=== PATIENT | male | born 1970 | race African-American/Black ===

== ENCOUNTER 2018-01-06 19:52 | Inpatient (IN) | payer MEDICAID ==
[~2018-01-06] VITALS: Ht 182.9 cm; Wt 97.1 kg
[2018-01-06] MEDS ORDERED: IV NORMAL SALINE 1000ML BAG 1,000 ML IV SCH (20:26)
[2018-01-06 21:04] LABS: BASO # 0.1 x10^3/uL (0.0-0.2); BASO % 1 % (0-3); EOS # 0.2 x10^3/uL (0.0-0.7); EOS % 3 % (0-3); HEMATOCRIT 39.5 % (39.0-53.0); HEMOGLOBIN 13.7 g/dL (13.0-17.5); LYMPH # 1.8 x10^3/uL (1.0-4.8); LYMPH % 23 % (24-48); MEAN CORPUSCULAR HEMOGLOBIN 31 pg (25-35); MEAN CORPUSCULAR HGB CONC 35 g/dL (31-37); MEAN CORPUSCULAR VOLUME 90 fL (79-100); MONO # 0.5 x10^3/uL (0.0-1.1); MONO % 6 % (0-9); NEUT # 5.3 x10^3uL (1.8-7.7); NEUT % 68 % (31-73); PLATELET COUNT 214 x10^3/uL (140-400); RED BLOOD COUNT 4.38 x10^6/uL (4.30-5.70); RED CELL DISTRIBUTION WIDTH 13.7 % (11.5-14.5); WHITE BLOOD COUNT 7.8 x10^3/uL (4.0-11.0)
[2018-01-06 21:13] LABS: CALCIUM 9.2 mg/dL (8.5-10.1); CREATININE 1.2 mg/dL (0.7-1.3); GFR 64.9; POTASSIUM 4.3 mmol/L (3.5-5.1)
[2018-01-06 21:21] LABS: ALBUMIN 3.6 g/dL (3.4-5.0); ALBUMIN/GLOBULIN RATIO 0.8 (1.0-1.7); C-REACTIVE PROTEIN 4.8 mg/L (0-3.3); TOTAL BILIRUBIN 0.3 mg/dL (0.2-1.0); TOTAL PROTEIN 7.9 g/dL (6.4-8.2)
--- NOTE | 2018-01-06 21:27 | PHYS DOC ---
Past Medical History Past Medical History: Diabetes-Type II Past Surgical History: Other Additional Past Surgical Histo: RIGHT FOOT BIG TOE AMPUTATED Alcohol Use: None Drug Use: None Adult General Chief Complaint Chief Complaint: WOUND CHECK HPI HPI Patient is a 47-year-old male who presents with report of ulceration to his right foot that has been present for the last 2-3 months. Patient states that he has had type 2 diabetes for approximately 8-10 years and states that he had his great toe amputated not long after diagnosis of his diabetes. Patient states that his blood sugars have been difficult to control since onset of the foot ulcer. He indicates that he does not have a primary care doctor and has not been seen for his foot as yet. He is unsure whether or not he has been running a fever. He does admit to some intermittent nausea but currently denies any nausea or vomiting. He does report to some mild pain in the foot especially when the area of ulceration is palpated. He denies chest pain or shortness of breath. Review of Systems Review of Systems Constitutional: Denies fever or chills [] Respiratory: Denies cough or shortness of breath [] Cardiovascular: Denies chest pain[] GI: Denies abdominal pain, vomiting or diarrhea. Admits to intermittent nausea [ ] Musculoskeletal: Complains of right foot pain, ulceration and swelling with drainage from the wounds[] Integument: Reports ulceration and other wounds to right foot[] Neurologic: Denies headache, focal weakness or sensory changes [] All other systems were reviewed and found to be within normal limits, except as documented in this note. Current Medications Current Medications Current Medications Medications (Trade) Dose Ordered Sig/[facility] Start Time Stop Time Status Last Admin Dose Admin Insulin Human Regular (HumuLIN R VIAL) 8 unit 1X ONCE 01/06/18 23:15 01/06/18 23:16 DC Sodium Chloride 1,000 ml @ 1,000 mls/hr Q1H 01/06/18 20:26 01/06/18 21:25 DC 01/06/18 21:25 1,000 MLS/HR Vancomycin HCl 250 ml @ 250 mls/hr 1X ONCE 01/06/18 23:30 01/07/18 00:29 Allergies Allergies Allergies Coded Allergies Type Severity Reaction Last Updated Verified Penicillins Allergy Intermediate 01/06/18 Yes Physical Exam Physical Exam Constitutional: Well developed, well nourished, no acute distress, non-toxic appearance. [] HENT: Normocephalic, atraumatic, bilateral external ears normal, oropharynx moist, no oral exudates, nose normal. [] Eyes: PERRLA, EOMI, conjunctiva normal, no discharge. [] Neck: Normal range of motion, no tenderness, supple, no stridor. [] Cardiovascular:Heart rate regular rhythm [] Lungs & Thorax: Bilateral breath sounds clear to auscultation [] Abdomen: Bowel sounds normal, soft, no tenderness, no masses, no pulsatile masses. [] Skin: Warm, dry. [] Extremities: Right foot demonstrates ulceration to the lateral heel as well as what appears to be ulcerations to the plantar aspect around the ball of the foot with scant purulent drainage. [] Neurologic: Alert and oriented X 3, normal motor function. [] Current Patient Data Vital Signs Vital Signs Date Time Temp Pulse Resp B/P (MAP) Pulse Ox O2 Delivery O2 Flow Rate FiO2 01/06/18 20:10 98.9 87 18 137/81 (99) 98 Room Air 98.9 Lab Values Laboratory Tests Test 01/06/18 20:07 01/06/18 20:45 01/06/18 20:50 Glucose (Fingerstick) 390 mg/dL (70-99) H Urine Collection Type Unknown Urine Color Yellow Urine Clarity Clear Urine pH 6.0 Urine Specific [place] 1.025 Urine Protein Negative mg/dL (NEG-TRACE) Urine Glucose (UA) >=1000 mg/dL (NEG) Urine Ketones (Stick) Negative mg/dL (NEG) Urine Blood Negative (NEG) Urine Nitrite Negative (NEG) Urine Bilirubin Negative (NEG) Urine Urobilinogen Dipstick 0.2 mg/dL (0.2 mg/dL) Urine Leukocyte Esterase Negative (NEG) Urine RBC 0 /HPF (0-2) Urine WBC 0 /HPF (0-4) Urine Squamous Epithelial Cells Few /LPF Urine Bacteria 0 /HPF (0-FEW) White Blood Count 7.8 x10^3/uL (4.0-11.0) Red Blood Count 4.38 x10^6/uL (4.30-5.70) Hemoglobin 13.7 g/dL (13.0-17.5) Hematocrit 39.5 % (39.0-53.0) Mean Corpuscular Volume 90 fL (79-100) Mean Corpuscular Hemoglobin 31 pg (25-35) Mean Corpuscular Hemoglobin Concent 35 g/dL (31-37) Red Cell Distribution Width 13.7 % (11.5-14.5) Platelet Count 214 x10^3/uL (140-400) Neutrophils (%) (Auto) 68 % (31-73) Lymphocytes (%) (Auto) 23 % (24-48) L Monocytes (%) (Auto) 6 % (0-9) Eosinophils (%) (Auto) 3 % (0-3) Basophils (%) (Auto) 1 % (0-3) Neutrophils # (Auto) 5.3 x10^3uL (1.8-7.7) Lymphocytes # (Auto) 1.8 x10^3/uL (1.0-4.8) Monocytes # (Auto) 0.5 x10^3/uL (0.0-1.1) Eosinophils # (Auto) 0.2 x10^3/uL (0.0-0.7) Basophils # (Auto) 0.1 x10^3/uL (0.0-0.2) Sodium Level 133 mmol/L (136-145) L Potassium Level 4.3 mmol/L (3.5-5.1) Chloride Level 97 mmol/L (98-107) L Carbon Dioxide Level 26 mmol/L (21-32) Anion Gap 10 (6-14) Blood Urea Nitrogen 14 mg/dL (8-26) Creatinine 1.2 mg/dL (0.7-1.3) Estimated GFR (Cockcroft-Gault) 64.9 BUN/Creatinine Ratio 12 (6-20) Glucose Level 469 mg/dL (70-99) H Calcium Level 9.2 mg/dL (8.5-10.1) Total Bilirubin 0.3 mg/dL (0.2-1.0) Aspartate Amino Transferase (AST) 21 U/L (15-37) Alanine Aminotransferase (ALT) 28 U/L (16-63) Alkaline Phosphatase 97 U/L (46-116) C-Reactive Protein, Quantitative 4.8 mg/L (0-3.3) H Total Protein 7.9 g/dL (6.4-8.2) Albumin 3.6 g/dL (3.4-5.0) Albumin/Globulin Ratio 0.8 (1.0-1.7) L Laboratory Tests 01/06/18 20:50 Laboratory Tests 01/06/18 20:50 EKG EKG [] Radiology/Procedures Radiology/Procedures [] Impressions: IMPRESSION: Irregularity of the distal right first metatarsal is seen which could reflect osteomyelitis as outlined above. Course & Med Decision Making Course & Med Decision Making Pertinent Labs and Imaging studies reviewed. (See chart for details) [] Dragon Disclaimer Dragon Disclaimer This electronic medical record was generated, in whole or in part, using a voice recognition dictation system. Departure Departure Impression: Primary Impression: Osteomyelitis Additional Impressions: Diabetic foot ulcer Uncontrolled type 2 diabetes mellitus Disposition: ADMITTED INPATIENT Admitting Physician: Xie. Koch Condition: GOOD Referrals: NO PCP (PCP) Problem Qualifiers Primary Impression: Osteomyelitis Osteomyelitis type: unspecified type Osteomyelitis location: foot Laterality: right Qualified Codes: M86.9 - Osteomyelitis, unspecified Additional Impressions: Diabetic foot ulcer Diabetic foot ulcer location: heel Diabetes mellitus type: type 2 Laterality: right Non-pressure ulcer stage: unspecified non-pressure ulcer stage Qualified Codes: E11.621 - Type 2 diabetes mellitus with foot ulcer; L97.419 - Non-pressure chronic ulcer of right heel and midfoot with unspecified severity Uncontrolled type 2 diabetes mellitus Glycemic state: with hyperglycemia Qualified Codes: E11.65 - Type 2 diabetes mellitus with hyperglycemia MELISSA BEATTY Jr. DO Jan 06, 2018 21:27
[2018-01-06 21:36] LABS: BILIRUBIN,URINE NEGATIVE (NEG); CLARITY,URINE CLEAR; COLOR,URINE YELLOW; NITRITE,URINE NEGATIVE (NEG); PROTEIN,URINE NEGATIVE (NEG-TRACE); UROBILINOGEN,URINE 0.2 mg/dL (0.2 mg/dL)
[2018-01-06 21:44] LABS: BACTERIA,URINE 0 /HPF (0-FEW); RBC,URINE 0 /HPF (0-2); SQUAMOUS EPITHELIAL CELL,UR FEW /LPF; WBC,URINE 0 /HPF (0-4)
--- NOTE | 2018-01-06 22:44 | RAD ---
Three-view right foot radiographs 01/06/2018 CLINICAL HISTORY: Diabetic foot ulcer. AP, lateral and oblique digital radiographs of the right foot were obtained. No previous radiographs are available for comparison. The patient is post amputation of the right first toe at the level of the distal metaphysis of the right first metatarsal. Lucency is seen within the soft tissues adjacent to the amputation site. Soft tissue swelling is seen. Irregularity of the remaining distal right first metatarsal is seen. Osteomyelitis in this region is not excluded. Clinical correlation is recommended. No fracture or dislocation is seen. IMPRESSION: Irregularity of the distal right first metatarsal is seen which could reflect osteomyelitis as outlined above. Electronically signed by: Ervin Johnson MD (01/06/2018 10:41 PM) [facility]
[2018-01-06] MEDS ORDERED: INSULIN REGULAR 100 UNIT/ML 3ML VIAL. IV ONE (23:15)
[2018-01-06] MEDS ORDERED: VANCOMYCIN 1GM IVPB FOR OMNI 250 ML IV ONE (23:30)
[2018-01-06] MEDS ORDERED: ACETAMINOPHEN 325 MG TABLET. PO PRN (23:45)
[2018-01-07] MEDS ORDERED: INSU100C4 SQ (02:11)
[2018-01-07] MEDS ORDERED: INSU100I13 SQ (02:11)
[2018-01-07] MEDS ORDERED: DEXTROSE 50% 25 GM / 50ML DISP.SYRIN. IV PRN ×2 (02:15→11:15)
[2018-01-07 03:00] VITALS: BP 123/89
[2018-01-07 07:00] VITALS: BP 143/95
[2018-01-07] MEDS ORDERED: INSULIN GLARGINE 300 UNITS/3 ML INSULN.PEN. SQ ONE (09:30)
[2018-01-07 09:55] LABS: BASO % 1 % (0-3); EOS # 0.1 x10^3/uL (0.0-0.7); EOS % 2 % (0-3); HEMATOCRIT 39.7 % (39.0-53.0); HEMOGLOBIN 13.6 g/dL (13.0-17.5); LYMPH # 1.4 x10^3/uL (1.0-4.8); LYMPH % 24 % (24-48); MEAN CORPUSCULAR HEMOGLOBIN 31 pg (25-35); MEAN CORPUSCULAR HGB CONC 34 g/dL (31-37); MEAN CORPUSCULAR VOLUME 91 fL (79-100); MONO # 0.4 x10^3/uL (0.0-1.1); MONO % 7 % (0-9); NEUT # 3.7 x10^3uL (1.8-7.7); NEUT % 65 % (31-73); PLATELET COUNT 174 x10^3/uL (140-400); RED BLOOD COUNT 4.37 x10^6/uL (4.30-5.70); RED CELL DISTRIBUTION WIDTH 13.5 % (11.5-14.5); WHITE BLOOD COUNT 5.6 x10^3/uL (4.0-11.0)
[2018-01-07] MEDS ORDERED: INSULIN REGULAR 100 UNIT/ML 3ML VIAL. IV ONE (10:00)
[2018-01-07 10:09] LABS: CALCIUM 8.7 mg/dL (8.5-10.1); CREATININE 1.1 mg/dL (0.7-1.3); GFR 86.8; POTASSIUM 4.8 mmol/L (3.5-5.1)
[2018-01-07] MEDS ORDERED: DOCUSATE SODIUM 100 MG CAPSULE. PO PRN (11:15)
[2018-01-07] MEDS ORDERED: MORPHINE SULFATE 2 MG/ML VIAL. IV PRN (11:15)
[2018-01-07] MEDS ORDERED: ACETAMINOPHEN 325 MG TABLET. PO PRN (11:15)
[2018-01-07] MEDS ORDERED: hydrALAZINE 20 MG/ML VIAL. IVP PRN (11:15)
[2018-01-07] MEDS ORDERED: ONDANSETRON PF 4 MG/2 ML VIAL. IV PRN (11:15)
[2018-01-07] MEDS ORDERED: traMADol 50 MG TABLET PO PRN (11:15)
[2018-01-07] MEDS ORDERED: INSULIN LISPRO 300 UNITS/3 ML INSULN.PEN. SQ ONE (11:30)
[2018-01-07] MEDS: INSULIN LISPRO 300 UNITS/3 ML INSULN.PEN. SQ SCH ×4 (11:30→17:00)
[2018-01-07] MEDS: VANCOMYCIN PER PHARMACY MC PRN (11:43)
[2018-01-07] MEDS: VANCOMYCIN 1.5 GM in IV NORMAL SALINE 500ML BAG 500 ML IV SCH (11:51)
[2018-01-07 15:00] VITALS: BP 139/88
--- NOTE | 2018-01-07 15:07 | PDOC1 ---
History and Physical Date of Admission Date of Admission 01/07/18 Identification/Chief Complaint Chief Complaint rt foot ulcer Source Source: Chart review, Patient History of Present Illness History of Present Illness HPI Patient is a 47-year-old male who presents with report of ulceration to his right foot that has been present for the last 2-3 months. pt behaves inappropriatly to staff, not willing to tell me details, wants to go out for "fresh air" and was found smoking. He has no PCP, takes insulin for DM2. he has rt toe amputated, told me he wants to get his foot ulcer checked here, mild pain, fever at home before, but not telling me details. not seen any doc in the past 2months for the foot. no N/V, chest pain, so.b Past Medical History Endocrine: Diabetes Past Surgical History Past Surgical History rt toe amputation. Family History Family History: Hypertension Social History Smoke: 1 pack per day ALCOHOL: social Drugs: None Current Problem List Problem List Problems Medical Problems: (1) Diabetic foot ulcer Status: Acute (2) Osteomyelitis Status: Acute (3) Uncontrolled type 2 diabetes mellitus Status: Acute Current Medications Current Medications Current Medications Medications (Trade) Dose Ordered Sig/[facility] Start Time Stop Time Status Last Admin Dose Admin Acetaminophen (Tylenol) 650 mg PRN Q6HRS PRN 01/07/18 11:15 Dextrose (Dextrose 50%-Water Syringe) 12.5 gm PRN Q15MIN PRN 01/07/18 11:15 Docusate Sodium (Colace) 100 mg PRN DAILY PRN 01/07/18 11:15 Hydralazine HCl (Apresoline Inj) 10 mg PRN Q4HRS PRN 01/07/18 11:15 Insulin Glargine (Lantus) 40 units 1X ONCE 01/07/18 09:30 01/07/18 09:31 DC 01/07/18 09:28 40 UNITS Insulin Human Lispro (HumaLOG) 30 units 1X ONCE 01/07/18 11:30 01/07/18 11:31 DC 01/07/18 11:57 30 UNITS Insulin Human Regular (HumuLIN R VIAL) 10 unit 1X ONCE 01/07/18 10:00 01/07/18 10:01 DC 01/07/18 09:28 10 UNIT Lactobacillus Rhamnosus (Culturelle) 1 cap BID 01/07/18 21:00 Meropenem 1 gm/ Sodium Chloride 100 ml @ 200 mls/hr Q8HRS 01/07/18 14:00 Morphine Sulfate (Morphine Sulfate) 2 mg PRN Q2HR PRN 01/07/18 11:15 Ondansetron HCl (Zofran) 4 mg PRN Q6HRS PRN 01/07/18 11:15 Oxycodone/ Acetaminophen (Percocet 5/325) 1 tab PRN Q6HRS PRN 01/07/18 02:00 Sodium Chloride 1,000 ml @ 1,000 mls/hr Q1H 01/06/18 20:26 01/06/18 21:25 DC 01/06/18 21:25 1,000 MLS/HR Tramadol HCl (Ultram) 50 mg PRN Q6HRS PRN 01/07/18 11:15 Vancomycin HCl (Vanco Per Pharmacy) 1 each PRN DAILY PRN 01/07/18 11:15 01/07/18 11:43 1 EACH Vancomycin HCl (Vancomycin Trough Level) 1 each 1X ONCE 01/08/18 22:30 01/08/18 22:31 Vancomycin HCl 1.5 gm/Sodium Chloride 500 ml @ 250 mls/hr Q12H 01/07/18 12:00 01/07/18 11:51 250 MLS/HR Allergies Allergies Allergies Coded Allergies Type Severity Reaction Last Updated Verified lisinopril Allergy Severe ANGIOEDEMA 01/07/18 Yes Penicillins Allergy Intermediate 01/06/18 Yes ROS Review of System CONSTITUTIONAL: No fever or chills EYES: No recent changes SKIN: No rash or itching CARDIOVASCULAR: No chest pain, syncope, palpitations, or edema RESPIRATORY: No SOB or cough GASTROINTESTINAL: No nausea, vomiting or abdominal pain NEUROLOGICAL: No headaches or weakness ENDOCRINE: No cold or heat intolerance GENITOURINARY: No urgency or frequency of urination MUSCULOSKELETAL: No back pain or joint pain LYMPHATICS: No enlarged lymph nodes PSYCHIATRIC: No anxiety or depression Physical Exam Physical Exam GEN.: No apparent distress. Alert and oriented. HEENT: Head is normocephalic, atraumatic NECK: Supple. LUNGS: Clear to auscultation. HEART: RRR, S1, S2 present. Peripheral pulses intact ABDOMEN: Soft, nontender. Positive bowel sounds. EXTREMITIES: Without any cyanosis. rt foot multiple ulcer, non healing. rt big toe s/p amputation. NEUROLOGIC: Normal speech, normal tone PSYCHIATRIC: Normal affect, normal mood. SKIN: No ulcerations Vitals Vitals Vital Signs Date Time Temp Pulse Resp B/P (MAP) Pulse Ox O2 Delivery O2 Flow Rate FiO2 01/07/18 08:00 Room Air 01/07/18 07:00 98.0 80 18 143/95 (111) 99 98.0 Labs Labs Laboratory Tests Test 01/06/18 20:07 01/06/18 20:45 01/06/18 20:50 01/07/18 00:47 Glucose (Fingerstick) 390 mg/dL (70-99) 291 mg/dL (70-99) Urine Collection Type Unknown Urine Color Yellow Urine Clarity Clear Urine pH 6.0 Urine Specific [place] 1.025 Urine Protein Negative mg/dL (NEG-TRACE) Urine Glucose (UA) >=1000 mg/dL (NEG) Urine Ketones (Stick) Negative mg/dL (NEG) Urine Blood Negative (NEG) Urine Nitrite Negative (NEG) Urine Bilirubin Negative (NEG) Urine Urobilinogen Dipstick 0.2 mg/dL (0.2 mg/dL) Urine Leukocyte Esterase Negative (NEG) Urine RBC 0 /HPF (0-2) Urine WBC 0 /HPF (0-4) Urine Squamous Epithelial Cells Few /LPF Urine Bacteria 0 /HPF (0-FEW) White Blood Count 7.8 x10^3/uL (4.0-11.0) Red Blood Count 4.38 x10^6/uL (4.30-5.70) Hemoglobin 13.7 g/dL (13.0-17.5) Hematocrit 39.5 % (39.0-53.0) Mean Corpuscular Volume 90 fL (79-100) Mean Corpuscular Hemoglobin 31 pg (25-35) Mean Corpuscular Hemoglobin Concent 35 g/dL (31-37) Red Cell Distribution Width 13.7 % (11.5-14.5) Platelet Count 214 x10^3/uL (140-400) Neutrophils (%) (Auto) 68 % (31-73) Lymphocytes (%) (Auto) 23 % (24-48) Monocytes (%) (Auto) 6 % (0-9) Eosinophils (%) (Auto) 3 % (0-3) Basophils (%) (Auto) 1 % (0-3) Neutrophils # (Auto) 5.3 x10^3uL (1.8-7.7) Lymphocytes # (Auto) 1.8 x10^3/uL (1.0-4.8) Monocytes # (Auto) 0.5 x10^3/uL (0.0-1.1) Eosinophils # (Auto) 0.2 x10^3/uL (0.0-0.7) Basophils # (Auto) 0.1 x10^3/uL (0.0-0.2) Sodium Level 133 mmol/L (136-145) Potassium Level 4.3 mmol/L (3.5-5.1) Chloride Level 97 mmol/L (98-107) Carbon Dioxide Level 26 mmol/L (21-32) Anion Gap 10 (6-14) Blood Urea Nitrogen 14 mg/dL (8-26) Creatinine 1.2 mg/dL (0.7-1.3) Estimated GFR (Cockcroft-Gault) 64.9 BUN/Creatinine Ratio 12 (6-20) Glucose Level 469 mg/dL (70-99) Calcium Level 9.2 mg/dL (8.5-10.1) Total Bilirubin 0.3 mg/dL (0.2-1.0) Aspartate Amino Transf (AST/SGOT) 21 U/L (15-37) Alanine Aminotransferase (ALT/SGPT) 28 U/L (16-63) Alkaline Phosphatase 97 U/L (46-116) C-Reactive Protein, Quantitative 4.8 mg/L (0-3.3) Total Protein 7.9 g/dL (6.4-8.2) Albumin 3.6 g/dL (3.4-5.0) Albumin/Globulin Ratio 0.8 (1.0-1.7) Test 01/07/18 08:11 01/07/18 09:20 01/07/18 10:59 Glucose (Fingerstick) 558 mg/dL (70-99) 365 mg/dL (70-99) White Blood Count 5.6 x10^3/uL (4.0-11.0) Red Blood Count 4.37 x10^6/uL (4.30-5.70) Hemoglobin 13.6 g/dL (13.0-17.5) Hematocrit 39.7 % (39.0-53.0) Mean Corpuscular Volume 91 fL (79-100) Mean Corpuscular Hemoglobin 31 pg (25-35) Mean Corpuscular Hemoglobin Concent 34 g/dL (31-37) Red Cell Distribution Width 13.5 % (11.5-14.5) Platelet Count 174 x10^3/uL (140-400) Neutrophils (%) (Auto) 65 % (31-73) Lymphocytes (%) (Auto) 24 % (24-48) Monocytes (%) (Auto) 7 % (0-9) Eosinophils (%) (Auto) 2 % (0-3) Basophils (%) (Auto) 1 % (0-3) Neutrophils # (Auto) 3.7 x10^3uL (1.8-7.7) Lymphocytes # (Auto) 1.4 x10^3/uL (1.0-4.8) Monocytes # (Auto) 0.4 x10^3/uL (0.0-1.1) Eosinophils # (Auto) 0.1 x10^3/uL (0.0-0.7) Basophils # (Auto) 0.0 x10^3/uL (0.0-0.2) Sodium Level 130 mmol/L (136-145) Potassium Level 4.8 mmol/L (3.5-5.1) Chloride Level 96 mmol/L (98-107) Carbon Dioxide Level 27 mmol/L (21-32) Anion Gap 7 (6-14) Blood Urea Nitrogen 14 mg/dL (8-26) Creatinine 1.1 mg/dL (0.7-1.3) Estimated GFR (Cockcroft-Gault) 86.8 Glucose Level 636 mg/dL (70-99) Calcium Level 8.7 mg/dL (8.5-10.1) Laboratory Tests Test 01/06/18 20:07 01/06/18 20:45 01/06/18 20:50 01/07/18 00:47 Glucose (Fingerstick) 390 mg/dL (70-99) 291 mg/dL (70-99) Urine Collection Type Unknown Urine Color Yellow Urine Clarity Clear Urine pH 6.0 Urine Specific [place] 1.025 Urine Protein Negative mg/dL (NEG-TRACE) Urine Glucose (UA) >=1000 mg/dL (NEG) Urine Ketones (Stick) Negative mg/dL (NEG) Urine Blood Negative (NEG) Urine Nitrite Negative (NEG) Urine Bilirubin Negative (NEG) Urine Urobilinogen Dipstick 0.2 mg/dL (0.2 mg/dL) Urine Leukocyte Esterase Negative (NEG) Urine RBC 0 /HPF (0-2) Urine WBC 0 /HPF (0-4) Urine Squamous Epithelial Cells Few /LPF Urine Bacteria 0 /HPF (0-FEW) White Blood Count 7.8 x10^3/uL (4.0-11.0) Red Blood Count 4.38 x10^6/uL (4.30-5.70) Hemoglobin 13.7 g/dL (13.0-17.5) Hematocrit 39.5 % (39.0-53.0) Mean Corpuscular Volume 90 fL (79-100) Mean Corpuscular Hemoglobin 31 pg (25-35) Mean Corpuscular Hemoglobin Concent 35 g/dL (31-37) Red Cell Distribution Width 13.7 % (11.5-14.5) Platelet Count 214 x10^3/uL (140-400) Neutrophils (%) (Auto) 68 % (31-73) Lymphocytes (%) (Auto) 23 % (24-48) Monocytes (%) (Auto) 6 % (0-9) Eosinophils (%) (Auto) 3 % (0-3) Basophils (%) (Auto) 1 % (0-3) Neutrophils # (Auto) 5.3 x10^3uL (1.8-7.7) Lymphocytes # (Auto) 1.8 x10^3/uL (1.0-4.8) Monocytes # (Auto) 0.5 x10^3/uL (0.0-1.1) Eosinophils # (Auto) 0.2 x10^3/uL (0.0-0.7) Basophils # (Auto) 0.1 x10^3/uL (0.0-0.2) Sodium Level 133 mmol/L (136-145) Potassium Level 4.3 mmol/L (3.5-5.1) Chloride Level 97 mmol/L (98-107) Carbon Dioxide Level 26 mmol/L (21-32) Anion Gap 10 (6-14) Blood Urea Nitrogen 14 mg/dL (8-26) Creatinine 1.2 mg/dL (0.7-1.3) Estimated GFR (Cockcroft-Gault) 64.9 BUN/Creatinine Ratio 12 (6-20) Glucose Level 469 mg/dL (70-99) Calcium Level 9.2 mg/dL (8.5-10.1) Total Bilirubin 0.3 mg/dL (0.2-1.0) Aspartate Amino Transf (AST/SGOT) 21 U/L (15-37) Alanine Aminotransferase (ALT/SGPT) 28 U/L (16-63) Alkaline Phosphatase 97 U/L (46-116) C-Reactive Protein, Quantitative 4.8 mg/L (0-3.3) Total Protein 7.9 g/dL (6.4-8.2) Albumin 3.6 g/dL (3.4-5.0) Albumin/Globulin Ratio 0.8 (1.0-1.7) Test 01/07/18 08:11 01/07/18 09:20 01/07/18 10:59 Glucose (Fingerstick) 558 mg/dL (70-99) 365 mg/dL (70-99) White Blood Count 5.6 x10^3/uL (4.0-11.0) Red Blood Count 4.37 x10^6/uL (4.30-5.70) Hemoglobin 13.6 g/dL (13.0-17.5) Hematocrit 39.7 % (39.0-53.0) Mean Corpuscular Volume 91 fL (79-100) Mean Corpuscular Hemoglobin 31 pg (25-35) Mean Corpuscular Hemoglobin Concent 34 g/dL (31-37) Red Cell Distribution Width 13.5 % (11.5-14.5) Platelet Count 174 x10^3/uL (140-400) Neutrophils (%) (Auto) 65 % (31-73) Lymphocytes (%) (Auto) 24 % (24-48) Monocytes (%) (Auto) 7 % (0-9) Eosinophils (%) (Auto) 2 % (0-3) Basophils (%) (Auto) 1 % (0-3) Neutrophils # (Auto) 3.7 x10^3uL (1.8-7.7) Lymphocytes # (Auto) 1.4 x10^3/uL (1.0-4.8) Monocytes # (Auto) 0.4 x10^3/uL (0.0-1.1) Eosinophils # (Auto) 0.1 x10^3/uL (0.0-0.7) Basophils # (Auto) 0.0 x10^3/uL (0.0-0.2) Sodium Level 130 mmol/L (136-145) Potassium Level 4.8 mmol/L (3.5-5.1) Chloride Level 96 mmol/L (98-107) Carbon Dioxide Level 27 mmol/L (21-32) Anion Gap 7 (6-14) Blood Urea Nitrogen 14 mg/dL (8-26) Creatinine 1.1 mg/dL (0.7-1.3) Estimated GFR (Cockcroft-Gault) 86.8 Glucose Level 636 mg/dL (70-99) Calcium Level 8.7 mg/dL (8.5-10.1) VTE Prophylaxis Ordered VTE Prophylaxis Devices: Yes VTE Pharmacological Prophylaxi: Yes Assessment/Plan Assessment/Plan rt foot unhealing ulcer, likely osteomyolitis dm2 uncontrolled , on insulin non compliance,NO PCP tobaccoism plan: ortho, id consult MRI as per ortho add merropenum, vanco fu bcx cont isnulin ,slightly decreased, ssi pt wants to go outside for "fresh air" , given concern about pt's safety, we DONOT allow pts go outside pt upset, i told material crew supervisor to tell me that he has to sign AMA if do so, and i went to talk to him again with accompany of security. pt seems ok to stay now JOSÉ MANUEL VALDERRAMA MD Jan 07, 2018 15:07
[2018-01-07] MEDS: IV NORMAL SALINE 1000ML BAG 1,000 ML IV SCH (15:24)
[2018-01-07] MEDS: HEPARIN PF for SUB-Q USE 5,000 UNIT/0.5 ML VIAL. SQ SCH ×2 (15:28→21:38)
[2018-01-07] MEDS: MEROPENEM 1 GM in IV NORMAL SALINE 100ML 100 ML IV SCH ×2 (16:16→21:26)
[2018-01-07 19:00] VITALS: BP 146/102
[2018-01-07] MEDS: LACTOBACILLUS RHAMNOSUS GG 1 CAPSULE. PO SCH (20:12)
[2018-01-07] MEDS: ZOLPIDEM 5 MG TABLET. PO PRN (21:27)
[2018-01-07] MEDS: INSULIN GLARGINE 300 UNITS/3 ML INSULN.PEN. SQ SCH (21:38)
[2018-01-07 23:00] VITALS: BP 145/80
[2018-01-08] MEDS: IV NORMAL SALINE 1000ML BAG 1,000 ML IV SCH ×2 (04:20→17:40)
[2018-01-08] MEDS: HEPARIN PF for SUB-Q USE 5,000 UNIT/0.5 ML VIAL. SQ SCH ×3 (06:00→21:06)
[2018-01-08] MEDS: MEROPENEM 1 GM in IV NORMAL SALINE 100ML 100 ML IV SCH ×3 (07:09→21:08)
[2018-01-08 07:10] VITALS: BP 126/86
[2018-01-08] MEDS: INSULIN LISPRO 300 UNITS/3 ML INSULN.PEN. SQ SCH ×6 (07:30→16:53)
[2018-01-08] MEDS: LACTOBACILLUS RHAMNOSUS GG 1 CAPSULE. PO SCH ×3 (08:13→22:24)
--- NOTE | 2018-01-08 10:16 | PDOC ---
Infectious Disease Note Vital Sign Vital Signs Vital Signs Date Time Temp Pulse Resp B/P (MAP) Pulse Ox O2 Delivery O2 Flow Rate FiO2 01/08/18 07:10 Room Air 01/08/18 07:10 97.5 65 16 126/86 (99) 97 97.5 Labs Lab Laboratory Tests Test 01/07/18 10:59 01/07/18 16:50 01/07/18 20:59 01/08/18 07:32 Glucose (Fingerstick) 365 mg/dL (70-99) 189 mg/dL (70-99) 191 mg/dL (70-99) 136 mg/dL (70-99) Micro Microbiology 01/07/18 Blood Culture - Preliminary, Resulted NO GROWTH AFTER 1 DAY 01/07/18 Aerobic Culture, Resulted Pending 01/07/18 Aerobic Culture Result 1 (OLIVA), Resulted Pending 01/07/18 Gram Stain - Final, Resulted 01/07/18 Gram Stain Result 1 (OLIVA) - Final, Resulted 01/07/18 Gram Stain Result 2 (OLIVA) - Final, Resulted 01/07/18 Gram Stain Result 3 (OLIVA) - Final, Resulted Objective Assessment R foot wound - GNR s/p R 5th toe amp at [facility] PCN allergy as a child - uncertain if ever had Amox or keflex. Tolerating Meropenem Plan Plan of Care Cont abx F/u labs and cults F/u MRI Cont local wound care Thank you # [phone] NAFISA JURADO MD Jan 08, 2018 10:16
[2018-01-08] MEDS: oxyCODONE/APAP 5/325 1 TAB TABLET PO PRN ×2 (10:40→16:51)
[2018-01-08 10:46] VITALS: BP 148/80
--- NOTE | 2018-01-08 11:35 | PDOC ---
Provider Note Provider Note Went to see patient, but not in room. X-rays and MRI images and reports reviewed. Dr. Peck recommended wound care and antibiotics, per infectious disease. No surgical intervention necessary at this time. ROSE MARIE COLON Jan 08, 2018 11:35
[2018-01-08] MEDS: VANCOMYCIN 1.5 GM in IV NORMAL SALINE 500ML BAG 500 ML IV SCH ×3 (11:52)
[2018-01-08] MEDS: VANCOMYCIN PER PHARMACY MC PRN (11:58)
[2018-01-08 13:02] LABS: CALCIUM 8.8 mg/dL (8.5-10.1); CREATININE 0.9 mg/dL (0.7-1.3); GFR 109.4; POTASSIUM 3.9 mmol/L (3.5-5.1)
[2018-01-08 13:07] LABS: BASO % 1 % (0-3); EOS # 0.2 x10^3/uL (0.0-0.7); EOS % 3 % (0-3); HEMATOCRIT 38.3 % (39.0-53.0); HEMOGLOBIN 13.5 g/dL (13.0-17.5); LYMPH # 1.6 x10^3/uL (1.0-4.8); LYMPH % 24 % (24-48); MEAN CORPUSCULAR HEMOGLOBIN 32 pg (25-35); MEAN CORPUSCULAR HGB CONC 35 g/dL (31-37); MEAN CORPUSCULAR VOLUME 90 fL (79-100); MONO # 0.4 x10^3/uL (0.0-1.1); MONO % 7 % (0-9); NEUT # 4.2 x10^3uL (1.8-7.7); NEUT % 66 % (31-73); PLATELET COUNT 193 x10^3/uL (140-400); RED BLOOD COUNT 4.25 x10^6/uL (4.30-5.70); RED CELL DISTRIBUTION WIDTH 13.8 % (11.5-14.5); WHITE BLOOD COUNT 6.4 x10^3/uL (4.0-11.0)
--- NOTE | 2018-01-08 14:48 | PDOC ---
PROGRESS NOTES Chief Complaint Chief Complaint rt foot unhealing ulcer, likely osteomyolitis dm2 uncontrolled , on insulin non compliance,NO PCP tobaccoism plan: ortho, id consult MRI as per ortho, result pending. 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 History of Present Illness History of Present Illness feels ok hyperglycemia better Vitals Vitals Vital Signs Date Time Temp Pulse Resp B/P (MAP) Pulse Ox O2 Delivery O2 Flow Rate FiO2 01/08/18 11:53 Room Air 01/08/18 10:46 98.3 79 18 148/80 (102) 99 98.3 Physical Exam Physical Exam rt foot has 3 non healing ulcer big toe amputated General: Alert, Oriented X3, Cooperative Heart: Regular rate, Normal S1, Normal S2 Lungs: Clear Abdomen: Normal bowel sounds, Soft Extremities: No clubbing, No cyanosis Labs LABS Laboratory Tests Test 01/07/18 16:50 01/07/18 20:59 01/08/18 07:32 01/08/18 10:45 Glucose (Fingerstick) 189 mg/dL (70-99) 191 mg/dL (70-99) 136 mg/dL (70-99) 274 mg/dL (70-99) Test 01/08/18 12:45 White Blood Count 6.4 x10^3/uL (4.0-11.0) Red Blood Count 4.25 x10^6/uL (4.30-5.70) Hemoglobin 13.5 g/dL (13.0-17.5) Hematocrit 38.3 % (39.0-53.0) Mean Corpuscular Volume 90 fL (79-100) Mean Corpuscular Hemoglobin 32 pg (25-35) Mean Corpuscular Hemoglobin Concent 35 g/dL (31-37) Red Cell Distribution Width 13.8 % (11.5-14.5) Platelet Count 193 x10^3/uL (140-400) Neutrophils (%) (Auto) 66 % (31-73) Lymphocytes (%) (Auto) 24 % (24-48) Monocytes (%) (Auto) 7 % (0-9) Eosinophils (%) (Auto) 3 % (0-3) Basophils (%) (Auto) 1 % (0-3) Neutrophils # (Auto) 4.2 x10^3uL (1.8-7.7) Lymphocytes # (Auto) 1.6 x10^3/uL (1.0-4.8) Monocytes # (Auto) 0.4 x10^3/uL (0.0-1.1) Eosinophils # (Auto) 0.2 x10^3/uL (0.0-0.7) Basophils # (Auto) 0.0 x10^3/uL (0.0-0.2) Sodium Level 135 mmol/L (136-145) Potassium Level 3.9 mmol/L (3.5-5.1) Chloride Level 103 mmol/L (98-107) Carbon Dioxide Level 26 mmol/L (21-32) Anion Gap 6 (6-14) Blood Urea Nitrogen 10 mg/dL (8-26) Creatinine 0.9 mg/dL (0.7-1.3) Estimated GFR (Cockcroft-Gault) 109.4 Glucose Level 313 mg/dL (70-99) Calcium Level 8.8 mg/dL (8.5-10.1) Assessment and Plan Assessmemt and Plan Problems Medical Problems: (1) Diabetic foot ulcer Status: Acute (2) Osteomyelitis Status: Acute (3) Uncontrolled type 2 diabetes mellitus Status: Acute Comment Review of Relevant I have reviewed the following items yuly (where applicable) has been applied. Labs Laboratory Tests Test 01/06/18 20:07 01/06/18 20:45 01/06/18 20:50 01/07/18 00:47 Glucose (Fingerstick) 390 mg/dL (70-99) 291 mg/dL (70-99) Urine Collection Type Unknown Urine Color Yellow Urine Clarity Clear Urine pH 6.0 Urine Specific [place] 1.025 Urine Protein Negative mg/dL (NEG-TRACE) Urine Glucose (UA) >=1000 mg/dL (NEG) Urine Ketones (Stick) Negative mg/dL (NEG) Urine Blood Negative (NEG) Urine Nitrite Negative (NEG) Urine Bilirubin Negative (NEG) Urine Urobilinogen Dipstick 0.2 mg/dL (0.2 mg/dL) Urine Leukocyte Esterase Negative (NEG) Urine RBC 0 /HPF (0-2) Urine WBC 0 /HPF (0-4) Urine Squamous Epithelial Cells Few /LPF Urine Bacteria 0 /HPF (0-FEW) White Blood Count 7.8 x10^3/uL (4.0-11.0) Red Blood Count 4.38 x10^6/uL (4.30-5.70) Hemoglobin 13.7 g/dL (13.0-17.5) Hematocrit 39.5 % (39.0-53.0) Mean Corpuscular Volume 90 fL (79-100) Mean Corpuscular Hemoglobin 31 pg (25-35) Mean Corpuscular Hemoglobin Concent 35 g/dL (31-37) Red Cell Distribution Width 13.7 % (11.5-14.5) Platelet Count 214 x10^3/uL (140-400) Neutrophils (%) (Auto) 68 % (31-73) Lymphocytes (%) (Auto) 23 % (24-48) Monocytes (%) (Auto) 6 % (0-9) Eosinophils (%) (Auto) 3 % (0-3) Basophils (%) (Auto) 1 % (0-3) Neutrophils # (Auto) 5.3 x10^3uL (1.8-7.7) Lymphocytes # (Auto) 1.8 x10^3/uL (1.0-4.8) Monocytes # (Auto) 0.5 x10^3/uL (0.0-1.1) Eosinophils # (Auto) 0.2 x10^3/uL (0.0-0.7) Basophils # (Auto) 0.1 x10^3/uL (0.0-0.2) Sodium Level 133 mmol/L (136-145) Potassium Level 4.3 mmol/L (3.5-5.1) Chloride Level 97 mmol/L (98-107) Carbon Dioxide Level 26 mmol/L (21-32) Anion Gap 10 (6-14) Blood Urea Nitrogen 14 mg/dL (8-26) Creatinine 1.2 mg/dL (0.7-1.3) Estimated GFR (Cockcroft-Gault) 64.9 BUN/Creatinine Ratio 12 (6-20) Glucose Level 469 mg/dL (70-99) Calcium Level 9.2 mg/dL (8.5-10.1) Total Bilirubin 0.3 mg/dL (0.2-1.0) Aspartate Amino Transf (AST/SGOT) 21 U/L (15-37) Alanine Aminotransferase (ALT/SGPT) 28 U/L (16-63) Alkaline Phosphatase 97 U/L (46-116) C-Reactive Protein, Quantitative 4.8 mg/L (0-3.3) Total Protein 7.9 g/dL (6.4-8.2) Albumin 3.6 g/dL (3.4-5.0) Albumin/Globulin Ratio 0.8 (1.0-1.7) Test 01/07/18 08:11 01/07/18 09:20 01/07/18 10:59 01/07/18 16:50 Glucose (Fingerstick) 558 mg/dL (70-99) 365 mg/dL (70-99) 189 mg/dL (70-99) White Blood Count 5.6 x10^3/uL (4.0-11.0) Red Blood Count 4.37 x10^6/uL (4.30-5.70) Hemoglobin 13.6 g/dL (13.0-17.5) Hematocrit 39.7 % (39.0-53.0) Mean Corpuscular Volume 91 fL (79-100) Mean Corpuscular Hemoglobin 31 pg (25-35) Mean Corpuscular Hemoglobin Concent 34 g/dL (31-37) Red Cell Distribution Width 13.5 % (11.5-14.5) Platelet Count 174 x10^3/uL (140-400) Neutrophils (%) (Auto) 65 % (31-73) Lymphocytes (%) (Auto) 24 % (24-48) Monocytes (%) (Auto) 7 % (0-9) Eosinophils (%) (Auto) 2 % (0-3) Basophils (%) (Auto) 1 % (0-3) Neutrophils # (Auto) 3.7 x10^3uL (1.8-7.7) Lymphocytes # (Auto) 1.4 x10^3/uL (1.0-4.8) Monocytes # (Auto) 0.4 x10^3/uL (0.0-1.1) Eosinophils # (Auto) 0.1 x10^3/uL (0.0-0.7) Basophils # (Auto) 0.0 x10^3/uL (0.0-0.2) Sodium Level 130 mmol/L (136-145) Potassium Level 4.8 mmol/L (3.5-5.1) Chloride Level 96 mmol/L (98-107) Carbon Dioxide Level 27 mmol/L (21-32) Anion Gap 7 (6-14) Blood Urea Nitrogen 14 mg/dL (8-26) Creatinine 1.1 mg/dL (0.7-1.3) Estimated GFR (Cockcroft-Gault) 86.8 Glucose Level 636 mg/dL (70-99) Calcium Level 8.7 mg/dL (8.5-10.1) Test 01/07/18 20:59 01/08/18 07:32 01/08/18 10:45 01/08/18 12:45 Glucose (Fingerstick) 191 mg/dL (70-99) 136 mg/dL (70-99) 274 mg/dL (70-99) White Blood Count 6.4 x10^3/uL (4.0-11.0) Red Blood Count 4.25 x10^6/uL (4.30-5.70) Hemoglobin 13.5 g/dL (13.0-17.5) Hematocrit 38.3 % (39.0-53.0) Mean Corpuscular Volume 90 fL (79-100) Mean Corpuscular Hemoglobin 32 pg (25-35) Mean Corpuscular Hemoglobin Concent 35 g/dL (31-37) Red Cell Distribution Width 13.8 % (11.5-14.5) Platelet Count 193 x10^3/uL (140-400) Neutrophils (%) (Auto) 66 % (31-73) Lymphocytes (%) (Auto) 24 % (24-48) Monocytes (%) (Auto) 7 % (0-9) Eosinophils (%) (Auto) 3 % (0-3) Basophils (%) (Auto) 1 % (0-3) Neutrophils # (Auto) 4.2 x10^3uL (1.8-7.7) Lymphocytes # (Auto) 1.6 x10^3/uL (1.0-4.8) Monocytes # (Auto) 0.4 x10^3/uL (0.0-1.1) Eosinophils # (Auto) 0.2 x10^3/uL (0.0-0.7) Basophils # (Auto) 0.0 x10^3/uL (0.0-0.2) Sodium Level 135 mmol/L (136-145) Potassium Level 3.9 mmol/L (3.5-5.1) Chloride Level 103 mmol/L (98-107) Carbon Dioxide Level 26 mmol/L (21-32) Anion Gap 6 (6-14) Blood Urea Nitrogen 10 mg/dL (8-26) Creatinine 0.9 mg/dL (0.7-1.3) Estimated GFR (Cockcroft-Gault) 109.4 Glucose Level 313 mg/dL (70-99) Calcium Level 8.8 mg/dL (8.5-10.1) Laboratory Tests Test 01/07/18 16:50 01/07/18 20:59 01/08/18 07:32 01/08/18 10:45 Glucose (Fingerstick) 189 mg/dL (70-99) 191 mg/dL (70-99) 136 mg/dL (70-99) 274 mg/dL (70-99) Test 01/08/18 12:45 White Blood Count 6.4 x10^3/uL (4.0-11.0) Red Blood Count 4.25 x10^6/uL (4.30-5.70) Hemoglobin 13.5 g/dL (13.0-17.5) Hematocrit 38.3 % (39.0-53.0) Mean Corpuscular Volume 90 fL (79-100) Mean Corpuscular Hemoglobin 32 pg (25-35) Mean Corpuscular Hemoglobin Concent 35 g/dL (31-37) Red Cell Distribution Width 13.8 % (11.5-14.5) Platelet Count 193 x10^3/uL (140-400) Neutrophils (%) (Auto) 66 % (31-73) Lymphocytes (%) (Auto) 24 % (24-48) Monocytes (%) (Auto) 7 % (0-9) Eosinophils (%) (Auto) 3 % (0-3) Basophils (%) (Auto) 1 % (0-3) Neutrophils # (Auto) 4.2 x10^3uL (1.8-7.7) Lymphocytes # (Auto) 1.6 x10^3/uL (1.0-4.8) Monocytes # (Auto) 0.4 x10^3/uL (0.0-1.1) Eosinophils # (Auto) 0.2 x10^3/uL (0.0-0.7) Basophils # (Auto) 0.0 x10^3/uL (0.0-0.2) Sodium Level 135 mmol/L (136-145) Potassium Level 3.9 mmol/L (3.5-5.1) Chloride Level 103 mmol/L (98-107) Carbon Dioxide Level 26 mmol/L (21-32) Anion Gap 6 (6-14) Blood Urea Nitrogen 10 mg/dL (8-26) Creatinine 0.9 mg/dL (0.7-1.3) Estimated GFR (Cockcroft-Gault) 109.4 Glucose Level 313 mg/dL (70-99) Calcium Level 8.8 mg/dL (8.5-10.1) Microbiology 01/07/18 Blood Culture - Preliminary, Resulted NO GROWTH AFTER 1 DAY 01/07/18 Aerobic Culture, Resulted Pending 01/07/18 Aerobic Culture Result 1 (OLIVA), Resulted Pending 01/07/18 Gram Stain - Final, Resulted 01/07/18 Gram Stain Result 1 (OLIVA) - Final, Resulted 01/07/18 Gram Stain Result 2 (OLIVA) - Final, Resulted 01/07/18 Gram Stain Result 3 (OLIVA) - Final, Resulted Medications Current Medications Sodium Chloride 1,000 ml @ 1,000 mls/hr Q1H IV Last administered on 01/06/18at 21:25; Start 01/06/18 at 20:26; Stop 01/06/18 at 21:25; Status DC Insulin Human Regular (HumuLIN R VIAL) 8 unit 1X ONCE IV Last administered on 01/07/18at 00:09; Start 01/06/18 at 23:15; Stop 01/06/18 at 23:16; Status DC Vancomycin HCl 250 ml @ 250 mls/hr 1X ONCE IV Last administered on 01/07/18at 01:16; Start 01/06/18 at 23:30; Stop 01/07/18 at 00:29; Status DC Acetaminophen (Tylenol) 650 mg PRN Q4HRS PRN PO FEVER; Start 01/06/18 at 23:45 ; Stop 01/07/18 at 11:19; Status DC Oxycodone/ Acetaminophen (Percocet 5/325) 1 tab PRN Q6HRS PRN PO PAIN Last administered on 01/08/18at 10:40; Start 01/07/18 at 02:00 Dextrose (Dextrose 50%-Water Syringe) 12.5 gm PRN Q15MIN PRN IV SEE COMMENTS; Start 01/07/18 at 02:15; Stop 01/07/18 at 11:20; Status DC Insulin Glargine (Lantus) 40 units 1X ONCE SQ Last administered on 01/07/18at 09:28; Start 01/07/18 at 09:30; Stop 01/07/18 at 09:31; Status DC Insulin Human Regular (HumuLIN R VIAL) 10 unit 1X ONCE IV Last administered on 01/07/18at 09:28; Start 01/07/18 at 10:00; Stop 01/07/18 at 10:01; Status DC Insulin Human Lispro (HumaLOG) 0-9 UNITS TIDWMEALS SQ Last administered on 01/08at 11:53; Start 01/07/18 at 12:00 Dextrose (Dextrose 50%-Water Syringe) 12.5 gm PRN Q15MIN PRN IV SEE COMMENTS; Start 01/07/18 at 11:15 Acetaminophen (Tylenol) 650 mg PRN Q6HRS PRN PO FEVER; Start 01/07/18 at 11:15 Ondansetron HCl (Zofran) 4 mg PRN Q6HRS PRN IV NAUSEA/VOMITING; Start 01/07/18 at 11:15 Morphine Sulfate (Morphine Sulfate) 2 mg PRN Q2HR PRN IV MODERATE TO SEVERE PAIN; Start 01/07/18 at 11:15 Tramadol HCl (Ultram) 50 mg PRN Q6HRS PRN PO MILD TO MODERATE PAIN; Start 01/07 at 11:15 Hydralazine HCl (Apresoline Inj) 10 mg PRN Q4HRS PRN IVP ELEVATED BP, SEE COMMENTS; Start 01/07/18 at 11:15 Docusate Sodium (Colace) 100 mg PRN DAILY PRN PO CONSTIPATION; Start 01/07/18 at 11:15 Vancomycin HCl (Vanco Per Pharmacy) 1 each PRN DAILY PRN MC SEE COMMENTS Last administered on 01/08/18 11:58; Start 01/07/18 at 11:15 Vancomycin HCl 1.5 gm/Sodium Chloride 500 ml @ 250 mls/hr Q12H IV Last administered on 01/08/18 11:52; Start 01/07/18 at 12:00 Meropenem 1 gm/ Sodium Chloride 100 ml @ 200 mls/hr Q8HRS IV Last administered on 01/08/18 14:13; Start 01/07/18 at 14:00 Insulin Human Lispro (HumaLOG) 20 units TIDAC SQ Last administered on 11:52; Start 01/07/18 at 11:30 Insulin Human Lispro (HumaLOG) 30 units 1X ONCE SQ Last administered on at 11:57; Start 01/07/18 at 11:30; Stop 01/07/18 at 11:31; Status DC Vancomycin HCl (Vancomycin Trough Level) 1 each 1X ONCE MC ; Start 01/08/18 at 23:30; Stop 01/08/18 at 23:31 Lactobacillus Rhamnosus (Culturelle) 1 cap BID PO Last administered on at 09:44; Start 01/07/18 at 21:00 Insulin Glargine (Lantus) 40 units QHS SQ Last administered on 01/07/18at 21:38 ; Start 01/07/18 at 21:00 Sodium Chloride 1,000 ml @ 75 mls/hr [id number] IV Last administered on 15:24; Start 01/07/18 at 15:00 Heparin Sodium (Porcine) (Heparin Sq) 5,000 unit Q8HRS SQ Last administered on 01/07/18 15:28; Start 01/07/18 at 15:30 Zolpidem Tartrate (Ambien) 5 mg PRN QHS PRN PO INSOMNIA Last administered on 21:27; Start 01/07/18 at 17:15 Active Scripts Active Reported Lantus Solostar (Insulin Glargine,Hum.rec.anlog) 100 Unit/1 Ml Insuln.pen 45 Unit SQ QHS Novolog (Insulin Aspart) 100 Unit/1 Ml Cartridge 34 Unit SQ TIDAC Vitals/I & O Vital Sign - Last 24 Hours 01/07/18 01/07/18 01/07/18 01/07/18 15:00 19:00 20:00 23:00 Temp 97.8 98.1 98.1 97.8 98.1 98.1 Pulse 77 74 79 Resp 17 18 18 B/P (MAP) 139/88 (105) 146/102 (117) 145/80 (101) Pulse Ox 99 99 97 O2 Delivery Room Air Room Air Room Air 01/08/18 01/08/18 01/08/18 01/08/18 07:10 07:10 10:40 10:46 Temp 97.5 98.3 97.5 98.3 Pulse 65 79 Resp 16 18 B/P (MAP) 126/86 (99) 148/80 (102) Pulse Ox 97 99 O2 Delivery Room Air Room Air Room Air Room Air 01/08/18 11:53 O2 Delivery Room Air Intake and Output 01/07/18 01/07/18 01/08/18 15:00 23:00 07:00 Intake Total 600 ml 200 ml Output Total 1 ml Balance 600 ml 199 ml JOSÉ MANUEL VALDERRAMA MD Jan 08, 2018 14:48
[2018-01-08 15:00] VITALS: BP 132/80
[2018-01-08] MEDS ORDERED: INSULIN LISPRO 300 UNITS/3 ML INSULN.PEN. SQ SCH (16:30)
[2018-01-08 19:00] VITALS: BP 175/99
[2018-01-08] MEDS: INSULIN GLARGINE 300 UNITS/3 ML INSULN.PEN. SQ SCH (21:05)
[2018-01-08] MEDS: ZOLPIDEM 5 MG TABLET. PO PRN (22:23)
[2018-01-08 23:00] VITALS: BP 141/93
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
[2018-01-09] MEDS: VANCOMYCIN 1.5 GM in IV NORMAL SALINE 500ML BAG 500 ML IV SCH ×2 (00:38→12:42)
[2018-01-09] MEDS: HEPARIN PF for SUB-Q USE 5,000 UNIT/0.5 ML VIAL. SQ SCH ×3 (06:00→22:06)
[2018-01-09] MEDS: IV NORMAL SALINE 1000ML BAG 1,000 ML IV SCH ×2 (06:13→20:20)
[2018-01-09] MEDS: MEROPENEM 1 GM in IV NORMAL SALINE 100ML 100 ML IV SCH ×3 (06:17→22:00)
[2018-01-09 06:22] VITALS: BP 169/106
[2018-01-09 07:00] VITALS: BP 165/97
[2018-01-09] MEDS: LACTOBACILLUS RHAMNOSUS GG 1 CAPSULE. PO SCH ×2 (08:14→21:29)
[2018-01-09] MEDS: oxyCODONE/APAP 5/325 1 TAB TABLET PO PRN ×2 (08:15→19:13)
[2018-01-09] MEDS: INSULIN LISPRO 300 UNITS/3 ML INSULN.PEN. SQ SCH ×5 (08:23→16:58)
[2018-01-09 08:41] LABS: BASO # 0.1 x10^3/uL (0.0-0.2); BASO % 1 % (0-3); EOS # 0.2 x10^3/uL (0.0-0.7); EOS % 4 % (0-3); HEMATOCRIT 39.1 % (39.0-53.0); HEMOGLOBIN 13.8 g/dL (13.0-17.5); LYMPH # 1.5 x10^3/uL (1.0-4.8); LYMPH % 25 % (24-48); MEAN CORPUSCULAR HEMOGLOBIN 31 pg (25-35); MEAN CORPUSCULAR HGB CONC 35 g/dL (31-37); MEAN CORPUSCULAR VOLUME 89 fL (79-100); MONO # 0.5 x10^3/uL (0.0-1.1); MONO % 8 % (0-9); NEUT # 3.8 x10^3uL (1.8-7.7); NEUT % 62 % (31-73); PLATELET COUNT 183 x10^3/uL (140-400); RED BLOOD COUNT 4.39 x10^6/uL (4.30-5.70); RED CELL DISTRIBUTION WIDTH 13.3 % (11.5-14.5); WHITE BLOOD COUNT 6.1 x10^3/uL (4.0-11.0)
[2018-01-09 09:24] LABS: CALCIUM 8.7 mg/dL (8.5-10.1); CREATININE 0.9 mg/dL (0.7-1.3); GFR 109.4
--- NOTE | 2018-01-09 09:31 | PDOC ---
Infectious Disease Note Subjective Subjective feeling ok ROS ROS no n/v/d/sob Vital Sign Vital Signs Vital Signs Date Time Temp Pulse Resp B/P (MAP) Pulse Ox O2 Delivery O2 Flow Rate FiO2 01/09/18 08:15 Room Air 01/09/18 07:00 97.7 70 18 165/97 (119) 97 97.7 Physical Exam PHYSICAL EXAM CONSTITUTIONAL: He is in no acute distress. He is cooperative. He is up and wandering in the halls. NECK: Supple. LUNGS: Clear to auscultation. HEART: S1, S2. ABDOMEN: Soft, nontender and nondistended. Positive bowel sounds. EXTREMITIES: No clubbing or cyanosis. There is a well-healed scar on the medial aspect of his right leg. Lateral aspect of his right fifth toe area has an area of healing granulation, looks well. No signs of any erythema. No warmth. No fluctuance. He does have callus in both the metatarsal heads of his foot in the middle of his plantar aspect as well, without evidence of any fluctuance, drainage, warmth or erythema. SKIN: Without signs of rash. NEUROLOGIC: He is nonfocal. Labs Lab Laboratory Tests Test 01/08/18 10:45 01/08/18 12:45 01/08/18 16:46 01/08/18 21:01 Glucose (Fingerstick) 274 mg/dL (70-99) 213 mg/dL (70-99) 229 mg/dL (70-99) White Blood Count 6.4 x10^3/uL (4.0-11.0) Red Blood Count 4.25 x10^6/uL (4.30-5.70) Hemoglobin 13.5 g/dL (13.0-17.5) Hematocrit 38.3 % (39.0-53.0) Mean Corpuscular Volume 90 fL (79-100) Mean Corpuscular Hemoglobin 32 pg (25-35) Mean Corpuscular Hemoglobin Concent 35 g/dL (31-37) Red Cell Distribution Width 13.8 % (11.5-14.5) Platelet Count 193 x10^3/uL (140-400) Neutrophils (%) (Auto) 66 % (31-73) Lymphocytes (%) (Auto) 24 % (24-48) Monocytes (%) (Auto) 7 % (0-9) Eosinophils (%) (Auto) 3 % (0-3) Basophils (%) (Auto) 1 % (0-3) Neutrophils # (Auto) 4.2 x10^3uL (1.8-7.7) Lymphocytes # (Auto) 1.6 x10^3/uL (1.0-4.8) Monocytes # (Auto) 0.4 x10^3/uL (0.0-1.1) Eosinophils # (Auto) 0.2 x10^3/uL (0.0-0.7) Basophils # (Auto) 0.0 x10^3/uL (0.0-0.2) Sodium Level 135 mmol/L (136-145) Potassium Level 3.9 mmol/L (3.5-5.1) Chloride Level 103 mmol/L (98-107) Carbon Dioxide Level 26 mmol/L (21-32) Anion Gap 6 (6-14) Blood Urea Nitrogen 10 mg/dL (8-26) Creatinine 0.9 mg/dL (0.7-1.3) Estimated GFR (Cockcroft-Gault) 109.4 Glucose Level 313 mg/dL (70-99) Calcium Level 8.8 mg/dL (8.5-10.1) Test 01/09/18 07:32 01/09/18 08:25 Glucose (Fingerstick) 275 mg/dL (70-99) White Blood Count 6.1 x10^3/uL (4.0-11.0) Red Blood Count 4.39 x10^6/uL (4.30-5.70) Hemoglobin 13.8 g/dL (13.0-17.5) Hematocrit 39.1 % (39.0-53.0) Mean Corpuscular Volume 89 fL (79-100) Mean Corpuscular Hemoglobin 31 pg (25-35) Mean Corpuscular Hemoglobin Concent 35 g/dL (31-37) Red Cell Distribution Width 13.3 % (11.5-14.5) Platelet Count 183 x10^3/uL (140-400) Neutrophils (%) (Auto) 62 % (31-73) Lymphocytes (%) (Auto) 25 % (24-48) Monocytes (%) (Auto) 8 % (0-9) Eosinophils (%) (Auto) 4 % (0-3) Basophils (%) (Auto) 1 % (0-3) Neutrophils # (Auto) 3.8 x10^3uL (1.8-7.7) Lymphocytes # (Auto) 1.5 x10^3/uL (1.0-4.8) Monocytes # (Auto) 0.5 x10^3/uL (0.0-1.1) Eosinophils # (Auto) 0.2 x10^3/uL (0.0-0.7) Basophils # (Auto) 0.1 x10^3/uL (0.0-0.2) Sodium Level 134 mmol/L (136-145) Potassium Level 4.0 mmol/L (3.5-5.1) Chloride Level 101 mmol/L (98-107) Carbon Dioxide Level 22 mmol/L (21-32) Anion Gap 11 (6-14) Blood Urea Nitrogen 9 mg/dL (8-26) Creatinine 0.9 mg/dL (0.7-1.3) Estimated GFR (Cockcroft-Gault) 109.4 Glucose Level 260 mg/dL (70-99) Calcium Level 8.7 mg/dL (8.5-10.1) Micro Microbiology 01/07/18 Blood Culture - Preliminary, Resulted NO GROWTH AFTER 1 DAY 01/07/18 Aerobic Culture, Resulted Pending 01/07/18 Aerobic Culture Result 1 (OLIVA), Resulted Pending 01/07/18 Gram Stain - Final, Resulted 01/07/18 Gram Stain Result 1 (OLIVA) - Final, Resulted 01/07/18 Gram Stain Result 2 (OLIVA) - Final, Resulted 01/07/18 Gram Stain Result 3 (OLIVA) - Final, Resulted Objective Assessment 1. Right foot wound with gram-negative rods in culture. 2. Right fifth toe amputation at [place]. 3. Diabetes. 4. PENICILLIN ALLERGY A CHILD. Plan Plan of Care Cont abx F/u labs and cults F/u MRI Cont local wound care vascular consult GEOFFREY WHITE MD Jan 09, 2018 09:31
--- NOTE | 2018-01-09 09:48 | PDOC ---
PROGRESS NOTES Chief Complaint Chief Complaint rt foot unhealing ulcer, likely osteomyelitis dm2 uncontrolled , on insulin non compliance,NO PCP tobaccoism Right big toe [id number] years ago History of Present Illness History of Present Illness Seemingly has poor insight in his overall health It appears to me that he did not follow-up 7-8 years ago when he was diagnosed with diabetes with a blood sugar of over 800s here Unknown hemoglobin A1c He tells me the [place] event was 7-8 years ago when they amputated his first big toe Blood sugars are running high, 300s MRI foot pending Denies fever, he can bear weight on that leg Plan: Await MRI of the foot ID on board Change to high-dose SSI Check hemoglobin A1c Add an ESR Resume home regimen, 34 units 3 times a day, increase Levemir from 40 to45 units daily at bedtime Vitals Vitals Vital Signs Date Time Temp Pulse Resp B/P (MAP) Pulse Ox O2 Delivery O2 Flow Rate FiO2 01/09/18 08:15 Room Air 01/09/18 07:00 97.7 70 18 165/97 (119) 97 97.7 Physical Exam Physical Exam CONSTITUTIONAL: He is in no acute distress. He is cooperative. He is up and wandering in the halls. NECK: Supple. LUNGS: Clear to auscultation. HEART: S1, S2. ABDOMEN: Soft, nontender and nondistended. Positive bowel sounds. EXTREMITIES: No clubbing or cyanosis. There is a well-healed scar on the medial aspect of his right leg. Lateral aspect of his right fifth toe area has an area of healing granulation, looks well. No signs of any erythema. No warmth. No fluctuance. He does have callus in both the metatarsal heads of his foot in the middle of his plantar aspect as well, without evidence of any fluctuance, drainage, warmth or erythema. SKIN: Without signs of rash. NEUROLOGIC: He is nonfocal. General: Alert, Oriented X3, Cooperative Heart: Regular rate, Normal S1, Normal S2 Lungs: Clear Abdomen: Normal bowel sounds, Soft Extremities: No clubbing, No cyanosis Labs LABS Laboratory Tests Test 01/08/18 10:45 01/08/18 12:45 01/08/18 16:46 01/08/18 21:01 Glucose (Fingerstick) 274 mg/dL (70-99) 213 mg/dL (70-99) 229 mg/dL (70-99) White Blood Count 6.4 x10^3/uL (4.0-11.0) Red Blood Count 4.25 x10^6/uL (4.30-5.70) Hemoglobin 13.5 g/dL (13.0-17.5) Hematocrit 38.3 % (39.0-53.0) Mean Corpuscular Volume 90 fL (79-100) Mean Corpuscular Hemoglobin 32 pg (25-35) Mean Corpuscular Hemoglobin Concent 35 g/dL (31-37) Red Cell Distribution Width 13.8 % (11.5-14.5) Platelet Count 193 x10^3/uL (140-400) Neutrophils (%) (Auto) 66 % (31-73) Lymphocytes (%) (Auto) 24 % (24-48) Monocytes (%) (Auto) 7 % (0-9) Eosinophils (%) (Auto) 3 % (0-3) Basophils (%) (Auto) 1 % (0-3) Neutrophils # (Auto) 4.2 x10^3uL (1.8-7.7) Lymphocytes # (Auto) 1.6 x10^3/uL (1.0-4.8) Monocytes # (Auto) 0.4 x10^3/uL (0.0-1.1) Eosinophils # (Auto) 0.2 x10^3/uL (0.0-0.7) Basophils # (Auto) 0.0 x10^3/uL (0.0-0.2) Sodium Level 135 mmol/L (136-145) Potassium Level 3.9 mmol/L (3.5-5.1) Chloride Level 103 mmol/L (98-107) Carbon Dioxide Level 26 mmol/L (21-32) Anion Gap 6 (6-14) Blood Urea Nitrogen 10 mg/dL (8-26) Creatinine 0.9 mg/dL (0.7-1.3) Estimated GFR (Cockcroft-Gault) 109.4 Glucose Level 313 mg/dL (70-99) Calcium Level 8.8 mg/dL (8.5-10.1) Test 01/09/18 07:32 01/09/18 08:25 Glucose (Fingerstick) 275 mg/dL (70-99) White Blood Count 6.1 x10^3/uL (4.0-11.0) Red Blood Count 4.39 x10^6/uL (4.30-5.70) Hemoglobin 13.8 g/dL (13.0-17.5) Hematocrit 39.1 % (39.0-53.0) Mean Corpuscular Volume 89 fL (79-100) Mean Corpuscular Hemoglobin 31 pg (25-35) Mean Corpuscular Hemoglobin Concent 35 g/dL (31-37) Red Cell Distribution Width 13.3 % (11.5-14.5) Platelet Count 183 x10^3/uL (140-400) Neutrophils (%) (Auto) 62 % (31-73) Lymphocytes (%) (Auto) 25 % (24-48) Monocytes (%) (Auto) 8 % (0-9) Eosinophils (%) (Auto) 4 % (0-3) Basophils (%) (Auto) 1 % (0-3) Neutrophils # (Auto) 3.8 x10^3uL (1.8-7.7) Lymphocytes # (Auto) 1.5 x10^3/uL (1.0-4.8) Monocytes # (Auto) 0.5 x10^3/uL (0.0-1.1) Eosinophils # (Auto) 0.2 x10^3/uL (0.0-0.7) Basophils # (Auto) 0.1 x10^3/uL (0.0-0.2) Sodium Level 134 mmol/L (136-145) Potassium Level 4.0 mmol/L (3.5-5.1) Chloride Level 101 mmol/L (98-107) Carbon Dioxide Level 22 mmol/L (21-32) Anion Gap 11 (6-14) Blood Urea Nitrogen 9 mg/dL (8-26) Creatinine 0.9 mg/dL (0.7-1.3) Estimated GFR (Cockcroft-Gault) 109.4 Glucose Level 260 mg/dL (70-99) Calcium Level 8.7 mg/dL (8.5-10.1) Review of Systems Review of Systems A 14 point ROS was completed with the following noted as positive: Other systems reviewed and negative. \CONSTITUTIONAL: No fever or chills EYES: No recent changes SKIN: No rash or itching CARDIOVASCULAR: No chest pain, syncope, palpitations, or edema RESPIRATORY: No SOB or cough GASTROINTESTINAL: No nausea, vomiting or abdominal pain NEUROLOGICAL: No headaches or weakness ENDOCRINE: No cold or heat intolerance GENITOURINARY: No urgency or frequency of urination MUSCULOSKELETAL: No back pain or joint pain LYMPHATICS: No enlarged lymph nodes PSYCHIATRIC: No anxiety or depression Assessment and Plan Assessmemt and Plan Problems Medical Problems: (1) Diabetic foot ulcer Status: Acute (2) Osteomyelitis Status: Acute (3) Uncontrolled type 2 diabetes mellitus Status: Acute Comment Review of Relevant I have reviewed the following items yuly (where applicable) has been applied. Labs Laboratory Tests Test 01/07/18 10:59 01/07/18 16:50 01/07/18 20:59 01/08/18 07:32 Glucose (Fingerstick) 365 mg/dL (70-99) 189 mg/dL (70-99) 191 mg/dL (70-99) 136 mg/dL (70-99) Test 01/08/18 10:45 01/08/18 12:45 01/08/18 16:46 01/08/18 21:01 Glucose (Fingerstick) 274 mg/dL (70-99) 213 mg/dL (70-99) 229 mg/dL (70-99) White Blood Count 6.4 x10^3/uL (4.0-11.0) Red Blood Count 4.25 x10^6/uL (4.30-5.70) Hemoglobin 13.5 g/dL (13.0-17.5) Hematocrit 38.3 % (39.0-53.0) Mean Corpuscular Volume 90 fL (79-100) Mean Corpuscular Hemoglobin 32 pg (25-35) Mean Corpuscular Hemoglobin Concent 35 g/dL (31-37) Red Cell Distribution Width 13.8 % (11.5-14.5) Platelet Count 193 x10^3/uL (140-400) Neutrophils (%) (Auto) 66 % (31-73) Lymphocytes (%) (Auto) 24 % (24-48) Monocytes (%) (Auto) 7 % (0-9) Eosinophils (%) (Auto) 3 % (0-3) Basophils (%) (Auto) 1 % (0-3) Neutrophils # (Auto) 4.2 x10^3uL (1.8-7.7) Lymphocytes # (Auto) 1.6 x10^3/uL (1.0-4.8) Monocytes # (Auto) 0.4 x10^3/uL (0.0-1.1) Eosinophils # (Auto) 0.2 x10^3/uL (0.0-0.7) Basophils # (Auto) 0.0 x10^3/uL (0.0-0.2) Sodium Level 135 mmol/L (136-145) Potassium Level 3.9 mmol/L (3.5-5.1) Chloride Level 103 mmol/L (98-107) Carbon Dioxide Level 26 mmol/L (21-32) Anion Gap 6 (6-14) Blood Urea Nitrogen 10 mg/dL (8-26) Creatinine 0.9 mg/dL (0.7-1.3) Estimated GFR (Cockcroft-Gault) 109.4 Glucose Level 313 mg/dL (70-99) Calcium Level 8.8 mg/dL (8.5-10.1) Test 01/09/18 07:32 01/09/18 08:25 Glucose (Fingerstick) 275 mg/dL (70-99) White Blood Count 6.1 x10^3/uL (4.0-11.0) Red Blood Count 4.39 x10^6/uL (4.30-5.70) Hemoglobin 13.8 g/dL (13.0-17.5) Hematocrit 39.1 % (39.0-53.0) Mean Corpuscular Volume 89 fL (79-100) Mean Corpuscular Hemoglobin 31 pg (25-35) Mean Corpuscular Hemoglobin Concent 35 g/dL (31-37) Red Cell Distribution Width 13.3 % (11.5-14.5) Platelet Count 183 x10^3/uL (140-400) Neutrophils (%) (Auto) 62 % (31-73) Lymphocytes (%) (Auto) 25 % (24-48) Monocytes (%) (Auto) 8 % (0-9) Eosinophils (%) (Auto) 4 % (0-3) Basophils (%) (Auto) 1 % (0-3) Neutrophils # (Auto) 3.8 x10^3uL (1.8-7.7) Lymphocytes # (Auto) 1.5 x10^3/uL (1.0-4.8) Monocytes # (Auto) 0.5 x10^3/uL (0.0-1.1) Eosinophils # (Auto) 0.2 x10^3/uL (0.0-0.7) Basophils # (Auto) 0.1 x10^3/uL (0.0-0.2) Sodium Level 134 mmol/L (136-145) Potassium Level 4.0 mmol/L (3.5-5.1) Chloride Level 101 mmol/L (98-107) Carbon Dioxide Level 22 mmol/L (21-32) Anion Gap 11 (6-14) Blood Urea Nitrogen 9 mg/dL (8-26) Creatinine 0.9 mg/dL (0.7-1.3) Estimated GFR (Cockcroft-Gault) 109.4 Glucose Level 260 mg/dL (70-99) Calcium Level 8.7 mg/dL (8.5-10.1) Laboratory Tests Test 01/08/18 10:45 01/08/18 12:45 01/08/18 16:46 01/08/18 21:01 Glucose (Fingerstick) 274 mg/dL (70-99) 213 mg/dL (70-99) 229 mg/dL (70-99) White Blood Count 6.4 x10^3/uL (4.0-11.0) Red Blood Count 4.25 x10^6/uL (4.30-5.70) Hemoglobin 13.5 g/dL (13.0-17.5) Hematocrit 38.3 % (39.0-53.0) Mean Corpuscular Volume 90 fL (79-100) Mean Corpuscular Hemoglobin 32 pg (25-35) Mean Corpuscular Hemoglobin Concent 35 g/dL (31-37) Red Cell Distribution Width 13.8 % (11.5-14.5) Platelet Count 193 x10^3/uL (140-400) Neutrophils (%) (Auto) 66 % (31-73) Lymphocytes (%) (Auto) 24 % (24-48) Monocytes (%) (Auto) 7 % (0-9) Eosinophils (%) (Auto) 3 % (0-3) Basophils (%) (Auto) 1 % (0-3) Neutrophils # (Auto) 4.2 x10^3uL (1.8-7.7) Lymphocytes # (Auto) 1.6 x10^3/uL (1.0-4.8) Monocytes # (Auto) 0.4 x10^3/uL (0.0-1.1) Eosinophils # (Auto) 0.2 x10^3/uL (0.0-0.7) Basophils # (Auto) 0.0 x10^3/uL (0.0-0.2) Sodium Level 135 mmol/L (136-145) Potassium Level 3.9 mmol/L (3.5-5.1) Chloride Level 103 mmol/L (98-107) Carbon Dioxide Level 26 mmol/L (21-32) Anion Gap 6 (6-14) Blood Urea Nitrogen 10 mg/dL (8-26) Creatinine 0.9 mg/dL (0.7-1.3) Estimated GFR (Cockcroft-Gault) 109.4 Glucose Level 313 mg/dL (70-99) Calcium Level 8.8 mg/dL (8.5-10.1) Test 01/09/18 07:32 01/09/18 08:25 Glucose (Fingerstick) 275 mg/dL (70-99) White Blood Count 6.1 x10^3/uL (4.0-11.0) Red Blood Count 4.39 x10^6/uL (4.30-5.70) Hemoglobin 13.8 g/dL (13.0-17.5) Hematocrit 39.1 % (39.0-53.0) Mean Corpuscular Volume 89 fL (79-100) Mean Corpuscular Hemoglobin 31 pg (25-35) Mean Corpuscular Hemoglobin Concent 35 g/dL (31-37) Red Cell Distribution Width 13.3 % (11.5-14.5) Platelet Count 183 x10^3/uL (140-400) Neutrophils (%) (Auto) 62 % (31-73) Lymphocytes (%) (Auto) 25 % (24-48) Monocytes (%) (Auto) 8 % (0-9) Eosinophils (%) (Auto) 4 % (0-3) Basophils (%) (Auto) 1 % (0-3) Neutrophils # (Auto) 3.8 x10^3uL (1.8-7.7) Lymphocytes # (Auto) 1.5 x10^3/uL (1.0-4.8) Monocytes # (Auto) 0.5 x10^3/uL (0.0-1.1) Eosinophils # (Auto) 0.2 x10^3/uL (0.0-0.7) Basophils # (Auto) 0.1 x10^3/uL (0.0-0.2) Sodium Level 134 mmol/L (136-145) Potassium Level 4.0 mmol/L (3.5-5.1) Chloride Level 101 mmol/L (98-107) Carbon Dioxide Level 22 mmol/L (21-32) Anion Gap 11 (6-14) Blood Urea Nitrogen 9 mg/dL (8-26) Creatinine 0.9 mg/dL (0.7-1.3) Estimated GFR (Cockcroft-Gault) 109.4 Glucose Level 260 mg/dL (70-99) Calcium Level 8.7 mg/dL (8.5-10.1) Microbiology 01/07/18 Blood Culture - Preliminary, Resulted NO GROWTH AFTER 1 DAY 01/07/18 Aerobic Culture, Resulted Pending 01/07/18 Aerobic Culture Result 1 (OLIVA), Resulted Pending 01/07/18 Gram Stain - Final, Resulted 01/07/18 Gram Stain Result 1 (OLIVA) - Final, Resulted 01/07/18 Gram Stain Result 2 (OLIVA) - Final, Resulted 01/07/18 Gram Stain Result 3 (OLIVA) - Final, Resulted Medications Current Medications Sodium Chloride 1,000 ml @ 1,000 mls/hr Q1H IV Last administered on 01/06/18at 21:25; Start 01/06/18 at 20:26; Stop 01/06/18 at 21:25; Status DC Insulin Human Regular (HumuLIN R VIAL) 8 unit 1X ONCE IV Last administered on 01/07/18at 00:09; Start 01/06/18 at 23:15; Stop 01/06/18 at 23:16; Status DC Vancomycin HCl 250 ml @ 250 mls/hr 1X ONCE IV Last administered on 01/07/18at 01:16; Start 01/06/18 at 23:30; Stop 01/07/18 at 00:29; Status DC Acetaminophen (Tylenol) 650 mg PRN Q4HRS PRN PO FEVER; Start 01/06/18 at 23:45 ; Stop 01/07/18 at 11:19; Status DC Oxycodone/ Acetaminophen (Percocet 5/325) 1 tab PRN Q6HRS PRN PO SEVERE PAIN Last administered on 01/09/18at 08:15; Start 01/07/18 at 02:00 Dextrose (Dextrose 50%-Water Syringe) 12.5 gm PRN Q15MIN PRN IV SEE COMMENTS; Start 01/07/18 at 02:15; Stop 01/07/18 at 11:20; Status DC Insulin Glargine (Lantus) 40 units 1X ONCE SQ Last administered on 01/07/18at 09:28; Start 01/07/18 at 09:30; Stop 01/07/18 at 09:31; Status DC Insulin Human Regular (HumuLIN R VIAL) 10 unit 1X ONCE IV Last administered on 01/07/18at 09:28; Start 01/07/18 at 10:00; Stop 01/07/18 at 10:01; Status DC Insulin Human Lispro (HumaLOG) 0-9 UNITS TIDWMEALS SQ Last administered on 01/09at 08:23; Start 01/07/18 at 12:00 Dextrose (Dextrose 50%-Water Syringe) 12.5 gm PRN Q15MIN PRN IV SEE COMMENTS; Start 01/07/18 at 11:15 Acetaminophen (Tylenol) 650 mg PRN Q6HRS PRN PO FEVER; Start 01/07/18 at 11:15 Ondansetron HCl (Zofran) 4 mg PRN Q6HRS PRN IV NAUSEA/VOMITING; Start 01/07/18 at 11:15 Morphine Sulfate (Morphine Sulfate) 2 mg PRN Q2HR PRN IV MODERATE TO SEVERE PAIN; Start 01/07/18 at 11:15 Tramadol HCl (Ultram) 50 mg PRN Q6HRS PRN PO MILD TO MODERATE PAIN; Start 01/07 at 11:15 Hydralazine HCl (Apresoline Inj) 10 mg PRN Q4HRS PRN IVP ELEVATED BP, SEE COMMENTS; Start 01/07/18 at 11:15 Docusate Sodium (Colace) 100 mg PRN DAILY PRN PO CONSTIPATION; Start 01/07/18 at 11:15 Vancomycin HCl (Vanco Per Pharmacy) 1 each PRN DAILY PRN MC SEE COMMENTS Last administered on 01/08/18at 11:58; Start 01/07/18 at 11:15 Vancomycin HCl 1.5 gm/Sodium Chloride 500 ml @ 250 mls/hr Q12H IV Last administered on 01/09/18at 00:38; Start 01/07/18 at 12:00 Meropenem 1 gm/ Sodium Chloride 100 ml @ 200 mls/hr Q8HRS IV Last administered on 01/09/18 06:17; Start 01/07/18 at 14:00 Insulin Human Lispro (HumaLOG) 20 units TIDAC SQ Last administered on at 11:52; Start 01/07/18 at 11:30; Stop 01/08/18 at 14:47; Status DC Insulin Human Lispro (HumaLOG) 30 units 1X ONCE SQ Last administered on at 11:57; Start 01/07/18 at 11:30; Stop 01/07/18 at 11:31; Status DC Vancomycin HCl (Vancomycin Trough Level) 1 each 1X ONCE MC ; Start 01/08/18 at 23:30; Stop 01/08/18 at 23:31; Status DC Lactobacillus Rhamnosus (Culturelle) 1 cap BID PO Last administered on at 08:14; Start 01/07/18 at 21:00 Insulin Glargine (Lantus) 40 units QHS SQ Last administered on 01/08/18at 21:05 ; Start 01/07/18 at 21:00; Stop 01/09/18 at 08:07; Status DC Sodium Chloride 1,000 ml @ 75 mls/hr [id number] IV Last administered on at 15:24; Start 01/07/18 at 15:00 Heparin Sodium (Porcine) (Heparin Sq) 5,000 unit Q8HRS SQ Last administered on 01/08/18at 21:06; Start 01/07/18 at 15:30 Zolpidem Tartrate (Ambien) 5 mg PRN QHS PRN PO INSOMNIA Last administered on 05/16at 22:23; Start 01/07/18 at 17:15 Insulin Human Lispro (HumaLOG) 25 units TIDAC SQ Last administered on at 16:54; Start 01/08/18 at 16:30; Stop 01/09/18 at 08:07; Status DC Vancomycin HCl (Vancomycin Trough Level) 1 each 1X ONCE MC ; Start 01/09/18 at 23:30; Stop 01/09/18 at 23:31 Insulin Glargine (Lantus) 45 units QHS SQ ; Start 01/09/18 at 21:00 Insulin Human Lispro (HumaLOG) 34 units TIDAC SQ Last administered on at 08:23; Start 01/09/18 at 11:30 Active Scripts Active Reported Lantus Solostar (Insulin Glargine,Hum.rec.anlog) 100 Unit/1 Ml Insuln.pen 45 Unit SQ QHS Novolog (Insulin Aspart) 100 Unit/1 Ml Cartridge 34 Unit SQ TIDAC Vitals/I & O Vital Sign - Last 24 Hours 01/08/18 01/08/18 01/08/18 01/08/18 10:40 10:46 11:53 15:00 Temp 98.3 98.1 98.3 98.1 Pulse 79 82 Resp 18 18 B/P (MAP) 148/80 (102) 132/80 (97) Pulse Ox 99 99 O2 Delivery Room Air Room Air Room Air 01/08/18 01/08/18 01/08/18 01/08/18 16:51 19:00 20:00 23:00 Temp 97.7 98.1 97.7 98.1 Pulse 84 74 Resp 18 18 B/P (MAP) 175/99 (124) 141/93 (109) Pulse Ox 98 94 O2 Delivery Room Air Room Air Room Air Room Air 01/09/18 01/09/18 01/09/18 01/09/18 06:22 07:00 07:25 08:15 Temp 97.7 97.7 Pulse 76 70 Resp 18 B/P (MAP) 169/106 (127) 165/97 (119) Pulse Ox 97 O2 Delivery Room Air Room Air Room Air Room Air Intake and Output 01/08/18 01/08/18 01/09/18 15:00 23:00 07:00 Intake Total 0 ml Balance 0 ml JAJA PORTER MD Jan 09, 2018 09:48
--- NOTE | 2018-01-09 10:19 | RAD ---
MR of the right foot HISTORY: Right foot pain. Ulcer. Possible osteomyelitis. TECHNIQUE: Routine multiplanar sequences are obtained. FINDINGS: Moderate motion degradation. There has been amputation of the first toe at the distal first metatarsal. Abnormal marrow signal within the distal shaft remnant of the first metatarsal with loss of fatty marrow, and T2 edema, suspicious for osteomyelitis. Abnormal marrow signal at the distal second and third metatarsals and proximal second and third phalanges, compatible with osteomyelitis. There is destruction of the second and third MTP joints. There is dorsal dislocation of the third proximal phalanx relative to the third metatarsal. Marrow edema and loss of fatty marrow signal within the fifth metatarsal head and distal shaft and proximal fifth phalanx, greatest at the base, compatible with osteomyelitis. Small fifth MTP joint effusion. Diffuse subcutaneous edema/cellulitis. Intramuscular edema/myositis. Small area of focal swelling plantar to the third MTP joint, at the skin surface. Measures about 2 cm x 2 cm x 0.5 cm, suspicious for a blister or superficial abscess. No other larger abscess or deep abscess is identified. Thickening and increased signal within the first, second and third flexor tendons compatible with tendinosis. Impression: 1. Findings compatible with osteomyelitis at the distal first metatarsal shaft remnant. 2. Findings compatible with osteomyelitis at the second and third distal metatarsals and proximal phalanges, centered at the MTP joints, probably due to septic joint. Note there is no significant joint fluid at this time. 3. Findings compatible with osteomyelitis at the fifth metatarsal and fifth proximal phalanx. Small fifth MTP joint effusion, uncertain sterility, could be septic joint. 4. Focal area of superficial cutaneous swelling plantar to the third MTP joint, compatible with a superficial blister or small superficial abscess. No deep drainable abscess identified. Electronically signed by: Ayan Ross MD (01/09/2018 10:15 AM) [id number]
--- NOTE | 2018-01-09 10:34 | PDOC ---
Provider Note Provider Note Vascular Patient seen and examined with Dr. Parker. 47 year old male presents with first toe ulcer, s/p first toe amputation. MRI suggests osteomyelitis. Patient has weakly palpable distal pulse by physical exam. In addition MRI suggests osteomyelitis in his 2,3,5th phalangeal/ metatarsal bones. Recommend Arterial US right leg, patient will likely need incision and debridement of his first toe amputation site with removal of infected bone. Continue local wound care. Will make additional recommendations pending arterial studies. YARITZA QUAN READING INTERVENTIONIST Jan 09, 2018 10:34
[2018-01-09 11:00] VITALS: BP 141/92
[2018-01-09] MEDS: VANCOMYCIN PER PHARMACY MC PRN (12:01)
[2018-01-09 13:19] LABS: HEMOGLOBIN A1C 11.4 % (4.8-5.6)
[2018-01-09 15:00] VITALS: BP 146/94
--- NOTE | 2018-01-09 16:21 | RAD ---
Right lower extremity arterial duplex ultrasound 01/09/2018 INDICATION: Right leg pain COMPARISON STUDY: None Discussion: Sonographic evaluation major arteries of the right lower extremity was performed. This includes color Doppler imaging and spectral analysis. Right common femoral artery is patent with triphasic normal-appearing waveforms. Mild diffuse atherosclerosis disease is noted throughout the remainder of the right lower extremity. No high-grade visual stenosis is seen on color Doppler imaging. There are mildly elevated velocities in the proximal elevated velocities are seen in the right SFA including the mid and distal artery with velocities measuring 189 cm/s 193 cm percent respectively. There is a drop to 75 cm/s the popliteal artery with mild blunting of the more distal waveforms. The posterior tibial, peroneal, and dorsalis pedis artery heart grossly patent. IMPRESSION: Mild diffuse atrophy described vascular disease. Stenosis in the mid and distal SFA may be present given the somewhat elevated velocities and blunted waveforms distal to this level. The degree of stenosis difficult to assess. Consider CT angiography for further evaluation. Electronically signed by: Rob Morgan MD (01/09/2018 4:17 PM) [id number]
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
[2018-01-09 19:00] VITALS: BP 150/110
[2018-01-09] MEDS: INSULIN GLARGINE 300 UNITS/3 ML INSULN.PEN. SQ SCH (21:34)
[2018-01-09 23:00] VITALS: BP 160/93
[2018-01-10] MEDS: VANCOMYCIN 1.5 GM in IV NORMAL SALINE 500ML BAG 500 ML IV SCH ×2
[2018-01-10 03:00] VITALS: BP 156/86
[2018-01-10] MEDS: HEPARIN PF for SUB-Q USE 5,000 UNIT/0.5 ML VIAL. SQ SCH ×3 (06:00→22:00)
[2018-01-10] MEDS: MEROPENEM 1 GM in IV NORMAL SALINE 100ML 100 ML IV SCH ×3 (06:00→22:00)
[2018-01-10 07:15] VITALS: BP 154/101
[2018-01-10] MEDS: INSULIN LISPRO 300 UNITS/3 ML INSULN.PEN. SQ SCH ×6 (07:53→17:09)
[2018-01-10] MEDS: LACTOBACILLUS RHAMNOSUS GG 1 CAPSULE. PO SCH ×2 (07:57→21:00)
--- NOTE | 2018-01-10 08:44 | PDOC ---
Infectious Disease Note Subjective Subjective feeling ok ROS ROS no n/v/d/sob Vital Sign Vital Signs Vital Signs Date Time Temp Pulse Resp B/P (MAP) Pulse Ox O2 Delivery O2 Flow Rate FiO2 01/10/18 07:15 98.3 78 20 154/101 (118) 98 Room Air 98.3 Physical Exam PHYSICAL EXAM CONSTITUTIONAL: He is in no acute distress. He is cooperative. He is up and wandering in the halls. NECK: Supple. LUNGS: Clear to auscultation. HEART: S1, S2. ABDOMEN: Soft, nontender and nondistended. Positive bowel sounds. EXTREMITIES: No clubbing or cyanosis. There is a well-healed scar on the medial aspect of his right leg. Lateral aspect of his right fifth toe area has an area of healing granulation, looks well. No signs of any erythema. No warmth. No fluctuance. He does have callus in both the metatarsal heads of his foot in the middle of his plantar aspect as well, without evidence of any fluctuance, drainage, warmth or erythema. SKIN: Without signs of rash. NEUROLOGIC: He is nonfocal. Labs Lab Laboratory Tests Test 01/09/18 11:10 01/09/18 16:04 01/09/18 21:11 01/10/18 07:29 Glucose (Fingerstick) 145 mg/dL (70-99) 328 mg/dL (70-99) 249 mg/dL (70-99) 208 mg/dL (70-99) 1. Findings compatible with osteomyelitis at the distal first metatarsal shaft remnant. 2. Findings compatible with osteomyelitis at the second and third distal metatarsals and proximal phalanges, centered at the MTP joints, probably due to septic joint. Note there is no significant joint fluid at this time. 3. Findings compatible with osteomyelitis at the fifth metatarsal and fifth proximal phalanx. Small fifth MTP joint effusion, uncertain sterility, could be septic joint. 4. Focal area of superficial cutaneous swelling plantar to the third MTP joint, compatible with a superficial blister or small superficial abscess. No deep drainable abscess identified. Micro AEROBIC CULTURE Preliminary Preliminary report AEROBIC RES 1 Preliminary Gram negative rods 4+ AEROBIC RES 2 Preliminary Streptococcus species 4+ Performed at: [facility] [address], [place], [place] [id number] Transport Tank Technician: JENNIFER Ladd MD, Phone: [phone] GRAM STAIN Final Final report GRAM STAIN RESULT 1 Final Comment No white blood cells seen. GRAM STAIN RESULT 2 Final Comment Moderate gram negative rods. GRAM STAIN RESULT 3 Final Comment Moderate amount of gram positive cocci in chains Performed at: - [facility] [address], [place], [place] [id number] Transport Tank Technician: JENNIFER Ladd MD, Phone: [phone] Objective Assessment 1. Right foot wound with osteomyelitis, multiple bones 2. Right fifth toe amputation at [place]. 3. Diabetes. 4. PENICILLIN ALLERGY A CHILD. 5 PAD Plan Plan of Care Cont abx F/u labs and cults Cont local wound care vascular consult , d/w GEOFFREY Pitt MD Jan 10, 2018 08:44
[2018-01-10] MEDS: IV NORMAL SALINE 1000ML BAG 1,000 ML IV SCH (09:40)
[2018-01-10] MEDS ORDERED: ATOR40TA59 PO (10:42)
[2018-01-10] MEDS ORDERED: AMLO10TA2 PO (10:42)
[2018-01-10 11:01] VITALS: BP 148/94
[2018-01-10] MEDS: LINEZOLID 600 MG TABLET PO SCH ×2 (11:45→21:05)
[2018-01-10] MEDS: oxyCODONE/APAP 5/325 1 TAB TABLET PO PRN (11:45)
[2018-01-10] MEDS: INSULIN GLARGINE 300 UNITS/3 ML INSULN.PEN. SQ SCH ×2 (11:46→21:11)
--- NOTE | 2018-01-10 11:53 | PDOC ---
Provider Note Provider Note AF VSS awake and alert right foot with open wound at 1st toe amputation site, thickened skin and ulceration on the planter mid forefoot and open wound on lateral foot duplex scan shows PVD of the right leg with likely SFA disease MRI shows osteomyelitis of the right 1, 2, 3 and 5th toes A/P 47 year old male with right foot osteomyelitis of the 1,2,3,5th toes with wounds as described above. He had an MRI showing similar findings at [facility] 1 month ago with ortho recommending transmetatarsal amputation. I agree he needs a TMA however the patient is refusing this amputation. He wants to try antibiotics. He also has significant right leg PVD by duplex scan and I recommend further evaluation with an angiogram and possible right leg intervention. NATALIA MCNAMARA MD Jan 10, 2018 11:53
--- NOTE | 2018-01-10 12:16 | PDOC ---
PROGRESS NOTES Chief Complaint Chief Complaint Osteomyelitis right foot-second episode HX of amputation, RT big toe for OM 7-8 yrs ago dm2 uncontrolled , on insulin non compliance,NO PCP tobaccoism History of Present Illness History of Present Illness MRI I have reviewed, findings consistent with remnants of osteomyelitis of the distal first metatarsal, and now second and third metatarsals are also involved Based on his demeanor, I think he has definitely some denial in play Blood sugars are still on the high side, I can improve, Hemoglobin A1c still pending ESR elevated 30 Plan: Vasc surgery on board, as per note recommends amputation or prolonged antibiotics-patient has not decided or at least he told me they have not talked to him about it yet Start Lantus 20 daily amongst his mealtime regimen and daily at bedtime regimen Follow-up hemoglobin A1c IV antibiotics per ID Discussed with ID and RN and patient. ff up arterial sono - mild flow but no signif stenosis on my read MRI: 1. Findings compatible with osteomyelitis at the distal first metatarsal shaft remnant. 2. Findings compatible with osteomyelitis at the second and third distal metatarsals and proximal phalanges, centered at the MTP joints, probably due to septic joint. Note there is no significant joint fluid at this time. 3. Findings compatible with osteomyelitis at the fifth metatarsal and fifth proximal phalanx. Small fifth MTP joint effusion, uncertain sterility, could be septic joint. 4. Focal area of superficial cutaneous swelling plantar to the third MTP joint, compatible with a superficial blister or small superficial abscess. No deep drainable abscess identified. Vitals Vitals Vital Signs Date Time Temp Pulse Resp B/P (MAP) Pulse Ox O2 Delivery O2 Flow Rate FiO2 01/10/18 11:45 Room Air 01/10/18 11:01 97.9 81 20 148/94 (112) 97 97.9 Physical Exam Physical Exam CONSTITUTIONAL: He is in no acute distress. He is cooperative. He is up and wandering in the halls. NECK: Supple. LUNGS: Clear to auscultation. HEART: S1, S2. ABDOMEN: Soft, nontender and nondistended. Positive bowel sounds. EXTREMITIES: No clubbing or cyanosis. There is a well-healed scar on the medial aspect of his right leg. Lateral aspect of his right fifth toe area has an area of healing granulation, looks well. No signs of any erythema. No warmth. No fluctuance. He does have callus in both the metatarsal heads of his foot in the middle of his plantar aspect as well, without evidence of any fluctuance, drainage, warmth or erythema. SKIN: Without signs of rash. NEUROLOGIC: He is nonfocal. General: Alert, Oriented X3, Cooperative Heart: Regular rate, Normal S1, Normal S2 Lungs: Clear Abdomen: Normal bowel sounds, Soft Extremities: No clubbing, No cyanosis Labs LABS Laboratory Tests Test 01/09/18 16:04 01/09/18 21:11 01/10/18 07:29 01/10/18 11:23 Glucose (Fingerstick) 328 mg/dL (70-99) 249 mg/dL (70-99) 208 mg/dL (70-99) 173 mg/dL (70-99) Review of Systems Review of Systems A 14 point ROS was completed with the following noted as positive: Other systems reviewed and negative. \CONSTITUTIONAL: No fever or chills EYES: No recent changes SKIN: No rash or itching CARDIOVASCULAR: No chest pain, syncope, palpitations, or edema RESPIRATORY: No SOB or cough GASTROINTESTINAL: No nausea, vomiting or abdominal pain NEUROLOGICAL: No headaches or weakness ENDOCRINE: No cold or heat intolerance GENITOURINARY: No urgency or frequency of urination MUSCULOSKELETAL: No back pain or joint pain LYMPHATICS: No enlarged lymph nodes PSYCHIATRIC: No anxiety or depression Assessment and Plan Assessmemt and Plan Problems Medical Problems: (1) Diabetic foot ulcer Status: Acute (2) Osteomyelitis Status: Acute (3) Uncontrolled type 2 diabetes mellitus Status: Acute Comment Review of Relevant I have reviewed the following items yuly (where applicable) has been applied. Labs Laboratory Tests Test 01/08/18 12:45 01/08/18 16:46 01/08/18 21:01 01/09/18 07:32 White Blood Count 6.4 x10^3/uL (4.0-11.0) Red Blood Count 4.25 x10^6/uL (4.30-5.70) Hemoglobin 13.5 g/dL (13.0-17.5) Hematocrit 38.3 % (39.0-53.0) Mean Corpuscular Volume 90 fL (79-100) Mean Corpuscular Hemoglobin 32 pg (25-35) Mean Corpuscular Hemoglobin Concent 35 g/dL (31-37) Red Cell Distribution Width 13.8 % (11.5-14.5) Platelet Count 193 x10^3/uL (140-400) Neutrophils (%) (Auto) 66 % (31-73) Lymphocytes (%) (Auto) 24 % (24-48) Monocytes (%) (Auto) 7 % (0-9) Eosinophils (%) (Auto) 3 % (0-3) Basophils (%) (Auto) 1 % (0-3) Neutrophils # (Auto) 4.2 x10^3uL (1.8-7.7) Lymphocytes # (Auto) 1.6 x10^3/uL (1.0-4.8) Monocytes # (Auto) 0.4 x10^3/uL (0.0-1.1) Eosinophils # (Auto) 0.2 x10^3/uL (0.0-0.7) Basophils # (Auto) 0.0 x10^3/uL (0.0-0.2) Sodium Level 135 mmol/L (136-145) Potassium Level 3.9 mmol/L (3.5-5.1) Chloride Level 103 mmol/L (98-107) Carbon Dioxide Level 26 mmol/L (21-32) Anion Gap 6 (6-14) Blood Urea Nitrogen 10 mg/dL (8-26) Creatinine 0.9 mg/dL (0.7-1.3) Estimated GFR (Cockcroft-Gault) 109.4 Glucose Level 313 mg/dL (70-99) Calcium Level 8.8 mg/dL (8.5-10.1) Glucose (Fingerstick) 213 mg/dL (70-99) 229 mg/dL (70-99) 275 mg/dL (70-99) Test 01/09/18 08:25 01/09/18 11:10 01/09/18 16:04 01/09/18 21:11 White Blood Count 6.1 x10^3/uL (4.0-11.0) Red Blood Count 4.39 x10^6/uL (4.30-5.70) Hemoglobin 13.8 g/dL (13.0-17.5) Hematocrit 39.1 % (39.0-53.0) Mean Corpuscular Volume 89 fL (79-100) Mean Corpuscular Hemoglobin 31 pg (25-35) Mean Corpuscular Hemoglobin Concent 35 g/dL (31-37) Red Cell Distribution Width 13.3 % (11.5-14.5) Platelet Count 183 x10^3/uL (140-400) Neutrophils (%) (Auto) 62 % (31-73) Lymphocytes (%) (Auto) 25 % (24-48) Monocytes (%) (Auto) 8 % (0-9) Eosinophils (%) (Auto) 4 % (0-3) Basophils (%) (Auto) 1 % (0-3) Neutrophils # (Auto) 3.8 x10^3uL (1.8-7.7) Lymphocytes # (Auto) 1.5 x10^3/uL (1.0-4.8) Monocytes # (Auto) 0.5 x10^3/uL (0.0-1.1) Eosinophils # (Auto) 0.2 x10^3/uL (0.0-0.7) Basophils # (Auto) 0.1 x10^3/uL (0.0-0.2) Erythrocyte Sedimentation Rate 30 (0-15) Sodium Level 134 mmol/L (136-145) Potassium Level 4.0 mmol/L (3.5-5.1) Chloride Level 101 mmol/L (98-107) Carbon Dioxide Level 22 mmol/L (21-32) Anion Gap 11 (6-14) Blood Urea Nitrogen 9 mg/dL (8-26) Creatinine 0.9 mg/dL (0.7-1.3) Estimated GFR (Cockcroft-Gault) 109.4 Glucose Level 260 mg/dL (70-99) Hemoglobin A1c 11.4 % (4.8-5.6) Calcium Level 8.7 mg/dL (8.5-10.1) Glucose (Fingerstick) 145 mg/dL (70-99) 328 mg/dL (70-99) 249 mg/dL (70-99) Test 01/10/18 07:29 01/10/18 11:23 Glucose (Fingerstick) 208 mg/dL (70-99) 173 mg/dL (70-99) Laboratory Tests Test 01/09/18 16:04 01/09/18 21:11 01/10/18 07:29 01/10/18 11:23 Glucose (Fingerstick) 328 mg/dL (70-99) 249 mg/dL (70-99) 208 mg/dL (70-99) 173 mg/dL (70-99) Microbiology 01/07/18 Blood Culture - Preliminary, Resulted NO GROWTH AFTER 3 DAYS 01/07/18 Aerobic Culture - Preliminary, Resulted 01/07/18 Aerobic Culture Result 1 (OLIVA) - Preliminary, Resulted 01/07/18 Aerobic Culture Result 2 (OLIVA) - Preliminary, Resulted 01/07/18 Gram Stain - Final, Resulted 01/07/18 Gram Stain Result 1 (OLIVA) - Final, Resulted 01/07/18 Gram Stain Result 2 (OLIVA) - Final, Resulted 01/07/18 Gram Stain Result 3 (OLIVA) - Final, Resulted Medications Current Medications Sodium Chloride 1,000 ml @ 1,000 mls/hr Q1H IV Last administered on 01/06/18at 21:25; Start 01/06/18 at 20:26; Stop 01/06/18 at 21:25; Status DC Insulin Human Regular (HumuLIN R VIAL) 8 unit 1X ONCE IV Last administered on 01/07/18at 00:09; Start 01/06/18 at 23:15; Stop 01/06/18 at 23:16; Status DC Vancomycin HCl 250 ml @ 250 mls/hr 1X ONCE IV Last administered on 01/07/18at 01:16; Start 01/06/18 at 23:30; Stop 01/07/18 at 00:29; Status DC Acetaminophen (Tylenol) 650 mg PRN Q4HRS PRN PO FEVER; Start 01/06/18 at 23:45 ; Stop 01/07/18 at 11:19; Status DC Oxycodone/ Acetaminophen (Percocet 5/325) 1 tab PRN Q6HRS PRN PO SEVERE PAIN Last administered on 01/10/18at 11:45; Start 01/07/18 at 02:00 Dextrose (Dextrose 50%-Water Syringe) 12.5 gm PRN Q15MIN PRN IV SEE COMMENTS; Start 01/07/18 at 02:15; Stop 01/07/18 at 11:20; Status DC Insulin Glargine (Lantus) 40 units 1X ONCE SQ Last administered on 01/07/18at 09:28; Start 01/07/18 at 09:30; Stop 01/07/18 at 09:31; Status DC Insulin Human Regular (HumuLIN R VIAL) 10 unit 1X ONCE IV Last administered on 01/07/18at 09:28; Start 01/07/18 at 10:00; Stop 01/07/18 at 10:01; Status DC Insulin Human Lispro (HumaLOG) 0-9 UNITS TIDWMEALS SQ Last administered on 01/10at 12:03; Start 01/07/18 at 12:00 Dextrose (Dextrose 50%-Water Syringe) 12.5 gm PRN Q15MIN PRN IV SEE COMMENTS; Start 01/07/18 at 11:15 Acetaminophen (Tylenol) 650 mg PRN Q6HRS PRN PO FEVER; Start 01/07/18 at 11:15 Ondansetron HCl (Zofran) 4 mg PRN Q6HRS PRN IV NAUSEA/VOMITING; Start 01/07/18 at 11:15 Morphine Sulfate (Morphine Sulfate) 2 mg PRN Q2HR PRN IV MODERATE TO SEVERE PAIN; Start 01/07/18 at 11:15 Tramadol HCl (Ultram) 50 mg PRN Q6HRS PRN PO MILD TO MODERATE PAIN; Start 01/07 at 11:15 Hydralazine HCl (Apresoline Inj) 10 mg PRN Q4HRS PRN IVP ELEVATED BP, SEE COMMENTS; Start 01/07/18 at 11:15 Docusate Sodium (Colace) 100 mg PRN DAILY PRN PO CONSTIPATION; Start 01/07/18 at 11:15 Vancomycin HCl (Vanco Per Pharmacy) 1 each PRN DAILY PRN MC SEE COMMENTS Last administered on 01/09/18at 12:01; Start 01/07/18 at 11:15; Stop 01/10/18 at 10:45 ; Status DC Vancomycin HCl 1.5 gm/Sodium Chloride 500 ml @ 250 mls/hr Q12H IV Last administered on 01/09/18at 12:42; Start 01/07/18 at 12:00; Stop 01/10/18 at 10:45 ; Status DC Meropenem 1 gm/ Sodium Chloride 100 ml @ 200 mls/hr Q8HRS IV Last administered on 01/09/18at 06:17; Start 01/07/18 at 14:00 Insulin Human Lispro (HumaLOG) 20 units TIDAC SQ Last administered on at 11:52; Start 01/07/18 at 11:30; Stop 01/08/18 at 14:47; Status DC Insulin Human Lispro (HumaLOG) 30 units 1X ONCE SQ Last administered on at 11:57; Start 01/07/18 at 11:30; Stop 01/07/18 at 11:31; Status DC Vancomycin HCl (Vancomycin Trough Level) 1 each 1X ONCE MC ; Start 01/08/18 at 23:30; Stop 01/08/18 at 23:31; Status DC Lactobacillus Rhamnosus (Culturelle) 1 cap BID PO Last administered on at 07:57; Start 01/07/18 at 21:00 Insulin Glargine (Lantus) 40 units QHS SQ Last administered on 01/08/18at 21:05 ; Start 01/07/18 at 21:00; Stop 01/09/18 at 08:07; Status DC Sodium Chloride 1,000 ml @ 75 mls/hr [id number] IV Last administered on at 15:24; Start 01/07/18 at 15:00; Stop 01/10/18 at 11:05; Status DC Heparin Sodium (Porcine) (Heparin Sq) 5,000 unit Q8HRS SQ Last administered on 01/09/18at 22:06; Start 01/07/18 at 15:30 Zolpidem Tartrate (Ambien) 5 mg PRN QHS PRN PO INSOMNIA Last administered on 05/16at 22:23; Start 01/07/18 at 17:15 Insulin Human Lispro (HumaLOG) 25 units TIDAC SQ Last administered on at 16:54; Start 01/08/18 at 16:30; Stop 01/09/18 at 08:07; Status DC Vancomycin HCl (Vancomycin Trough Level) 1 each 1X ONCE MC ; Start 01/11/18 at 11:30; Stop 01/11/18 at 11:30; Status DC Insulin Glargine (Lantus) 45 units QHS SQ Last administered on 01/09/18at 21:34 ; Start 01/09/18 at 21:00 Insulin Human Lispro (HumaLOG) 34 units TIDAC SQ Last administered on at 12:03; Start 01/09/18 at 11:30 Linezolid (Zyvox) 600 mg BID PO Last administered on 01/10/18at 11:45; Start at 11:00 Insulin Glargine (Lantus) 20 units DAILY SQ Last administered on 01/10/18at 11: 46; Start 01/10/18 at 11:30 Active Scripts Active Reported Atorvastatin Calcium 40 Mg Tablet 1 Tab PO QHS Amlodipine Besylate 10 Mg Tablet 10 Mg PO DAILY Lantus Solostar (Insulin Glargine,Hum.rec.anlog) 100 Unit/1 Ml Insuln.pen 45 Unit SQ QHS Novolog (Insulin Aspart) 100 Unit/1 Ml Cartridge 34 Unit SQ TIDAC Vitals/I & O Vital Sign - Last 24 Hours 01/09/18 01/09/18 01/09/18 01/09/18 15:00 19:00 19:13 19:35 Temp 98.2 97.9 98.2 97.9 Pulse 74 84 Resp 18 18 18 B/P (MAP) 146/94 (111) 150/110 (123) Pulse Ox 98 98 O2 Delivery Room Air Room Air Room Air Room Air 01/09/18 01/09/18 01/10/18 01/10/18 20:13 23:00 03:00 07:15 Temp 98.1 98.6 98.3 98.1 98.6 98.3 Pulse 83 88 78 Resp 20 18 16 20 B/P (MAP) 160/93 (115) 156/86 (109) 154/101 (118) Pulse Ox 99 98 98 O2 Delivery Room Air Room Air Room Air Room Air 01/10/18 01/10/18 01/10/18 08:00 11:01 11:45 Temp 97.9 97.9 Pulse 81 Resp 20 B/P (MAP) 148/94 (112) Pulse Ox 97 O2 Delivery Room Air Room Air Room Air JAJA PORTER MD Jan 10, 2018 12:16
--- NOTE | 2018-01-10 13:04 | PDOC ---
Provider Note Provider Note IR NOTE Met with patient to discuss RLE angiogram and possible intervention. I reviewed his ultrasound findings with him and discussed the fact that there is concern for narrowing in the arteries of the right leg, which can exacerbate the infection in his foot, or make wound healing more difficult, should he ultimately consent to amputation. I recommended he proceed with the procedure. He would like time to consider his options. We will re-visit the idea with him in the AM. SAM BRODY MD Jan 10, 2018 13:04
[2018-01-10 15:02] VITALS: BP 158/101
[2018-01-10] MEDS: amLODIPine BESYLATE 10 MG TABLET PO SCH (16:54)
[2018-01-10 19:00] VITALS: BP 158/94
[2018-01-10] MEDS: ATORVASTATIN CALCIUM 40 MG TABLET. PO SCH (21:07)
[2018-01-10 23:00] VITALS: BP 163/107
[2018-01-11] MEDS: ZOLPIDEM 5 MG TABLET. PO PRN ×2 (02:23→22:27)
[2018-01-11 02:51] VITALS: BP 176/11
[2018-01-11 04:10] LABS: BASO % 1 % (0-3); EOS # 0.2 x10^3/uL (0.0-0.7); EOS % 3 % (0-3); HEMATOCRIT 41.3 % (39.0-53.0); HEMOGLOBIN 14.6 g/dL (13.0-17.5); LYMPH % 28 % (24-48); MEAN CORPUSCULAR HEMOGLOBIN 32 pg (25-35); MEAN CORPUSCULAR HGB CONC 35 g/dL (31-37); MEAN CORPUSCULAR VOLUME 90 fL (79-100); MONO # 0.5 x10^3/uL (0.0-1.1); MONO % 7 % (0-9); NEUT # 4.5 x10^3uL (1.8-7.7); NEUT % 62 % (31-73); PLATELET COUNT 188 x10^3/uL (140-400); RED BLOOD COUNT 4.58 x10^6/uL (4.30-5.70); RED CELL DISTRIBUTION WIDTH 13.7 % (11.5-14.5); WHITE BLOOD COUNT 7.2 x10^3/uL (4.0-11.0)
[2018-01-11 04:19] LABS: CALCIUM 9.8 mg/dL (8.5-10.1); GFR 96.9
[2018-01-11] MEDS: HEPARIN PF for SUB-Q USE 5,000 UNIT/0.5 ML VIAL. SQ SCH ×3 (06:00→22:00)
[2018-01-11] MEDS: MEROPENEM 1 GM in IV NORMAL SALINE 100ML 100 ML IV SCH ×3 (06:00→22:00)
[2018-01-11 07:15] VITALS: BP 165/106
[2018-01-11] MEDS: LACTOBACILLUS RHAMNOSUS GG 1 CAPSULE. PO SCH ×2 (08:29→21:07)
[2018-01-11] MEDS: LINEZOLID 600 MG TABLET PO SCH ×2 (08:29→21:07)
[2018-01-11] MEDS: amLODIPine BESYLATE 10 MG TABLET PO SCH (08:30)
[2018-01-11] MEDS: oxyCODONE/APAP 5/325 1 TAB TABLET PO PRN ×2 (08:33→19:47)
[2018-01-11] MEDS: INSULIN GLARGINE 300 UNITS/3 ML INSULN.PEN. SQ SCH ×2 (08:54→21:11)
[2018-01-11] MEDS: INSULIN LISPRO 300 UNITS/3 ML INSULN.PEN. SQ SCH ×6 (08:55→16:59)
--- NOTE | 2018-01-11 09:09 | PDOC ---
Infectious Disease Note Subjective Subjective feeling ok ROS ROS no n/v/d/sob Vital Sign Vital Signs Vital Signs Date Time Temp Pulse Resp B/P (MAP) Pulse Ox O2 Delivery O2 Flow Rate FiO2 01/11/18 08:33 Room Air 01/11/18 08:30 78 165/106 01/11/18 07:15 98.3 20 98 98.3 Physical Exam PHYSICAL EXAM CONSTITUTIONAL: He is in no acute distress. He is cooperative. He is up and wandering in the halls. NECK: Supple. LUNGS: Clear to auscultation. HEART: S1, S2. ABDOMEN: Soft, nontender and nondistended. Positive bowel sounds. EXTREMITIES: No clubbing or cyanosis. There is a well-healed scar on the medial aspect of his right leg. Lateral aspect of his right fifth toe area has an area of healing granulation, looks well. No signs of any erythema. No warmth. No fluctuance. He does have callus in both the metatarsal heads of his foot in the middle of his plantar aspect as well, without evidence of any fluctuance, drainage, warmth or erythema. SKIN: Without signs of rash. NEUROLOGIC: He is nonfocal. Labs Lab Laboratory Tests Test 01/10/18 11:23 01/10/18 11:38 01/10/18 16:53 01/10/18 21:03 Glucose (Fingerstick) 173 mg/dL (70-99) 206 mg/dL (70-99) 213 mg/dL (70-99) Prothrombin Time 13.0 SEC (11.7-14.0) Prothromb Time International Ratio 1.0 (0.8-1.1) Test 01/11/18 03:30 01/11/18 07:59 White Blood Count 7.2 x10^3/uL (4.0-11.0) Red Blood Count 4.58 x10^6/uL (4.30-5.70) Hemoglobin 14.6 g/dL (13.0-17.5) Hematocrit 41.3 % (39.0-53.0) Mean Corpuscular Volume 90 fL (79-100) Mean Corpuscular Hemoglobin 32 pg (25-35) Mean Corpuscular Hemoglobin Concent 35 g/dL (31-37) Red Cell Distribution Width 13.7 % (11.5-14.5) Platelet Count 188 x10^3/uL (140-400) Neutrophils (%) (Auto) 62 % (31-73) Lymphocytes (%) (Auto) 28 % (24-48) Monocytes (%) (Auto) 7 % (0-9) Eosinophils (%) (Auto) 3 % (0-3) Basophils (%) (Auto) 1 % (0-3) Neutrophils # (Auto) 4.5 x10^3uL (1.8-7.7) Lymphocytes # (Auto) 2.0 x10^3/uL (1.0-4.8) Monocytes # (Auto) 0.5 x10^3/uL (0.0-1.1) Eosinophils # (Auto) 0.2 x10^3/uL (0.0-0.7) Basophils # (Auto) 0.0 x10^3/uL (0.0-0.2) Sodium Level 133 mmol/L (136-145) Potassium Level 4.0 mmol/L (3.5-5.1) Chloride Level 99 mmol/L (98-107) Carbon Dioxide Level 29 mmol/L (21-32) Anion Gap 5 (6-14) Blood Urea Nitrogen 13 mg/dL (8-26) Creatinine 1.0 mg/dL (0.7-1.3) Estimated GFR (Cockcroft-Gault) 96.9 Glucose Level 270 mg/dL (70-99) Calcium Level 9.8 mg/dL (8.5-10.1) Glucose (Fingerstick) 302 mg/dL (70-99) Micro AEROBIC CULTURE Final Final report AEROBIC RES 1 Final Escherichia coli 4+ AEROBIC RES 2 Final Enterococcus faecalis 4+ AEROBIC RES 3 Final Yeast isolated. 2+ Request for further identification must be made within 1 week. AEROBIC RES 4 Final Mixed skin shayna 3+ ANTIMICROBIAL SUSCEPTIBILITY Final Comment S = Susceptible; I = Intermediate; R = Resistant P = Positive; N = Negative MICS are expressed in micrograms per mL Antibiotic RSLT#1 RSLT#2 RSLT#3 RSLT#4 Amoxicillin/Clavulanic Acid S =8 Ampicillin R>=32 Cefazolin R>=64 Cefepime I =8 Ceftriaxone R>=64 Cefuroxime R>=64 CONTINUED ON NEXT PAGE RUN DATE: 01/10/18 PAGE 2 RUN TIME: [address] [facility] [address] [facility] [place] [address] Bernabe Cao M.D., Parts Processor SPEC: [id number] PATIENT: KUSH WILKS [id number] ( Continued) Procedure Result ANTIMICROBIAL SUSCEPTIBILITY Final (continued) Ciprofloxacin R>=4 Ertapenem S<=0.12 Gentamicin S<=1 Imipenem S<=0.25 Levofloxacin R>=8 Meropenem S<=0.25 Penicillin R =16 Piperacillin/Tazobactam S<=4 Tetracycline S =4 Tobramycin S<=1 Trimethoprim/Sulfa R>=320 Vancomycin S =1 Performed at: [address], [place] [id number] Tacking Machine Operator: JENNIFER Ladd MD, Phone: [phone] GRAM STAIN Final Final report GRAM STAIN RESULT 1 Final Comment No white blood cells seen. GRAM STAIN RESULT 2 Final Comment Moderate gram negative rods. GRAM STAIN RESULT 3 Final Comment Moderate amount of gram positive cocci in chains Performed at: [address], [place], [place] [id number] Tacking Machine Operator: JENNIFER Ladd MD, Phone: [phone] END OF REPORT Objective Assessment 1. Right foot wound with osteomyelitis, multiple bones 2. Right fifth toe amputation at [place]. 3. Diabetes. 4. PENICILLIN ALLERGY A CHILD. 5 PAD Plan Plan of Care Cont abx,,, zyvox and meropenem F/u labs and cults Cont local wound care vascular consult , d/w Dr Parker angio today GEOFFREY WHITE MD Jan 11, 2018 09:09
--- NOTE | 2018-01-11 10:25 | PDOC ---
PROGRESS NOTES Chief Complaint Chief Complaint Osteomyelitis right foot-second episode HX of amputation, RT big toe for OM 7-8 yrs ago dm2 uncontrolled , on insulin non compliance,NO PCP tobaccoism History of Present Illness History of Present Illness MRI I have reviewed, findings consistent with remnants of osteomyelitis of the distal first metatarsal, and now second and third metatarsals are also involved Based on his demeanor, I think he has definitely some denial in play BS better after further insulin adjustments yesterday Hemoglobin A1c still pending ESR elevated 30 PLanned for angiogram legs tmr- he finally agreed to it Plan: NPO by mouth post midnight for angiogram/aortogram tomorrow Current insulin regimen regimen Local wound care IV abx per ID ff up Hemoglobin A1c Vitals Vitals Vital Signs Date Time Temp Pulse Resp B/P (MAP) Pulse Ox O2 Delivery O2 Flow Rate FiO2 01/11/18 10:01 Room Air 01/11/18 08:30 78 165/106 01/11/18 07:15 98.3 20 98 98.3 Physical Exam Physical Exam CONSTITUTIONAL: He is in no acute distress. He is cooperative. He is up and wandering in the halls. NECK: Supple. LUNGS: Clear to auscultation. HEART: S1, S2. ABDOMEN: Soft, nontender and nondistended. Positive bowel sounds. EXTREMITIES: No clubbing or cyanosis. There is a well-healed scar on the medial aspect of his right leg. Lateral aspect of his right fifth toe area has an area of healing granulation, looks well. No signs of any erythema. No warmth. No fluctuance. He does have callus in both the metatarsal heads of his foot in the middle of his plantar aspect as well, without evidence of any fluctuance, drainage, warmth or erythema. SKIN: Without signs of rash. NEUROLOGIC: He is nonfocal. General: Alert, Oriented X3, Cooperative Heart: Regular rate, Normal S1, Normal S2 Lungs: Clear Abdomen: Normal bowel sounds, Soft Extremities: No clubbing, No cyanosis Labs LABS Laboratory Tests Test 01/10/18 11:23 01/10/18 11:38 01/10/18 16:53 01/10/18 21:03 Glucose (Fingerstick) 173 mg/dL (70-99) 206 mg/dL (70-99) 213 mg/dL (70-99) Prothrombin Time 13.0 SEC (11.7-14.0) Prothromb Time International Ratio 1.0 (0.8-1.1) Test 01/11/18 03:30 01/11/18 07:59 White Blood Count 7.2 x10^3/uL (4.0-11.0) Red Blood Count 4.58 x10^6/uL (4.30-5.70) Hemoglobin 14.6 g/dL (13.0-17.5) Hematocrit 41.3 % (39.0-53.0) Mean Corpuscular Volume 90 fL (79-100) Mean Corpuscular Hemoglobin 32 pg (25-35) Mean Corpuscular Hemoglobin Concent 35 g/dL (31-37) Red Cell Distribution Width 13.7 % (11.5-14.5) Platelet Count 188 x10^3/uL (140-400) Neutrophils (%) (Auto) 62 % (31-73) Lymphocytes (%) (Auto) 28 % (24-48) Monocytes (%) (Auto) 7 % (0-9) Eosinophils (%) (Auto) 3 % (0-3) Basophils (%) (Auto) 1 % (0-3) Neutrophils # (Auto) 4.5 x10^3uL (1.8-7.7) Lymphocytes # (Auto) 2.0 x10^3/uL (1.0-4.8) Monocytes # (Auto) 0.5 x10^3/uL (0.0-1.1) Eosinophils # (Auto) 0.2 x10^3/uL (0.0-0.7) Basophils # (Auto) 0.0 x10^3/uL (0.0-0.2) Sodium Level 133 mmol/L (136-145) Potassium Level 4.0 mmol/L (3.5-5.1) Chloride Level 99 mmol/L (98-107) Carbon Dioxide Level 29 mmol/L (21-32) Anion Gap 5 (6-14) Blood Urea Nitrogen 13 mg/dL (8-26) Creatinine 1.0 mg/dL (0.7-1.3) Estimated GFR (Cockcroft-Gault) 96.9 Glucose Level 270 mg/dL (70-99) Calcium Level 9.8 mg/dL (8.5-10.1) Glucose (Fingerstick) 302 mg/dL (70-99) Review of Systems Review of Systems A 14 point ROS was completed with the following noted as positive: Other systems reviewed and negative. \CONSTITUTIONAL: No fever or chills EYES: No recent changes SKIN: No rash or itching CARDIOVASCULAR: No chest pain, syncope, palpitations, or edema RESPIRATORY: No SOB or cough GASTROINTESTINAL: No nausea, vomiting or abdominal pain NEUROLOGICAL: No headaches or weakness ENDOCRINE: No cold or heat intolerance GENITOURINARY: No urgency or frequency of urination MUSCULOSKELETAL: No back pain or joint pain LYMPHATICS: No enlarged lymph nodes PSYCHIATRIC: No anxiety or depression Assessment and Plan Assessmemt and Plan Problems Medical Problems: (1) Diabetic foot ulcer Status: Acute (2) Osteomyelitis Status: Acute (3) Uncontrolled type 2 diabetes mellitus Status: Acute Comment Review of Relevant I have reviewed the following items yuly (where applicable) has been applied. Labs Laboratory Tests Test 01/09/18 11:10 01/09/18 16:04 01/09/18 21:11 01/10/18 07:29 Glucose (Fingerstick) 145 mg/dL (70-99) 328 mg/dL (70-99) 249 mg/dL (70-99) 208 mg/dL (70-99) Test 01/10/18 11:23 01/10/18 11:38 01/10/18 16:53 01/10/18 21:03 Glucose (Fingerstick) 173 mg/dL (70-99) 206 mg/dL (70-99) 213 mg/dL (70-99) Prothrombin Time 13.0 SEC (11.7-14.0) Prothromb Time International Ratio 1.0 (0.8-1.1) Test 01/11/18 03:30 01/11/18 07:59 White Blood Count 7.2 x10^3/uL (4.0-11.0) Red Blood Count 4.58 x10^6/uL (4.30-5.70) Hemoglobin 14.6 g/dL (13.0-17.5) Hematocrit 41.3 % (39.0-53.0) Mean Corpuscular Volume 90 fL (79-100) Mean Corpuscular Hemoglobin 32 pg (25-35) Mean Corpuscular Hemoglobin Concent 35 g/dL (31-37) Red Cell Distribution Width 13.7 % (11.5-14.5) Platelet Count 188 x10^3/uL (140-400) Neutrophils (%) (Auto) 62 % (31-73) Lymphocytes (%) (Auto) 28 % (24-48) Monocytes (%) (Auto) 7 % (0-9) Eosinophils (%) (Auto) 3 % (0-3) Basophils (%) (Auto) 1 % (0-3) Neutrophils # (Auto) 4.5 x10^3uL (1.8-7.7) Lymphocytes # (Auto) 2.0 x10^3/uL (1.0-4.8) Monocytes # (Auto) 0.5 x10^3/uL (0.0-1.1) Eosinophils # (Auto) 0.2 x10^3/uL (0.0-0.7) Basophils # (Auto) 0.0 x10^3/uL (0.0-0.2) Sodium Level 133 mmol/L (136-145) Potassium Level 4.0 mmol/L (3.5-5.1) Chloride Level 99 mmol/L (98-107) Carbon Dioxide Level 29 mmol/L (21-32) Anion Gap 5 (6-14) Blood Urea Nitrogen 13 mg/dL (8-26) Creatinine 1.0 mg/dL (0.7-1.3) Estimated GFR (Cockcroft-Gault) 96.9 Glucose Level 270 mg/dL (70-99) Calcium Level 9.8 mg/dL (8.5-10.1) Glucose (Fingerstick) 302 mg/dL (70-99) Laboratory Tests Test 01/10/18 11:23 01/10/18 11:38 01/10/18 16:53 01/10/18 21:03 Glucose (Fingerstick) 173 mg/dL (70-99) 206 mg/dL (70-99) 213 mg/dL (70-99) Prothrombin Time 13.0 SEC (11.7-14.0) Prothromb Time International Ratio 1.0 (0.8-1.1) Test 01/11/18 03:30 01/11/18 07:59 White Blood Count 7.2 x10^3/uL (4.0-11.0) Red Blood Count 4.58 x10^6/uL (4.30-5.70) Hemoglobin 14.6 g/dL (13.0-17.5) Hematocrit 41.3 % (39.0-53.0) Mean Corpuscular Volume 90 fL (79-100) Mean Corpuscular Hemoglobin 32 pg (25-35) Mean Corpuscular Hemoglobin Concent 35 g/dL (31-37) Red Cell Distribution Width 13.7 % (11.5-14.5) Platelet Count 188 x10^3/uL (140-400) Neutrophils (%) (Auto) 62 % (31-73) Lymphocytes (%) (Auto) 28 % (24-48) Monocytes (%) (Auto) 7 % (0-9) Eosinophils (%) (Auto) 3 % (0-3) Basophils (%) (Auto) 1 % (0-3) Neutrophils # (Auto) 4.5 x10^3uL (1.8-7.7) Lymphocytes # (Auto) 2.0 x10^3/uL (1.0-4.8) Monocytes # (Auto) 0.5 x10^3/uL (0.0-1.1) Eosinophils # (Auto) 0.2 x10^3/uL (0.0-0.7) Basophils # (Auto) 0.0 x10^3/uL (0.0-0.2) Sodium Level 133 mmol/L (136-145) Potassium Level 4.0 mmol/L (3.5-5.1) Chloride Level 99 mmol/L (98-107) Carbon Dioxide Level 29 mmol/L (21-32) Anion Gap 5 (6-14) Blood Urea Nitrogen 13 mg/dL (8-26) Creatinine 1.0 mg/dL (0.7-1.3) Estimated GFR (Cockcroft-Gault) 96.9 Glucose Level 270 mg/dL (70-99) Calcium Level 9.8 mg/dL (8.5-10.1) Glucose (Fingerstick) 302 mg/dL (70-99) Microbiology 01/07/18 Blood Culture - Preliminary, Resulted NO GROWTH AFTER 4 DAYS 01/07/18 Aerobic Culture - Final, Complete 01/07/18 Aerobic Culture Result 1 (OLIVA) - Final, Complete 01/07/18 Aerobic Culture Result 2 (OLIVA) - Final, Complete 01/07/18 Aerobic Culture Result 3 (OLIVA) - Final, Complete 01/07/18 Aerobic Culture Result 4 (OLIVA) - Final, Complete 01/07/18 Antimicrobic Susceptibility - Final, Complete 01/07/18 Gram Stain - Final, Complete 01/07/18 Gram Stain Result 1 (OLIVA) - Final, Complete 01/07/18 Gram Stain Result 2 (OLIVA) - Final, Complete 01/07/18 Gram Stain Result 3 (OLIVA) - Final, Complete Medications Current Medications Sodium Chloride 1,000 ml @ 1,000 mls/hr Q1H IV Last administered on 01/06/18at 21:25; Start 01/06/18 at 20:26; Stop 01/06/18 at 21:25; Status DC Insulin Human Regular (HumuLIN R VIAL) 8 unit 1X ONCE IV Last administered on 01/07/18at 00:09; Start 01/06/18 at 23:15; Stop 01/06/18 at 23:16; Status DC Vancomycin HCl 250 ml @ 250 mls/hr 1X ONCE IV Last administered on 01/07/18at 01:16; Start 01/06/18 at 23:30; Stop 01/07/18 at 00:29; Status DC Acetaminophen (Tylenol) 650 mg PRN Q4HRS PRN PO FEVER; Start 01/06/18 at 23:45 ; Stop 01/07/18 at 11:19; Status DC Oxycodone/ Acetaminophen (Percocet 5/325) 1 tab PRN Q6HRS PRN PO SEVERE PAIN Last administered on 01/11/18at 08:33; Start 01/07/18 at 02:00 Dextrose (Dextrose 50%-Water Syringe) 12.5 gm PRN Q15MIN PRN IV SEE COMMENTS; Start 01/07/18 at 02:15; Stop 01/07/18 at 11:20; Status DC Insulin Glargine (Lantus) 40 units 1X ONCE SQ Last administered on 01/07/18at 09:28; Start 01/07/18 at 09:30; Stop 01/07/18 at 09:31; Status DC Insulin Human Regular (HumuLIN R VIAL) 10 unit 1X ONCE IV Last administered on 01/07/18at 09:28; Start 01/07/18 at 10:00; Stop 01/07/18 at 10:01; Status DC Insulin Human Lispro (HumaLOG) 0-9 UNITS TIDWMEALS SQ Last administered on 01/11at 08:56; Start 01/07/18 at 12:00 Dextrose (Dextrose 50%-Water Syringe) 12.5 gm PRN Q15MIN PRN IV SEE COMMENTS; Start 01/07/18 at 11:15 Acetaminophen (Tylenol) 650 mg PRN Q6HRS PRN PO FEVER; Start 01/07/18 at 11:15 Ondansetron HCl (Zofran) 4 mg PRN Q6HRS PRN IV NAUSEA/VOMITING; Start 01/07/18 at 11:15 Morphine Sulfate (Morphine Sulfate) 2 mg PRN Q2HR PRN IV MODERATE TO SEVERE PAIN; Start 01/07/18 at 11:15 Tramadol HCl (Ultram) 50 mg PRN Q6HRS PRN PO MILD TO MODERATE PAIN; Start 01/07 at 11:15 Hydralazine HCl (Apresoline Inj) 10 mg PRN Q4HRS PRN IVP ELEVATED BP, SEE COMMENTS; Start 01/07/18 at 11:15 Docusate Sodium (Colace) 100 mg PRN DAILY PRN PO CONSTIPATION; Start 01/07/18 at 11:15 Vancomycin HCl (Vanco Per Pharmacy) 1 each PRN DAILY PRN MC SEE COMMENTS Last administered on 01/09/18at 12:01; Start 01/07/18 at 11:15; Stop 01/10/18 at 10:45 ; Status DC Vancomycin HCl 1.5 gm/Sodium Chloride 500 ml @ 250 mls/hr Q12H IV Last administered on 01/09/18at 12:42; Start 01/07/18 at 12:00; Stop 01/10/18 at 10:45 ; Status DC Meropenem 1 gm/ Sodium Chloride 100 ml @ 200 mls/hr Q8HRS IV Last administered on 01/09/18at 06:17; Start 01/07/18 at 14:00 Insulin Human Lispro (HumaLOG) 20 units TIDAC SQ Last administered on at 11:52; Start 01/07/18 at 11:30; Stop 01/08/18 at 14:47; Status DC Insulin Human Lispro (HumaLOG) 30 units 1X ONCE SQ Last administered on at 11:57; Start 01/07/18 at 11:30; Stop 01/07/18 at 11:31; Status DC Vancomycin HCl (Vancomycin Trough Level) 1 each 1X ONCE MC ; Start 01/08/18 at 23:30; Stop 01/08/18 at 23:31; Status DC Lactobacillus Rhamnosus (Culturelle) 1 cap BID PO Last administered on at 08:29; Start 01/07/18 at 21:00 Insulin Glargine (Lantus) 40 units QHS SQ Last administered on 01/08/18at 21:05 ; Start 01/07/18 at 21:00; Stop 01/09/18 at 08:07; Status DC Sodium Chloride 1,000 ml @ 75 mls/hr [id number] IV Last administered on at 15:24; Start 01/07/18 at 15:00; Stop 01/10/18 at 11:05; Status DC Heparin Sodium (Porcine) (Heparin Sq) 5,000 unit Q8HRS SQ Last administered on 01/09/18at 22:06; Start 01/07/18 at 15:30 Zolpidem Tartrate (Ambien) 5 mg PRN QHS PRN PO INSOMNIA Last administered on at 02:23; Start 01/07/18 at 17:15 Insulin Human Lispro (HumaLOG) 25 units TIDAC SQ Last administered on at 16:54; Start 01/08/18 at 16:30; Stop 01/09/18 at 08:07; Status DC Vancomycin HCl (Vancomycin Trough Level) 1 each 1X ONCE MC ; Start 01/11/18 at 11:30; Stop 01/11/18 at 11:30; Status DC Insulin Glargine (Lantus) 45 units QHS SQ Last administered on 01/10/18at 21:11 ; Start 01/09/18 at 21:00 Insulin Human Lispro (HumaLOG) 34 units TIDAC SQ Last administered on at 08:55; Start 01/09/18 at 11:30 Linezolid (Zyvox) 600 mg BID PO Last administered on 01/11/18at 08:29; Start at 11:00 Insulin Glargine (Lantus) 20 units DAILY SQ Last administered on 01/11/18at 08: 54; Start 01/10/18 at 11:30 Amlodipine Besylate (Norvasc) 10 mg DAILY PO Last administered on 01/11/18at 08: 30; Start 01/10/18 at 16:30 Atorvastatin Calcium (Lipitor) 40 mg QHS PO Last administered on 01/10/18at 21: 07; Start 01/10/18 at 21:00 Active Scripts Active Reported Atorvastatin Calcium 40 Mg Tablet 1 Tab PO QHS Amlodipine Besylate 10 Mg Tablet 10 Mg PO DAILY Lantus Solostar (Insulin Glargine,Hum.rec.anlog) 100 Unit/1 Ml Insuln.pen 45 Unit SQ QHS Novolog (Insulin Aspart) 100 Unit/1 Ml Cartridge 34 Unit SQ TIDAC Vitals/I & O Vital Sign - Last 24 Hours 01/10/18 01/10/18 01/10/18 01/10/18 11:01 11:45 15:02 16:54 Temp 97.9 97.7 97.9 97.7 Pulse 81 79 79 Resp 20 18 B/P (MAP) 148/94 (112) 158/101 (120) 158/101 Pulse Ox 97 97 O2 Delivery Room Air Room Air Room Air 01/10/18 01/10/18 01/10/18 01/10/18 19:00 19:40 21:14 23:00 Temp 97.9 98.1 97.9 98.1 Pulse 75 74 Resp 18 18 B/P (MAP) 158/94 (115) 163/107 (125) Pulse Ox 98 97 O2 Delivery Room Air Room Air Room Air Room Air 01/11/18 01/11/18 01/11/18 01/11/18 02:51 07:15 08:00 08:30 Temp 97.9 98.3 97.9 98.3 Pulse 73 78 78 Resp 19 20 B/P (MAP) 176/11 (65) 165/106 (125) 165/106 Pulse Ox 99 98 O2 Delivery Room Air Room Air Room Air 01/11/18 01/11/18 08:33 10:01 O2 Delivery Room Air Room Air Intake and Output 01/10/18 01/10/18 01/11/18 15:00 23:00 07:00 Output Total 0 ml Balance 0 ml JAJA PORTER MD Jan 11, 2018 10:25
[2018-01-11 11:02] VITALS: BP 152/98
[2018-01-11 15:11] VITALS: BP 143/91
--- NOTE | 2018-01-11 15:23 | PDOC ---
Provider Note Provider Note Vascular Patient out of room unable to locate patient. Discussed plan of care with nurse. A/P: Right foot with open wounds Arterial duplex scan shows PVD of the right leg with likely SFA disease MRI shows osteomyelitis of the right 1, 2, 3 and 5th toes Recommend TMA however the patient is refusing this amputation. He wants to try antibiotics. He also has significant right leg PVD by duplex scan and recommend further evaluation with an angiogram and possible right leg intervention, patient did finally agree this morning to arteriogram. NPO after MN with WIL tomorrow. YARITZA QUAN APRN Jan 11, 2018 15:23
[2018-01-11 19:00] VITALS: BP 140/83
[2018-01-11] MEDS ORDERED: INSULIN LISPRO 300 UNITS/3 ML INSULN.PEN. SQ ONE (21:00)
[2018-01-11] MEDS: ATORVASTATIN CALCIUM 40 MG TABLET. PO SCH (21:07)
[2018-01-11 23:00] VITALS: BP 161/105
[2018-01-12] VITALS (14 sets, daily range): BP systolic 120–164; BP diastolic 73–104
[2018-01-12] MEDS: MEROPENEM 1 GM in IV NORMAL SALINE 100ML 100 ML IV SCH ×3 (05:48→21:53)
[2018-01-12] MEDS: HEPARIN PF for SUB-Q USE 5,000 UNIT/0.5 ML VIAL. SQ SCH ×3 (05:49→21:53)
[2018-01-12] MEDS: INSULIN LISPRO 300 UNITS/3 ML INSULN.PEN. SQ SCH ×6 (07:30→17:25)
[2018-01-12] MEDS: INSULIN GLARGINE 300 UNITS/3 ML INSULN.PEN. SQ SCH ×2 (09:00→22:00)
--- NOTE | 2018-01-12 09:13 | PDOC ---
Infectious Disease Note Subjective Subjective feeling ok ROS ROS no n/v/d/fever Vital Sign Vital Signs Vital Signs Date Time Temp Pulse Resp B/P (MAP) Pulse Ox O2 Delivery O2 Flow Rate FiO2 01/12/18 07:00 97.7 71 18 132/88 (103) 99 Room Air 97.7 Physical Exam PHYSICAL EXAM CONSTITUTIONAL: He is in no acute distress. He is cooperative. He is up and wandering in the halls. NECK: Supple. LUNGS: Clear to auscultation. HEART: S1, S2. ABDOMEN: Soft, nontender and nondistended. Positive bowel sounds. EXTREMITIES: No clubbing or cyanosis. There is a well-healed scar on the medial aspect of his right leg. Lateral aspect of his right fifth toe area has an area of healing granulation, looks well. No signs of any erythema. No warmth. No fluctuance. He does have callus in both the metatarsal heads of his foot in the middle of his plantar aspect as well, without evidence of any fluctuance, drainage, warmth or erythema. SKIN: Without signs of rash. NEUROLOGIC: He is nonfocal. Labs Lab Laboratory Tests Test 01/11/18 11:19 01/11/18 16:50 01/11/18 20:38 01/12/18 07:45 Glucose (Fingerstick) 233 mg/dL (70-99) 269 mg/dL (70-99) 258 mg/dL (70-99) 243 mg/dL (70-99) Micro AEROBIC CULTURE Final Final report AEROBIC RES 1 Final Escherichia coli 4+ AEROBIC RES 2 Final Enterococcus faecalis 4+ AEROBIC RES 3 Final Yeast isolated. 2+ Request for further identification must be made within 1 week. AEROBIC RES 4 Final Mixed skin shayna 3+ ANTIMICROBIAL SUSCEPTIBILITY Final Comment S = Susceptible; I = Intermediate; R = Resistant P = Positive; N = Negative MICS are expressed in micrograms per mL Antibiotic RSLT#1 RSLT#2 RSLT#3 RSLT#4 Amoxicillin/Clavulanic Acid S =8 Ampicillin R>=32 Cefazolin R>=64 Cefepime I =8 Ceftriaxone R>=64 Cefuroxime R>=64 CONTINUED ON NEXT PAGE RUN DATE: 01/10/18 PAGE 2 RUN TIME: 1620 [facility] [address] [place] [address] Bernabe Cao M.D., Mineralogy Teacher SPEC: [id number] PATIENT: THAISDwightCARLOS ClementCURRIE [id number] ( Continued) Procedure Result ANTIMICROBIAL SUSCEPTIBILITY Final (continued) Ciprofloxacin R>=4 Ertapenem S<=0.12 Gentamicin S<=1 Imipenem S<=0.25 Levofloxacin R>=8 Meropenem S<=0.25 Penicillin R =16 Piperacillin/Tazobactam S<=4 Tetracycline S =4 Tobramycin S<=1 Trimethoprim/Sulfa R>=320 Vancomycin S =1 Performed at: DA - [facility] [address], [place], [place] [id number] [employer] Processor: JENNIFER Ladd MD, Phone: [phone] GRAM STAIN Final Final report GRAM STAIN RESULT 1 Final Comment No white blood cells seen. GRAM STAIN RESULT 2 Final Comment Moderate gram negative rods. GRAM STAIN RESULT 3 Final Comment Moderate amount of gram positive cocci in chains Performed at: - [facility], [place], [place] [id number] [employer] Processor: JENNIFER Ladd MD, Phone: [phone] END OF REPORT Objective Assessment 1. Right foot wound with osteomyelitis, multiple bones 2. Right fifth toe amputation at [place]. 3. Diabetes. 4. PENICILLIN ALLERGY A CHILD. 5 PAD Plan Plan of Care Cont abx,,, zyvox and meropenem F/u labs and cults Cont local wound care vascular consult , d/w Dr Parker angio today GEOFFREY WHITE MD Jan 12, 2018 09:13
--- NOTE | 2018-01-12 11:47 | PDOC ---
PROGRESS NOTES Chief Complaint Chief Complaint Osteomyelitis right foot-second episode HX of amputation, RT big toe for OM 7-8 yrs ago dm2 uncontrolled , on insulin non compliance,NO PCP tobaccoism History of Present Illness History of Present Illness Some nursing staff issues, patient is quite difficult to deal we've in terms of personality He refused. But now finally agreed to PICC line to be done downstairs once he gets the aortogram Blood sugars are still high, i can do better Plan: Continue lantus 45 units daily at bedtime increase lantus from 20 units to 35 units daily Keep 35 units mealtime NovoLog Angio today PICC line today Vitals Vitals Vital Signs Date Time Temp Pulse Resp B/P (MAP) Pulse Ox O2 Delivery O2 Flow Rate FiO2 01/12/18 07:00 97.7 71 18 132/88 (103) 99 Room Air 97.7 Physical Exam Physical Exam CONSTITUTIONAL: He is in no acute distress. He is cooperative. He is up and wandering in the halls. NECK: Supple. LUNGS: Clear to auscultation. HEART: S1, S2. ABDOMEN: Soft, nontender and nondistended. Positive bowel sounds. EXTREMITIES: No clubbing or cyanosis. There is a well-healed scar on the medial aspect of his right leg. Lateral aspect of his right fifth toe area has an area of healing granulation, looks well. No signs of any erythema. No warmth. No fluctuance. He does have callus in both the metatarsal heads of his foot in the middle of his plantar aspect as well, without evidence of any fluctuance, drainage, warmth or erythema. SKIN: Without signs of rash. NEUROLOGIC: He is nonfocal. General: Alert, Oriented X3, Cooperative Heart: Regular rate, Normal S1, Normal S2 Lungs: Clear Abdomen: Normal bowel sounds, Soft Extremities: No clubbing, No cyanosis Labs LABS Laboratory Tests Test 01/11/18 16:50 01/11/18 20:38 01/12/18 07:45 01/12/18 11:36 Glucose (Fingerstick) 269 mg/dL (70-99) 258 mg/dL (70-99) 243 mg/dL (70-99) 220 mg/dL (70-99) Review of Systems Review of Systems A 14 point ROS was completed with the following noted as positive: Other systems reviewed and negative. \CONSTITUTIONAL: No fever or chills EYES: No recent changes SKIN: No rash or itching CARDIOVASCULAR: No chest pain, syncope, palpitations, or edema RESPIRATORY: No SOB or cough GASTROINTESTINAL: No nausea, vomiting or abdominal pain NEUROLOGICAL: No headaches or weakness ENDOCRINE: No cold or heat intolerance GENITOURINARY: No urgency or frequency of urination MUSCULOSKELETAL: No back pain or joint pain LYMPHATICS: No enlarged lymph nodes PSYCHIATRIC: No anxiety or depression Assessment and Plan Assessmemt and Plan Problems Medical Problems: (1) Diabetic foot ulcer Status: Acute (2) Osteomyelitis Status: Acute (3) Uncontrolled type 2 diabetes mellitus Status: Acute Comment Review of Relevant I have reviewed the following items yuly (where applicable) has been applied. Labs Laboratory Tests Test 01/10/18 16:53 01/10/18 21:03 01/11/18 03:30 01/11/18 07:59 Glucose (Fingerstick) 206 mg/dL (70-99) 213 mg/dL (70-99) 302 mg/dL (70-99) White Blood Count 7.2 x10^3/uL (4.0-11.0) Red Blood Count 4.58 x10^6/uL (4.30-5.70) Hemoglobin 14.6 g/dL (13.0-17.5) Hematocrit 41.3 % (39.0-53.0) Mean Corpuscular Volume 90 fL (79-100) Mean Corpuscular Hemoglobin 32 pg (25-35) Mean Corpuscular Hemoglobin Concent 35 g/dL (31-37) Red Cell Distribution Width 13.7 % (11.5-14.5) Platelet Count 188 x10^3/uL (140-400) Neutrophils (%) (Auto) 62 % (31-73) Lymphocytes (%) (Auto) 28 % (24-48) Monocytes (%) (Auto) 7 % (0-9) Eosinophils (%) (Auto) 3 % (0-3) Basophils (%) (Auto) 1 % (0-3) Neutrophils # (Auto) 4.5 x10^3uL (1.8-7.7) Lymphocytes # (Auto) 2.0 x10^3/uL (1.0-4.8) Monocytes # (Auto) 0.5 x10^3/uL (0.0-1.1) Eosinophils # (Auto) 0.2 x10^3/uL (0.0-0.7) Basophils # (Auto) 0.0 x10^3/uL (0.0-0.2) Sodium Level 133 mmol/L (136-145) Potassium Level 4.0 mmol/L (3.5-5.1) Chloride Level 99 mmol/L (98-107) Carbon Dioxide Level 29 mmol/L (21-32) Anion Gap 5 (6-14) Blood Urea Nitrogen 13 mg/dL (8-26) Creatinine 1.0 mg/dL (0.7-1.3) Estimated GFR (Cockcroft-Gault) 96.9 Glucose Level 270 mg/dL (70-99) Calcium Level 9.8 mg/dL (8.5-10.1) Test 01/11/18 11:19 01/11/18 16:50 01/11/18 20:38 01/12/18 07:45 Glucose (Fingerstick) 233 mg/dL (70-99) 269 mg/dL (70-99) 258 mg/dL (70-99) 243 mg/dL (70-99) Test 01/12/18 11:36 Glucose (Fingerstick) 220 mg/dL (70-99) Laboratory Tests Test 01/11/18 16:50 01/11/18 20:38 01/12/18 07:45 01/12/18 11:36 Glucose (Fingerstick) 269 mg/dL (70-99) 258 mg/dL (70-99) 243 mg/dL (70-99) 220 mg/dL (70-99) Microbiology 01/07/18 Blood Culture - Final, Complete NO GROWTH AFTER 5 DAYS 01/07/18 Aerobic Culture - Final, Complete 01/07/18 Aerobic Culture Result 1 (OLIVA) - Final, Complete 01/07/18 Aerobic Culture Result 2 (OLIVA) - Final, Complete 01/07/18 Aerobic Culture Result 3 (OLIVA) - Final, Complete 01/07/18 Aerobic Culture Result 4 (OLIVA) - Final, Complete 01/07/18 Antimicrobic Susceptibility - Final, Complete 01/07/18 Gram Stain - Final, Complete 01/07/18 Gram Stain Result 1 (OLIVA) - Final, Complete 01/07/18 Gram Stain Result 2 (OLIVA) - Final, Complete 01/07/18 Gram Stain Result 3 (OLIVA) - Final, Complete Medications Current Medications Sodium Chloride 1,000 ml @ 1,000 mls/hr Q1H IV Last administered on 01/06/18at 21:25; Start 01/06/18 at 20:26; Stop 01/06/18 at 21:25; Status DC Insulin Human Regular (HumuLIN R VIAL) 8 unit 1X ONCE IV Last administered on 01/07/18at 00:09; Start 01/06/18 at 23:15; Stop 01/06/18 at 23:16; Status DC Vancomycin HCl 250 ml @ 250 mls/hr 1X ONCE IV Last administered on 01/07/18at 01:16; Start 01/06/18 at 23:30; Stop 01/07/18 at 00:29; Status DC Acetaminophen (Tylenol) 650 mg PRN Q4HRS PRN PO FEVER; Start 01/06/18 at 23:45 ; Stop 01/07/18 at 11:19; Status DC Oxycodone/ Acetaminophen (Percocet 5/325) 1 tab PRN Q6HRS PRN PO SEVERE PAIN Last administered on 01/11/18at 19:47; Start 01/07/18 at 02:00 Dextrose (Dextrose 50%-Water Syringe) 12.5 gm PRN Q15MIN PRN IV SEE COMMENTS; Start 01/07/18 at 02:15; Stop 01/07/18 at 11:20; Status DC Insulin Glargine (Lantus) 40 units 1X ONCE SQ Last administered on 01/07/18at 09:28; Start 01/07/18 at 09:30; Stop 01/07/18 at 09:31; Status DC Insulin Human Regular (HumuLIN R VIAL) 10 unit 1X ONCE IV Last administered on 01/07/18at 09:28; Start 01/07/18 at 10:00; Stop 01/07/18 at 10:01; Status DC Insulin Human Lispro (HumaLOG) 0-9 UNITS TIDWMEALS SQ Last administered on 01/11at 16:59; Start 01/07/18 at 12:00 Dextrose (Dextrose 50%-Water Syringe) 12.5 gm PRN Q15MIN PRN IV SEE COMMENTS; Start 01/07/18 at 11:15 Acetaminophen (Tylenol) 650 mg PRN Q6HRS PRN PO FEVER; Start 01/07/18 at 11:15 Ondansetron HCl (Zofran) 4 mg PRN Q6HRS PRN IV NAUSEA/VOMITING; Start 01/07/18 at 11:15 Morphine Sulfate (Morphine Sulfate) 2 mg PRN Q2HR PRN IV MODERATE TO SEVERE PAIN; Start 01/07/18 at 11:15 Tramadol HCl (Ultram) 50 mg PRN Q6HRS PRN PO MILD TO MODERATE PAIN; Start 01/07 at 11:15 Hydralazine HCl (Apresoline Inj) 10 mg PRN Q4HRS PRN IVP ELEVATED BP, SEE COMMENTS; Start 01/07/18 at 11:15 Docusate Sodium (Colace) 100 mg PRN DAILY PRN PO CONSTIPATION; Start 01/07/18 at 11:15 Vancomycin HCl (Vanco Per Pharmacy) 1 each PRN DAILY PRN MC SEE COMMENTS Last administered on 01/09/18at 12:01; Start 01/07/18 at 11:15; Stop 01/10/18 at 10:45 ; Status DC Vancomycin HCl 1.5 gm/Sodium Chloride 500 ml @ 250 mls/hr Q12H IV Last administered on 01/09/18at 12:42; Start 01/07/18 at 12:00; Stop 01/10/18 at 10:45 ; Status DC Meropenem 1 gm/ Sodium Chloride 100 ml @ 200 mls/hr Q8HRS IV Last administered on 01/09/18at 06:17; Start 01/07/18 at 14:00 Insulin Human Lispro (HumaLOG) 20 units TIDAC SQ Last administered on at 11:52; Start 01/07/18 at 11:30; Stop 01/08/18 at 14:47; Status DC Insulin Human Lispro (HumaLOG) 30 units 1X ONCE SQ Last administered on at 11:57; Start 01/07/18 at 11:30; Stop 01/07/18 at 11:31; Status DC Vancomycin HCl (Vancomycin Trough Level) 1 each 1X ONCE MC ; Start 01/08/18 at 23:30; Stop 01/08/18 at 23:31; Status DC Lactobacillus Rhamnosus (Culturelle) 1 cap BID PO Last administered on 21:07; Start 01/07/18 at 21:00 Insulin Glargine (Lantus) 40 units QHS SQ Last administered on 01/08/18at 21:05 ; Start 01/07/18 at 21:00; Stop 01/09/18 at 08:07; Status DC Sodium Chloride 1,000 ml @ 75 mls/hr [id number] IV Last administered on at 15:24; Start 01/07/18 at 15:00; Stop 01/10/18 at 11:05; Status DC Heparin Sodium (Porcine) (Heparin Sq) 5,000 unit Q8HRS SQ Last administered on 01/09/18 22:06; Start 01/07/18 at 15:30 Zolpidem Tartrate (Ambien) 5 mg PRN QHS PRN PO INSOMNIA Last administered on 22:27; Start 01/07/18 at 17:15 Insulin Human Lispro (HumaLOG) 25 units TIDAC SQ Last administered on at 16:54; Start 01/08/18 at 16:30; Stop 01/09/18 at 08:07; Status DC Vancomycin HCl (Vancomycin Trough Level) 1 each 1X ONCE MC ; Start 01/11/18 at 11:30; Stop 01/11/18 at 11:30; Status DC Insulin Glargine (Lantus) 45 units QHS SQ Last administered on 01/11/18at 21:11 ; Start 01/09/18 at 21:00 Insulin Human Lispro (HumaLOG) 34 units TIDAC SQ Last administered on at 16:58; Start 01/09/18 at 11:30 Linezolid (Zyvox) 600 mg BID PO Last administered on 01/11/18 21:07; Start at 11:00 Insulin Glargine (Lantus) 20 units DAILY SQ Last administered on 01/11/18 08: 54; Start 01/10/18 at 11:30; Stop 01/12/18 at 08:44; Status DC Amlodipine Besylate (Norvasc) 10 mg DAILY PO Last administered on 01/11/18 08: 30; Start 01/10/18 at 16:30 Atorvastatin Calcium (Lipitor) 40 mg QHS PO Last administered on 01/11/18at 21: 07; Start 01/10/18 at 21:00 Insulin Human Lispro (HumaLOG) 4 units 1X ONCE SQ Last administered on at 21:09; Start 01/11/18 at 21:00; Stop 01/11/18 at 21:04; Status DC Insulin Glargine (Lantus) 35 units DAILY SQ ; Start 01/12/18 at 09:00 Active Scripts Active Reported Atorvastatin Calcium 40 Mg Tablet 1 Tab PO QHS Amlodipine Besylate 10 Mg Tablet 10 Mg PO DAILY Lantus Solostar (Insulin Glargine,Hum.rec.anlog) 100 Unit/1 Ml Insuln.pen 45 Unit SQ QHS Novolog (Insulin Aspart) 100 Unit/1 Ml Cartridge 34 Unit SQ TIDAC Vitals/I & O Vital Sign - Last 24 Hours 01/11/18 01/11/18 01/11/18 01/11/18 15:11 19:00 19:40 19:47 Temp 97.9 98.1 97.9 98.1 Pulse 76 77 Resp 20 18 B/P (MAP) 143/91 (108) 140/83 (102) Pulse Ox 97 96 O2 Delivery Room Air Room Air Room Air Room Air 01/11/18 01/11/18 01/12/18 01/12/18 21:05 23:00 03:00 07:00 Temp 96.8 97.7 97.7 96.8 97.7 97.7 Pulse 79 78 71 Resp 16 18 18 18 B/P (MAP) 161/105 (123) 151/102 (118) 132/88 (103) Pulse Ox 97 95 99 O2 Delivery Room Air Room Air Room Air Room Air Intake and Output 01/11/18 01/11/18 01/12/18 15:00 23:00 07:00 Intake Total 480 ml 550 ml 550 ml Balance 480 ml 550 ml 550 ml JAJA PORTER MD Jan 12, 2018 11:47
[2018-01-12] MEDS ORDERED: IODIXANOL 320MG/ML 50ML VIAL. ONE (12:21)
[2018-01-12] MEDS ORDERED: HEPARIN for ARTERIAL LINE 1,500 ML ONE (12:21)
[2018-01-12] MEDS ORDERED: IODIXANOL 320 MG/ML 100 ML VIAL. ONE (12:21)
[2018-01-12] MEDS ORDERED: LIDOCAINE WITH 8.4% SOD BICARB 3 ML DISP.SYRIN. ONE (12:21)
[2018-01-12] MEDS ORDERED: MIDAZOLAM HCL/PF 2 MG/2 ML VIAL. ONE (12:33)
[2018-01-12] MEDS ORDERED: fentaNYL PF VIAL 100 MCG/2 ML VIAL ONE (12:33)
[2018-01-12] MEDS: IODIXANOL 320 MG/ML 100 ML VIAL. IART ONE ×2 (13:45→14:00)
[2018-01-12] MEDS ORDERED: fentaNYL PF VIAL 100 MCG/2 ML VIAL IV ONE (13:45)
[2018-01-12] MEDS ORDERED: MIDAZOLAM HCL/PF 2 MG/2 ML VIAL. IV ONE (13:45)
[2018-01-12] MEDS ORDERED: LIDOCAINE WITH 8.4% SOD BICARB 3 ML DISP.SYRIN. IJ ONE (13:45)
[2018-01-12] MEDS ORDERED: CONTRAST GIVEN. MC PRN (14:00)
--- NOTE | 2018-01-12 14:30 | PDOC ---
MODERATE SEDATION ASSESSMENT RISKS/ALTERNATIVES Risks/Alternatives Risks and alternatives of this type of sedation and procedure discussed with: RISK/ALTERNATIVES: Patient H & P ON CHART H & P H & P on chart and reviewed for co-morbid conditions and appropriate labs. H&P ON CHART: Yes STATUS PREG STATUS ASSESSED: Yes MEDS/ALLERGIES REVIEWED Meds/Allergies Reviewed Medications and Allergies including time and route of recently administered narcotics and sedatives. MEDS/ALLERGIES REVIEWED: Yes ASA RATING ASA RATING: III AIRWAY ASSESSMENT Airway Assessment Airway patency, oral function limitations, presence of caps, crowns, dentures, partials, and ability to extend neck assessed. AIRWAY ASSESSMENT: Yes MALLAMPATI SCORE MALLAMPATI SCORE: II PRE-SEDATION ASSESSMENT PRE-SEDATION ASSESSMENT: Yes SAM BRODY MD Jan 12, 2018 14:30
[2018-01-12] MEDS: LACTOBACILLUS RHAMNOSUS GG 1 CAPSULE. PO SCH ×2 (15:29→21:02)
[2018-01-12] MEDS: LINEZOLID 600 MG TABLET PO SCH ×2 (15:30→21:01)
[2018-01-12] MEDS: amLODIPine BESYLATE 10 MG TABLET PO SCH (15:30)
[2018-01-12] MEDS: oxyCODONE/APAP 5/325 1 TAB TABLET PO PRN ×2 (17:23→23:24)
[2018-01-12] MEDS: ATORVASTATIN CALCIUM 40 MG TABLET. PO SCH (21:01)
[2018-01-12] MEDS: ZOLPIDEM 5 MG TABLET. PO PRN (21:02)
[2018-01-12] MEDS ORDERED: INSULIN LISPRO 300 UNITS/3 ML INSULN.PEN. SQ ONE (22:00)
[2018-01-13 03:00] VITALS: BP 144/77
[2018-01-13] MEDS: HEPARIN PF for SUB-Q USE 5,000 UNIT/0.5 ML VIAL. SQ SCH ×2 (06:00→14:00)
[2018-01-13] MEDS: oxyCODONE/APAP 5/325 1 TAB TABLET PO PRN (06:15)
[2018-01-13] MEDS: MEROPENEM 1 GM in IV NORMAL SALINE 100ML 100 ML IV SCH (06:15)
[2018-01-13 07:00] VITALS: BP 131/72
[2018-01-13] MEDS ORDERED: INSULIN LISPRO 300 UNITS/3 ML INSULN.PEN. SQ ONE (07:45)
[2018-01-13] MEDS: INSULIN LISPRO 300 UNITS/3 ML INSULN.PEN. SQ SCH ×6 (08:00→16:39)
[2018-01-13] MEDS: LACTOBACILLUS RHAMNOSUS GG 1 CAPSULE. PO SCH (08:10)
[2018-01-13] MEDS: amLODIPine BESYLATE 10 MG TABLET PO SCH (08:10)
[2018-01-13] MEDS: LINEZOLID 600 MG TABLET PO SCH (08:10)
[2018-01-13] MEDS: INSULIN GLARGINE 300 UNITS/3 ML INSULN.PEN. SQ SCH (08:15)
--- NOTE | 2018-01-13 08:34 | PDOC ---
Infectious Disease Note Subjective Subjective feeling good, ready to get out of here says RONNA FRIEND no n/v/d/sob Vital Sign Vital Signs Vital Signs Date Time Temp Pulse Resp B/P (MAP) Pulse Ox O2 Delivery O2 Flow Rate FiO2 01/13/18 08:10 74 131/72 01/13/18 07:29 Room Air 01/13/18 06:15 18 01/13/18 03:00 98.9 97 98.9 01/12/18 13:59 2.0 Physical Exam PHYSICAL EXAM CONSTITUTIONAL: He is in no acute distress. He is cooperative. He is up and wandering in the halls. NECK: Supple. LUNGS: Clear to auscultation. HEART: S1, S2. ABDOMEN: Soft, nontender and nondistended. Positive bowel sounds. EXTREMITIES: No clubbing or cyanosis. There is a well-healed scar on the medial aspect of his right leg. Lateral aspect of his right fifth toe area has an area of healing granulation, looks well. No signs of any erythema. No warmth. No fluctuance. He does have callus in both the metatarsal heads of his foot in the middle of his plantar aspect as well, without evidence of any fluctuance, drainage, warmth or erythema. SKIN: Without signs of rash. NEUROLOGIC: He is nonfocal. Labs Lab Laboratory Tests Test 01/12/18 11:36 01/12/18 15:08 01/12/18 16:54 01/12/18 21:00 Glucose (Fingerstick) 220 mg/dL (70-99) 145 mg/dL (70-99) 219 mg/dL (70-99) 359 mg/dL (70-99) Micro AEROBIC CULTURE Final Final report AEROBIC RES 1 Final Escherichia coli 4+ AEROBIC RES 2 Final Enterococcus faecalis 4+ AEROBIC RES 3 Final Yeast isolated. 2+ Request for further identification must be made within 1 week. AEROBIC RES 4 Final Mixed skin shayna 3+ ANTIMICROBIAL SUSCEPTIBILITY Final Comment S = Susceptible; I = Intermediate; R = Resistant P = Positive; N = Negative MICS are expressed in micrograms per mL Antibiotic RSLT#1 RSLT#2 RSLT#3 RSLT#4 Amoxicillin/Clavulanic Acid S =8 Ampicillin R>=32 Cefazolin R>=64 Cefepime I =8 Ceftriaxone R>=64 Cefuroxime R>=64 CONTINUED ON NEXT PAGE RUN DATE: 01/10/18 PAGE 2 RUN TIME: 16[address] [facility] [address] [place] [address] Bernabe Cao M.D., Floor Coverer SPEC: [id number] PATIENT: LASHAUNCURRIE [id number] ( Continued) Procedure Result ANTIMICROBIAL SUSCEPTIBILITY Final (continued) Ciprofloxacin R>=4 Ertapenem S<=0.12 Gentamicin S<=1 Imipenem S<=0.25 Levofloxacin R>=8 Meropenem S<=0.25 Penicillin R =16 Piperacillin/Tazobactam S<=4 Tetracycline S =4 Tobramycin S<=1 Trimethoprim/Sulfa R>=320 Vancomycin S =1 Performed at: [address], [place] [id number] Elevated Motorman: JENNIFER Ladd MD, Phone: [phone] GRAM STAIN Final Final report GRAM STAIN RESULT 1 Final Comment No white blood cells seen. GRAM STAIN RESULT 2 Final Comment Moderate gram negative rods. GRAM STAIN RESULT 3 Final Comment Moderate amount of gram positive cocci in chains Performed at: [address], [place], [place] [id number] Elevated Motorman: JENNIFER Ladd MD, Phone: [phone] END OF REPORT Objective Assessment 1. Right foot wound with osteomyelitis, multiple bones 2. Right fifth toe amputation at [place]. 3. Diabetes. 4. PENICILLIN ALLERGY A CHILD. 5 PAD Plan Plan of Care Cont abx,,, zyvox and meropenem ,, change to iv invanz and po zyvox and po diflucan in detail discussion done with pt, he continues to walk all day here , and need to off load as much as possible, also he has been recommended TMA , he refuses, he wants to save it and says he believes in God and the foot will heal says. did have angioplasty and will be on iv antibiotics for osteomyelitis ( pt had same osteomyelitis finding at 1 mth ago and was recommended TMA there also, hence this is chronic osteo, unlikely to heal , that was clearly discussed with pt but he still wants to try ) F/u labs and cults Cont local wound care need wkly cbc, bun/cr, sed rate fax to [phone] f/u with us in 2 wks GEOFFREY WHITE MD Jan 13, 2018 08:34
[2018-01-13] MEDS ORDERED: ERTAPENEM 0.5 GM in IV NORMAL SALINE 50ML 50 ML IV ONE (09:00)
[2018-01-13] MEDS ORDERED: FLUCONAZOLE 100 MG TABLET. PO SCH (09:00)
[2018-01-13 11:00] VITALS: BP 135/87
--- NOTE | 2018-01-13 12:18 | PDOC ---
PROGRESS NOTES Chief Complaint Chief Complaint Osteomyelitis right foot-second episode HX of amputation, RT big toe for OM 7-8 yrs ago dm2 uncontrolled , on insulin non compliance,NO PCP tobaccoism History of Present Illness History of Present Illness pt seen and examined pt states he is feeling well Angio and PICC placement yesterday VSS Vitals Vitals Vital Signs Date Time Temp Pulse Resp B/P (MAP) Pulse Ox O2 Delivery O2 Flow Rate FiO2 01/13/18 11:00 97.6 80 18 135/87 (103) 98 Room Air 97.6 01/12/18 13:59 2.0 Physical Exam General: Alert, Oriented X3, Cooperative Heart: Regular rate, Normal S1, Normal S2 Lungs: Clear Abdomen: Normal bowel sounds, Soft Extremities: No clubbing, No cyanosis Skin: No rashes, No breakdown Labs LABS Laboratory Tests Test 01/12/18 15:08 01/12/18 16:54 01/12/18 21:00 01/13/18 07:23 Glucose (Fingerstick) 145 mg/dL (70-99) 219 mg/dL (70-99) 359 mg/dL (70-99) 455 mg/dL (70-99) Test 01/13/18 11:03 Glucose (Fingerstick) 315 mg/dL (70-99) Review of Systems Review of Systems no co pain no co nausea no co STOUT Assessment and Plan Assessmemt and Plan Assessment: Osteomyelitis right foot-second episode HX of amputation, RT big toe for OM 7-8 yrs ago dm2 uncontrolled , on insulin non compliance,NO PCP tobaccoism Plan: home meds glycemic control prescription for Accu check and strips given Probable DC home on IV Abx Comment Review of Relevant I have reviewed the following items yuly (where applicable) has been applied. Labs Laboratory Tests Test 01/11/18 16:50 01/11/18 20:38 01/12/18 07:45 01/12/18 11:36 Glucose (Fingerstick) 269 mg/dL (70-99) 258 mg/dL (70-99) 243 mg/dL (70-99) 220 mg/dL (70-99) Test 01/12/18 15:08 01/12/18 16:54 01/12/18 21:00 01/13/18 07:23 Glucose (Fingerstick) 145 mg/dL (70-99) 219 mg/dL (70-99) 359 mg/dL (70-99) 455 mg/dL (70-99) Test 01/13/18 11:03 Glucose (Fingerstick) 315 mg/dL (70-99) Laboratory Tests Test 01/12/18 15:08 01/12/18 16:54 01/12/18 21:00 01/13/18 07:23 Glucose (Fingerstick) 145 mg/dL (70-99) 219 mg/dL (70-99) 359 mg/dL (70-99) 455 mg/dL (70-99) Test 01/13/18 11:03 Glucose (Fingerstick) 315 mg/dL (70-99) Microbiology 01/07/18 Blood Culture - Final, Complete NO GROWTH AFTER 5 DAYS 01/07/18 Aerobic Culture - Final, Complete 01/07/18 Aerobic Culture Result 1 (OLIVA) - Final, Complete 01/07/18 Aerobic Culture Result 2 (OLIVA) - Final, Complete 01/07/18 Aerobic Culture Result 3 (OLIVA) - Final, Complete 01/07/18 Aerobic Culture Result 4 (OLIVA) - Final, Complete 01/07/18 Antimicrobic Susceptibility - Final, Complete 01/07/18 Gram Stain - Final, Complete 01/07/18 Gram Stain Result 1 (OLIVA) - Final, Complete 01/07/18 Gram Stain Result 2 (OLIVA) - Final, Complete 01/07/18 Gram Stain Result 3 (OLIVA) - Final, Complete Medications Current Medications Sodium Chloride 1,000 ml @ 1,000 mls/hr Q1H IV Last administered on 01/06/18at 21:25; Start 01/06/18 at 20:26; Stop 01/06/18 at 21:25; Status DC Insulin Human Regular (HumuLIN R VIAL) 8 unit 1X ONCE IV Last administered on 01/07/18at 00:09; Start 01/06/18 at 23:15; Stop 01/06/18 at 23:16; Status DC Vancomycin HCl 250 ml @ 250 mls/hr 1X ONCE IV Last administered on 01/07/18at 01:16; Start 01/06/18 at 23:30; Stop 01/07/18 at 00:29; Status DC Acetaminophen (Tylenol) 650 mg PRN Q4HRS PRN PO FEVER; Start 01/06/18 at 23:45 ; Stop 01/07/18 at 11:19; Status DC Oxycodone/ Acetaminophen (Percocet 5/325) 1 tab PRN Q6HRS PRN PO SEVERE PAIN Last administered on 01/13/18at 06:15; Start 01/07/18 at 02:00 Dextrose (Dextrose 50%-Water Syringe) 12.5 gm PRN Q15MIN PRN IV SEE COMMENTS; Start 01/07/18 at 02:15; Stop 01/07/18 at 11:20; Status DC Insulin Glargine (Lantus) 40 units 1X ONCE SQ Last administered on 01/07/18at 09:28; Start 01/07/18 at 09:30; Stop 01/07/18 at 09:31; Status DC Insulin Human Regular (HumuLIN R VIAL) 10 unit 1X ONCE IV Last administered on 01/07/18at 09:28; Start 01/07/18 at 10:00; Stop 01/07/18 at 10:01; Status DC Insulin Human Lispro (HumaLOG) 0-9 UNITS TIDWMEALS SQ Last administered on 01/12at 17:25; Start 01/07/18 at 12:00 Dextrose (Dextrose 50%-Water Syringe) 12.5 gm PRN Q15MIN PRN IV SEE COMMENTS; Start 01/07/18 at 11:15 Acetaminophen (Tylenol) 650 mg PRN Q6HRS PRN PO FEVER; Start 01/07/18 at 11:15 Ondansetron HCl (Zofran) 4 mg PRN Q6HRS PRN IV NAUSEA/VOMITING; Start 01/07/18 at 11:15 Morphine Sulfate (Morphine Sulfate) 2 mg PRN Q2HR PRN IV MODERATE TO SEVERE PAIN; Start 01/07/18 at 11:15 Tramadol HCl (Ultram) 50 mg PRN Q6HRS PRN PO MILD TO MODERATE PAIN Last administered on 01/12/18at 21:02; Start 01/07/18 at 11:15 Hydralazine HCl (Apresoline Inj) 10 mg PRN Q4HRS PRN IVP ELEVATED BP, SEE COMMENTS; Start 01/07/18 at 11:15 Docusate Sodium (Colace) 100 mg PRN DAILY PRN PO CONSTIPATION; Start 01/07/18 at 11:15 Vancomycin HCl (Vanco Per Pharmacy) 1 each PRN DAILY PRN MC SEE COMMENTS Last administered on 01/09/18at 12:01; Start 01/07/18 at 11:15; Stop 01/10/18 at 10:45 ; Status DC Vancomycin HCl 1.5 gm/Sodium Chloride 500 ml @ 250 mls/hr Q12H IV Last administered on 01/09/18at 12:42; Start 01/07/18 at 12:00; Stop 01/10/18 at 10:45 ; Status DC Meropenem 1 gm/ Sodium Chloride 100 ml @ 200 mls/hr Q8HRS IV Last administered on 01/13/18at 06:15; Start 01/07/18 at 14:00; Stop 01/13/18 at 08:51 ; Status DC Insulin Human Lispro (HumaLOG) 20 units TIDAC SQ Last administered on at 11:52; Start 01/07/18 at 11:30; Stop 01/08/18 at 14:47; Status DC Insulin Human Lispro (HumaLOG) 30 units 1X ONCE SQ Last administered on at 11:57; Start 01/07/18 at 11:30; Stop 01/07/18 at 11:31; Status DC Vancomycin HCl (Vancomycin Trough Level) 1 each 1X ONCE MC ; Start 01/08/18 at 23:30; Stop 01/08/18 at 23:31; Status DC Lactobacillus Rhamnosus (Culturelle) 1 cap BID PO Last administered on at 08:10; Start 01/07/18 at 21:00 Insulin Glargine (Lantus) 40 units QHS SQ Last administered on 01/08/18at 21:05 ; Start 01/07/18 at 21:00; Stop 01/09/18 at 08:07; Status DC Sodium Chloride 1,000 ml @ 75 mls/hr [id number] IV Last administered on at 15:24; Start 01/07/18 at 15:00; Stop 01/10/18 at 11:05; Status DC Heparin Sodium (Porcine) (Heparin Sq) 5,000 unit Q8HRS SQ Last administered on 01/09/18at 22:06; Start 01/07/18 at 15:30 Zolpidem Tartrate (Ambien) 5 mg PRN QHS PRN PO INSOMNIA Last administered on at 21:02; Start 01/07/18 at 17:15 Insulin Human Lispro (HumaLOG) 25 units TIDAC SQ Last administered on at 16:54; Start 01/08/18 at 16:30; Stop 01/09/18 at 08:07; Status DC Vancomycin HCl (Vancomycin Trough Level) 1 each 1X ONCE MC ; Start 01/11/18 at 11:30; Stop 01/11/18 at 11:30; Status DC Insulin Glargine (Lantus) 45 units QHS SQ Last administered on 01/12/18at 22:00 ; Start 01/09/18 at 21:00 Insulin Human Lispro (HumaLOG) 34 units TIDAC SQ Last administered on at 08:26; Start 01/09/18 at 11:30 Linezolid (Zyvox) 600 mg BID PO Last administered on 01/13/18at 08:10; Start at 11:00 Insulin Glargine (Lantus) 20 units DAILY SQ Last administered on 01/11/18at 08: 54; Start 01/10/18 at 11:30; Stop 01/12/18 at 08:44; Status DC Amlodipine Besylate (Norvasc) 10 mg DAILY PO Last administered on 01/13/18at 08: 10; Start 01/10/18 at 16:30 Atorvastatin Calcium (Lipitor) 40 mg QHS PO Last administered on 01/12/18at 21: 01; Start 01/10/18 at 21:00 Insulin Human Lispro (HumaLOG) 4 units 1X ONCE SQ Last administered on at 21:09; Start 01/11/18 at 21:00; Stop 01/11/18 at 21:04; Status DC Insulin Glargine (Lantus) 35 units DAILY SQ Last administered on 01/13/18at 08: 15; Start 01/12/18 at 09:00 Iodixanol (Visipaque 320) 100 ml STK-MED ONCE .ROUTE ; Start 01/12/18 at 12:21; Stop 01/12/18 at 12:22; Status DC Lidocaine/Sodium Bicarbonate (Buffered Lidocaine 1%) 3 ml STK-MED ONCE .ROUTE ; Start 01/12/18 at 12:21; Stop 01/12/18 at 12:22; Status DC Iodixanol (Visipaque 320) 50 ml STK-MED ONCE .ROUTE ; Start 01/12/18 at 12:21; Stop 01/12/18 at 12:22; Status DC Heparin Sodium/ Sodium Chloride 1,500 ml @ As Directed STK-MED ONCE .ROUTE ; Start 01/12/18 at 12:21; Stop 01/12/18 at 12:22; Status DC Midazolam HCl (Versed) 2 mg STK-MED ONCE .ROUTE ; Start 01/12/18 at 12:33; Stop 01/12/18 at 12:34; Status DC Fentanyl Citrate (Fentanyl 2ml Vial) 100 mcg STK-MED ONCE .ROUTE ; Start at 12:33; Stop 01/12/18 at 12:35; Status DC Heparin Sodium/ Sodium Chloride (HEPARIN for ARTERIAL LINE FLUSH) 1,000 unit 1X ONCE IART Last administered on 01/12/18at 13:59; Start 01/12/18 at 13:45; Stop 01/12/18 at 13:46; Status DC Heparin Sodium/ Sodium Chloride (HEPARIN for ARTERIAL LINE FLUSH) 1,000 unit 1X ONCE IART Last administered on 01/12/18at 13:59; Start 01/12/18 at 13:45; Stop 01/12/18 at 13:46; Status DC Lidocaine/Sodium Bicarbonate (Buffered Lidocaine 1%) 5 ml 1X ONCE IJ Last administered on 01/12/18at 14:00; Start 01/12/18 at 13:45; Stop 01/12/18 at 13:46 ; Status DC Midazolam HCl (Versed) 2 mg 1X ONCE IV Last administered on 01/12/18at 13:58; Start 01/12/18 at 13:45; Stop 01/12/18 at 13:46; Status DC Fentanyl Citrate (Fentanyl 2ml Vial) 100 mcg 1X ONCE IV Last administered on at 13:59; Start 01/12/18 at 13:45; Stop 01/12/18 at 13:46; Status DC Iodixanol (Visipaque 320) 100 ml 1X ONCE IART Last administered on 01/12/18at 13:45; Start 01/12/18 at 13:45; Stop 01/12/18 at 13:46; Status DC Info (CONTRAST GIVEN -- Rx MONITORING) 1 each PRN DAILY PRN MC SEE COMMENTS; Start 01/12/18 at 14:00; Stop 01/14/18 at 13:59 Insulin Human Lispro (HumaLOG) 7 units 1X ONCE SQ Last administered on at 22:00; Start 01/12/18 at 22:00; Stop 01/12/18 at 22:01; Status DC Insulin Human Lispro (HumaLOG) 20 units 1X ONCE SQ Last administered on at 08:25; Start 01/13/18 at 07:45; Stop 01/13/18 at 07:46; Status DC Fluconazole (Diflucan) 200 mg DAILY PO Last administered on 01/13/18at 08:43; Start 01/13/18 at 09:00 Ertapenem 0.5 gm/ Sodium Chloride 50 ml @ 100 mls/hr 1X ONCE IV Last administered on 01/13/18at 10:08; Start 01/13/18 at 09:00; Stop 01/13/18 at 09:29 ; Status DC Active Scripts Active Reported Atorvastatin Calcium 40 Mg Tablet 1 Tab PO QHS Amlodipine Besylate 10 Mg Tablet 10 Mg PO DAILY Lantus Solostar (Insulin Glargine,Hum.rec.anlog) 100 Unit/1 Ml Insuln.pen 45 Unit SQ QHS Novolog (Insulin Aspart) 100 Unit/1 Ml Cartridge 34 Unit SQ TIDAC Vitals/I & O Vital Sign - Last 24 Hours 01/12/18 01/12/18 01/12/18 01/12/18 13:59 14:09 14:23 14:30 Pulse 65 67 Resp 16 16 B/P (MAP) 143/92 (109) Pulse Ox 100 98 O2 Delivery Room Air Room Air O2 Flow Rate 2.0 01/12/18 01/12/18 01/12/18 01/12/18 14:30 14:45 15:00 15:15 Pulse 68 64 64 61 B/P (MAP) 120/97 (105) 130/90 (103) 138/88 (105) 128/91 (103) Pulse Ox 98 99 96 98 01/12/18 01/12/18 01/12/18 01/12/18 15:30 15:30 16:00 17:00 Pulse 65 70 70 76 B/P (MAP) 151/96 147/100 (116) 121/73 (89) 147/88 (107) Pulse Ox 100 100 01/12/18 01/12/18 01/12/18 01/12/18 17:23 19:00 19:35 21:02 Temp 97.7 97.7 Pulse 84 Resp 18 16 B/P (MAP) 164/104 (124) Pulse Ox 97 O2 Delivery Room Air Room Air Room Air Room Air 01/12/18 01/12/18 01/12/18 01/13/18 22:08 23:00 23:24 00:25 Temp 97.5 97.5 Pulse 88 Resp 16 18 16 16 B/P (MAP) 159/98 (118) Pulse Ox 97 O2 Delivery Room Air Room Air Room Air 01/13/18 01/13/18 01/13/18 01/13/18 03:00 06:15 07:00 07:05 Temp 98.9 97.5 98.9 97.5 Pulse 89 74 Resp 18 18 16 B/P (MAP) 144/77 (99) 131/72 (91) Pulse Ox 97 98 O2 Delivery Room Air Room Air Room Air Room Air 01/13/18 01/13/18 01/13/18 07:29 08:10 11:00 Temp 97.6 97.6 Pulse 74 80 Resp 18 B/P (MAP) 131/72 135/87 (103) Pulse Ox 98 O2 Delivery Room Air Room Air Intake and Output 01/12/18 01/12/18 01/13/18 15:00 23:00 07:00 Intake Total 100 ml 1350 ml Balance 100 ml 1350 ml MARY LESLIE III DO Jan 13, 2018 12:18
--- NOTE | 2018-01-13 14:11 | PDOC ---
Provider Note Provider Note Vascular S: Patient resting in bed, no complaints O: Right foot ulcer fifth toe amputation site, with granulating tissue, first toe amputation site with callous ulcer. Left groin with dry dressing. A/P: Right foot with open wounds AARO performed yesterday, report pending, no intervention needed. MRI shows osteomyelitis of the right 1, 2, 3 and 5th toes Recommend TMA however the patient is refusing this amputation. Patient to discharge with IV and PO antibiotics. Recommend follow up ID and [facility]. Post op shoe ordered for patient, continue to recommend minimal activity with off-loading forefoot. YARITZA QUAN CAT SCANNER OPERATOR Jan 13, 2018 14:11
[2018-01-13 15:00] VITALS: BP 117/63
--- NOTE | 2018-01-13 16:33 | RAD ---
01/12/2018 1. Right upper extremity PICC line placement 2. Abdominal aortogram 3. Pelvic angiography 4. Bilateral lower extremity angiography Informed consent: The risks and benefits of the procedures were discussed the patient. Informed consent was obtained. The patient was brought to the interventional suite and placed in the supine position. Timeout procedure was performed. PICC line placement: The right upper extremity was prepped and draped using sterile barrier technique. All elements of maximal sterile barrier technique including the use of a cap, mask, sterile gown, sterile gloves, large sterile sheet, appropriate hand hygiene, and 2% chlorhexidine for cutaneous antisepsis (or acceptable alternative antiseptic per current guidelines) were followed for this procedure. Real-time ultrasound demonstrated a patent right basilic vein which was prepped and draped in usual sterile fashion. 1% lidocaine used for local anesthesia. Using real-time ultrasound guidance the access needle percutaneously punctured the selected right basilic vein. Reference ultrasound images were saved to the medical record. Guidewire was advanced through the needle to the cavoatrial junction, and a peel-away sheath placed. The catheter was cut to length and inserted through the peel-away sheath such that its tip is at the cavoatrial junction. The wire and sheath were removed, and the catheter secured in place, and a sterile dressing was applied. Catheter was found to flush and aspirate normally. No immediate complications are identified. Angiography: The left groin was prepped and draped using sterile barrier technique. All elements of maximal sterile barrier technique including the use of a cap, mask, sterile gown, sterile gloves, large sterile sheet, appropriate hand hygiene, and 2% chlorhexidine for cutaneous antisepsis (or acceptable alternative antiseptic per current guidelines) were followed for this procedure. 1% lidocaine was administered for local anesthesia to the left groin. Ultrasound fluoroscopic guidance was used. Ultrasound demonstrates a left common femoral artery is patent. Left common femoral artery was accessed under direct ultrasound guidance using micropuncture technique. Needle position was confirmed to be in the mid femoral head by fluoroscopy. 5 [place] vascular sheath was placed. An Omni flush catheter was advanced into the abdominal aorta. Abdominal aortogram was obtained demonstrating no aneurysm or dissection. Aortic branch vessels appear to be patent. Mild tortuosity of the distal abdominal aorta, iliac arteries is seen. Pelvic angiography was performed which demonstrates no flow-limiting stenosis. Aortic bifurcation was crossed. Angiography of the right lower extremity was performed. The right common femoral artery profunda artery are patent. Right superficial femoral artery and popliteal artery is patent. There is occlusion of the peroneal artery and posterior tibial artery in the proximal leg. Anterior tibial artery is patent to the distal third of the leg were appears to be occluded. Two large collaterals arise from the distal aspect of the artery however is also slightly fill the dorsalis pedis artery and the anastomotic branch feeding the posterior tibial artery. The lateral plantar artery appears to be patent. Significant distal microvascular disease is present. The catheter was removed. Left lower extremity angiography was performed through the pre-existing sheath. Left common femoral artery is patent. Left common femoral puncture site noted. Left profunda artery is patent. Left SFA and popliteal arteries are patent. On the left anterior tibial artery and posterior tibial arteries are occluded proximally. The peroneal artery is patent to above the ankle but does taper distally. Filling of the anastomotic branch ultimately reconstituting the posterior tibial artery distally is seen. 2 lateral plantar branches are present. The dorsalis pedis artery appears be occluded. Again significant microvascular disease seen in the left foot. Fluoroscopy time: 8.2 min Dose area product: 371 Gycm2 Impression: 1.No significant aortoiliac or femoropopliteal stenosis is identified. 2. Significant tibial vessel disease bilaterally. No in-line flow to the foot is seen with occlusion of the anterior tibial artery, peroneal artery, posterior tibial artery on the right, as described above in detail. The anterior tibial artery is the dominant artery on the right which supplies the foot via multiple collaterals. On the left there is occlusion of the anterior and posterior tibial arteries. The peroneal artery appears patent the ankle where via the anastomotic branch reconstitutes the posterior tibial artery.
--- NOTE | 2018-01-17 11:24 | DS ---
DATE OF DISCHARGE: 01/13/2018 ADMISSION DIAGNOSIS: Osteomyelitis. DISCHARGE DIAGNOSES: 1. Resolving osteomyelitis. 2. Status post right leg vascular study with angiography. CONSULTS: Infectious Disease in Interventional Radiology. HOSPITAL COURSE: The patient was 47-year-old male who presented with osteomyelitis of with a diabetic foot lesion. He was admitted. We gave him IV antibiotics and wound care. With the above consults were obtained, we did some vascular studies. Basically was discharged home on IV antibiotics. DISPOSITION: Home on IV antibiotics. ACTIVITY: As tolerated. DIET: Low sodium. MEDICATIONS: Please see the MRAD. TOTAL TIME ON DISCHARGE: Thirty-three minutes. MARY LESLIE DO DR: MEHRAN/belkis JOB#: [id number] / [id number]
== END 2018-01-13 17:40 | disposition home health service (06) | DRG 564 ==
LOC: ER 19:52 → 4 NORTH 23:35
PROVIDERS: ADMIT Internal Medicine; ATTEND Internal Medicine
PROC: 02HV33Z Insertion of Infusion Device into Superior Vena Cava, Percutaneous Approach (ICD-10-PCS; principal; 2018-01-12)
PROC: B548ZZA Ultrasonography of Superior Vena Cava, Guidance (ICD-10-PCS; 2018-01-12)
PROC: B41G1ZZ Fluoroscopy of Left Lower Extremity Arteries using Low Osmolar Contrast (ICD-10-PCS; 2018-01-12)
PROC: B4101ZZ Fluoroscopy of Abdominal Aorta using Low Osmolar Contrast (ICD-10-PCS; 2018-01-12)
PROC: B41F1ZZ Fluoroscopy of Right Lower Extremity Arteries using Low Osmolar Contrast (ICD-10-PCS; 2018-01-12)
DX: T87.43 Infection of amputation stump, right lower extremity (principal); E11.00 Type 2 diabetes mellitus with hyperosmolarity without nonketotic hyperglycemic-hyperosmolar coma (NKHHC); M86.9 Osteomyelitis, unspecified; E11.621 Type 2 diabetes mellitus with foot ulcer; E11.69 Type 2 diabetes mellitus with other specified complication; Z88.0 Allergy status to penicillin; Z82.49 Family history of ischemic heart disease and other diseases of the circulatory system; F17.210 Nicotine dependence, cigarettes, uncomplicated; L97.519 Non-pressure chronic ulcer of other part of right foot with unspecified severity; Z91.19 Patient's noncompliance with other medical treatment and regimen; Z79.4 Long term (current) use of insulin; Z89.421 Acquired absence of other right toe(s); Z89.411 Acquired absence of right great toe; E11.51 Type 2 diabetes mellitus with diabetic peripheral angiopathy without gangrene; E11.65 Type 2 diabetes mellitus with hyperglycemia
CPT/HCPCS: 36247; 36415; 36569; 73630; 73718; 75625; 75716; 76937; 77001; 80048; 80053; 81001; 82962; 83036; 85025; 85610; 85651; 86140; 87040; 87070; 87186; 93926; 96361; 96374; 99152; 99153; C1713; C1751; C1760; C1769; C1892; C1894; G0269; J1335; J1644; J1815; J2185; J2250; J3010; J3370; J7030; J7040; 99285-25

== ENCOUNTER 2018-02-27 18:36 | Inpatient (IN) | payer MEDICAID ==
[~2018-02-27] VITALS: Ht 185.4 cm; Wt 96.2 kg
[~2018-02-27 18:36] MED LIST: AMLO10TA6 PO; ATOR40TA59 PO; DOXY100T PO; ERTA1VIA IJ; Fluconazole PO; HYDR-2758 PO; INSU100C4 SQ; INSU100I13 SQ; LINE600T PO
[2018-02-27] MEDS ORDERED: IV NORMAL SALINE 1000ML BAG 1,000 ML IV ONE (22:00)
[2018-02-27] MEDS ORDERED: ONDANSETRON PF 4 MG/2 ML VIAL. IV ONE (22:00)
--- NOTE | 2018-02-27 22:15 | PHYS DOC ---
Past Medical History Past Medical History: Diabetes-Type II, High Cholesterol, Hypertension Past Surgical History: Other Additional Past Surgical Histo: RIGHT TOE AMPUTATION Alcohol Use: None Drug Use: None Adult General Chief Complaint Chief Complaint: FOOT INJURY PAIN HPI HPI Patient is a 47 year old male who presents with chronic osteomyelitis of the right foot. Patient has been treated for the diabetic ulcer since last month and this was to be getting IV antibiotics through his PICC line. Patient states he is currently homeless and has not gotten any IV antibiotic for the last week and 4 days. Patient states he is still taking his insulin and has been having low blood sugars. Patient also states he has not been eating because of lack of appetite. Review of Systems Review of Systems Constitutional: Denies fever or chills [] Eyes: Denies change in visual acuity, redness, or eye pain [] HENT: Denies nasal congestion or sore throat [] Respiratory: Denies cough or shortness of breath [] Cardiovascular: No additional information not addressed in HPI [] GI: Denies abdominal pain, nausea, vomiting, bloody stools or diarrhea [] : Denies dysuria or hematuria [] Musculoskeletal: Denies back pain or joint pain [] Integument: Denies rash or skin lesions. Stage II-III diabetic right foot ulcer [] Neurologic: Denies headache, focal weakness or sensory changes [] Endocrine: Denies polyuria or polydipsia [] All other systems were reviewed and found to be within normal limits, except as documented in this note. Current Medications Current Medications Current Medications Medications (Trade) Dose Ordered Sig/Dick Start Time Stop Time Status Last Admin Dose Admin Ondansetron HCl (Zofran) 4 mg 1X ONCE 02/27/18 22:00 02/27/18 22:01 DC 02/27/18 22:59 4 MG Sodium Chloride 1,000 ml @ 1,000 mls/hr 1X ONCE 02/27/18 22:00 02/27/18 22:59 DC Allergies Allergies Allergies Coded Allergies Type Severity Reaction Last Updated Verified lisinopril Allergy Severe ANGIOEDEMA 01/07/18 Yes Penicillins Allergy Intermediate 01/30/18 Yes Physical Exam Physical Exam Constitutional: Well developed, well nourished, no acute distress, non-toxic appearance. [] HENT: Normocephalic, atraumatic, bilateral external ears normal, oropharynx moist, no oral exudates, nose normal. [] Eyes: PERRLA, EOMI, conjunctiva normal, no discharge. [] Neck: Normal range of motion, no tenderness, supple, no stridor. [] Cardiovascular:Heart rate regular rhythm, no murmur [] Lungs & Thorax: Bilateral breath sounds clear to auscultation [] Abdomen: Bowel sounds normal, soft, no tenderness, no masses, no pulsatile masses. [] Skin: Stage II-III purulent/blood/ odorous draining right foot diabetic wound. Right arm Picc line. Warm, dry, no erythema, no rash. [] Back: No tenderness, no CVA tenderness. [] Extremities: No tenderness, no cyanosis, no clubbing, ROM intact, no edema. [] Neurologic: Alert and oriented X 3, normal motor function, normal sensory function, no focal deficits noted. [] Psychologic: Affect normal, judgement normal, mood normal. [] Current Patient Data Vital Signs Vital Signs Date Time Temp Pulse Resp B/P (MAP) Pulse Ox O2 Delivery O2 Flow Rate FiO2 02/27/18 21:45 97.7 89 18 165/92 (116) 99 Room Air 97.7 Lab Values Laboratory Tests Test 02/27/18 21:38 Glucose (Fingerstick) 64 mg/dL (70-99) L EKG EKG [] Radiology/Procedures Radiology/Procedures Xray right foot Impressions: No gas forming organisms seen and read by Dr Poe Course & Med Decision Making Course & Med Decision Making Patient is a 47 year old male who presents with chronic osteomyelitis of the right foot. Patient has been treated for the diabetic ulcer since last month and this was to be getting IV antibiotics through his PICC line. Patient states he is currently homeless and has not gotten any IV antibiotic for the last week and 4 days. Patient states he is still taking his insulin and has been having low blood sugars. Patient also states he has not been eating because of lack of appetite. Patient is alert and oriented. Patient states he has not been changing the dressing on his foot and when the dressing is pulled off there is purulent and odorous drainage and blood. Patient rates his pain a 10 out of 10. Patient's vital signs radiate heart rate, 118/73, 99% on room air. Skin is pink warm and dry. There is a weak pulse felt in the right foot. Patient states that his PICC line dressing has not been changed in the last 2 weeks. I did call pharmacy and they state that he was last is to be on meropenem IV 500 mg every 6 hours and doxycycline 100 mg twice a day. I have restarted his antibiotics the patient will be admitted to the hospital. Patient denies fever, nausea, vomiting. Patient states that he does have no appetite. Lungs are clear to auscultation area patient's blood glucose was 64 in the ED. We gave him a sandwich and some milk or juice. Patient states on not eating this I need a big coke and something sweet. I ordered some Zofran for the patient to help her nausea and patient is told that we do not have Coke and the best thing for him is to eat the sandwich and drink the juice or milk and we will reevaluate him. Patient is very short and makes several demands about changing the dressing on his foot, changing his PICC line, and what he eats or drinks. I did tell the patient that he would be admitted for IV antibiotics. I did start some IV fluids patient also. Patient states that he is allergic to penicillin and lisinopril. Diabetic ulcer on the right foot is approximately 1-2 inches in length in a circular, and approximately a stage 2-3. Patient ate and his blood sugar is now 148. I have spoken with Dr Chairez about the patient and he is agreeable to admission. There is no blood work back before the patient is taken up stairs for admission. Dragon Disclaimer Dragon Disclaimer This electronic medical record was generated, in whole or in part, using a voice recognition dictation system. Departure Departure Impression: Primary Impression: Diabetic foot ulcer Additional Impression: Chronic osteomyelitis Disposition: 09 ADMITTED INPATIENT Admitting Physician: Laly Chairez Condition: STABLE Referrals: NO PCP (PCP) Problem Qualifiers Primary Impression: Diabetic foot ulcer Diabetic foot ulcer location: midfoot Diabetes mellitus type: type 2 Laterality: right Non-pressure ulcer stage: with fat layer exposed Qualified Codes: E11.621 - Type 2 diabetes mellitus with foot ulcer; L97.412 - Non-pressure chronic ulcer of right heel and midfoot with fat layer exposed STEVE ALEXANDER APRN Feb 27, 2018 22:15
[2018-02-27] MEDS ORDERED: ACETAMINOPHEN 325 MG TABLET. PO PRN (22:30)
[2018-02-27] MEDS ORDERED: ONDANSETRON PF 4 MG/2 ML VIAL. IV PRN (22:30)
[2018-02-27] MEDS ORDERED: DOXYCYCLINE HYCLATE 100 MG TABLET PO ONE (22:30)
[2018-02-27] MEDS ORDERED: HYDROcodone/APAP 5/325MG 1 TAB TABLET PO ONE (22:30)
[2018-02-27] MEDS ORDERED: fentaNYL PF VIAL 100 MCG/2 ML VIAL IV PRN (22:30)
[2018-02-27 23:00] LABS: BASO # 0.1 x10^3/uL (0.0-0.2); BASO % 1 % (0-3); EOS # 0.2 x10^3/uL (0.0-0.7); EOS % 2 % (0-3); HEMATOCRIT 37.9 % (39.0-53.0); HEMOGLOBIN 13.6 g/dL (13.0-17.5); LYMPH # 2.5 x10^3/uL (1.0-4.8); LYMPH % 29 % (24-48); MEAN CORPUSCULAR HEMOGLOBIN 32 pg (25-35); MEAN CORPUSCULAR HGB CONC 36 g/dL (31-37); MEAN CORPUSCULAR VOLUME 89 fL (79-100); MONO # 0.7 x10^3/uL (0.0-1.1); MONO % 8 % (0-9); NEUT # 5.1 x10^3uL (1.8-7.7); NEUT % 60 % (31-73); PLATELET COUNT 181 x10^3/uL (140-400); RED BLOOD COUNT 4.23 x10^6/uL (4.30-5.70); RED CELL DISTRIBUTION WIDTH 13.6 % (11.5-14.5); WHITE BLOOD COUNT 8.5 x10^3/uL (4.0-11.0)
[2018-02-27] MEDS: MEROPENEM 500 MG in IV NORMAL SALINE 50ML 50 ML IV SCH (23:00)
[2018-02-27 23:09] LABS: CALCIUM 9.7 mg/dL (8.5-10.1); CREATININE 1.1 mg/dL (0.7-1.3); GFR 86.8; POTASSIUM 3.4 mmol/L (3.5-5.1)
[2018-02-27 23:15] LABS: ALBUMIN 3.6 g/dL (3.4-5.0); ALBUMIN/GLOBULIN RATIO 0.9 (1.0-1.7); TOTAL BILIRUBIN 0.2 mg/dL (0.2-1.0); TOTAL PROTEIN 7.8 g/dL (6.4-8.2)
[2018-02-27 23:24] LABS: AMPHETAMINE/METHAMPHETAMINE NEG (NEG); BARBITURATES NEG (NEG); BENZODIAZEPINES NEG (NEG); CANNABINOIDS POS (NEG); COCAINE NEG (NEG); METHADONE NEG (NEG); OPIATES NEG (NEG); PHENCYCLIDINE NEG (NEG)
[2018-02-28] VITALS (8 sets, daily range): BP systolic 142–175; BP diastolic 84–99
--- NOTE | 2018-02-28 00:15 | RAD ---
Three-view right foot radiographs 02/27/2018 CLINICAL HISTORY: Right foot wound. AP, lateral and oblique portable digital radiographs of the right foot were obtained. Comparison study is dated 01/26/2018. The patient is post a dictation the right first toe in the region of the distal metaphysis of the right first metatarsal. Subluxation of the second MTP joint is again noted. Degenerative changes are seen involving the second and third MTP joints, unchanged. Mild to moderate degenerative changes are seen involving the interphalangeal joints and fifth MTP joint. These are unchanged. Cortical irregularity of the distal diaphysis/metaphysis of the right first metatarsal is seen, unchanged. IMPRESSION: No acute osseous abnormality is seen. Electronically signed by: Ervin Johnson MD (02/28/2018 12:11 AM) [facility]
[2018-02-28] MEDS: MEROPENEM 500 MG in IV NORMAL SALINE 50ML 50 ML IV SCH ×4 (05:31→23:34)
[2018-02-28] MEDS: LACTOBACILLUS RHAMNOSUS GG 1 CAPSULE. PO SCH ×2 (08:55→21:05)
[2018-02-28] MEDS ORDERED: POTASSIUM CHLORIDE 20 MEQ TABLET.ER. PO ONE (09:15)
--- NOTE | 2018-02-28 09:52 | PDOC ---
ORTHO PROGRESS NOTES Vitals Vital Signs Date Time Temp Pulse Resp B/P (MAP) Pulse Ox O2 Delivery O2 Flow Rate FiO2 02/28/18 07:00 75 18 148/89 (108) 95 Room Air 02/28/18 03:05 97.5 97.5 Labs Laboratory Tests Test 02/27/18 21:38 02/27/18 22:37 02/27/18 22:48 02/27/18 23:02 Glucose (Fingerstick) 64 mg/dL (70-99) 148 mg/dL (70-99) White Blood Count 8.5 x10^3/uL (4.0-11.0) Red Blood Count 4.23 x10^6/uL (4.30-5.70) Hemoglobin 13.6 g/dL (13.0-17.5) Hematocrit 37.9 % (39.0-53.0) Mean Corpuscular Volume 89 fL (79-100) Mean Corpuscular Hemoglobin 32 pg (25-35) Mean Corpuscular Hemoglobin Concent 36 g/dL (31-37) Red Cell Distribution Width 13.6 % (11.5-14.5) Platelet Count 181 x10^3/uL (140-400) Neutrophils (%) (Auto) 60 % (31-73) Lymphocytes (%) (Auto) 29 % (24-48) Monocytes (%) (Auto) 8 % (0-9) Eosinophils (%) (Auto) 2 % (0-3) Basophils (%) (Auto) 1 % (0-3) Neutrophils # (Auto) 5.1 x10^3uL (1.8-7.7) Lymphocytes # (Auto) 2.5 x10^3/uL (1.0-4.8) Monocytes # (Auto) 0.7 x10^3/uL (0.0-1.1) Eosinophils # (Auto) 0.2 x10^3/uL (0.0-0.7) Basophils # (Auto) 0.1 x10^3/uL (0.0-0.2) Sodium Level 141 mmol/L (136-145) Potassium Level 3.4 mmol/L (3.5-5.1) Chloride Level 102 mmol/L (98-107) Carbon Dioxide Level 27 mmol/L (21-32) Anion Gap 12 (6-14) Blood Urea Nitrogen 13 mg/dL (8-26) Creatinine 1.1 mg/dL (0.7-1.3) Estimated GFR (Cockcroft-Gault) 86.8 BUN/Creatinine Ratio 12 (6-20) Glucose Level 149 mg/dL (70-99) Lactic Acid Level 1.4 mmol/L (0.4-2.0) Calcium Level 9.7 mg/dL (8.5-10.1) Total Bilirubin 0.2 mg/dL (0.2-1.0) Aspartate Amino Transf (AST/SGOT) 14 U/L (15-37) Alanine Aminotransferase (ALT/SGPT) 18 U/L (16-63) Alkaline Phosphatase 89 U/L (46-116) Total Protein 7.8 g/dL (6.4-8.2) Albumin 3.6 g/dL (3.4-5.0) Albumin/Globulin Ratio 0.9 (1.0-1.7) Urine Opiates Screen Neg (NEG) Urine Methadone Screen Neg (NEG) Urine Barbiturates Neg (NEG) Urine Phencyclidine Screen Neg (NEG) Urine Amphetamine/Methamphetamine Neg (NEG) Urine Benzodiazepines Screen Neg (NEG) Urine Cocaine Screen Neg (NEG) Urine Cannabinoids Screen Pos (NEG) Urine Ethyl Alcohol Neg (NEG) Test 02/28/18 07:37 Glucose (Fingerstick) 227 mg/dL (70-99) Laboratory Tests Test 02/27/18 21:38 02/27/18 22:37 02/27/18 22:48 02/27/18 23:02 Glucose (Fingerstick) 64 mg/dL (70-99) 148 mg/dL (70-99) White Blood Count 8.5 x10^3/uL (4.0-11.0) Red Blood Count 4.23 x10^6/uL (4.30-5.70) Hemoglobin 13.6 g/dL (13.0-17.5) Hematocrit 37.9 % (39.0-53.0) Mean Corpuscular Volume 89 fL (79-100) Mean Corpuscular Hemoglobin 32 pg (25-35) Mean Corpuscular Hemoglobin Concent 36 g/dL (31-37) Red Cell Distribution Width 13.6 % (11.5-14.5) Platelet Count 181 x10^3/uL (140-400) Neutrophils (%) (Auto) 60 % (31-73) Lymphocytes (%) (Auto) 29 % (24-48) Monocytes (%) (Auto) 8 % (0-9) Eosinophils (%) (Auto) 2 % (0-3) Basophils (%) (Auto) 1 % (0-3) Neutrophils # (Auto) 5.1 x10^3uL (1.8-7.7) Lymphocytes # (Auto) 2.5 x10^3/uL (1.0-4.8) Monocytes # (Auto) 0.7 x10^3/uL (0.0-1.1) Eosinophils # (Auto) 0.2 x10^3/uL (0.0-0.7) Basophils # (Auto) 0.1 x10^3/uL (0.0-0.2) Sodium Level 141 mmol/L (136-145) Potassium Level 3.4 mmol/L (3.5-5.1) Chloride Level 102 mmol/L (98-107) Carbon Dioxide Level 27 mmol/L (21-32) Anion Gap 12 (6-14) Blood Urea Nitrogen 13 mg/dL (8-26) Creatinine 1.1 mg/dL (0.7-1.3) Estimated GFR (Cockcroft-Gault) 86.8 BUN/Creatinine Ratio 12 (6-20) Glucose Level 149 mg/dL (70-99) Lactic Acid Level 1.4 mmol/L (0.4-2.0) Calcium Level 9.7 mg/dL (8.5-10.1) Total Bilirubin 0.2 mg/dL (0.2-1.0) Aspartate Amino Transf (AST/SGOT) 14 U/L (15-37) Alanine Aminotransferase (ALT/SGPT) 18 U/L (16-63) Alkaline Phosphatase 89 U/L (46-116) Total Protein 7.8 g/dL (6.4-8.2) Albumin 3.6 g/dL (3.4-5.0) Albumin/Globulin Ratio 0.9 (1.0-1.7) Urine Opiates Screen Neg (NEG) Urine Methadone Screen Neg (NEG) Urine Barbiturates Neg (NEG) Urine Phencyclidine Screen Neg (NEG) Urine Amphetamine/Methamphetamine Neg (NEG) Urine Benzodiazepines Screen Neg (NEG) Urine Cocaine Screen Neg (NEG) Urine Cannabinoids Screen Pos (NEG) Urine Ethyl Alcohol Neg (NEG) Test 02/28/18 07:37 Glucose (Fingerstick) 227 mg/dL (70-99) Assessment and Plan Patient was the floor when I stopped by this morning, will attempt to see him after my clinic. NEYMAR YANES II, MD Feb 28, 2018 09:52
--- NOTE | 2018-02-28 11:09 | PDOC ---
ORTHO PROGRESS NOTES Vitals Vital Signs Date Time Temp Pulse Resp B/P (MAP) Pulse Ox O2 Delivery O2 Flow Rate FiO2 02/28/18 07:00 75 18 148/89 (108) 95 Room Air 02/28/18 03:05 97.5 97.5 Labs Laboratory Tests Test 02/27/18 21:38 02/27/18 22:37 02/27/18 22:48 02/27/18 23:02 Glucose (Fingerstick) 64 mg/dL (70-99) 148 mg/dL (70-99) White Blood Count 8.5 x10^3/uL (4.0-11.0) Red Blood Count 4.23 x10^6/uL (4.30-5.70) Hemoglobin 13.6 g/dL (13.0-17.5) Hematocrit 37.9 % (39.0-53.0) Mean Corpuscular Volume 89 fL (79-100) Mean Corpuscular Hemoglobin 32 pg (25-35) Mean Corpuscular Hemoglobin Concent 36 g/dL (31-37) Red Cell Distribution Width 13.6 % (11.5-14.5) Platelet Count 181 x10^3/uL (140-400) Neutrophils (%) (Auto) 60 % (31-73) Lymphocytes (%) (Auto) 29 % (24-48) Monocytes (%) (Auto) 8 % (0-9) Eosinophils (%) (Auto) 2 % (0-3) Basophils (%) (Auto) 1 % (0-3) Neutrophils # (Auto) 5.1 x10^3uL (1.8-7.7) Lymphocytes # (Auto) 2.5 x10^3/uL (1.0-4.8) Monocytes # (Auto) 0.7 x10^3/uL (0.0-1.1) Eosinophils # (Auto) 0.2 x10^3/uL (0.0-0.7) Basophils # (Auto) 0.1 x10^3/uL (0.0-0.2) Sodium Level 141 mmol/L (136-145) Potassium Level 3.4 mmol/L (3.5-5.1) Chloride Level 102 mmol/L (98-107) Carbon Dioxide Level 27 mmol/L (21-32) Anion Gap 12 (6-14) Blood Urea Nitrogen 13 mg/dL (8-26) Creatinine 1.1 mg/dL (0.7-1.3) Estimated GFR (Cockcroft-Gault) 86.8 BUN/Creatinine Ratio 12 (6-20) Glucose Level 149 mg/dL (70-99) Lactic Acid Level 1.4 mmol/L (0.4-2.0) Calcium Level 9.7 mg/dL (8.5-10.1) Total Bilirubin 0.2 mg/dL (0.2-1.0) Aspartate Amino Transf (AST/SGOT) 14 U/L (15-37) Alanine Aminotransferase (ALT/SGPT) 18 U/L (16-63) Alkaline Phosphatase 89 U/L (46-116) Total Protein 7.8 g/dL (6.4-8.2) Albumin 3.6 g/dL (3.4-5.0) Albumin/Globulin Ratio 0.9 (1.0-1.7) Urine Opiates Screen Neg (NEG) Urine Methadone Screen Neg (NEG) Urine Barbiturates Neg (NEG) Urine Phencyclidine Screen Neg (NEG) Urine Amphetamine/Methamphetamine Neg (NEG) Urine Benzodiazepines Screen Neg (NEG) Urine Cocaine Screen Neg (NEG) Urine Cannabinoids Screen Pos (NEG) Urine Ethyl Alcohol Neg (NEG) Test 02/28/18 07:37 02/28/18 10:46 Glucose (Fingerstick) 227 mg/dL (70-99) 238 mg/dL (70-99) Laboratory Tests Test 02/27/18 21:38 02/27/18 22:37 02/27/18 22:48 02/27/18 23:02 Glucose (Fingerstick) 64 mg/dL (70-99) 148 mg/dL (70-99) White Blood Count 8.5 x10^3/uL (4.0-11.0) Red Blood Count 4.23 x10^6/uL (4.30-5.70) Hemoglobin 13.6 g/dL (13.0-17.5) Hematocrit 37.9 % (39.0-53.0) Mean Corpuscular Volume 89 fL (79-100) Mean Corpuscular Hemoglobin 32 pg (25-35) Mean Corpuscular Hemoglobin Concent 36 g/dL (31-37) Red Cell Distribution Width 13.6 % (11.5-14.5) Platelet Count 181 x10^3/uL (140-400) Neutrophils (%) (Auto) 60 % (31-73) Lymphocytes (%) (Auto) 29 % (24-48) Monocytes (%) (Auto) 8 % (0-9) Eosinophils (%) (Auto) 2 % (0-3) Basophils (%) (Auto) 1 % (0-3) Neutrophils # (Auto) 5.1 x10^3uL (1.8-7.7) Lymphocytes # (Auto) 2.5 x10^3/uL (1.0-4.8) Monocytes # (Auto) 0.7 x10^3/uL (0.0-1.1) Eosinophils # (Auto) 0.2 x10^3/uL (0.0-0.7) Basophils # (Auto) 0.1 x10^3/uL (0.0-0.2) Sodium Level 141 mmol/L (136-145) Potassium Level 3.4 mmol/L (3.5-5.1) Chloride Level 102 mmol/L (98-107) Carbon Dioxide Level 27 mmol/L (21-32) Anion Gap 12 (6-14) Blood Urea Nitrogen 13 mg/dL (8-26) Creatinine 1.1 mg/dL (0.7-1.3) Estimated GFR (Cockcroft-Gault) 86.8 BUN/Creatinine Ratio 12 (6-20) Glucose Level 149 mg/dL (70-99) Lactic Acid Level 1.4 mmol/L (0.4-2.0) Calcium Level 9.7 mg/dL (8.5-10.1) Total Bilirubin 0.2 mg/dL (0.2-1.0) Aspartate Amino Transf (AST/SGOT) 14 U/L (15-37) Alanine Aminotransferase (ALT/SGPT) 18 U/L (16-63) Alkaline Phosphatase 89 U/L (46-116) Total Protein 7.8 g/dL (6.4-8.2) Albumin 3.6 g/dL (3.4-5.0) Albumin/Globulin Ratio 0.9 (1.0-1.7) Urine Opiates Screen Neg (NEG) Urine Methadone Screen Neg (NEG) Urine Barbiturates Neg (NEG) Urine Phencyclidine Screen Neg (NEG) Urine Amphetamine/Methamphetamine Neg (NEG) Urine Benzodiazepines Screen Neg (NEG) Urine Cocaine Screen Neg (NEG) Urine Cannabinoids Screen Pos (NEG) Urine Ethyl Alcohol Neg (NEG) Test 02/28/18 07:37 02/28/18 10:46 Glucose (Fingerstick) 227 mg/dL (70-99) 238 mg/dL (70-99) Assessment and Plan attempted to see patient again, he had left the floor at this time as well NEYMAR YANES II, MD Feb 28, 2018 11:09
--- NOTE | 2018-02-28 12:01 | PDOC ---
Infectious Disease Note Subjective Subjective Known to our service for treatment of right foot osteo. Refer to previous consult and last progress not from 02/02. He has been re-admitted because apparently girlfriend not allowing him to stay with her any longer and he is now homeless. He missed several days of abx. He continues to walk on foot. Denies redness, drainage or swelling + smoking No F/C/S/N/V/D/SOA PMH, FH, SH, ALL and meds reviewed. ROS ROS per HPI otherwise neg Vital Sign Vital Signs Vital Signs Date Time Temp Pulse Resp B/P (MAP) Pulse Ox O2 Delivery O2 Flow Rate FiO2 02/28/18 07:00 75 18 148/89 (108) 95 Room Air 02/28/18 03:05 97.5 97.5 Physical Exam PHYSICAL EXAM GENERAL: Sitting on the side of the bed, alert, smiling VSS and afebrile HENT: Normal conjunctivae. Oral cavity pink and moist LILUNGS: Clear HEART: S1, S2 ABD: Obese, BS active, soft, NT EXT: No gross edema or cyanosis. 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 RUE-PICC (POA) w/o signs of complications Labs Lab Laboratory Tests Test 02/27/18 21:38 02/27/18 22:37 02/27/18 22:48 02/27/18 23:02 Glucose (Fingerstick) 64 mg/dL (70-99) 148 mg/dL (70-99) White Blood Count 8.5 x10^3/uL (4.0-11.0) Red Blood Count 4.23 x10^6/uL (4.30-5.70) Hemoglobin 13.6 g/dL (13.0-17.5) Hematocrit 37.9 % (39.0-53.0) Mean Corpuscular Volume 89 fL (79-100) Mean Corpuscular Hemoglobin 32 pg (25-35) Mean Corpuscular Hemoglobin Concent 36 g/dL (31-37) Red Cell Distribution Width 13.6 % (11.5-14.5) Platelet Count 181 x10^3/uL (140-400) Neutrophils (%) (Auto) 60 % (31-73) Lymphocytes (%) (Auto) 29 % (24-48) Monocytes (%) (Auto) 8 % (0-9) Eosinophils (%) (Auto) 2 % (0-3) Basophils (%) (Auto) 1 % (0-3) Neutrophils # (Auto) 5.1 x10^3uL (1.8-7.7) Lymphocytes # (Auto) 2.5 x10^3/uL (1.0-4.8) Monocytes # (Auto) 0.7 x10^3/uL (0.0-1.1) Eosinophils # (Auto) 0.2 x10^3/uL (0.0-0.7) Basophils # (Auto) 0.1 x10^3/uL (0.0-0.2) Sodium Level 141 mmol/L (136-145) Potassium Level 3.4 mmol/L (3.5-5.1) Chloride Level 102 mmol/L (98-107) Carbon Dioxide Level 27 mmol/L (21-32) Anion Gap 12 (6-14) Blood Urea Nitrogen 13 mg/dL (8-26) Creatinine 1.1 mg/dL (0.7-1.3) Estimated GFR (Cockcroft-Gault) 86.8 BUN/Creatinine Ratio 12 (6-20) Glucose Level 149 mg/dL (70-99) Lactic Acid Level 1.4 mmol/L (0.4-2.0) Calcium Level 9.7 mg/dL (8.5-10.1) Total Bilirubin 0.2 mg/dL (0.2-1.0) Aspartate Amino Transf (AST/SGOT) 14 U/L (15-37) Alanine Aminotransferase (ALT/SGPT) 18 U/L (16-63) Alkaline Phosphatase 89 U/L (46-116) Total Protein 7.8 g/dL (6.4-8.2) Albumin 3.6 g/dL (3.4-5.0) Albumin/Globulin Ratio 0.9 (1.0-1.7) Urine Opiates Screen Neg (NEG) Urine Methadone Screen Neg (NEG) Urine Barbiturates Neg (NEG) Urine Phencyclidine Screen Neg (NEG) Urine Amphetamine/Methamphetamine Neg (NEG) Urine Benzodiazepines Screen Neg (NEG) Urine Cocaine Screen Neg (NEG) Urine Cannabinoids Screen Pos (NEG) Urine Ethyl Alcohol Neg (NEG) Test 02/28/18 07:37 02/28/18 10:46 Glucose (Fingerstick) 227 mg/dL (70-99) 238 mg/dL (70-99) Objective Assessment Right foot wound with osteomyelitis. s/p I and D 01/31. h/o enterococcus-ampS and yeast. -Has had multiple recommendations for TMA and has refused. Right fifth toe amputation at [facility]. Diabetes. PENICILLIN ALLERGY A CHILD. PAD - h/o angioplasty Noncompliance - ambulating frequently and leaving floor HTN HLD Tobaccoism Plan Plan of Care Continue meropenem Resume fluconazole and doxy Cont local wound care Consult psychologist social for SNF and long-term IV abx Thank you Attending Co-Sign The patient was seen and interviewed as well as examined at the bedside. The chart was reviewed. The case was discussed. Agree with the plan of care. d/w ss to have arrangement at SNF pt has done intermitant antibiotics sec to home situation, and cont to walk on it. Re education done about off load, and iv , likely will end up with TMA that he wants to avoid. ANASTASIA GLEASON APRN Feb 28, 2018 12:01 GEOFFREY WHITE MD Feb 28, 2018 12:07
--- NOTE | 2018-02-28 12:11 | PDOC1 ---
History and Physical Date of Admission Date of Admission DATE: 02/28/18 TIME: 12:07 History of Present Illness History of Present Illness Mr. Zuñiga, is a 47 year old male who presents with right foot pain and swelling, He hsa prior admit for osteomyelitis of the right foot and had refused surg. he was very noncompliant last time, had gone outside against hospital policy mult times and almost had to be removed. He does not answer me when I ask what has happened with his meds and his follow up, only telling me "it is complicated" - other reports are of no abx for 10 days currently homeless Past Medical History Cardiovascular: Other CENTRAL NERVOUS SYSTEM: Periperal neuropathy Endocrine: Diabetes Past Surgical History Past Surgical History: Other Family History Family History: Hypertension Social History ALCOHOL: none Drugs: None Current Problem List Problem List Problems Medical Problems: (1) Chronic osteomyelitis Status: Acute (2) Diabetic foot ulcer Status: Acute Current Medications Current Medications Current Medications Ondansetron HCl (Zofran) 4 mg 1X ONCE IV Last administered on 02/27/18at 22:59 ; Start 02/27/18 at 22:00; Stop 02/27/18 at 22:01; Status DC Sodium Chloride 1,000 ml @ 1,000 mls/hr 1X ONCE IV Last administered on at 23:21; Start 02/27/18 at 22:00; Stop 02/27/18 at 22:59; Status DC Meropenem 500 mg/ Sodium Chloride 50 ml @ 100 mls/hr Q6HRS IV Last administered on 02/28/18at 11:59; Start 02/27/18 at 23:00 Doxycycline Hyclate (Vibra-Tab) 100 mg 1X ONCE PO Last administered on at 22:58; Start 02/27/18 at 22:30; Stop 02/27/18 at 22:31; Status DC Acetaminophen/ Hydrocodone Bitart (Lortab 5/325) 1 tab 1X ONCE PO Last administered on 02/27/18at 22:59; Start 02/27/18 at 22:30; Stop 02/27/18 at 22:31 ; Status DC Lactobacillus Rhamnosus (Culturelle) 1 cap BID PO Last administered on at 08:55; Start 02/28/18 at 09:00 Ondansetron HCl (Zofran) 4 mg PRN Q8HRS PRN IV NAUSEA/VOMITING 1ST CHOICE; Start 02/27/18 at 22:30; Stop 02/28/18 at 22:29 Fentanyl Citrate (Fentanyl 2ml Vial) 50 mcg PRN Q2HR PRN IV SEVERE PAIN Last administered on 02/28/18at 00:54; Start 02/27/18 at 22:30; Stop 02/28/18 at 22:29 Acetaminophen (Tylenol) 650 mg PRN Q4HRS PRN PO FEVER; Start 02/27/18 at 22:30 ; Stop 02/28/18 at 22:29 Influenza Virus Vaccine (Afluria Trivalent [id number] Syringe) 0.5 ml ONCE ONCE VAX IM ; Start 02/28/18 at 09:00; Stop 02/28/18 at 09:01; Status DC Potassium Chloride (Klor-Con) 40 meq 1X ONCE PO Last administered on at 11:58; Start 02/28/18 at 09:15; Stop 02/28/18 at 09:16; Status DC Doxycycline Hyclate (Vibra-Tab) 100 mg BID PO ; Start 02/28/18 at 21:00 Fluconazole (Diflucan) 200 mg DAILY PO ; Start 03/01/18 at 09:00 Active Scripts Active Doxycycline Hyclate 100 Mg Tablet 100 Mg PO BID Invanz (Ertapenem Sodium) 1 Gm Vial 1 Gm IJ DAILY Hydrocodone-Apap 5-325 (Hydrocodone Bit/Acetaminophen) 1 Each Tablet 1 Tab PO PRN Q4HRS PRN Reported Atorvastatin Calcium 40 Mg Tablet 1 Tab PO QHS Amlodipine Besylate 10 Mg Tablet 10 Mg PO DAILY Lantus Solostar (Insulin Glargine,Hum.rec.anlog) 100 Unit/1 Ml Insuln.pen 45 Unit SQ QHS Allergies Allergies: Coded Allergies: lisinopril (Verified Allergy, Severe, ANGIOEDEMA, 01/07/18) Penicillins (Verified Allergy, Intermediate, 01/30/18) TOLERATES MERREM Physical Exam General: Alert, Cooperative, mild distress HEENT: PERRLA, Mucous membr. moist/pink Lungs: Clear to auscultation Heart: no gallops Extremities: No clubbing, Normal pulses Skin: No rashes, Other (ertyhema and breakdown on plantar aspect) Neuro: Normal gait, Normal tone, Cranial nerves 3-12 NL Psych/Mental Status: Mood NL Vitals Vitals Vital Signs Date Time Temp Pulse Resp B/P (MAP) Pulse Ox O2 Delivery O2 Flow Rate FiO2 02/28/18 11:00 96.4 76 18 154/98 (116) 99 Room Air 96.4 Labs Labs Laboratory Tests Test 02/27/18 21:38 02/27/18 22:37 02/27/18 22:48 02/27/18 23:02 Glucose (Fingerstick) 64 mg/dL (70-99) 148 mg/dL (70-99) White Blood Count 8.5 x10^3/uL (4.0-11.0) Red Blood Count 4.23 x10^6/uL (4.30-5.70) Hemoglobin 13.6 g/dL (13.0-17.5) Hematocrit 37.9 % (39.0-53.0) Mean Corpuscular Volume 89 fL (79-100) Mean Corpuscular Hemoglobin 32 pg (25-35) Mean Corpuscular Hemoglobin Concent 36 g/dL (31-37) Red Cell Distribution Width 13.6 % (11.5-14.5) Platelet Count 181 x10^3/uL (140-400) Neutrophils (%) (Auto) 60 % (31-73) Lymphocytes (%) (Auto) 29 % (24-48) Monocytes (%) (Auto) 8 % (0-9) Eosinophils (%) (Auto) 2 % (0-3) Basophils (%) (Auto) 1 % (0-3) Neutrophils # (Auto) 5.1 x10^3uL (1.8-7.7) Lymphocytes # (Auto) 2.5 x10^3/uL (1.0-4.8) Monocytes # (Auto) 0.7 x10^3/uL (0.0-1.1) Eosinophils # (Auto) 0.2 x10^3/uL (0.0-0.7) Basophils # (Auto) 0.1 x10^3/uL (0.0-0.2) Sodium Level 141 mmol/L (136-145) Potassium Level 3.4 mmol/L (3.5-5.1) Chloride Level 102 mmol/L (98-107) Carbon Dioxide Level 27 mmol/L (21-32) Anion Gap 12 (6-14) Blood Urea Nitrogen 13 mg/dL (8-26) Creatinine 1.1 mg/dL (0.7-1.3) Estimated GFR (Cockcroft-Gault) 86.8 BUN/Creatinine Ratio 12 (6-20) Glucose Level 149 mg/dL (70-99) Lactic Acid Level 1.4 mmol/L (0.4-2.0) Calcium Level 9.7 mg/dL (8.5-10.1) Total Bilirubin 0.2 mg/dL (0.2-1.0) Aspartate Amino Transf (AST/SGOT) 14 U/L (15-37) Alanine Aminotransferase (ALT/SGPT) 18 U/L (16-63) Alkaline Phosphatase 89 U/L (46-116) Total Protein 7.8 g/dL (6.4-8.2) Albumin 3.6 g/dL (3.4-5.0) Albumin/Globulin Ratio 0.9 (1.0-1.7) Urine Opiates Screen Neg (NEG) Urine Methadone Screen Neg (NEG) Urine Barbiturates Neg (NEG) Urine Phencyclidine Screen Neg (NEG) Urine Amphetamine/Methamphetamine Neg (NEG) Urine Benzodiazepines Screen Neg (NEG) Urine Cocaine Screen Neg (NEG) Urine Cannabinoids Screen Pos (NEG) Urine Ethyl Alcohol Neg (NEG) Test 02/28/18 07:37 02/28/18 10:46 Glucose (Fingerstick) 227 mg/dL (70-99) 238 mg/dL (70-99) Laboratory Tests Test 02/27/18 21:38 02/27/18 22:37 02/27/18 22:48 02/27/18 23:02 Glucose (Fingerstick) 64 mg/dL (70-99) 148 mg/dL (70-99) White Blood Count 8.5 x10^3/uL (4.0-11.0) Red Blood Count 4.23 x10^6/uL (4.30-5.70) Hemoglobin 13.6 g/dL (13.0-17.5) Hematocrit 37.9 % (39.0-53.0) Mean Corpuscular Volume 89 fL (79-100) Mean Corpuscular Hemoglobin 32 pg (25-35) Mean Corpuscular Hemoglobin Concent 36 g/dL (31-37) Red Cell Distribution Width 13.6 % (11.5-14.5) Platelet Count 181 x10^3/uL (140-400) Neutrophils (%) (Auto) 60 % (31-73) Lymphocytes (%) (Auto) 29 % (24-48) Monocytes (%) (Auto) 8 % (0-9) Eosinophils (%) (Auto) 2 % (0-3) Basophils (%) (Auto) 1 % (0-3) Neutrophils # (Auto) 5.1 x10^3uL (1.8-7.7) Lymphocytes # (Auto) 2.5 x10^3/uL (1.0-4.8) Monocytes # (Auto) 0.7 x10^3/uL (0.0-1.1) Eosinophils # (Auto) 0.2 x10^3/uL (0.0-0.7) Basophils # (Auto) 0.1 x10^3/uL (0.0-0.2) Sodium Level 141 mmol/L (136-145) Potassium Level 3.4 mmol/L (3.5-5.1) Chloride Level 102 mmol/L (98-107) Carbon Dioxide Level 27 mmol/L (21-32) Anion Gap 12 (6-14) Blood Urea Nitrogen 13 mg/dL (8-26) Creatinine 1.1 mg/dL (0.7-1.3) Estimated GFR (Cockcroft-Gault) 86.8 BUN/Creatinine Ratio 12 (6-20) Glucose Level 149 mg/dL (70-99) Lactic Acid Level 1.4 mmol/L (0.4-2.0) Calcium Level 9.7 mg/dL (8.5-10.1) Total Bilirubin 0.2 mg/dL (0.2-1.0) Aspartate Amino Transf (AST/SGOT) 14 U/L (15-37) Alanine Aminotransferase (ALT/SGPT) 18 U/L (16-63) Alkaline Phosphatase 89 U/L (46-116) Total Protein 7.8 g/dL (6.4-8.2) Albumin 3.6 g/dL (3.4-5.0) Albumin/Globulin Ratio 0.9 (1.0-1.7) Urine Opiates Screen Neg (NEG) Urine Methadone Screen Neg (NEG) Urine Barbiturates Neg (NEG) Urine Phencyclidine Screen Neg (NEG) Urine Amphetamine/Methamphetamine Neg (NEG) Urine Benzodiazepines Screen Neg (NEG) Urine Cocaine Screen Neg (NEG) Urine Cannabinoids Screen Pos (NEG) Urine Ethyl Alcohol Neg (NEG) Test 02/28/18 07:37 02/28/18 10:46 Glucose (Fingerstick) 227 mg/dL (70-99) 238 mg/dL (70-99) VTE Prophylaxis Ordered VTE Prophylaxis Devices: Yes VTE Pharmacological Prophylaxi: Yes Assessment/Plan Assessment/Plan medical noncompliance Dm1 osteo foot with cellulitis, admit EUSEBIO ALBERT MD Feb 28, 2018 12:11
--- NOTE | 2018-02-28 12:15 | PDOC ---
ORTHO PROGRESS NOTES Vitals Vital Signs Date Time Temp Pulse Resp B/P (MAP) Pulse Ox O2 Delivery O2 Flow Rate FiO2 02/28/18 11:00 96.4 76 18 154/98 (116) 99 Room Air 96.4 Labs Laboratory Tests Test 02/27/18 21:38 02/27/18 22:37 02/27/18 22:48 02/27/18 23:02 Glucose (Fingerstick) 64 mg/dL (70-99) 148 mg/dL (70-99) White Blood Count 8.5 x10^3/uL (4.0-11.0) Red Blood Count 4.23 x10^6/uL (4.30-5.70) Hemoglobin 13.6 g/dL (13.0-17.5) Hematocrit 37.9 % (39.0-53.0) Mean Corpuscular Volume 89 fL (79-100) Mean Corpuscular Hemoglobin 32 pg (25-35) Mean Corpuscular Hemoglobin Concent 36 g/dL (31-37) Red Cell Distribution Width 13.6 % (11.5-14.5) Platelet Count 181 x10^3/uL (140-400) Neutrophils (%) (Auto) 60 % (31-73) Lymphocytes (%) (Auto) 29 % (24-48) Monocytes (%) (Auto) 8 % (0-9) Eosinophils (%) (Auto) 2 % (0-3) Basophils (%) (Auto) 1 % (0-3) Neutrophils # (Auto) 5.1 x10^3uL (1.8-7.7) Lymphocytes # (Auto) 2.5 x10^3/uL (1.0-4.8) Monocytes # (Auto) 0.7 x10^3/uL (0.0-1.1) Eosinophils # (Auto) 0.2 x10^3/uL (0.0-0.7) Basophils # (Auto) 0.1 x10^3/uL (0.0-0.2) Sodium Level 141 mmol/L (136-145) Potassium Level 3.4 mmol/L (3.5-5.1) Chloride Level 102 mmol/L (98-107) Carbon Dioxide Level 27 mmol/L (21-32) Anion Gap 12 (6-14) Blood Urea Nitrogen 13 mg/dL (8-26) Creatinine 1.1 mg/dL (0.7-1.3) Estimated GFR (Cockcroft-Gault) 86.8 BUN/Creatinine Ratio 12 (6-20) Glucose Level 149 mg/dL (70-99) Lactic Acid Level 1.4 mmol/L (0.4-2.0) Calcium Level 9.7 mg/dL (8.5-10.1) Total Bilirubin 0.2 mg/dL (0.2-1.0) Aspartate Amino Transf (AST/SGOT) 14 U/L (15-37) Alanine Aminotransferase (ALT/SGPT) 18 U/L (16-63) Alkaline Phosphatase 89 U/L (46-116) Total Protein 7.8 g/dL (6.4-8.2) Albumin 3.6 g/dL (3.4-5.0) Albumin/Globulin Ratio 0.9 (1.0-1.7) Urine Opiates Screen Neg (NEG) Urine Methadone Screen Neg (NEG) Urine Barbiturates Neg (NEG) Urine Phencyclidine Screen Neg (NEG) Urine Amphetamine/Methamphetamine Neg (NEG) Urine Benzodiazepines Screen Neg (NEG) Urine Cocaine Screen Neg (NEG) Urine Cannabinoids Screen Pos (NEG) Urine Ethyl Alcohol Neg (NEG) Test 02/28/18 07:37 02/28/18 10:46 Glucose (Fingerstick) 227 mg/dL (70-99) 238 mg/dL (70-99) Laboratory Tests Test 02/27/18 21:38 02/27/18 22:37 02/27/18 22:48 02/27/18 23:02 Glucose (Fingerstick) 64 mg/dL (70-99) 148 mg/dL (70-99) White Blood Count 8.5 x10^3/uL (4.0-11.0) Red Blood Count 4.23 x10^6/uL (4.30-5.70) Hemoglobin 13.6 g/dL (13.0-17.5) Hematocrit 37.9 % (39.0-53.0) Mean Corpuscular Volume 89 fL (79-100) Mean Corpuscular Hemoglobin 32 pg (25-35) Mean Corpuscular Hemoglobin Concent 36 g/dL (31-37) Red Cell Distribution Width 13.6 % (11.5-14.5) Platelet Count 181 x10^3/uL (140-400) Neutrophils (%) (Auto) 60 % (31-73) Lymphocytes (%) (Auto) 29 % (24-48) Monocytes (%) (Auto) 8 % (0-9) Eosinophils (%) (Auto) 2 % (0-3) Basophils (%) (Auto) 1 % (0-3) Neutrophils # (Auto) 5.1 x10^3uL (1.8-7.7) Lymphocytes # (Auto) 2.5 x10^3/uL (1.0-4.8) Monocytes # (Auto) 0.7 x10^3/uL (0.0-1.1) Eosinophils # (Auto) 0.2 x10^3/uL (0.0-0.7) Basophils # (Auto) 0.1 x10^3/uL (0.0-0.2) Sodium Level 141 mmol/L (136-145) Potassium Level 3.4 mmol/L (3.5-5.1) Chloride Level 102 mmol/L (98-107) Carbon Dioxide Level 27 mmol/L (21-32) Anion Gap 12 (6-14) Blood Urea Nitrogen 13 mg/dL (8-26) Creatinine 1.1 mg/dL (0.7-1.3) Estimated GFR (Cockcroft-Gault) 86.8 BUN/Creatinine Ratio 12 (6-20) Glucose Level 149 mg/dL (70-99) Lactic Acid Level 1.4 mmol/L (0.4-2.0) Calcium Level 9.7 mg/dL (8.5-10.1) Total Bilirubin 0.2 mg/dL (0.2-1.0) Aspartate Amino Transf (AST/SGOT) 14 U/L (15-37) Alanine Aminotransferase (ALT/SGPT) 18 U/L (16-63) Alkaline Phosphatase 89 U/L (46-116) Total Protein 7.8 g/dL (6.4-8.2) Albumin 3.6 g/dL (3.4-5.0) Albumin/Globulin Ratio 0.9 (1.0-1.7) Urine Opiates Screen Neg (NEG) Urine Methadone Screen Neg (NEG) Urine Barbiturates Neg (NEG) Urine Phencyclidine Screen Neg (NEG) Urine Amphetamine/Methamphetamine Neg (NEG) Urine Benzodiazepines Screen Neg (NEG) Urine Cocaine Screen Neg (NEG) Urine Cannabinoids Screen Pos (NEG) Urine Ethyl Alcohol Neg (NEG) Test 02/28/18 07:37 02/28/18 10:46 Glucose (Fingerstick) 227 mg/dL (70-99) 238 mg/dL (70-99) Assessment and Plan Patient off floor again. Will try to see patient later. NPO until seen by me in anticipation of a possible surgery NEYMAR YANES II, MD Feb 28, 2018 12:15
[2018-02-28] MEDS ORDERED: HYDROcodone/APAP 5/325MG 1 TAB TABLET PO PRN (12:45)
[2018-02-28] MEDS ORDERED: DEXTROSE 50% 25 GM / 50ML DISP.SYRIN. IV PRN (12:45)
--- NOTE | 2018-02-28 13:10 | PDOC2 ---
CONSULT Date of Consult Date of Consult DATE: 02/28/18 TIME: 13:08 Reason for Consult Reason for Consult: Chronic right foot wound Referring Physician Referring Physician: Contreras Identification/Chief Complaint Chief Complaint Right foot wound Source Source: Chart review, Patient History of Present Illness Reason for Visit: Patient is a 47-year-old gentleman who has undergone 2 prior I&D's for a foot wound that has been present for about 3-4 months. He has also been treated with IV antibiotics but has not been able to receive these treatments for several days secondary change in his social status, he was living with his girlfriend, he is now homeless. He has been to walk on his wound. He denies any change in size or drainage. Has not been any worsening redness or swelling around the area. Past Medical History Cardiovascular: Other CENTRAL NERVOUS SYSTEM: Periperal neuropathy Endocrine: Diabetes Past Surgical History Past Surgical History: Other Family History Family History: Hypertension Social History ALCOHOL: none Drugs: None Current Problem List Problem List Problems Medical Problems: (1) Chronic osteomyelitis Status: Acute (2) Diabetic foot ulcer Status: Acute Current Medications Current Medications Current Medications Ondansetron HCl (Zofran) 4 mg 1X ONCE IV Last administered on 02/27/18at 22:59 ; Start 02/27/18 at 22:00; Stop 02/27/18 at 22:01; Status DC Sodium Chloride 1,000 ml @ 1,000 mls/hr 1X ONCE IV Last administered on at 23:21; Start 02/27/18 at 22:00; Stop 02/27/18 at 22:59; Status DC Meropenem 500 mg/ Sodium Chloride 50 ml @ 100 mls/hr Q6HRS IV Last administered on 02/28/18at 11:59; Start 02/27/18 at 23:00 Doxycycline Hyclate (Vibra-Tab) 100 mg 1X ONCE PO Last administered on at 22:58; Start 02/27/18 at 22:30; Stop 02/27/18 at 22:31; Status DC Acetaminophen/ Hydrocodone Bitart (Lortab 5/325) 1 tab 1X ONCE PO Last administered on 02/27/18at 22:59; Start 02/27/18 at 22:30; Stop 02/27/18 at 22:31 ; Status DC Lactobacillus Rhamnosus (Culturelle) 1 cap BID PO Last administered on at 08:55; Start 02/28/18 at 09:00 Ondansetron HCl (Zofran) 4 mg PRN Q8HRS PRN IV NAUSEA/VOMITING 1ST CHOICE; Start 02/27/18 at 22:30; Stop 02/28/18 at 22:29 Fentanyl Citrate (Fentanyl 2ml Vial) 50 mcg PRN Q2HR PRN IV SEVERE PAIN Last administered on 02/28/18at 00:54; Start 02/27/18 at 22:30; Stop 02/28/18 at 22:29 Acetaminophen (Tylenol) 650 mg PRN Q4HRS PRN PO FEVER; Start 02/27/18 at 22:30 ; Stop 02/28/18 at 22:29 Influenza Virus Vaccine (Afluria Trivalent [id number] Syringe) 0.5 ml ONCE ONCE VAX IM ; Start 02/28/18 at 09:00; Stop 02/28/18 at 09:01; Status DC Potassium Chloride (Klor-Con) 40 meq 1X ONCE PO Last administered on at 11:58; Start 02/28/18 at 09:15; Stop 02/28/18 at 09:16; Status DC Doxycycline Hyclate (Vibra-Tab) 100 mg BID PO ; Start 02/28/18 at 21:00 Fluconazole (Diflucan) 200 mg DAILY PO ; Start 03/01/18 at 09:00 Amlodipine Besylate (Norvasc) 10 mg DAILY PO ; Start 02/28/18 at 13:00 Atorvastatin Calcium (Lipitor) 40 mg QHS PO ; Start 02/28/18 at 21:00 Acetaminophen/ Hydrocodone Bitart (Lortab 5/325) 1 tab PRN Q4HRS PRN PO MILD PAIN; Start 02/28/18 at 12:45 Insulin Glargine (Lantus) 45 units QHS SQ ; Start 02/28/18 at 21:00 Insulin Human Lispro (HumaLOG) 0-7 UNITS TIDWMEALS SQ ; Start 02/28/18 at 17:00 Dextrose (Dextrose 50%-Water Syringe) 12.5 gm PRN Q15MIN PRN IV SEE COMMENTS; Start 02/28/18 at 12:45 Insulin Human Lispro (HumaLOG) 8 units TIDWMEALS SQ ; Start 02/28/18 at 17:00 Active Scripts Active Doxycycline Hyclate 100 Mg Tablet 100 Mg PO BID Invanz (Ertapenem Sodium) 1 Gm Vial 1 Gm IJ DAILY Hydrocodone-Apap 5-325 (Hydrocodone Bit/Acetaminophen) 1 Each Tablet 1 Tab PO PRN Q4HRS PRN Reported Atorvastatin Calcium 40 Mg Tablet 1 Tab PO QHS Amlodipine Besylate 10 Mg Tablet 10 Mg PO DAILY Lantus Solostar (Insulin Glargine,Hum.rec.anlog) 100 Unit/1 Ml Insuln.pen 45 Unit SQ QHS Allergies Allergies: Coded Allergies: lisinopril (Verified Allergy, Severe, ANGIOEDEMA, 01/07/18) Penicillins (Verified Allergy, Intermediate, 01/30/18) TOLERATES MERREM ROS General: No: Chills, Night Sweats, Fatigue, Malaise, Appetite, Other PSYCHOLOGICAL ROS: No: Anxiety, Behavioral Disorder, Concentration difficultie , Decreased libido, Depression, Disorientation, Hallucinations, Hostility, Irritablity, Memory difficulties, Mood Swings, Obsessive thoughts, Physical abuse, Sexual abuse, Sleep disturbances, Suicidal ideation, Other Eyes: No Blurry vision, No Decreased vision, No Double vision, No Dry eyes, No Excessive tearing, No Eye Pain, No Itchy Eyes, No Loss of vision, No Photophobia , No Scotomata, No Uses contacts, No Uses glasses, No Other HEENT: No: Heacaches, Visual Changes, Hearing change, Nasal congestion, Nasal discharge, Oral lesions, Sinus pain, Sore Throat, Epistaxis, Sneezing, Snoring, Tinnitus, Vertigo, Vocal changes, Other ALLERGY AND IMMUNOLOGY: No: Hives, Insect Bite Sensitivity, Itchy/Watery Eyes, Nasal Congestion, Post Nasal Drip, Seasonal Allergies, Other ENDOCRINE: No: Breast Changes, Galactorrhea, Hair Pattern Changes, Hot Flashes , Malaise/lethargy, Mood Swings, Palpitations, Polydipsia/polyuria, Skin Changes , Temperature Intolerance, Unexpected Weight Changes, Other Respiratory: No: Cough, Hemoptysis, Orthopnea, Pleuritic Pain, Shortness of breath, SOB with excertion, Sputum Changes, Stridor, Tachypnea, Wheezing, Other Cardiovascular: No Chest Pain, No Palpitations, No Orthopnea, No Paroxysmal Noc. Dyspnea, No Edema, No Lt Headedness, No Other Gastrointestinal: No Nausea, No Vomiting, No Abdominal Pain, No Diarrhea, No Constipation, No Melena, No Hematochezia, No Other Genitourinary: No Dysuria, No Frequency, No Incontinence, No Hematuria, No Retention, No Discharge, No Urgency, No Pain, No Flank Pain, No Other, No , No , No , No , No , No , No Musculoskeletal: Yes Pain In: (right) Neurological: No Behavorial Changes, No Bowel/Bladder ControlChng, No Confusion , No Dizziness, No Gait Disturbance, No Headaches, No Impaired Coord/balance, No Memory Loss, No Numbness/Tingling, No Seizures, No Speech Problems, No Tremors, No Visual Changes, No Weakness, No Other Skin: No Dry Skin, No Eczema, No Hair Changes, No Lumps, No Mole Changes, No Mottling, No Nail Changes, No Pruritus, No Rash, No Skin Lesion Changes, No Other, No Acne Physical Exam General: Alert, Oriented X3 HEENT: Atraumatic, EOMI Lungs: Other (respirations aren't labored with symmetric chest rise) Heart: Regular rate, Other (dorsalis pedis 1+) Abdomen: Soft, No tenderness Extremities: No clubbing, No edema Neuro: Normal gait, Strength at 5/5 X4 ext, Other (decreased sensation in his feet to light touch) Psych/Mental Status: Mental status NL, Mood NL MUSCULOSKELETAL: Other (he has approximately a 2 x 1 cm wound down to subcutaneous tissue with maceration at the edges and a small amount of necrotic debris at the base. There is pink granulation tissue in the base of the wound as well. There is no surrounding fluctuance or erythema. He does have callosities over 2 other areas, approximately quarter size, over his forefoot but no obvious wounds there.) Vitals VITALS Vital Signs Date Time Temp Pulse Resp B/P (MAP) Pulse Ox O2 Delivery O2 Flow Rate FiO2 02/28/18 11:00 96.4 76 18 154/98 (116) 99 Room Air 96.4 Labs Labs Laboratory Tests Test 02/27/18 21:38 02/27/18 22:37 02/27/18 22:48 02/27/18 23:02 Glucose (Fingerstick) 64 mg/dL (70-99) 148 mg/dL (70-99) White Blood Count 8.5 x10^3/uL (4.0-11.0) Red Blood Count 4.23 x10^6/uL (4.30-5.70) Hemoglobin 13.6 g/dL (13.0-17.5) Hematocrit 37.9 % (39.0-53.0) Mean Corpuscular Volume 89 fL (79-100) Mean Corpuscular Hemoglobin 32 pg (25-35) Mean Corpuscular Hemoglobin Concent 36 g/dL (31-37) Red Cell Distribution Width 13.6 % (11.5-14.5) Platelet Count 181 x10^3/uL (140-400) Neutrophils (%) (Auto) 60 % (31-73) Lymphocytes (%) (Auto) 29 % (24-48) Monocytes (%) (Auto) 8 % (0-9) Eosinophils (%) (Auto) 2 % (0-3) Basophils (%) (Auto) 1 % (0-3) Neutrophils # (Auto) 5.1 x10^3uL (1.8-7.7) Lymphocytes # (Auto) 2.5 x10^3/uL (1.0-4.8) Monocytes # (Auto) 0.7 x10^3/uL (0.0-1.1) Eosinophils # (Auto) 0.2 x10^3/uL (0.0-0.7) Basophils # (Auto) 0.1 x10^3/uL (0.0-0.2) Sodium Level 141 mmol/L (136-145) Potassium Level 3.4 mmol/L (3.5-5.1) Chloride Level 102 mmol/L (98-107) Carbon Dioxide Level 27 mmol/L (21-32) Anion Gap 12 (6-14) Blood Urea Nitrogen 13 mg/dL (8-26) Creatinine 1.1 mg/dL (0.7-1.3) Estimated GFR (Cockcroft-Gault) 86.8 BUN/Creatinine Ratio 12 (6-20) Glucose Level 149 mg/dL (70-99) Lactic Acid Level 1.4 mmol/L (0.4-2.0) Calcium Level 9.7 mg/dL (8.5-10.1) Total Bilirubin 0.2 mg/dL (0.2-1.0) Aspartate Amino Transf (AST/SGOT) 14 U/L (15-37) Alanine Aminotransferase (ALT/SGPT) 18 U/L (16-63) Alkaline Phosphatase 89 U/L (46-116) Total Protein 7.8 g/dL (6.4-8.2) Albumin 3.6 g/dL (3.4-5.0) Albumin/Globulin Ratio 0.9 (1.0-1.7) Urine Opiates Screen Neg (NEG) Urine Methadone Screen Neg (NEG) Urine Barbiturates Neg (NEG) Urine Phencyclidine Screen Neg (NEG) Urine Amphetamine/Methamphetamine Neg (NEG) Urine Benzodiazepines Screen Neg (NEG) Urine Cocaine Screen Neg (NEG) Urine Cannabinoids Screen Pos (NEG) Urine Ethyl Alcohol Neg (NEG) Test 02/28/18 07:37 02/28/18 10:46 Glucose (Fingerstick) 227 mg/dL (70-99) 238 mg/dL (70-99) Laboratory Tests Test 02/27/18 21:38 02/27/18 22:37 02/27/18 22:48 02/27/18 23:02 Glucose (Fingerstick) 64 mg/dL (70-99) 148 mg/dL (70-99) White Blood Count 8.5 x10^3/uL (4.0-11.0) Red Blood Count 4.23 x10^6/uL (4.30-5.70) Hemoglobin 13.6 g/dL (13.0-17.5) Hematocrit 37.9 % (39.0-53.0) Mean Corpuscular Volume 89 fL (79-100) Mean Corpuscular Hemoglobin 32 pg (25-35) Mean Corpuscular Hemoglobin Concent 36 g/dL (31-37) Red Cell Distribution Width 13.6 % (11.5-14.5) Platelet Count 181 x10^3/uL (140-400) Neutrophils (%) (Auto) 60 % (31-73) Lymphocytes (%) (Auto) 29 % (24-48) Monocytes (%) (Auto) 8 % (0-9) Eosinophils (%) (Auto) 2 % (0-3) Basophils (%) (Auto) 1 % (0-3) Neutrophils # (Auto) 5.1 x10^3uL (1.8-7.7) Lymphocytes # (Auto) 2.5 x10^3/uL (1.0-4.8) Monocytes # (Auto) 0.7 x10^3/uL (0.0-1.1) Eosinophils # (Auto) 0.2 x10^3/uL (0.0-0.7) Basophils # (Auto) 0.1 x10^3/uL (0.0-0.2) Sodium Level 141 mmol/L (136-145) Potassium Level 3.4 mmol/L (3.5-5.1) Chloride Level 102 mmol/L (98-107) Carbon Dioxide Level 27 mmol/L (21-32) Anion Gap 12 (6-14) Blood Urea Nitrogen 13 mg/dL (8-26) Creatinine 1.1 mg/dL (0.7-1.3) Estimated GFR (Cockcroft-Gault) 86.8 BUN/Creatinine Ratio 12 (6-20) Glucose Level 149 mg/dL (70-99) Lactic Acid Level 1.4 mmol/L (0.4-2.0) Calcium Level 9.7 mg/dL (8.5-10.1) Total Bilirubin 0.2 mg/dL (0.2-1.0) Aspartate Amino Transf (AST/SGOT) 14 U/L (15-37) Alanine Aminotransferase (ALT/SGPT) 18 U/L (16-63) Alkaline Phosphatase 89 U/L (46-116) Total Protein 7.8 g/dL (6.4-8.2) Albumin 3.6 g/dL (3.4-5.0) Albumin/Globulin Ratio 0.9 (1.0-1.7) Urine Opiates Screen Neg (NEG) Urine Methadone Screen Neg (NEG) Urine Barbiturates Neg (NEG) Urine Phencyclidine Screen Neg (NEG) Urine Amphetamine/Methamphetamine Neg (NEG) Urine Benzodiazepines Screen Neg (NEG) Urine Cocaine Screen Neg (NEG) Urine Cannabinoids Screen Pos (NEG) Urine Ethyl Alcohol Neg (NEG) Test 02/28/18 07:37 02/28/18 10:46 Glucose (Fingerstick) 227 mg/dL (70-99) 238 mg/dL (70-99) Assessment/Plan Assessment/Plan Chronic right foot wound. We did discuss a continued treatment plan. I did discuss with him that a transmetatarsal amputation would likely give the quickest resolution, he is adamantly against this. He tells me has been told this by other doctors and has refused on several prior occasions. I did discuss overall principles of wound care with him including offloading, sticking with the treatment plan from infectious disease, keeping the wound clean. I think this wound looks fairly clean overall, I recommended a bedside debridement and I discussed with him to be back later this afternoon to perform. Overall the wound looks looks clean and I do not anticipate much work needing to be done. I think given the appearance of the wound and the lack strongly involvement or more worrisome signs that a bedside procedure is probably most appropriate given his refusal of anything more aggressive. NEYMAR YANES II, MD Feb 28, 2018 13:10
[2018-02-28] MEDS: amLODIPine BESYLATE 10 MG TABLET PO SCH (14:51)
[2018-02-28] MEDS: INSULIN LISPRO 300 UNITS/3 ML INSULN.PEN. SQ SCH ×2 (17:00→17:38)
[2018-02-28] MEDS: DOXYCYCLINE HYCLATE 100 MG TABLET PO SCH (21:05)
[2018-02-28] MEDS: ATORVASTATIN CALCIUM 40 MG TABLET. PO SCH (21:05)
[2018-02-28] MEDS: INSULIN GLARGINE 300 UNITS/3 ML INSULN.PEN. SQ SCH (21:09)
[2018-03-01] VITALS (7 sets, daily range): BP systolic 135–160; BP diastolic 70–100
[2018-03-01] MEDS: MEROPENEM 500 MG in IV NORMAL SALINE 50ML 50 ML IV SCH ×4 (05:38→23:35)
[2018-03-01 06:04] LABS: BASO # 0.1 x10^3/uL (0.0-0.2); BASO % 1 % (0-3); EOS # 0.3 x10^3/uL (0.0-0.7); EOS % 4 % (0-3); HEMATOCRIT 39.4 % (39.0-53.0); HEMOGLOBIN 13.9 g/dL (13.0-17.5); LYMPH # 1.9 x10^3/uL (1.0-4.8); LYMPH % 28 % (24-48); MEAN CORPUSCULAR HEMOGLOBIN 32 pg (25-35); MEAN CORPUSCULAR HGB CONC 35 g/dL (31-37); MEAN CORPUSCULAR VOLUME 90 fL (79-100); MONO # 0.6 x10^3/uL (0.0-1.1); MONO % 9 % (0-9); NEUT % 59 % (31-73); PLATELET COUNT 181 x10^3/uL (140-400); RED BLOOD COUNT 4.39 x10^6/uL (4.30-5.70); RED CELL DISTRIBUTION WIDTH 14.1 % (11.5-14.5); WHITE BLOOD COUNT 6.8 x10^3/uL (4.0-11.0)
[2018-03-01 06:20] LABS: ALBUMIN 3.4 g/dL (3.4-5.0); ALBUMIN/GLOBULIN RATIO 0.8 (1.0-1.7); CALCIUM 8.8 mg/dL (8.5-10.1); GFR 96.9; POTASSIUM 4.1 mmol/L (3.5-5.1); TOTAL BILIRUBIN 0.2 mg/dL (0.2-1.0); TOTAL PROTEIN 7.5 g/dL (6.4-8.2)
[2018-03-01] MEDS: FLUCONAZOLE 100 MG TABLET. PO SCH (09:16)
[2018-03-01] MEDS: DOXYCYCLINE HYCLATE 100 MG TABLET PO SCH ×2 (09:16→20:55)
[2018-03-01] MEDS: amLODIPine BESYLATE 10 MG TABLET PO SCH (09:19)
[2018-03-01] MEDS: LACTOBACILLUS RHAMNOSUS GG 1 CAPSULE. PO SCH ×2 (09:19→20:55)
--- NOTE | 2018-03-01 09:24 | PDOC ---
PROGRESS NOTES Chief Complaint Chief Complaint medical noncompliance Dm2 with noncompliance of diet, infection of foot with cellulitis, s/p debridement 02/28 tobacco use disorder History of Present Illness History of Present Illness walking halls, wanting more food. leaving the unit, does not report where he is going Vitals Vitals Vital Signs Date Time Temp Pulse Resp B/P (MAP) Pulse Ox O2 Delivery O2 Flow Rate FiO2 03/01/18 09:19 147/100 03/01/18 07:00 97.8 81 18 98 Room Air 97.8 Physical Exam Physical Exam GENERAL: Sitting on the side of the bed, alert, smiling VSS and afebrile HENT: Normal conjunctivae. Oral cavity pink and moist LILUNGS: Clear HEART: S1, S2 ABD: Obese, BS active, soft, NT EXT: No gross edema or cyanosis. 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 RUE-PICC (POA) w/o signs of complications General: Alert, Oriented X3 Heart: Regular rate, Other (dorsalis pedis 1+) Abdomen: Soft, No tenderness Extremities: No clubbing, No edema Skin: No rashes, Other (ertyhema and breakdown on plantar aspect) Labs LABS Laboratory Tests Test 02/28/18 10:46 02/28/18 16:36 02/28/18 20:35 03/01/18 05:30 Glucose (Fingerstick) 238 mg/dL (70-99) 140 mg/dL (70-99) 207 mg/dL (70-99) White Blood Count 6.8 x10^3/uL (4.0-11.0) Red Blood Count 4.39 x10^6/uL (4.30-5.70) Hemoglobin 13.9 g/dL (13.0-17.5) Hematocrit 39.4 % (39.0-53.0) Mean Corpuscular Volume 90 fL (79-100) Mean Corpuscular Hemoglobin 32 pg (25-35) Mean Corpuscular Hemoglobin Concent 35 g/dL (31-37) Red Cell Distribution Width 14.1 % (11.5-14.5) Platelet Count 181 x10^3/uL (140-400) Neutrophils (%) (Auto) 59 % (31-73) Lymphocytes (%) (Auto) 28 % (24-48) Monocytes (%) (Auto) 9 % (0-9) Eosinophils (%) (Auto) 4 % (0-3) Basophils (%) (Auto) 1 % (0-3) Neutrophils # (Auto) 4.0 x10^3uL (1.8-7.7) Lymphocytes # (Auto) 1.9 x10^3/uL (1.0-4.8) Monocytes # (Auto) 0.6 x10^3/uL (0.0-1.1) Eosinophils # (Auto) 0.3 x10^3/uL (0.0-0.7) Basophils # (Auto) 0.1 x10^3/uL (0.0-0.2) Sodium Level 138 mmol/L (136-145) Potassium Level 4.1 mmol/L (3.5-5.1) Chloride Level 100 mmol/L (98-107) Carbon Dioxide Level 28 mmol/L (21-32) Anion Gap 10 (6-14) Blood Urea Nitrogen 9 mg/dL (8-26) Creatinine 1.0 mg/dL (0.7-1.3) Estimated GFR (Cockcroft-Gault) 96.9 BUN/Creatinine Ratio 9 (6-20) Glucose Level 300 mg/dL (70-99) Calcium Level 8.8 mg/dL (8.5-10.1) Total Bilirubin 0.2 mg/dL (0.2-1.0) Aspartate Amino Transf (AST/SGOT) 17 U/L (15-37) Alanine Aminotransferase (ALT/SGPT) 19 U/L (16-63) Alkaline Phosphatase 100 U/L (46-116) Total Protein 7.5 g/dL (6.4-8.2) Albumin 3.4 g/dL (3.4-5.0) Albumin/Globulin Ratio 0.8 (1.0-1.7) Test 03/01/18 07:52 Glucose (Fingerstick) 228 mg/dL (70-99) Assessment and Plan Assessmemt and Plan Problems Medical Problems: (1) Chronic osteomyelitis Status: Acute (2) Diabetic foot ulcer Status: Acute Comment Review of Relevant I have reviewed the following items yuly (where applicable) has been applied. Labs Laboratory Tests Test 02/27/18 21:38 02/27/18 22:37 02/27/18 22:48 02/27/18 23:02 Glucose (Fingerstick) 64 mg/dL (70-99) 148 mg/dL (70-99) White Blood Count 8.5 x10^3/uL (4.0-11.0) Red Blood Count 4.23 x10^6/uL (4.30-5.70) Hemoglobin 13.6 g/dL (13.0-17.5) Hematocrit 37.9 % (39.0-53.0) Mean Corpuscular Volume 89 fL (79-100) Mean Corpuscular Hemoglobin 32 pg (25-35) Mean Corpuscular Hemoglobin Concent 36 g/dL (31-37) Red Cell Distribution Width 13.6 % (11.5-14.5) Platelet Count 181 x10^3/uL (140-400) Neutrophils (%) (Auto) 60 % (31-73) Lymphocytes (%) (Auto) 29 % (24-48) Monocytes (%) (Auto) 8 % (0-9) Eosinophils (%) (Auto) 2 % (0-3) Basophils (%) (Auto) 1 % (0-3) Neutrophils # (Auto) 5.1 x10^3uL (1.8-7.7) Lymphocytes # (Auto) 2.5 x10^3/uL (1.0-4.8) Monocytes # (Auto) 0.7 x10^3/uL (0.0-1.1) Eosinophils # (Auto) 0.2 x10^3/uL (0.0-0.7) Basophils # (Auto) 0.1 x10^3/uL (0.0-0.2) Sodium Level 141 mmol/L (136-145) Potassium Level 3.4 mmol/L (3.5-5.1) Chloride Level 102 mmol/L (98-107) Carbon Dioxide Level 27 mmol/L (21-32) Anion Gap 12 (6-14) Blood Urea Nitrogen 13 mg/dL (8-26) Creatinine 1.1 mg/dL (0.7-1.3) Estimated GFR (Cockcroft-Gault) 86.8 BUN/Creatinine Ratio 12 (6-20) Glucose Level 149 mg/dL (70-99) Lactic Acid Level 1.4 mmol/L (0.4-2.0) Calcium Level 9.7 mg/dL (8.5-10.1) Total Bilirubin 0.2 mg/dL (0.2-1.0) Aspartate Amino Transf (AST/SGOT) 14 U/L (15-37) Alanine Aminotransferase (ALT/SGPT) 18 U/L (16-63) Alkaline Phosphatase 89 U/L (46-116) Total Protein 7.8 g/dL (6.4-8.2) Albumin 3.6 g/dL (3.4-5.0) Albumin/Globulin Ratio 0.9 (1.0-1.7) Urine Opiates Screen Neg (NEG) Urine Methadone Screen Neg (NEG) Urine Barbiturates Neg (NEG) Urine Phencyclidine Screen Neg (NEG) Urine Amphetamine/Methamphetamine Neg (NEG) Urine Benzodiazepines Screen Neg (NEG) Urine Cocaine Screen Neg (NEG) Urine Cannabinoids Screen Pos (NEG) Urine Ethyl Alcohol Neg (NEG) Test 02/28/18 07:37 02/28/18 10:46 02/28/18 16:36 02/28/18 20:35 Glucose (Fingerstick) 227 mg/dL (70-99) 238 mg/dL (70-99) 140 mg/dL (70-99) 207 mg/dL (70-99) Test 03/01/18 05:30 03/01/18 07:52 White Blood Count 6.8 x10^3/uL (4.0-11.0) Red Blood Count 4.39 x10^6/uL (4.30-5.70) Hemoglobin 13.9 g/dL (13.0-17.5) Hematocrit 39.4 % (39.0-53.0) Mean Corpuscular Volume 90 fL (79-100) Mean Corpuscular Hemoglobin 32 pg (25-35) Mean Corpuscular Hemoglobin Concent 35 g/dL (31-37) Red Cell Distribution Width 14.1 % (11.5-14.5) Platelet Count 181 x10^3/uL (140-400) Neutrophils (%) (Auto) 59 % (31-73) Lymphocytes (%) (Auto) 28 % (24-48) Monocytes (%) (Auto) 9 % (0-9) Eosinophils (%) (Auto) 4 % (0-3) Basophils (%) (Auto) 1 % (0-3) Neutrophils # (Auto) 4.0 x10^3uL (1.8-7.7) Lymphocytes # (Auto) 1.9 x10^3/uL (1.0-4.8) Monocytes # (Auto) 0.6 x10^3/uL (0.0-1.1) Eosinophils # (Auto) 0.3 x10^3/uL (0.0-0.7) Basophils # (Auto) 0.1 x10^3/uL (0.0-0.2) Sodium Level 138 mmol/L (136-145) Potassium Level 4.1 mmol/L (3.5-5.1) Chloride Level 100 mmol/L (98-107) Carbon Dioxide Level 28 mmol/L (21-32) Anion Gap 10 (6-14) Blood Urea Nitrogen 9 mg/dL (8-26) Creatinine 1.0 mg/dL (0.7-1.3) Estimated GFR (Cockcroft-Gault) 96.9 BUN/Creatinine Ratio 9 (6-20) Glucose Level 300 mg/dL (70-99) Calcium Level 8.8 mg/dL (8.5-10.1) Total Bilirubin 0.2 mg/dL (0.2-1.0) Aspartate Amino Transf (AST/SGOT) 17 U/L (15-37) Alanine Aminotransferase (ALT/SGPT) 19 U/L (16-63) Alkaline Phosphatase 100 U/L (46-116) Total Protein 7.5 g/dL (6.4-8.2) Albumin 3.4 g/dL (3.4-5.0) Albumin/Globulin Ratio 0.8 (1.0-1.7) Glucose (Fingerstick) 228 mg/dL (70-99) Laboratory Tests Test 02/28/18 10:46 02/28/18 16:36 02/28/18 20:35 03/01/18 05:30 Glucose (Fingerstick) 238 mg/dL (70-99) 140 mg/dL (70-99) 207 mg/dL (70-99) White Blood Count 6.8 x10^3/uL (4.0-11.0) Red Blood Count 4.39 x10^6/uL (4.30-5.70) Hemoglobin 13.9 g/dL (13.0-17.5) Hematocrit 39.4 % (39.0-53.0) Mean Corpuscular Volume 90 fL (79-100) Mean Corpuscular Hemoglobin 32 pg (25-35) Mean Corpuscular Hemoglobin Concent 35 g/dL (31-37) Red Cell Distribution Width 14.1 % (11.5-14.5) Platelet Count 181 x10^3/uL (140-400) Neutrophils (%) (Auto) 59 % (31-73) Lymphocytes (%) (Auto) 28 % (24-48) Monocytes (%) (Auto) 9 % (0-9) Eosinophils (%) (Auto) 4 % (0-3) Basophils (%) (Auto) 1 % (0-3) Neutrophils # (Auto) 4.0 x10^3uL (1.8-7.7) Lymphocytes # (Auto) 1.9 x10^3/uL (1.0-4.8) Monocytes # (Auto) 0.6 x10^3/uL (0.0-1.1) Eosinophils # (Auto) 0.3 x10^3/uL (0.0-0.7) Basophils # (Auto) 0.1 x10^3/uL (0.0-0.2) Sodium Level 138 mmol/L (136-145) Potassium Level 4.1 mmol/L (3.5-5.1) Chloride Level 100 mmol/L (98-107) Carbon Dioxide Level 28 mmol/L (21-32) Anion Gap 10 (6-14) Blood Urea Nitrogen 9 mg/dL (8-26) Creatinine 1.0 mg/dL (0.7-1.3) Estimated GFR (Cockcroft-Gault) 96.9 BUN/Creatinine Ratio 9 (6-20) Glucose Level 300 mg/dL (70-99) Calcium Level 8.8 mg/dL (8.5-10.1) Total Bilirubin 0.2 mg/dL (0.2-1.0) Aspartate Amino Transf (AST/SGOT) 17 U/L (15-37) Alanine Aminotransferase (ALT/SGPT) 19 U/L (16-63) Alkaline Phosphatase 100 U/L (46-116) Total Protein 7.5 g/dL (6.4-8.2) Albumin 3.4 g/dL (3.4-5.0) Albumin/Globulin Ratio 0.8 (1.0-1.7) Test 03/01/18 07:52 Glucose (Fingerstick) 228 mg/dL (70-99) Microbiology 02/28/18 Blood Culture - Preliminary, Resulted NO GROWTH AFTER 1 DAY Medications Current Medications Ondansetron HCl (Zofran) 4 mg 1X ONCE IV Last administered on 02/27/18at 22:59 ; Start 02/27/18 at 22:00; Stop 02/27/18 at 22:01; Status DC Sodium Chloride 1,000 ml @ 1,000 mls/hr 1X ONCE IV Last administered on at 23:21; Start 02/27/18 at 22:00; Stop 02/27/18 at 22:59; Status DC Meropenem 500 mg/ Sodium Chloride 50 ml @ 100 mls/hr Q6HRS IV Last administered on 03/01/18at 05:38; Start 02/27/18 at 23:00 Doxycycline Hyclate (Vibra-Tab) 100 mg 1X ONCE PO Last administered on at 22:58; Start 02/27/18 at 22:30; Stop 02/27/18 at 22:31; Status DC Acetaminophen/ Hydrocodone Bitart (Lortab 5/325) 1 tab 1X ONCE PO Last administered on 02/27/18at 22:59; Start 02/27/18 at 22:30; Stop 02/27/18 at 22:31 ; Status DC Lactobacillus Rhamnosus (Culturelle) 1 cap BID PO Last administered on at 21:05; Start 02/28/18 at 09:00 Ondansetron HCl (Zofran) 4 mg PRN Q8HRS PRN IV NAUSEA/VOMITING 1ST CHOICE; Start 02/27/18 at 22:30; Stop 02/28/18 at 22:29; Status DC Fentanyl Citrate (Fentanyl 2ml Vial) 50 mcg PRN Q2HR PRN IV SEVERE PAIN Last administered on 02/28/18at 00:54; Start 02/27/18 at 22:30; Stop 02/28/18 at 22:29 ; Status DC Acetaminophen (Tylenol) 650 mg PRN Q4HRS PRN PO FEVER; Start 02/27/18 at 22:30 ; Stop 02/28/18 at 22:29; Status DC Influenza Virus Vaccine (Afluria Trivalent [id number] Syringe) 0.5 ml ONCE ONCE VAX IM ; Start 02/28/18 at 09:00; Stop 02/28/18 at 09:01; Status DC Potassium Chloride (Klor-Con) 40 meq 1X ONCE PO Last administered on at 11:58; Start 02/28/18 at 09:15; Stop 02/28/18 at 09:16; Status DC Doxycycline Hyclate (Vibra-Tab) 100 mg BID PO Last administered on 03/01/18at 09 :16; Start 02/28/18 at 21:00 Fluconazole (Diflucan) 200 mg DAILY PO Last administered on 03/01/18at 09:16; Start 03/01/18 at 09:00 Amlodipine Besylate (Norvasc) 10 mg DAILY PO Last administered on 03/01/18at 09: 19; Start 02/28/18 at 13:00 Atorvastatin Calcium (Lipitor) 40 mg QHS PO Last administered on 02/28/18at 21: 05; Start 02/28/18 at 21:00 Acetaminophen/ Hydrocodone Bitart (Lortab 5/325) 1 tab PRN Q4HRS PRN PO MILD PAIN; Start 02/28/18 at 12:45 Insulin Glargine (Lantus) 45 units QHS SQ Last administered on 02/28/18at 21:09 ; Start 02/28/18 at 21:00 Insulin Human Lispro (HumaLOG) 0-7 UNITS TIDWMEALS SQ ; Start 02/28/18 at 17:00 Dextrose (Dextrose 50%-Water Syringe) 12.5 gm PRN Q15MIN PRN IV SEE COMMENTS; Start 02/28/18 at 12:45 Insulin Human Lispro (HumaLOG) 8 units TIDWMEALS SQ Last administered on at 17:38; Start 02/28/18 at 17:00 Active Scripts Active Doxycycline Hyclate 100 Mg Tablet 100 Mg PO BID Invanz (Ertapenem Sodium) 1 Gm Vial 1 Gm IJ DAILY Hydrocodone-Apap 5-325 (Hydrocodone Bit/Acetaminophen) 1 Each Tablet 1 Tab PO PRN Q4HRS PRN Reported Atorvastatin Calcium 40 Mg Tablet 1 Tab PO QHS Amlodipine Besylate 10 Mg Tablet 10 Mg PO DAILY Lantus Solostar (Insulin Glargine,Hum.rec.anlog) 100 Unit/1 Ml Insuln.pen 45 Unit SQ QHS Vitals/I & O Vital Sign - Last 24 Hours 02/28/18 02/28/18 02/28/18 02/28/18 11:00 13:58 14:51 15:00 Temp 96.4 96.4 97.9 96.4 96.4 97.9 Pulse 76 76 76 79 Resp 18 24 18 B/P (MAP) 154/98 (116) 154/98 (116) 154/98 175/96 (122) Pulse Ox 99 99 99 O2 Delivery Room Air Room Air Room Air 02/28/18 02/28/18 02/28/18 03/01/18 19:00 19:05 22:55 02:49 Temp 97.9 97.7 97.5 97.9 97.7 97.5 Pulse 83 81 80 Resp 18 18 18 B/P (MAP) 146/84 (104) 169/99 (122) 160/100 (120) Pulse Ox 97 97 98 O2 Delivery Room Air Room Air Room Air Room Air 03/01/18 03/01/18 03/01/18 04:00 07:00 09:19 Temp 97.8 97.8 Pulse 81 81 Resp 18 B/P (MAP) 156/90 (112) 147/100 (116) 147/100 Pulse Ox 98 O2 Delivery Room Air Intake and Output 02/28/18 02/28/18 03/01/18 15:00 23:00 07:00 Intake Total 200 ml 400 ml 700 ml Output Total 350 ml Balance -150 ml 400 ml 700 ml EUSEBIO ALBERT MD Mar 01, 2018 09:24
[2018-03-01] MEDS: INSULIN LISPRO 300 UNITS/3 ML INSULN.PEN. SQ SCH ×6 (09:28→17:14)
--- NOTE | 2018-03-01 11:18 | PDOC ---
ORTHO PROGRESS NOTES Subjective Feels better today. No F/C/N/V Vitals Vital Signs Date Time Temp Pulse Resp B/P (MAP) Pulse Ox O2 Delivery O2 Flow Rate FiO2 03/01/18 09:19 147/100 03/01/18 07:00 97.8 81 18 98 Room Air 97.8 Labs Laboratory Tests Test 02/27/18 21:38 02/27/18 22:37 02/27/18 22:48 02/27/18 23:02 Glucose (Fingerstick) 64 mg/dL (70-99) 148 mg/dL (70-99) White Blood Count 8.5 x10^3/uL (4.0-11.0) Red Blood Count 4.23 x10^6/uL (4.30-5.70) Hemoglobin 13.6 g/dL (13.0-17.5) Hematocrit 37.9 % (39.0-53.0) Mean Corpuscular Volume 89 fL (79-100) Mean Corpuscular Hemoglobin 32 pg (25-35) Mean Corpuscular Hemoglobin Concent 36 g/dL (31-37) Red Cell Distribution Width 13.6 % (11.5-14.5) Platelet Count 181 x10^3/uL (140-400) Neutrophils (%) (Auto) 60 % (31-73) Lymphocytes (%) (Auto) 29 % (24-48) Monocytes (%) (Auto) 8 % (0-9) Eosinophils (%) (Auto) 2 % (0-3) Basophils (%) (Auto) 1 % (0-3) Neutrophils # (Auto) 5.1 x10^3uL (1.8-7.7) Lymphocytes # (Auto) 2.5 x10^3/uL (1.0-4.8) Monocytes # (Auto) 0.7 x10^3/uL (0.0-1.1) Eosinophils # (Auto) 0.2 x10^3/uL (0.0-0.7) Basophils # (Auto) 0.1 x10^3/uL (0.0-0.2) Sodium Level 141 mmol/L (136-145) Potassium Level 3.4 mmol/L (3.5-5.1) Chloride Level 102 mmol/L (98-107) Carbon Dioxide Level 27 mmol/L (21-32) Anion Gap 12 (6-14) Blood Urea Nitrogen 13 mg/dL (8-26) Creatinine 1.1 mg/dL (0.7-1.3) Estimated GFR (Cockcroft-Gault) 86.8 BUN/Creatinine Ratio 12 (6-20) Glucose Level 149 mg/dL (70-99) Lactic Acid Level 1.4 mmol/L (0.4-2.0) Calcium Level 9.7 mg/dL (8.5-10.1) Total Bilirubin 0.2 mg/dL (0.2-1.0) Aspartate Amino Transf (AST/SGOT) 14 U/L (15-37) Alanine Aminotransferase (ALT/SGPT) 18 U/L (16-63) Alkaline Phosphatase 89 U/L (46-116) Total Protein 7.8 g/dL (6.4-8.2) Albumin 3.6 g/dL (3.4-5.0) Albumin/Globulin Ratio 0.9 (1.0-1.7) Urine Opiates Screen Neg (NEG) Urine Methadone Screen Neg (NEG) Urine Barbiturates Neg (NEG) Urine Phencyclidine Screen Neg (NEG) Urine Amphetamine/Methamphetamine Neg (NEG) Urine Benzodiazepines Screen Neg (NEG) Urine Cocaine Screen Neg (NEG) Urine Cannabinoids Screen Pos (NEG) Urine Ethyl Alcohol Neg (NEG) Test 02/28/18 07:37 02/28/18 10:46 02/28/18 16:36 02/28/18 20:35 Glucose (Fingerstick) 227 mg/dL (70-99) 238 mg/dL (70-99) 140 mg/dL (70-99) 207 mg/dL (70-99) Test 03/01/18 05:30 03/01/18 07:52 White Blood Count 6.8 x10^3/uL (4.0-11.0) Red Blood Count 4.39 x10^6/uL (4.30-5.70) Hemoglobin 13.9 g/dL (13.0-17.5) Hematocrit 39.4 % (39.0-53.0) Mean Corpuscular Volume 90 fL (79-100) Mean Corpuscular Hemoglobin 32 pg (25-35) Mean Corpuscular Hemoglobin Concent 35 g/dL (31-37) Red Cell Distribution Width 14.1 % (11.5-14.5) Platelet Count 181 x10^3/uL (140-400) Neutrophils (%) (Auto) 59 % (31-73) Lymphocytes (%) (Auto) 28 % (24-48) Monocytes (%) (Auto) 9 % (0-9) Eosinophils (%) (Auto) 4 % (0-3) Basophils (%) (Auto) 1 % (0-3) Neutrophils # (Auto) 4.0 x10^3uL (1.8-7.7) Lymphocytes # (Auto) 1.9 x10^3/uL (1.0-4.8) Monocytes # (Auto) 0.6 x10^3/uL (0.0-1.1) Eosinophils # (Auto) 0.3 x10^3/uL (0.0-0.7) Basophils # (Auto) 0.1 x10^3/uL (0.0-0.2) Sodium Level 138 mmol/L (136-145) Potassium Level 4.1 mmol/L (3.5-5.1) Chloride Level 100 mmol/L (98-107) Carbon Dioxide Level 28 mmol/L (21-32) Anion Gap 10 (6-14) Blood Urea Nitrogen 9 mg/dL (8-26) Creatinine 1.0 mg/dL (0.7-1.3) Estimated GFR (Cockcroft-Gault) 96.9 BUN/Creatinine Ratio 9 (6-20) Glucose Level 300 mg/dL (70-99) Calcium Level 8.8 mg/dL (8.5-10.1) Total Bilirubin 0.2 mg/dL (0.2-1.0) Aspartate Amino Transf (AST/SGOT) 17 U/L (15-37) Alanine Aminotransferase (ALT/SGPT) 19 U/L (16-63) Alkaline Phosphatase 100 U/L (46-116) Total Protein 7.5 g/dL (6.4-8.2) Albumin 3.4 g/dL (3.4-5.0) Albumin/Globulin Ratio 0.8 (1.0-1.7) Glucose (Fingerstick) 228 mg/dL (70-99) Laboratory Tests Test 02/28/18 16:36 02/28/18 20:35 03/01/18 05:30 03/01/18 07:52 Glucose (Fingerstick) 140 mg/dL (70-99) 207 mg/dL (70-99) 228 mg/dL (70-99) White Blood Count 6.8 x10^3/uL (4.0-11.0) Red Blood Count 4.39 x10^6/uL (4.30-5.70) Hemoglobin 13.9 g/dL (13.0-17.5) Hematocrit 39.4 % (39.0-53.0) Mean Corpuscular Volume 90 fL (79-100) Mean Corpuscular Hemoglobin 32 pg (25-35) Mean Corpuscular Hemoglobin Concent 35 g/dL (31-37) Red Cell Distribution Width 14.1 % (11.5-14.5) Platelet Count 181 x10^3/uL (140-400) Neutrophils (%) (Auto) 59 % (31-73) Lymphocytes (%) (Auto) 28 % (24-48) Monocytes (%) (Auto) 9 % (0-9) Eosinophils (%) (Auto) 4 % (0-3) Basophils (%) (Auto) 1 % (0-3) Neutrophils # (Auto) 4.0 x10^3uL (1.8-7.7) Lymphocytes # (Auto) 1.9 x10^3/uL (1.0-4.8) Monocytes # (Auto) 0.6 x10^3/uL (0.0-1.1) Eosinophils # (Auto) 0.3 x10^3/uL (0.0-0.7) Basophils # (Auto) 0.1 x10^3/uL (0.0-0.2) Sodium Level 138 mmol/L (136-145) Potassium Level 4.1 mmol/L (3.5-5.1) Chloride Level 100 mmol/L (98-107) Carbon Dioxide Level 28 mmol/L (21-32) Anion Gap 10 (6-14) Blood Urea Nitrogen 9 mg/dL (8-26) Creatinine 1.0 mg/dL (0.7-1.3) Estimated GFR (Cockcroft-Gault) 96.9 BUN/Creatinine Ratio 9 (6-20) Glucose Level 300 mg/dL (70-99) Calcium Level 8.8 mg/dL (8.5-10.1) Total Bilirubin 0.2 mg/dL (0.2-1.0) Aspartate Amino Transf (AST/SGOT) 17 U/L (15-37) Alanine Aminotransferase (ALT/SGPT) 19 U/L (16-63) Alkaline Phosphatase 100 U/L (46-116) Total Protein 7.5 g/dL (6.4-8.2) Albumin 3.4 g/dL (3.4-5.0) Albumin/Globulin Ratio 0.8 (1.0-1.7) Notes A and A in bed RLE: wounds without much drainage at all, clean appearing Assessment and Plan f/u 2 wks in my clinic abx per ID d/w Drs. Chairez and NEYMAR Bennett II, MD Mar 01, 2018 11:18
--- NOTE | 2018-03-01 11:23 | PDOC ---
Infectious Disease Note Subjective Subjective pt is feeling good, cont to walk despite was told to off load ROS ROS no n/v/d/sob Vital Sign Vital Signs Vital Signs Date Time Temp Pulse Resp B/P (MAP) Pulse Ox O2 Delivery O2 Flow Rate FiO2 03/01/18 09:19 147/100 03/01/18 08:00 Room Air 03/01/18 07:00 97.8 81 18 98 97.8 Physical Exam PHYSICAL EXAM GENERAL: Sitting on the side of the bed, alert, smiling VSS and afebrile HENT: Normal conjunctivae. Oral cavity pink and moist LILUNGS: Clear HEART: S1, S2 ABD: Obese, BS active, soft, NT EXT: No gross edema or cyanosis. 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: Alert, nonfocal RUE-PICC (POA) w/o signs of complications Labs Lab Laboratory Tests Test 02/28/18 16:36 02/28/18 20:35 03/01/18 05:30 03/01/18 07:52 Glucose (Fingerstick) 140 mg/dL (70-99) 207 mg/dL (70-99) 228 mg/dL (70-99) White Blood Count 6.8 x10^3/uL (4.0-11.0) Red Blood Count 4.39 x10^6/uL (4.30-5.70) Hemoglobin 13.9 g/dL (13.0-17.5) Hematocrit 39.4 % (39.0-53.0) Mean Corpuscular Volume 90 fL (79-100) Mean Corpuscular Hemoglobin 32 pg (25-35) Mean Corpuscular Hemoglobin Concent 35 g/dL (31-37) Red Cell Distribution Width 14.1 % (11.5-14.5) Platelet Count 181 x10^3/uL (140-400) Neutrophils (%) (Auto) 59 % (31-73) Lymphocytes (%) (Auto) 28 % (24-48) Monocytes (%) (Auto) 9 % (0-9) Eosinophils (%) (Auto) 4 % (0-3) Basophils (%) (Auto) 1 % (0-3) Neutrophils # (Auto) 4.0 x10^3uL (1.8-7.7) Lymphocytes # (Auto) 1.9 x10^3/uL (1.0-4.8) Monocytes # (Auto) 0.6 x10^3/uL (0.0-1.1) Eosinophils # (Auto) 0.3 x10^3/uL (0.0-0.7) Basophils # (Auto) 0.1 x10^3/uL (0.0-0.2) Sodium Level 138 mmol/L (136-145) Potassium Level 4.1 mmol/L (3.5-5.1) Chloride Level 100 mmol/L (98-107) Carbon Dioxide Level 28 mmol/L (21-32) Anion Gap 10 (6-14) Blood Urea Nitrogen 9 mg/dL (8-26) Creatinine 1.0 mg/dL (0.7-1.3) Estimated GFR (Cockcroft-Gault) 96.9 BUN/Creatinine Ratio 9 (6-20) Glucose Level 300 mg/dL (70-99) Calcium Level 8.8 mg/dL (8.5-10.1) Total Bilirubin 0.2 mg/dL (0.2-1.0) Aspartate Amino Transf (AST/SGOT) 17 U/L (15-37) Alanine Aminotransferase (ALT/SGPT) 19 U/L (16-63) Alkaline Phosphatase 100 U/L (46-116) Total Protein 7.5 g/dL (6.4-8.2) Albumin 3.4 g/dL (3.4-5.0) Albumin/Globulin Ratio 0.8 (1.0-1.7) Micro Microbiology 02/28/18 Blood Culture - Preliminary, Resulted NO GROWTH AFTER 1 DAY Objective Assessment Right foot wound with osteomyelitis. s/p I and D 01/31. -Has had multiple recommendations for TMA and has refused. Right fifth toe amputation at [facility]. Diabetes. PENICILLIN ALLERGY A CHILD. PAD - h/o angioplasty Noncompliance - ambulating frequently and leaving floor HTN HLD Tobaccoism Plan Plan of Care Continue meropenem Resume fluconazole and doxy Cont local wound care Consult oncology social worker for SNF and long-term IV abx d/w GEOFFREY Reed MD Mar 01, 2018 11:23
[2018-03-01] MEDS: ATORVASTATIN CALCIUM 40 MG TABLET. PO SCH (20:55)
[2018-03-01] MEDS: INSULIN GLARGINE 300 UNITS/3 ML INSULN.PEN. SQ SCH (20:56)
[2018-03-02 03:00] VITALS: BP 155/93
[2018-03-02] MEDS: MEROPENEM 500 MG in IV NORMAL SALINE 50ML 50 ML IV SCH ×2 (04:55→12:00)
[2018-03-02 07:00] VITALS: BP 138/94
[2018-03-02] MEDS: INSULIN LISPRO 300 UNITS/3 ML INSULN.PEN. SQ SCH ×4 (08:48→12:00)
[2018-03-02] MEDS ORDERED: Fluconazole PO (08:52)
[2018-03-02] MEDS ORDERED: ERTA1VIA IJ (08:52)
[2018-03-02] MEDS ORDERED: INSU100I11 SQ (08:52)
[2018-03-02] MEDS ORDERED: INSU100I13 SQ (08:52)
--- NOTE | 2018-03-02 08:53 | DISCH ---
DISCHARGE WITH HOME HEALTH DISCHARGE INFORMATION: Discharge Date: Mar 02, 2018 Final Diagnosis: Problems Medical Problems: (1) Chronic osteomyelitis Status: Acute (2) Diabetic foot ulcer Status: Acute Condition on Discharge: Stable CODE STATUS: Code Status: Full HOME HEALTH: Face to Face: I certify this patient is under my care and that I, or a nurse practitioner or physician's costumer assistant working with me, had a face to face encounter that meets the physician face to face encounter requirements with this patient on 03/02 POST DISCHARGE ORDERS: Activity Instructions for Disc: Activity as tolerated Weight Bearing Status after Di: Other, see below Bathing Instructions: Shower-keep dressing dry, No Tub Bath until see Wound/Incision Care: Keep wound/cast CDI, Change dressing TREATMENT/EQUIPMENT ORDERS: Adaptive Equipment Issued: None Infusion Equipment, home use: PICC Line (INvanz daily) CERTIFICATION STATEMENT: Certification Statement: Certification Statement: Based on the above finding, I certify that this patient is confined to the home and needs intermittent care home care, physical therapy and/or speech therapy, or continues to need occupational therapy.~ This patient is under my care, and I have initiated the establishment of the plan of care.~ This patient will be followed by myself or a community physician who will periodically review the plan of care. Home Meds Active Scripts Insulin Lispro (HUMALOG) 100 Unit/1 Ml Insuln.pen, 10 UNITS SQ TIDWMEALS for 30 Days, EACH 1 Refill Prov:EUSEBIO ALBERT MD 03/02/18 [Fluconazole] 100 MG TABLET No Conflict Check, 200 MG PO DAILY, #7 TAB Prov:EUSEBIO ALBERT MD 03/02/18 Ertapenem Sodium (INVANZ) 1 Gm Vial, 1 GM IJ DAILY, #14 EACH Prov:EUSEBIO ALBERT MD 03/02/18 Insulin Glargine,Hum.rec.anlog (LANTUS SOLOSTAR) 100 Unit/1 Ml Insuln.pen, 45 UNIT SQ QHS, #15 ML 3 Refills Prov:EUSEBIO ALBERT MD 03/02/18 Doxycycline Hyclate (DOXYCYCLINE HYCLATE) 100 Mg Tablet, 100 MG PO BID, #50 TAB Prov:EUSEBIO ALBERT MD 02/02/18 Hydrocodone Bit/Acetaminophen (HYDROCODONE-APAP 5-325 ) 1 Each Tablet, 1 TAB PO PRN Q4HRS PRN for MILD PAIN, #30 TAB Prov:EUSEBIO ALBERT MD 02/02/18 Reported Medications Atorvastatin Calcium (ATORVASTATIN CALCIUM) 40 Mg Tablet, 1 TAB PO QHS, #90 TAB 3 Refills 01/10/18 Amlodipine Besylate (AMLODIPINE BESYLATE) 10 Mg Tablet, 10 MG PO DAILY, TAB 01/10/18 Discontinued Reported Medications Insulin Aspart (NOVOLOG) 100 Unit/1 Ml Cartridge, 34 UNIT SQ TIDAC, EACH 01/07/18 EUSEBIO ALBERT MD Mar 02, 2018 08:53
[2018-03-02] MEDS: FLUCONAZOLE 100 MG TABLET. PO SCH (09:13)
[2018-03-02] MEDS: LACTOBACILLUS RHAMNOSUS GG 1 CAPSULE. PO SCH (09:13)
[2018-03-02] MEDS: DOXYCYCLINE HYCLATE 100 MG TABLET PO SCH (09:14)
[2018-03-02] MEDS: amLODIPine BESYLATE 10 MG TABLET PO SCH (09:14)
[2018-03-02] MEDS ORDERED: INSU100I17 SQ (09:20)
[2018-03-02] MEDS ORDERED: HYDR-2758 PO (09:20)
--- NOTE | 2018-03-02 10:48 | PDOC ---
Infectious Disease Note Subjective Subjective pt is feeling good, cont to walk despite was told to off load ROS ROS no n/v/d/sob Vital Sign Vital Signs Vital Signs Date Time Temp Pulse Resp B/P (MAP) Pulse Ox O2 Delivery O2 Flow Rate FiO2 03/02/18 09:14 88 138/94 03/02/18 07:00 97.5 96 Room Air 97.5 03/01/18 15:00 18 Physical Exam PHYSICAL EXAM GENERAL: Sitting on the side of the bed, alert, smiling VSS and afebrile HENT: Normal conjunctivae. Oral cavity pink and moist LILUNGS: Clear HEART: S1, S2 ABD: Obese, BS active, soft, NT EXT: No gross edema or cyanosis. 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 s/p I and D 01/31. -Has had multiple recommendations for TMA and has refused. Right fifth toe amputation at [place]. Diabetes. PENICILLIN ALLERGY A CHILD. PAD - h/o angioplasty Noncompliance - ambulating frequently and leaving floor HTN HLD Tobaccoism Plan Plan of Care Continue meropenem Resume fluconazole and doxy Cont local wound care Consult transition social worker for SNF and long-term IV abx d/w dr Mclain sed rate is improving, foot wound is improving d/c on iV invanz and po doxy f/u with me in 10-14 days wkly cbc, bun/cr, sed rate off load/half shoe GEOFFREY WHITE MD Mar 02, 2018 10:48
[2018-03-02 11:00] VITALS: BP 158/106
--- NOTE | 2018-03-02 15:08 | PDOC ---
PROGRESS NOTES Chief Complaint Chief Complaint medical noncompliance Dm2 with noncompliance of diet, infection of foot with cellulitis, s/p debridement 02/28 tobacco use disorder History of Present Illness History of Present Illness walking halls, wanting more food. leaving the unit, does not report where he is going Vitals Vitals Vital Signs Date Time Temp Pulse Resp B/P (MAP) Pulse Ox O2 Delivery O2 Flow Rate FiO2 03/02/18 11:00 98.3 84 158/106 (123) 98 Room Air 98.3 03/01/18 15:00 18 Physical Exam Physical Exam GENERAL: Sitting on the side of the bed, alert, smiling VSS and afebrile HENT: Normal conjunctivae. Oral cavity pink and moist LILUNGS: Clear HEART: S1, S2 ABD: Obese, BS active, soft, NT EXT: No gross edema or cyanosis. 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 RUE-PICC (POA) w/o signs of complications General: Alert, Oriented X3, No acute distress Heart: Regular rate, Other (dorsalis pedis 1+) Abdomen: Soft, No tenderness Extremities: No clubbing, No edema Skin: No rashes, Other (ertyhema and breakdown on plantar aspect) Labs LABS Laboratory Tests Test 03/01/18 16:29 03/01/18 20:44 03/02/18 08:33 03/02/18 11:01 Glucose (Fingerstick) 244 mg/dL (70-99) 63 mg/dL (70-99) 217 mg/dL (70-99) 325 mg/dL (70-99) Assessment and Plan Assessmemt and Plan Problems Medical Problems: (1) Chronic osteomyelitis Status: Acute (2) Diabetic foot ulcer Status: Acute Comment Review of Relevant I have reviewed the following items yuly (where applicable) has been applied. Labs Laboratory Tests Test 02/28/18 16:36 02/28/18 20:35 03/01/18 05:30 03/01/18 07:52 Glucose (Fingerstick) 140 mg/dL (70-99) 207 mg/dL (70-99) 228 mg/dL (70-99) White Blood Count 6.8 x10^3/uL (4.0-11.0) Red Blood Count 4.39 x10^6/uL (4.30-5.70) Hemoglobin 13.9 g/dL (13.0-17.5) Hematocrit 39.4 % (39.0-53.0) Mean Corpuscular Volume 90 fL (79-100) Mean Corpuscular Hemoglobin 32 pg (25-35) Mean Corpuscular Hemoglobin Concent 35 g/dL (31-37) Red Cell Distribution Width 14.1 % (11.5-14.5) Platelet Count 181 x10^3/uL (140-400) Neutrophils (%) (Auto) 59 % (31-73) Lymphocytes (%) (Auto) 28 % (24-48) Monocytes (%) (Auto) 9 % (0-9) Eosinophils (%) (Auto) 4 % (0-3) Basophils (%) (Auto) 1 % (0-3) Neutrophils # (Auto) 4.0 x10^3uL (1.8-7.7) Lymphocytes # (Auto) 1.9 x10^3/uL (1.0-4.8) Monocytes # (Auto) 0.6 x10^3/uL (0.0-1.1) Eosinophils # (Auto) 0.3 x10^3/uL (0.0-0.7) Basophils # (Auto) 0.1 x10^3/uL (0.0-0.2) Sodium Level 138 mmol/L (136-145) Potassium Level 4.1 mmol/L (3.5-5.1) Chloride Level 100 mmol/L (98-107) Carbon Dioxide Level 28 mmol/L (21-32) Anion Gap 10 (6-14) Blood Urea Nitrogen 9 mg/dL (8-26) Creatinine 1.0 mg/dL (0.7-1.3) Estimated GFR (Cockcroft-Gault) 96.9 BUN/Creatinine Ratio 9 (6-20) Glucose Level 300 mg/dL (70-99) Calcium Level 8.8 mg/dL (8.5-10.1) Total Bilirubin 0.2 mg/dL (0.2-1.0) Aspartate Amino Transf (AST/SGOT) 17 U/L (15-37) Alanine Aminotransferase (ALT/SGPT) 19 U/L (16-63) Alkaline Phosphatase 100 U/L (46-116) Total Protein 7.5 g/dL (6.4-8.2) Albumin 3.4 g/dL (3.4-5.0) Albumin/Globulin Ratio 0.8 (1.0-1.7) Test 03/01/18 11:20 03/01/18 12:00 03/01/18 16:29 03/01/18 20:44 Glucose (Fingerstick) 82 mg/dL (70-99) 244 mg/dL (70-99) 63 mg/dL (70-99) Erythrocyte Sedimentation Rate 23 (0-15) Test 03/02/18 08:33 03/02/18 11:01 Glucose (Fingerstick) 217 mg/dL (70-99) 325 mg/dL (70-99) Laboratory Tests Test 03/01/18 16:29 03/01/18 20:44 03/02/18 08:33 03/02/18 11:01 Glucose (Fingerstick) 244 mg/dL (70-99) 63 mg/dL (70-99) 217 mg/dL (70-99) 325 mg/dL (70-99) Microbiology 02/28/18 Blood Culture - Preliminary, Resulted NO GROWTH AFTER 2 DAYS Medications Current Medications Ondansetron HCl (Zofran) 4 mg 1X ONCE IV Last administered on 02/27/18at 22:59 ; Start 02/27/18 at 22:00; Stop 02/27/18 at 22:01; Status DC Sodium Chloride 1,000 ml @ 1,000 mls/hr 1X ONCE IV Last administered on at 23:21; Start 02/27/18 at 22:00; Stop 02/27/18 at 22:59; Status DC Meropenem 500 mg/ Sodium Chloride 50 ml @ 100 mls/hr Q6HRS IV Last administered on 03/02/18at 04:55; Start 02/27/18 at 23:00; Stop 03/02/18 at 12:44 ; Status DC Doxycycline Hyclate (Vibra-Tab) 100 mg 1X ONCE PO Last administered on at 22:58; Start 02/27/18 at 22:30; Stop 02/27/18 at 22:31; Status DC Acetaminophen/ Hydrocodone Bitart (Lortab 5/325) 1 tab 1X ONCE PO Last administered on 02/27/18at 22:59; Start 02/27/18 at 22:30; Stop 02/27/18 at 22:31 ; Status DC Lactobacillus Rhamnosus (Culturelle) 1 cap BID PO Last administered on at 09:13; Start 02/28/18 at 09:00; Stop 03/02/18 at 12:44; Status DC Ondansetron HCl (Zofran) 4 mg PRN Q8HRS PRN IV NAUSEA/VOMITING 1ST CHOICE; Start 02/27/18 at 22:30; Stop 02/28/18 at 22:29; Status DC Fentanyl Citrate (Fentanyl 2ml Vial) 50 mcg PRN Q2HR PRN IV SEVERE PAIN Last administered on 02/28/18at 00:54; Start 02/27/18 at 22:30; Stop 02/28/18 at 22:29 ; Status DC Acetaminophen (Tylenol) 650 mg PRN Q4HRS PRN PO FEVER; Start 02/27/18 at 22:30 ; Stop 02/28/18 at 22:29; Status DC Influenza Virus Vaccine (Afluria Trivalent 1403-7659 Syringe) 0.5 ml ONCE ONCE VAX IM Last administered on 03/01/18at 11:41; Start 02/28/18 at 09:00; Stop 02/28/18 at 09:01; Status DC Potassium Chloride (Klor-Con) 40 meq 1X ONCE PO Last administered on at 11:58; Start 02/28/18 at 09:15; Stop 02/28/18 at 09:16; Status DC Doxycycline Hyclate (Vibra-Tab) 100 mg BID PO Last administered on 03/02/18 09 :14; Start 02/28/18 at 21:00; Stop 03/02/18 at 12:44; Status DC Fluconazole (Diflucan) 200 mg DAILY PO Last administered on 03/02/18at 09:13; Start 03/01/18 at 09:00; Stop 03/02/18 at 12:44; Status DC Amlodipine Besylate (Norvasc) 10 mg DAILY PO Last administered on 03/02/18at 09: 14; Start 02/28/18 at 13:00; Stop 03/02/18 at 12:44; Status DC Atorvastatin Calcium (Lipitor) 40 mg QHS PO Last administered on 03/01/18at 20: 55; Start 02/28/18 at 21:00; Stop 03/02/18 at 12:44; Status DC Acetaminophen/ Hydrocodone Bitart (Lortab 5/325) 1 tab PRN Q4HRS PRN PO MILD PAIN; Start 02/28/18 at 12:45; Stop 03/02/18 at 12:44; Status DC Insulin Glargine (Lantus) 45 units QHS SQ Last administered on 02/28/18at 21:09 ; Start 02/28/18 at 21:00; Stop 03/02/18 at 12:44; Status DC Insulin Human Lispro (HumaLOG) 0-7 UNITS TIDWMEALS SQ Last administered on 03/02at 08:49; Start 02/28/18 at 17:00; Stop 03/02/18 at 12:44; Status DC Dextrose (Dextrose 50%-Water Syringe) 12.5 gm PRN Q15MIN PRN IV SEE COMMENTS; Start 02/28/18 at 12:45; Stop 03/02/18 at 12:44; Status DC Insulin Human Lispro (HumaLOG) 8 units TIDWMEALS SQ Last administered on at 08:48; Start 02/28/18 at 17:00; Stop 03/02/18 at 12:44; Status DC Active Scripts Active Hydrocodone-Apap 5-325 (Hydrocodone Bit/Acetaminophen) 1 Each Tablet 1 Tab PO PRN Q6HRS PRN Novolog Flexpen (Insulin Aspart) 100 Unit/1 Ml Insuln.pen 10 Unit SQ TIDAC [Fluconazole] 100 MG Tablet 200 Mg PO DAILY Invanz (Ertapenem Sodium) 1 Gm Vial 1 Gm IJ DAILY Lantus Solostar (Insulin Glargine,Hum.rec.anlog) 100 Unit/1 Ml Insuln.pen 45 Unit SQ QHS Doxycycline Hyclate 100 Mg Tablet 100 Mg PO BID Hydrocodone-Apap 5-325 (Hydrocodone Bit/Acetaminophen) 1 Each Tablet 1 Tab PO PRN Q4HRS PRN Reported Atorvastatin Calcium 40 Mg Tablet 1 Tab PO QHS Amlodipine Besylate 10 Mg Tablet 10 Mg PO DAILY Vitals/I & O Vital Sign - Last 24 Hours 03/01/18 03/01/18 03/01/18 03/02/18 19:00 19:52 23:00 03:00 Temp 97.9 96.4 97.5 97.9 96.4 97.5 Pulse 92 78 75 B/P (MAP) 149/93 (111) 146/89 (108) 155/93 (113) Pulse Ox 98 98 97 O2 Delivery Room Air Room Air Room Air Room Air 03/02/18 03/02/18 03/02/18 07:00 09:14 11:00 Temp 97.5 98.3 97.5 98.3 Pulse 88 88 84 B/P (MAP) 138/94 (109) 138/94 158/106 (123) Pulse Ox 96 98 O2 Delivery Room Air Room Air Intake and Output 03/01/18 03/01/18 03/02/18 15:00 23:00 07:00 Intake Total 1300 ml 50 ml Output Total 375 ml Balance -375 ml 1300 ml 50 ml EUSEBIO ALBERT MD Mar 02, 2018 15:08
--- NOTE | 2018-03-02 15:10 | PDOC3 ---
Discharge Summary Visit Information Date of Admission: Feb 27, 2018 Date of Discharge: Mar 02, 2018 Final Diagnosis Right foot wound with osteomyelitis. s/p I and D 01/31. -Has had multiple recommendations for TMA and has refused. Right fifth toe amputation at [place]. Diabetes. PENICILLIN ALLERGY A CHILD. PAD - h/o angioplasty Noncompliance - ambulating frequently and leaving floor HTN HLD Tobaccoism Problems Medical Problems: (1) Chronic osteomyelitis Status: Acute (2) Diabetic foot ulcer Status: Acute Brief Hospital Course Allergies Allergies Coded Allergies Type Severity Reaction Last Updated Verified lisinopril Allergy Severe ANGIOEDEMA 01/07/18 Yes Penicillins Allergy Intermediate 01/30/18 Yes Vital Signs Vital Signs Date Time Temp Pulse Resp B/P (MAP) Pulse Ox O2 Delivery O2 Flow Rate FiO2 03/02/18 11:00 98.3 84 158/106 (123) 98 Room Air 98.3 03/01/18 15:00 18 Lab Results Laboratory Tests Test 02/28/18 16:36 02/28/18 20:35 03/01/18 05:30 03/01/18 07:52 Glucose (Fingerstick) 140 mg/dL (70-99) 207 mg/dL (70-99) 228 mg/dL (70-99) White Blood Count 6.8 x10^3/uL (4.0-11.0) Red Blood Count 4.39 x10^6/uL (4.30-5.70) Hemoglobin 13.9 g/dL (13.0-17.5) Hematocrit 39.4 % (39.0-53.0) Mean Corpuscular Volume 90 fL (79-100) Mean Corpuscular Hemoglobin 32 pg (25-35) Mean Corpuscular Hemoglobin Concent 35 g/dL (31-37) Red Cell Distribution Width 14.1 % (11.5-14.5) Platelet Count 181 x10^3/uL (140-400) Neutrophils (%) (Auto) 59 % (31-73) Lymphocytes (%) (Auto) 28 % (24-48) Monocytes (%) (Auto) 9 % (0-9) Eosinophils (%) (Auto) 4 % (0-3) Basophils (%) (Auto) 1 % (0-3) Neutrophils # (Auto) 4.0 x10^3uL (1.8-7.7) Lymphocytes # (Auto) 1.9 x10^3/uL (1.0-4.8) Monocytes # (Auto) 0.6 x10^3/uL (0.0-1.1) Eosinophils # (Auto) 0.3 x10^3/uL (0.0-0.7) Basophils # (Auto) 0.1 x10^3/uL (0.0-0.2) Sodium Level 138 mmol/L (136-145) Potassium Level 4.1 mmol/L (3.5-5.1) Chloride Level 100 mmol/L (98-107) Carbon Dioxide Level 28 mmol/L (21-32) Anion Gap 10 (6-14) Blood Urea Nitrogen 9 mg/dL (8-26) Creatinine 1.0 mg/dL (0.7-1.3) Estimated GFR (Cockcroft-Gault) 96.9 BUN/Creatinine Ratio 9 (6-20) Glucose Level 300 mg/dL (70-99) Calcium Level 8.8 mg/dL (8.5-10.1) Total Bilirubin 0.2 mg/dL (0.2-1.0) Aspartate Amino Transf (AST/SGOT) 17 U/L (15-37) Alanine Aminotransferase (ALT/SGPT) 19 U/L (16-63) Alkaline Phosphatase 100 U/L (46-116) Total Protein 7.5 g/dL (6.4-8.2) Albumin 3.4 g/dL (3.4-5.0) Albumin/Globulin Ratio 0.8 (1.0-1.7) Test 03/01/18 11:20 03/01/18 12:00 03/01/18 16:29 03/01/18 20:44 Glucose (Fingerstick) 82 mg/dL (70-99) 244 mg/dL (70-99) 63 mg/dL (70-99) Erythrocyte Sedimentation Rate 23 (0-15) Test 03/02/18 08:33 03/02/18 11:01 Glucose (Fingerstick) 217 mg/dL (70-99) 325 mg/dL (70-99) Laboratory Tests Test 03/01/18 16:29 03/01/18 20:44 03/02/18 08:33 03/02/18 11:01 Glucose (Fingerstick) 244 mg/dL (70-99) 63 mg/dL (70-99) 217 mg/dL (70-99) 325 mg/dL (70-99) Brief Hospital Course Mr. Zuñiga is a 47 old male, admit with recurrece of foot pain, prior osteo, had stopped abx, then returned with foot infection, req. debridement, sed rate is improving, foot wound is improving d/c on iV invanz and po doxy f/u with ID consult in < 14 days wkly cbc, bun/cr, sed rate protective shoe Discharge Information Condition at Discharge: Improved Follow Up: Weeks Disposition/Orders: D/C to Home w/ HH Scheduled Amlodipine Besylate (Amlodipine Besylate) 10 Mg Tablet, 10 MG PO DAILY, ( Reported) Entered as Reported by: OJVANA FUCHS on 01/10/18 1042 Last Action: Continued on 02/28/18 1238 by EUSEBIO ALBERT Atorvastatin Calcium (Atorvastatin Calcium) 40 Mg Tablet, 1 TAB PO QHS, #90 Ref 3 (Reported) Entered as Reported by: JOVANA FUCHS on 01/10/18 1042 Last Action: Continued on 02/28/188 by EUSEBIO ALBERT Doxycycline Hyclate (Doxycycline Hyclate) 100 Mg Tablet, 100 MG PO BID, #50 Prescribed by: EUSEBIO ALBERT on 02/02/18 1233 Last Action: HELD on 02/28/18 1238 by EUSEBIO ALBERT Ertapenem Sodium (Invanz) 1 Gm Vial, 1 GM IJ DAILY, #14 Prescribed by: EUSEBIO ALBERT on 03/02/18 0852 Insulin Aspart (Novolog Flexpen) 100 Unit/1 Ml Insuln.pen, 10 UNIT SQ TIDAC, #2 Ref 2 Prescribed by: EUSEBIO ALBERT on 03/02/18 0920 Insulin Glargine,Hum.rec.anlog (Lantus Solostar) 100 Unit/1 Ml Insuln.pen, 45 UNIT SQ QHS, #15 Ref 3 Prescribed by: EUSEBIO ALBERT on 03/02/18 0852 [Fluconazole] 100 MG TABLET, 200 MG PO DAILY, #7 Prescribed by: EUSEBIO ALBERT on 03/02/18 0852 Scheduled PRN Hydrocodone Bit/Acetaminophen (Hydrocodone-Apap 5-325 ) 1 Each Tablet, 1 TAB PO PRN Q4HRS PRN for MILD PAIN, #30 Prescribed by: EUSEBIO ALBERT on 02/02/18 1111 Last Action: Continued on 02/28/18 1238 by EUSEBIO ALBERT Hydrocodone Bit/Acetaminophen (Hydrocodone-Apap 5-325 ) 1 Each Tablet, 1 TAB PO PRN Q6HRS PRN for PAIN, #30 Ref 0 Prescribed by: EUSEBIO ALBERT on 03/02/18 0920 Discontinued Medications Insulin Aspart (Novolog) 100 Unit/1 Ml Cartridge, 34 UNIT SQ TIDAC, (Reported) Entered as Reported by: STEVEN VILLAR on 01/07/18 0211 Last Action: Discontinued on 02/28/18 0038 by ROBERT HOFFMAN Patient Instructions Patient Instructions > 30 min face to face x2, and phone call after released, the pharmacy would not fill his norco on paper that wasnt tamper resistant, social work coordinated our transport service to drop off the new script at his pharmacy today EUSEBIO ALBERT MD Mar 02, 2018 15:10
== END 2018-03-02 12:30 | disposition home health service (06) | DRG 623 ==
LOC: ER 18:36 → 5 NORTH 22:22
PROVIDERS: ADMIT Internal Medicine; ATTEND Internal Medicine
PROC: 0JBQ0ZZ Excision of Right Foot Subcutaneous Tissue and Fascia, Open Approach (ICD-10-PCS; principal; 2018-02-28)
DX: E11.621 Type 2 diabetes mellitus with foot ulcer (principal); M86.671 Other chronic osteomyelitis, right ankle and foot; L03.115 Cellulitis of right lower limb; L97.412 Non-pressure chronic ulcer of right heel and midfoot with fat layer exposed; E78.00 Pure hypercholesterolemia, unspecified; E78.5 Hyperlipidemia, unspecified; F17.200 Nicotine dependence, unspecified, uncomplicated; I10 Essential (primary) hypertension; Z59.0 Homelessness; Z82.49 Family history of ischemic heart disease and other diseases of the circulatory system; Z88.0 Allergy status to penicillin; Z89.421 Acquired absence of other right toe(s); Z91.19 Patient's noncompliance with other medical treatment and regimen; Z88.8 Allergy status to other drugs, medicaments and biological substances; Z79.899 Other long term (current) drug therapy; Z98.62 Peripheral vascular angioplasty status; E11.69 Type 2 diabetes mellitus with other specified complication; E11.42 Type 2 diabetes mellitus with diabetic polyneuropathy; E11.51 Type 2 diabetes mellitus with diabetic peripheral angiopathy without gangrene
CPT/HCPCS: 36415; 73630; 80053; 80307; 82962; 83605; 85025; 85651; 87040; 90471; 90756; 96361; 96374; J1815; J2185; J2405; J3010; J7030; 99285-25; G0479; Q2035

== ENCOUNTER 2018-03-08 18:16 | Inpatient (IN) | payer MEDICAID ==
[~2018-03-08] VITALS: Ht 185.4 cm; Wt 111.1 kg
[2018-03-08 11:10] VITALS: BP 141/85
[~2018-03-08 18:16] MED LIST changes: +INSU100I11 SQ; +INSU100I17 SQ
[2018-03-08] MEDS ORDERED: IV NORMAL SALINE 1000ML BAG 1,000 ML IV ONE (20:00)
[2018-03-08] MEDS ORDERED: MORPHINE SULFATE 10 MG/ML VIAL. IV ONE (20:00)
[2018-03-08 20:19] LABS: BILIRUBIN,URINE NEGATIVE (NEG); CLARITY,URINE CLEAR; COLOR,URINE YELLOW; NITRITE,URINE NEGATIVE (NEG); PROTEIN,URINE NEGATIVE (NEG-TRACE); UROBILINOGEN,URINE 0.2 mg/dL (0.2 mg/dL)
[2018-03-08 20:25] LABS: AMPHETAMINE/METHAMPHETAMINE NEG (NEG); BARBITURATES NEG (NEG); BENZODIAZEPINES NEG (NEG); CANNABINOIDS NEG (NEG); COCAINE NEG (NEG); METHADONE NEG (NEG); OPIATES NEG (NEG); PHENCYCLIDINE NEG (NEG)
[2018-03-08 20:28] LABS: BACTERIA,URINE 0 /HPF (0-FEW); RBC,URINE 0 /HPF (0-2); WBC,URINE 0 /HPF (0-4)
--- NOTE | 2018-03-08 20:54 | PHYS DOC ---
Past Medical History Past Medical History: Asthma, Diabetes-Type II, High Cholesterol, Hypertension Past Surgical History: Other Additional Past Surgical Histo: RIGHT TOE AMPUTATION,HERNIA Alcohol Use: None Drug Use: None Adult General Chief Complaint Chief Complaint: WOUND CHECK HPI HPI Patient is a 47 year old male with history of diabetes type 2, hypertension, high cholesterol, who presents today complaining of chronic osteomyelitis to his right foot. Patient states his had it this infection for while. Patient is very short not giving me much details at times very rude. He states he was sent to the ED to be admitted by Dr. Ann. He states is not been able to get his IV antibiotics for a while. PCP none Infectious disease: Marissa Review of Systems Review of Systems Constitutional: Denies fever or chills [] Eyes: Denies change in visual acuity, redness, or eye pain [] HENT: Denies nasal congestion or sore throat [] Respiratory: Denies cough or shortness of breath [] Cardiovascular: No additional information not addressed in HPI [] GI: Denies abdominal pain, nausea, vomiting, bloody stools or diarrhea [] : Denies dysuria or hematuria [] Musculoskeletal: Denies back pain or joint pain [] Integument: Osteomyelitis to the right foot Neurologic: Denies headache, focal weakness or sensory changes [] All other systems were reviewed and found to be within normal limits, except as documented in this note. Current Medications Current Medications Current Medications Medications (Trade) Dose Ordered Sig/Dick Start Time Stop Time Status Last Admin Dose Admin Morphine Sulfate (Morphine Sulfate) 5 mg 1X ONCE 03/08/18 20:00 03/08/18 20:05 DC 03/08/18 21:47 5 MG Sodium Chloride 1,000 ml @ 1,000 mls/hr 1X ONCE 03/08/18 20:00 03/08/18 20:59 DC 03/08/18 21:48 1,000 MLS/HR Allergies Allergies Allergies Coded Allergies Type Severity Reaction Last Updated Verified lisinopril Allergy Severe ANGIOEDEMA 01/07/18 Yes Penicillins Allergy Intermediate 01/30/18 Yes Physical Exam Physical Exam Constitutional: Well developed, well nourished, no acute distress, non-toxic appearance. [] HENT: Normocephalic, atraumatic, bilateral external ears normal, oropharynx moist, no oral exudates, nose normal. [] Eyes: PERRLA, EOMI, conjunctiva normal, no discharge. [] Neck: Normal range of motion, no tenderness, supple, no stridor. [] Cardiovascular:Heart rate regular rhythm, no murmur [] Lungs & Thorax: Bilateral breath sounds clear to auscultation [] Abdomen: Bowel sounds normal, soft, no tenderness, no masses, no pulsatile masses. [] Skin: Right foot is missing the great toe. Also missing the later told the right foot. There is an open wound approximately 3 x 3 centimeters stage II diabetic foot ulcer on the proximal metatarsals, +1 right pedal pulse. Back: No tenderness, no CVA tenderness. [] Extremities: No tenderness, no cyanosis, no clubbing, ROM intact, no edema. [] Neurologic: Alert and oriented X 3, normal motor function, normal sensory function, no focal deficits noted. [] Psychologic: Affect normal, judgement normal, mood normal. [] Current Patient Data Vital Signs Vital Signs Date Time Temp Pulse Resp B/P (MAP) Pulse Ox O2 Delivery O2 Flow Rate FiO2 03/08/18 21:47 16 98 Room Air 03/08/18 19:29 98.4 88 134/91 (105) 98.4 Lab Values Laboratory Tests Test 03/08/18 19:58 03/08/18 21:30 Urine Collection Type Unknown Urine Color Yellow Urine Clarity Clear Urine pH 6.0 Urine Specific [place] 1.025 Urine Protein Negative mg/dL (NEG-TRACE) Urine Glucose (UA) >=1000 mg/dL (NEG) Urine Ketones (Stick) Negative mg/dL (NEG) Urine Blood Negative (NEG) Urine Nitrite Negative (NEG) Urine Bilirubin Negative (NEG) Urine Urobilinogen Dipstick 0.2 mg/dL (0.2 mg/dL) Urine Leukocyte Esterase Negative (NEG) Urine RBC 0 /HPF (0-2) Urine WBC 0 /HPF (0-4) Urine Bacteria 0 /HPF (0-FEW) Urine Opiates Screen Neg (NEG) Urine Methadone Screen Neg (NEG) Urine Barbiturates Neg (NEG) Urine Phencyclidine Screen Neg (NEG) Urine Amphetamine/Methamphetamine Neg (NEG) Urine Benzodiazepines Screen Neg (NEG) Urine Cocaine Screen Neg (NEG) Urine Cannabinoids Screen Neg (NEG) Urine Ethyl Alcohol Neg (NEG) White Blood Count 8.0 x10^3/uL (4.0-11.0) Red Blood Count 4.41 x10^6/uL (4.30-5.70) Hemoglobin 14.0 g/dL (13.0-17.5) Hematocrit 39.6 % (39.0-53.0) Mean Corpuscular Volume 90 fL (79-100) Mean Corpuscular Hemoglobin 32 pg (25-35) Mean Corpuscular Hemoglobin Concent 35 g/dL (31-37) Red Cell Distribution Width 13.9 % (11.5-14.5) Platelet Count 202 x10^3/uL (140-400) Neutrophils (%) (Auto) 63 % (31-73) Lymphocytes (%) (Auto) 28 % (24-48) Monocytes (%) (Auto) 7 % (0-9) Eosinophils (%) (Auto) 2 % (0-3) Basophils (%) (Auto) 1 % (0-3) Neutrophils # (Auto) 5.0 x10^3uL (1.8-7.7) Lymphocytes # (Auto) 2.2 x10^3/uL (1.0-4.8) Monocytes # (Auto) 0.5 x10^3/uL (0.0-1.1) Eosinophils # (Auto) 0.2 x10^3/uL (0.0-0.7) Basophils # (Auto) 0.1 x10^3/uL (0.0-0.2) Erythrocyte Sedimentation Rate 26 (0-15) H Sodium Level 138 mmol/L (136-145) Potassium Level 4.0 mmol/L (3.5-5.1) Chloride Level 102 mmol/L (98-107) Carbon Dioxide Level 26 mmol/L (21-32) Anion Gap 10 (6-14) Blood Urea Nitrogen 13 mg/dL (8-26) Creatinine 1.1 mg/dL (0.7-1.3) Estimated GFR (Cockcroft-Gault) 86.8 BUN/Creatinine Ratio 12 (6-20) Glucose Level 392 mg/dL (70-99) H Calcium Level 9.3 mg/dL (8.5-10.1) Total Bilirubin 0.2 mg/dL (0.2-1.0) Aspartate Amino Transferase (AST) 17 U/L (15-37) Alanine Aminotransferase (ALT) 24 U/L (16-63) Alkaline Phosphatase 95 U/L (46-116) C-Reactive Protein, Quantitative 3.0 mg/L (0-3.3) Total Protein 8.1 g/dL (6.4-8.2) Albumin 3.8 g/dL (3.4-5.0) Albumin/Globulin Ratio 0.9 (1.0-1.7) L Ethyl Alcohol Level < 10 mg/dL (0-10) Laboratory Tests 03/08/18 21:30 Laboratory Tests 03/08/18 21:30 Microbiology 03/08/18 Anaerobic/Aerobic Culture, Resulted Pending 03/08/18 Anaerobic Culture Result 1 (OLIVA), Resulted Pending 03/08/18 Aerobic Culture, Resulted Pending 03/08/18 Aerobic Culture Result 1 (OLIVA), Resulted Pending 03/08/18 Gram Stain - Final, Resulted 03/08/18 Gram Stain Result 1 (OLIVA) - Final, Resulted 03/08/18 Gram Stain Result 2 (OLIVA) - Final, Resulted EKG EKG [] Radiology/Procedures Radiology/Procedures [] Course & Med Decision Making Course & Med Decision Making Pertinent Labs and Imaging studies reviewed. (See chart for details) This is a 47-year-old male patient presenting to the ED today complaining of chronic osteomyelitis to the right foot. Patient states his been unable to get his IV antibiotics, patient is rolled not giving me much information. He states he has "situation". He will not give me details. From previous documentation this patient has been noted to be homeless and has issues receiving his IV antibiotics as an outpatient. 21:[address] García and patient was admitted. Routine consult placed for Dr. Ann Patient started on meropenem Matheus Disclaimer Matheus Disclaimer This electronic medical record was generated, in whole or in part, using a voice recognition dictation system. Departure Departure Impression: Primary Impression: Chronic osteomyelitis Additional Impression: Uncontrolled diabetes mellitus Disposition: ADMITTED INPATIENT Condition: STABLE Referrals: NO PCP (PCP) Attending Co-Sign Attending Co-Sign The patient was not seen by me. The [facility] chart was reviewed. I agree with the plan of care. Problem Qualifiers Additional Impression: Uncontrolled diabetes mellitus Diabetes mellitus type: type 2 Glycemic state: with hyperglycemia Qualified Codes: E11.65 - Type 2 diabetes mellitus with hyperglycemia MUTUNGA,LEIGHA [employer] Mar 08, 2018 20:54 ANGELICA COFFEY MD Mar 11, 2018 14:30
[2018-03-08 21:43] LABS: BASO # 0.1 x10^3/uL (0.0-0.2); BASO % 1 % (0-3); EOS # 0.2 x10^3/uL (0.0-0.7); EOS % 2 % (0-3); HEMATOCRIT 39.6 % (39.0-53.0); LYMPH # 2.2 x10^3/uL (1.0-4.8); LYMPH % 28 % (24-48); MEAN CORPUSCULAR HEMOGLOBIN 32 pg (25-35); MEAN CORPUSCULAR HGB CONC 35 g/dL (31-37); MEAN CORPUSCULAR VOLUME 90 fL (79-100); MONO # 0.5 x10^3/uL (0.0-1.1); MONO % 7 % (0-9); NEUT % 63 % (31-73); PLATELET COUNT 202 x10^3/uL (140-400); RED BLOOD COUNT 4.41 x10^6/uL (4.30-5.70); RED CELL DISTRIBUTION WIDTH 13.9 % (11.5-14.5)
[2018-03-08 21:54] LABS: CALCIUM 9.3 mg/dL (8.5-10.1); CREATININE 1.1 mg/dL (0.7-1.3); GFR 86.8
[2018-03-08 22:00] LABS: ALBUMIN 3.8 g/dL (3.4-5.0); ALBUMIN/GLOBULIN RATIO 0.9 (1.0-1.7); TOTAL BILIRUBIN 0.2 mg/dL (0.2-1.0); TOTAL PROTEIN 8.1 g/dL (6.4-8.2)
[2018-03-08] MEDS ORDERED: DEXTROSE 50% 25 GM / 50ML DISP.SYRIN. IV PRN (22:15)
[2018-03-08] MEDS ORDERED: MORPHINE SULFATE 4 MG/ML VIAL. IV PRN (22:15)
[2018-03-08] MEDS ORDERED: ACETAMINOPHEN 325 MG TABLET. PO PRN (22:15)
[2018-03-08] MEDS ORDERED: ONDANSETRON PF 4 MG/2 ML VIAL. IV PRN (22:15)
[2018-03-08 23:05] VITALS: BP 141/85
[2018-03-09] MEDS: MEROPENEM 1 GM in IV NORMAL SALINE 100ML 100 ML IV SCH ×4 (00:06→22:39)
[2018-03-09 03:10] VITALS: BP 145/91
--- NOTE | 2018-03-09 06:12 | RAD ---
Right foot 3 views: Reason for examination: Open ulcerated wound near fifth digit on plantar surface. History of prior digit amputation. Comparison is made to previous study dated 06/30/2017. There has been previous amputation of the first toe and distal first metatarsal bone. There continues to be some cortical irregularity at the end of the first metatarsal bone. There are apparent erosive changes at the heads of the second and third metatarsal bones. There is also some erosive change present at the base of the proximal phalanx of the second toe with at least partial subluxation at the second metatarsophalangeal joint. No other acute bony abnormalities are seen. IMPRESSION: Cortical irregularity at the amputated end of the distal first metatarsal bone which is unchanged. Erosive changes at the heads of the second and third metatarsal bones and at the base of the proximal phalanx of the second metatarsal bone with at least partial subluxation at the second metatarsophalangeal joint. Electronically signed by: Sarah Diana MD (03/09/2018 6:09 AM) [facility]
[2018-03-09] MEDS ORDERED: LINE600T PO (06:34)
[2018-03-09 07:00] VITALS: BP 138/89
[2018-03-09] MEDS ORDERED: INSULIN LISPRO 300 UNITS/3 ML INSULN.PEN. SQ SCH (08:00)
[2018-03-09] MEDS ORDERED: DEXTROSE 50% 25 GM / 50ML DISP.SYRIN. IV PRN (08:15)
[2018-03-09] MEDS ORDERED: oxyCODONE/APAP 5/325 1 TAB TABLET PO PRN (08:15)
[2018-03-09] MEDS ORDERED: oxyCODONE/APAP 10/325 1 TAB TABLET PO PRN (08:15)
[2018-03-09] MEDS ORDERED: NICOTINE 21MG PATCH. TD PRN (08:15)
[2018-03-09] MEDS ORDERED: ONDANSETRON PF 4 MG/2 ML VIAL. IV PRN (08:15)
[2018-03-09] MEDS ORDERED: ERTAPENEM SODIUM 1 GM IJ SCH (09:00)
[2018-03-09] MEDS ORDERED: FLUCONAZOLE 100 MG TABLET. PO SCH (09:00)
--- NOTE | 2018-03-09 09:39 | PDOC ---
Infectious Disease Note Subjective: Subjective Pt known to our service from multiple admissions this year This is his 5th admission see previous ID consult and note from early this month for full details He returned to [facility] since he has missed 5 days of invanz at home due social issues Says wounds are improving though not resolved He is doing ok BS fluctuates between 400 to sometimes drops to 30 He has no f/c/n/v/d/sob He continues to walk on his foot He had issues with flushing of picc line ok per nurse this am ROS: ROS Negative except for above. Vital Signs: Vital Signs Vital Signs Date Time Temp Pulse Resp B/P (MAP) Pulse Ox O2 Delivery O2 Flow Rate FiO2 03/09/18 07:00 98.7 79 18 138/89 (105) 100 Room Air 98.7 Physical Exam: PHYSICAL EXAM GENERAL:Pt is AXOX3 male in nad HENT: Normal conjunctivae. Oral cavity pink and moist LILUNGS: Clear HEART: S1, S2 ABD: Obese, BS active, soft, NT EXT: No gross edema or cyanosis. 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 RUE-PICC (POA) w/o signs of complications Medications: Inpatient Meds: Current Medications Medications (Trade) Dose Ordered Sig/Dick Start Time Stop Time Status Last Admin Dose Admin Acetaminophen (Tylenol) 650 mg PRN Q4HRS PRN 03/08/18 22:15 03/09/18 22:14 Amlodipine Besylate (Norvasc) 10 mg DAILY 03/09/18 09:00 Atorvastatin Calcium (Lipitor) 40 mg QHS 03/09/18 21:00 Dextrose (Dextrose 50%-Water Syringe) 12.5 gm PRN Q15MIN PRN 03/09/18 08:15 Fluconazole (Diflucan) 200 mg DAILY 03/09/18 09:00 Insulin Glargine (Lantus) 45 units QHS 03/09/18 21:00 Insulin Human Lispro (HumaLOG) 10 units TIDWMEALS 03/09/18 12:00 Linezolid (Zyvox) 600 mg BID 03/09/18 09:00 Meropenem 1 gm/ Sodium Chloride 100 ml @ 200 mls/hr Q8HRS 03/08/18 23:00 03/09/18 06:01 200 MLS/HR Morphine Sulfate (Morphine Sulfate) 4 mg PRN Q2HR PRN 03/08/18 22:15 03/09/18 22:14 Nicotine (Nicoderm Cq 21mg) 1 patch PRN DAILY PRN 03/09/18 08:15 Non-Formulary Medication (Ertapenem Sodium (Invanz)) 1 gm DAILY 03/09/18 09:00 03/09/18 09:00 DC Ondansetron HCl (Zofran) 4 mg PRN Q6HRS PRN 03/09/18 08:15 Oxycodone/ Acetaminophen (Percocet 10/325) 1 tab PRN Q4HRS PRN 03/09/18 08:15 Oxycodone/ Acetaminophen (Percocet 5/325) 1 tab PRN Q4HRS PRN 03/09/18 08:15 Sodium Chloride 1,000 ml @ 1,000 mls/hr 1X ONCE 03/08/18 20:00 03/08/18 20:59 DC 03/08/18 21:48 1,000 MLS/HR Labs: Lab Laboratory Tests Test 03/08/18 19:58 03/08/18 21:30 03/08/18 23:16 03/09/18 07:14 Urine Collection Type Unknown Urine Color Yellow Urine Clarity Clear Urine pH 6.0 Urine Specific [place] 1.025 Urine Protein Negative mg/dL (NEG-TRACE) Urine Glucose (UA) >=1000 mg/dL (NEG) Urine Ketones (Stick) Negative mg/dL (NEG) Urine Blood Negative (NEG) Urine Nitrite Negative (NEG) Urine Bilirubin Negative (NEG) Urine Urobilinogen Dipstick 0.2 mg/dL (0.2 mg/dL) Urine Leukocyte Esterase Negative (NEG) Urine RBC 0 /HPF (0-2) Urine WBC 0 /HPF (0-4) Urine Bacteria 0 /HPF (0-FEW) Urine Opiates Screen Neg (NEG) Urine Methadone Screen Neg (NEG) Urine Barbiturates Neg (NEG) Urine Phencyclidine Screen Neg (NEG) Urine Amphetamine/Methamphetamine Neg (NEG) Urine Benzodiazepines Screen Neg (NEG) Urine Cocaine Screen Neg (NEG) Urine Cannabinoids Screen Neg (NEG) Urine Ethyl Alcohol Neg (NEG) White Blood Count 8.0 x10^3/uL (4.0-11.0) Red Blood Count 4.41 x10^6/uL (4.30-5.70) Hemoglobin 14.0 g/dL (13.0-17.5) Hematocrit 39.6 % (39.0-53.0) Mean Corpuscular Volume 90 fL (79-100) Mean Corpuscular Hemoglobin 32 pg (25-35) Mean Corpuscular Hemoglobin Concent 35 g/dL (31-37) Red Cell Distribution Width 13.9 % (11.5-14.5) Platelet Count 202 x10^3/uL (140-400) Neutrophils (%) (Auto) 63 % (31-73) Lymphocytes (%) (Auto) 28 % (24-48) Monocytes (%) (Auto) 7 % (0-9) Eosinophils (%) (Auto) 2 % (0-3) Basophils (%) (Auto) 1 % (0-3) Neutrophils # (Auto) 5.0 x10^3uL (1.8-7.7) Lymphocytes # (Auto) 2.2 x10^3/uL (1.0-4.8) Monocytes # (Auto) 0.5 x10^3/uL (0.0-1.1) Eosinophils # (Auto) 0.2 x10^3/uL (0.0-0.7) Basophils # (Auto) 0.1 x10^3/uL (0.0-0.2) Erythrocyte Sedimentation Rate 26 (0-15) Sodium Level 138 mmol/L (136-145) Potassium Level 4.0 mmol/L (3.5-5.1) Chloride Level 102 mmol/L (98-107) Carbon Dioxide Level 26 mmol/L (21-32) Anion Gap 10 (6-14) Blood Urea Nitrogen 13 mg/dL (8-26) Creatinine 1.1 mg/dL (0.7-1.3) Estimated GFR (Cockcroft-Gault) 86.8 BUN/Creatinine Ratio 12 (6-20) Glucose Level 392 mg/dL (70-99) Calcium Level 9.3 mg/dL (8.5-10.1) Total Bilirubin 0.2 mg/dL (0.2-1.0) Aspartate Amino Transf (AST/SGOT) 17 U/L (15-37) Alanine Aminotransferase (ALT/SGPT) 24 U/L (16-63) Alkaline Phosphatase 95 U/L (46-116) C-Reactive Protein, Quantitative 3.0 mg/L (0-3.3) Total Protein 8.1 g/dL (6.4-8.2) Albumin 3.8 g/dL (3.4-5.0) Albumin/Globulin Ratio 0.9 (1.0-1.7) Ethyl Alcohol Level < 10 mg/dL (0-10) Glucose (Fingerstick) 350 mg/dL (70-99) 409 mg/dL (70-99) Micro RUN DATE: 01/10/18 PAGE 1 RUN TIME: 1620 [facility] [address] [place] [address] Bernabe Cao M.D., Electric Meter Technician PATIENT: KUSH WILKS ACCT: [id number] LOC: [address] [place] [address] U : [id number] AGE/SX: 47/M ROOM: [facility] REG : 01/06/[address]: JOSÉ MANUEL VALDERRAMA MD : 1970 BED: 1 DIS : STATUS: ADM IN TLOC: SPEC #: [id number] NILESH: 01/07/18-99 STATUS: COMP REQ #: [id number] RECD: 01/07/[address]: MELISSA BEATTY Jr., DO SOURCE: FOOT ENTR: 01/07/18-014 ALTAGRACIA GIMENEZ: ANTWNA TIMMONS SPDESC: SANDY LORENZO DPM, CHUNMEI MD ORDERED: AEROBIC CULT GS Procedure Result AEROBIC CULTURE Final Final report AEROBIC RES 1 Final Escherichia coli 4+ AEROBIC RES 2 Final Enterococcus faecalis 4+ AEROBIC RES 3 Final Yeast isolated. 2+ Request for further identification must be made within 1 week. AEROBIC RES 4 Final Mixed skin shayna 3+ ANTIMICROBIAL SUSCEPTIBILITY Final Comment S = Susceptible; I = Intermediate; R = Resistant P = Positive; N = Negative MICS are expressed in micrograms per mL Antibiotic RSLT#1 RSLT#2 RSLT#3 RSLT#4 Amoxicillin/Clavulanic Acid S =8 Ampicillin R>=32 Cefazolin R>=64 Cefepime I =8 Ceftriaxone R>=64 Cefuroxime R>=64 CONTINUED ON NEXT PAGE RUN DATE: 01/10/18 PAGE 2 RUN TIME: 1620 [facility] [address] [place] [address] Bernabe Cao M.D., Electric Meter Technician SPEC: [id number] PATIENT: KUSH WILKS [id number] ( Continued) Procedure Result ANTIMICROBIAL SUSCEPTIBILITY Final (continued) Ciprofloxacin R>=4 Ertapenem S<=0.12 Gentamicin S<=1 Imipenem S<=0.25 Levofloxacin R>=8 Meropenem S<=0.25 Penicillin R =16 Piperacillin/Tazobactam S<=4 Tetracycline S =4 Tobramycin S<=1 Trimethoprim/Sulfa R>=320 Vancomycin S =1 Performed at: [facility] [employer], [place], [place] [id number] Senior Systems Architect: JENNIFER Ladd MD, Phone: [phone] GRAM STAIN Final Final report GRAM STAIN RESULT 1 Final Comment No white blood cells seen. GRAM STAIN RESULT 2 Final Comment Moderate gram negative rods. GRAM STAIN RESULT 3 Final Comment Moderate amount of gram positive cocci in chains Performed at: [employer] [employer], [place], [place] [id number] Senior Systems Architect: JENNIFER Ladd MD, Phone: [phone] Objective: Assessment: Right foot wound with osteomyelitis. s/p I and D 01/31. -Has had multiple recommendations for TMA and has refused. - Has been on IV antibiotics Invanz and doxycycline but missed last 5 days of tx - ESR 26,CRP 3 - Foot x ray reviewed Right fifth toe amputation at [facility]. Diabetes. PENICILLIN ALLERGY A CHILD. PAD - h/o angioplasty HTN HLD Tobaccoism, says knows need to quit Noncompliance - ambulating frequently and ? leaving floor Dry skin Plan: Plan of Care Continue meropenem will restart fluconazole and doxy Cont local wound care D/W Pt again that if he continues to walk he will not heal optimally He needs to off load as much as possible Also he has been recommended TMA here and at [facility],he refuses F/U labs Continue local wound care PRATIK WHITE MD Mar 09, 2018 09:39
[2018-03-09] MEDS: FLUCONAZOLE 100 MG TABLET. PO SCH (09:55)
[2018-03-09] MEDS: amLODIPine BESYLATE 10 MG TABLET PO SCH (09:57)
[2018-03-09] MEDS: LINEZOLID 600 MG TABLET PO SCH ×2 (09:57→22:39)
[2018-03-09] MEDS: DOXYCYCLINE HYCLATE 100 MG TABLET PO SCH ×2 (09:58→22:37)
--- NOTE | 2018-03-09 10:40 | PDOC1 ---
History and Physical Date of Admission Date of Admission DATE: 03/09/18 TIME: 10:35 Identification/Chief Complaint Chief Complaint Right foot pain Source Source: Caregiver, Chart review, Patient History of Present Illness History of Present Illness Known to us, 47-year-old -Citizen Of [place] male who has chronic right foot OM, has multiple antibiotic via PICC, long-term. Has been refusing amputation which has been recommended in the past. Has had multiple admissions here, one in February and twice in January. He can be a little bit of difficult personality to deal with. Already had a near code elizabeth, wanting to leave initially AMA this AM. He wanted to go outof the hospital building " to get some air". Consulted ID , already has a right PICC. Continue meropenem. I defer any imaging to the service if needed again. He still is refusing amputation. We'll consult Wound Care ID, IV antibiotics, and go from there Wound inspected, right foot toe, amputated digits 2, some eschar formation, palpable dorsalis pedis but otherwise no open skin lesions or losing or foul- smelling discharge Did discuss with him today in the room, quite significant time and I was honest and tyron with my discussion. He is not allowed to leave the hospital building, he has a PICC line. Etc. Past Medical History Cardiovascular: Other CENTRAL NERVOUS SYSTEM: Periperal neuropathy Endocrine: Diabetes Past Surgical History Past Surgical History: Other Family History Family History: Hypertension, Family History Unknown Social History Smoke: No ALCOHOL: none Drugs: None Current Problem List Problem List Problems Medical Problems: (1) Chronic osteomyelitis Status: Acute (2) Uncontrolled diabetes mellitus Status: Acute Current Medications Current Medications Current Medications Sodium Chloride 1,000 ml @ 1,000 mls/hr 1X ONCE IV Last administered on 03/08at 21:48; Start 03/08/18 at 20:00; Stop 03/08/18 at 20:59; Status DC Morphine Sulfate (Morphine Sulfate) 5 mg 1X ONCE IV Last administered on 03/08at 21:47; Start 03/08/18 at 20:00; Stop 03/08/18 at 20:05; Status DC Ondansetron HCl (Zofran) 4 mg PRN Q8HRS PRN IV NAUSEA/VOMITING 1ST CHOICE; Start 03/08/18 at 22:15; Stop 03/09/18 at 08:11; Status DC Morphine Sulfate (Morphine Sulfate) 4 mg PRN Q2HR PRN IV SEVERE PAIN; Start at 22:15; Stop 03/09/18 at 22:14 Acetaminophen (Tylenol) 650 mg PRN Q4HRS PRN PO FEVER; Start 03/08/18 at 22:15 ; Stop 03/09/18 at 22:14 Insulin Human Lispro (HumaLOG) 0-5 UNITS TIDWMEALS SQ Last administered on 04/16at 07:34; Start 03/09/18 at 08:00; Stop 03/09/18 at 08:11; Status DC Dextrose (Dextrose 50%-Water Syringe) 12.5 gm PRN Q15MIN PRN IV SEE COMMENTS; Start 03/08/18 at 22:15; Stop 03/09/18 at 08:40; Status DC Meropenem 1 gm/ Sodium Chloride 100 ml @ 200 mls/hr Q8HRS IV Last administered on 03/09/18at 06:01; Start 03/08/18 at 23:00 Ondansetron HCl (Zofran) 4 mg PRN Q6HRS PRN IV NAUSEA/VOMITING 1ST CHOICE; Start 03/09/18 at 08:15 Oxycodone/ Acetaminophen (Percocet 10/325) 1 tab PRN Q4HRS PRN PO pain SEVERE; Start 03/09/18 at 08:15 Oxycodone/ Acetaminophen (Percocet 5/325) 1 tab PRN Q4HRS PRN PO PAIN MODERATE ; Start 03/09/18 at 08:15 Nicotine (Nicoderm Cq 21mg) 1 patch PRN DAILY PRN TD SMOKING CESSATION; Start 03/09/18 at 08:15 Insulin Human Lispro (HumaLOG) 0-9 UNITS TIDWMEALS SQ ; Start 03/09/18 at 12:00 Dextrose (Dextrose 50%-Water Syringe) 12.5 gm PRN Q15MIN PRN IV SEE COMMENTS; Start 03/09/18 at 08:15 Amlodipine Besylate (Norvasc) 10 mg DAILY PO Last administered on 03/09/18at 09 :57; Start 03/09/18 at 09:00 Atorvastatin Calcium (Lipitor) 40 mg QHS PO ; Start 03/09/18 at 21:00 Insulin Glargine (Lantus) 45 units QHS SQ ; Start 03/09/18 at 21:00 Non-Formulary Medication (Ertapenem Sodium (Invanz)) 1 gm DAILY IJ ; Start 04/16 at 09:00; Stop 03/09/18 at 09:00; Status DC Insulin Human Lispro (HumaLOG) 10 units TIDWMEALS SQ ; Start 03/09/18 at 12:00 Linezolid (Zyvox) 600 mg BID PO Last administered on 03/09/18at 09:57; Start 03/09/18 at 09:00 Fluconazole (Diflucan) 200 mg DAILY PO ; Start 03/09/18 at 09:00; Stop at 09:55; Status DC Fluconazole (Diflucan) 100 mg DAILY PO Last administered on 03/09/18at 09:55; Start 03/09/18 at 10:00 Doxycycline Hyclate (Vibra-Tab) 100 mg BID PO Last administered on 03/09/18at 09:58; Start 03/09/18 at 10:00 Active Scripts Active Hydrocodone-Apap 5-325 (Hydrocodone Bit/Acetaminophen) 1 Each Tablet 1 Tab PO PRN Q6HRS PRN Novolog Flexpen (Insulin Aspart) 100 Unit/1 Ml Insuln.pen 10 Unit SQ TIDAC [Fluconazole] 100 MG Tablet 200 Mg PO DAILY Invanz (Ertapenem Sodium) 1 Gm Vial 1 Gm IJ DAILY Lantus Solostar (Insulin Glargine,Hum.rec.anlog) 100 Unit/1 Ml Insuln.pen 45 Unit SQ QHS Doxycycline Hyclate 100 Mg Tablet 100 Mg PO BID Hydrocodone-Apap 5-325 (Hydrocodone Bit/Acetaminophen) 1 Each Tablet 1 Tab PO PRN Q4HRS PRN Reported Zyvox (Linezolid) 600 Mg Tablet 600 Mg PO BID Atorvastatin Calcium 40 Mg Tablet 1 Tab PO QHS Amlodipine Besylate 10 Mg Tablet 10 Mg PO DAILY Allergies Allergies: Coded Allergies: lisinopril (Verified Allergy, Severe, ANGIOEDEMA, 01/07/18) Penicillins (Verified Allergy, Intermediate, 01/30/18) TOLERATES MERREM ROS Review of System As per history of present illness, the rest of ROS 14 point negative Physical Exam General: Alert, Oriented X3, Cooperative, No acute distress HEENT: Atraumatic, PERRLA, EOMI Lungs: Clear to auscultation, Normal air movement Heart: S1S2, RRR, no thrills, no rubs, no gallops, no murmurs Cardiovascular: S1, S2 Abdomen: Normal bowel sounds, Soft, No tenderness, No hepatosplenomegaly, No masses Male Genitals Exam: normal genitalia, normal prostate Rectal Exam: not examined PELVIC: Nml ext genitalia Skin: Other (amputated toes, some eschar formation but no foul-smelling discharge, palpable pulses) Neuro: Normal gait, Normal speech, Strength at 5/5 X4 ext, Normal tone, Sensation intact, Cranial nerves 3-12 NL, Reflexes 2+ Psych/Mental Status: Mental status NL, Mood NL Vitals Vitals Vital Signs Date Time Temp Pulse Resp B/P (MAP) Pulse Ox O2 Delivery O2 Flow Rate FiO2 03/09/18 09:57 79 138/89 03/09/18 07:00 98.7 18 100 Room Air 98.7 Labs Labs Laboratory Tests Test 03/08/18 19:58 03/08/18 21:30 03/08/18 23:16 03/09/18 07:14 Urine Collection Type Unknown Urine Color Yellow Urine Clarity Clear Urine pH 6.0 Urine Specific [place] 1.025 Urine Protein Negative mg/dL (NEG-TRACE) Urine Glucose (UA) >=1000 mg/dL (NEG) Urine Ketones (Stick) Negative mg/dL (NEG) Urine Blood Negative (NEG) Urine Nitrite Negative (NEG) Urine Bilirubin Negative (NEG) Urine Urobilinogen Dipstick 0.2 mg/dL (0.2 mg/dL) Urine Leukocyte Esterase Negative (NEG) Urine RBC 0 /HPF (0-2) Urine WBC 0 /HPF (0-4) Urine Bacteria 0 /HPF (0-FEW) Urine Opiates Screen Neg (NEG) Urine Methadone Screen Neg (NEG) Urine Barbiturates Neg (NEG) Urine Phencyclidine Screen Neg (NEG) Urine Amphetamine/Methamphetamine Neg (NEG) Urine Benzodiazepines Screen Neg (NEG) Urine Cocaine Screen Neg (NEG) Urine Cannabinoids Screen Neg (NEG) Urine Ethyl Alcohol Neg (NEG) White Blood Count 8.0 x10^3/uL (4.0-11.0) Red Blood Count 4.41 x10^6/uL (4.30-5.70) Hemoglobin 14.0 g/dL (13.0-17.5) Hematocrit 39.6 % (39.0-53.0) Mean Corpuscular Volume 90 fL (79-100) Mean Corpuscular Hemoglobin 32 pg (25-35) Mean Corpuscular Hemoglobin Concent 35 g/dL (31-37) Red Cell Distribution Width 13.9 % (11.5-14.5) Platelet Count 202 x10^3/uL (140-400) Neutrophils (%) (Auto) 63 % (31-73) Lymphocytes (%) (Auto) 28 % (24-48) Monocytes (%) (Auto) 7 % (0-9) Eosinophils (%) (Auto) 2 % (0-3) Basophils (%) (Auto) 1 % (0-3) Neutrophils # (Auto) 5.0 x10^3uL (1.8-7.7) Lymphocytes # (Auto) 2.2 x10^3/uL (1.0-4.8) Monocytes # (Auto) 0.5 x10^3/uL (0.0-1.1) Eosinophils # (Auto) 0.2 x10^3/uL (0.0-0.7) Basophils # (Auto) 0.1 x10^3/uL (0.0-0.2) Erythrocyte Sedimentation Rate 26 (0-15) Sodium Level 138 mmol/L (136-145) Potassium Level 4.0 mmol/L (3.5-5.1) Chloride Level 102 mmol/L (98-107) Carbon Dioxide Level 26 mmol/L (21-32) Anion Gap 10 (6-14) Blood Urea Nitrogen 13 mg/dL (8-26) Creatinine 1.1 mg/dL (0.7-1.3) Estimated GFR (Cockcroft-Gault) 86.8 BUN/Creatinine Ratio 12 (6-20) Glucose Level 392 mg/dL (70-99) Calcium Level 9.3 mg/dL (8.5-10.1) Total Bilirubin 0.2 mg/dL (0.2-1.0) Aspartate Amino Transf (AST/SGOT) 17 U/L (15-37) Alanine Aminotransferase (ALT/SGPT) 24 U/L (16-63) Alkaline Phosphatase 95 U/L (46-116) C-Reactive Protein, Quantitative 3.0 mg/L (0-3.3) Total Protein 8.1 g/dL (6.4-8.2) Albumin 3.8 g/dL (3.4-5.0) Albumin/Globulin Ratio 0.9 (1.0-1.7) Ethyl Alcohol Level < 10 mg/dL (0-10) Glucose (Fingerstick) 350 mg/dL (70-99) 409 mg/dL (70-99) Laboratory Tests Test 03/08/18 19:58 03/08/18 21:30 03/08/18 23:16 03/09/18 07:14 Urine Collection Type Unknown Urine Color Yellow Urine Clarity Clear Urine pH 6.0 Urine Specific [place] 1.025 Urine Protein Negative mg/dL (NEG-TRACE) Urine Glucose (UA) >=1000 mg/dL (NEG) Urine Ketones (Stick) Negative mg/dL (NEG) Urine Blood Negative (NEG) Urine Nitrite Negative (NEG) Urine Bilirubin Negative (NEG) Urine Urobilinogen Dipstick 0.2 mg/dL (0.2 mg/dL) Urine Leukocyte Esterase Negative (NEG) Urine RBC 0 /HPF (0-2) Urine WBC 0 /HPF (0-4) Urine Bacteria 0 /HPF (0-FEW) Urine Opiates Screen Neg (NEG) Urine Methadone Screen Neg (NEG) Urine Barbiturates Neg (NEG) Urine Phencyclidine Screen Neg (NEG) Urine Amphetamine/Methamphetamine Neg (NEG) Urine Benzodiazepines Screen Neg (NEG) Urine Cocaine Screen Neg (NEG) Urine Cannabinoids Screen Neg (NEG) Urine Ethyl Alcohol Neg (NEG) White Blood Count 8.0 x10^3/uL (4.0-11.0) Red Blood Count 4.41 x10^6/uL (4.30-5.70) Hemoglobin 14.0 g/dL (13.0-17.5) Hematocrit 39.6 % (39.0-53.0) Mean Corpuscular Volume 90 fL (79-100) Mean Corpuscular Hemoglobin 32 pg (25-35) Mean Corpuscular Hemoglobin Concent 35 g/dL (31-37) Red Cell Distribution Width 13.9 % (11.5-14.5) Platelet Count 202 x10^3/uL (140-400) Neutrophils (%) (Auto) 63 % (31-73) Lymphocytes (%) (Auto) 28 % (24-48) Monocytes (%) (Auto) 7 % (0-9) Eosinophils (%) (Auto) 2 % (0-3) Basophils (%) (Auto) 1 % (0-3) Neutrophils # (Auto) 5.0 x10^3uL (1.8-7.7) Lymphocytes # (Auto) 2.2 x10^3/uL (1.0-4.8) Monocytes # (Auto) 0.5 x10^3/uL (0.0-1.1) Eosinophils # (Auto) 0.2 x10^3/uL (0.0-0.7) Basophils # (Auto) 0.1 x10^3/uL (0.0-0.2) Erythrocyte Sedimentation Rate 26 (0-15) Sodium Level 138 mmol/L (136-145) Potassium Level 4.0 mmol/L (3.5-5.1) Chloride Level 102 mmol/L (98-107) Carbon Dioxide Level 26 mmol/L (21-32) Anion Gap 10 (6-14) Blood Urea Nitrogen 13 mg/dL (8-26) Creatinine 1.1 mg/dL (0.7-1.3) Estimated GFR (Cockcroft-Gault) 86.8 BUN/Creatinine Ratio 12 (6-20) Glucose Level 392 mg/dL (70-99) Calcium Level 9.3 mg/dL (8.5-10.1) Total Bilirubin 0.2 mg/dL (0.2-1.0) Aspartate Amino Transf (AST/SGOT) 17 U/L (15-37) Alanine Aminotransferase (ALT/SGPT) 24 U/L (16-63) Alkaline Phosphatase 95 U/L (46-116) C-Reactive Protein, Quantitative 3.0 mg/L (0-3.3) Total Protein 8.1 g/dL (6.4-8.2) Albumin 3.8 g/dL (3.4-5.0) Albumin/Globulin Ratio 0.9 (1.0-1.7) Ethyl Alcohol Level < 10 mg/dL (0-10) Glucose (Fingerstick) 350 mg/dL (70-99) 409 mg/dL (70-99) VTE Prophylaxis Ordered VTE Prophylaxis Devices: Yes VTE Pharmacological Prophylaxi: Yes Assessment/Plan Assessment/Plan Right foot wound with osteomyelitis. s/p I and D 01/31. -Has had multiple recommendations for TMA and has refused. Right fifth toe amputation at [place]. Diabetes. PENICILLIN ALLERGY A CHILD. PAD - h/o angioplasty Noncompliance - ambulating frequently and leaving floor HTN HLD Tobaccoism PLAN: Admit, IV meropenem Follow cultures Follow ID recommendations Waiting for home meds Pain control Was told to offload that foot JAJA PORTER MD Mar 09, 2018 10:40
[2018-03-09 11:00] VITALS: BP 141/91
[2018-03-09] MEDS ORDERED: ALTEPLASE 2 MG VIAL INT CAT ONE (11:00)
[2018-03-09 11:43] LABS: BASO % 1 % (0-3); EOS # 0.2 x10^3/uL (0.0-0.7); EOS % 4 % (0-3); HEMATOCRIT 38.2 % (39.0-53.0); HEMOGLOBIN 13.5 g/dL (13.0-17.5); LYMPH # 1.8 x10^3/uL (1.0-4.8); LYMPH % 28 % (24-48); MEAN CORPUSCULAR HEMOGLOBIN 32 pg (25-35); MEAN CORPUSCULAR HGB CONC 35 g/dL (31-37); MEAN CORPUSCULAR VOLUME 89 fL (79-100); MONO # 0.6 x10^3/uL (0.0-1.1); MONO % 9 % (0-9); NEUT # 3.8 x10^3uL (1.8-7.7); NEUT % 59 % (31-73); PLATELET COUNT 185 x10^3/uL (140-400); RED BLOOD COUNT 4.28 x10^6/uL (4.30-5.70); RED CELL DISTRIBUTION WIDTH 13.7 % (11.5-14.5); WHITE BLOOD COUNT 6.4 x10^3/uL (4.0-11.0)
[2018-03-09 11:50] LABS: CALCIUM 9.5 mg/dL (8.5-10.1); CREATININE 1.2 mg/dL (0.7-1.3); GFR 78.5; POTASSIUM 4.1 mmol/L (3.5-5.1)
[2018-03-09] MEDS: INSULIN LISPRO 300 UNITS/3 ML INSULN.PEN. SQ SCH ×4 (12:00→17:08)
--- NOTE | 2018-03-09 12:42 | PDOC2 ---
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 Pt noncompliant with medical regimen and f/u in the past. Source Source: Chart review, Patient History of Present Illness Reason for Visit: Pt with multiple hospitalizations in the recent past secondary to his non- healing right plantar foot DFU. Hx significant for s/p right great toe surgically amputated, healed without complications. Pt then developed current wounds. Pt noncomplicant with treatment plan and f/u on outpt basis. Hgb A1c 11.4 on 01/09. Pt states he wears handed-down diabetic shoes for offloading. Surgical transmetatarsal amputation suggested in past, pt declined. 01/07/18: MRI revealed osteomyelitis 1. Findings compatible with osteomyelitis at the distal first metatarsal shaft remnant. 2. Findings compatible with osteomyelitis at the second and third distal metatarsals and proximal phalanges, centered at the MTP joints, probably due to septic joint. Note there is no significant joint fluid at this time. 3. Findings compatible with osteomyelitis at the fifth metatarsal and fifth proximal phalanx. Small fifth MTP joint effusion, uncertain sterility, could be septic joint. 4. Focal area of superficial cutaneous swelling plantar to the third MTP joint, compatible with a superficial blister or small superficial abscess. No deep drainable abscess identified. 01/09/18: arterial duplex revealed mild vascular disease 01/12/18: BLE angiography 1.No significant aortoiliac or femoropopliteal stenosis is identified. 2. Significant tibial vessel disease bilaterally. No in-line flow to the foot is seen with occlusion of the anterior tibial artery, peroneal artery, posterior tibial artery on the right, as described above in detail. The anterior tibial artery is the dominant artery on the right which supplies the foot via multiple collaterals. On the left there is occlusion of the anterior and posterior tibial arteries. The peroneal artery appears patent the ankle where via the anastomotic branch reconstitutes the posterior tibial artery. 03/08/18: x-ray of right foot Cortical irregularity at the amputated end of the distal first metatarsal bone which is unchanged. Erosive changes at the heads of the second and third metatarsal bones and at the base of the proximal phalanx of the second metatarsal bone with at least partial subluxation at the second metatarsophalangeal joint. Past Medical History Cardiovascular: Hyperlipidemia, Other CENTRAL NERVOUS SYSTEM: Periperal neuropathy Endocrine: Diabetes Past Surgical History Past Surgical History: Other Family History Family History: Hypertension, Family History Unknown Social History 1 pack per day ALCOHOL: occassional Drugs: None Lives: Homeless Current Problem List Problem List Problems Medical Problems: (1) Chronic osteomyelitis Status: Acute (2) Uncontrolled diabetes mellitus Status: Acute Current Medications Current Medications Current Medications Sodium Chloride 1,000 ml @ 1,000 mls/hr 1X ONCE IV Last administered on 03/08at 21:48; Start 03/08/18 at 20:00; Stop 03/08/18 at 20:59; Status DC Morphine Sulfate (Morphine Sulfate) 5 mg 1X ONCE IV Last administered on 03/08at 21:47; Start 03/08/18 at 20:00; Stop 03/08/18 at 20:05; Status DC Ondansetron HCl (Zofran) 4 mg PRN Q8HRS PRN IV NAUSEA/VOMITING 1ST CHOICE; Start 03/08/18 at 22:15; Stop 03/09/18 at 08:11; Status DC Morphine Sulfate (Morphine Sulfate) 4 mg PRN Q2HR PRN IV SEVERE PAIN; Start at 22:15; Stop 03/09/18 at 22:14 Acetaminophen (Tylenol) 650 mg PRN Q4HRS PRN PO FEVER; Start 03/08/18 at 22:15 ; Stop 03/09/18 at 22:14 Insulin Human Lispro (HumaLOG) 0-5 UNITS TIDWMEALS SQ Last administered on 04/16at 07:34; Start 03/09/18 at 08:00; Stop 03/09/18 at 08:11; Status DC Dextrose (Dextrose 50%-Water Syringe) 12.5 gm PRN Q15MIN PRN IV SEE COMMENTS; Start 03/08/18 at 22:15; Stop 03/09/18 at 08:40; Status DC Meropenem 1 gm/ Sodium Chloride 100 ml @ 200 mls/hr Q8HRS IV Last administered on 03/09/18at 06:01; Start 03/08/18 at 23:00 Ondansetron HCl (Zofran) 4 mg PRN Q6HRS PRN IV NAUSEA/VOMITING 1ST CHOICE; Start 03/09/18 at 08:15 Oxycodone/ Acetaminophen (Percocet 10/325) 1 tab PRN Q4HRS PRN PO pain SEVERE; Start 03/09/18 at 08:15 Oxycodone/ Acetaminophen (Percocet 5/325) 1 tab PRN Q4HRS PRN PO PAIN MODERATE ; Start 03/09/18 at 08:15 Nicotine (Nicoderm Cq 21mg) 1 patch PRN DAILY PRN TD SMOKING CESSATION; Start 03/09/18 at 08:15 Insulin Human Lispro (HumaLOG) 0-9 UNITS TIDWMEALS SQ ; Start 03/09/18 at 12:00 Dextrose (Dextrose 50%-Water Syringe) 12.5 gm PRN Q15MIN PRN IV SEE COMMENTS; Start 03/09/18 at 08:15 Amlodipine Besylate (Norvasc) 10 mg DAILY PO Last administered on 03/09/18at 09 :57; Start 03/09/18 at 09:00 Atorvastatin Calcium (Lipitor) 40 mg QHS PO ; Start 03/09/18 at 21:00 Insulin Glargine (Lantus) 45 units QHS SQ ; Start 03/09/18 at 21:00 Non-Formulary Medication (Ertapenem Sodium (Invanz)) 1 gm DAILY IJ ; Start 04/16 at 09:00; Stop 03/09/18 at 09:00; Status DC Insulin Human Lispro (HumaLOG) 10 units TIDWMEALS SQ ; Start 03/09/18 at 12:00 Linezolid (Zyvox) 600 mg BID PO Last administered on 03/09/18at 09:57; Start 03/09/18 at 09:00 Fluconazole (Diflucan) 200 mg DAILY PO ; Start 03/09/18 at 09:00; Stop at 09:55; Status DC Fluconazole (Diflucan) 100 mg DAILY PO Last administered on 03/09/18at 09:55; Start 03/09/18 at 10:00 Doxycycline Hyclate (Vibra-Tab) 100 mg BID PO Last administered on 03/09/18at 09:58; Start 03/09/18 at 10:00 Alteplase, Recombinant (Cathflo) 2 mg 1X ONCE INT CAT ; Start 03/09/18 at 11: 00; Stop 03/09/18 at 11:01; Status DC Active Scripts Active Hydrocodone-Apap 5-325 (Hydrocodone Bit/Acetaminophen) 1 Each Tablet 1 Tab PO PRN Q6HRS PRN Novolog Flexpen (Insulin Aspart) 100 Unit/1 Ml Insuln.pen 10 Unit SQ TIDAC [Fluconazole] 100 MG Tablet 200 Mg PO DAILY Invanz (Ertapenem Sodium) 1 Gm Vial 1 Gm IJ DAILY Lantus Solostar (Insulin Glargine,Hum.rec.anlog) 100 Unit/1 Ml Insuln.pen 45 Unit SQ QHS Doxycycline Hyclate 100 Mg Tablet 100 Mg PO BID Hydrocodone-Apap 5-325 (Hydrocodone Bit/Acetaminophen) 1 Each Tablet 1 Tab PO PRN Q4HRS PRN Reported Zyvox (Linezolid) 600 Mg Tablet 600 Mg PO BID Atorvastatin Calcium 40 Mg Tablet 1 Tab PO QHS Amlodipine Besylate 10 Mg Tablet 10 Mg PO DAILY Allergies Allergies: Coded Allergies: lisinopril (Verified Allergy, Severe, ANGIOEDEMA, 01/07/18) Penicillins (Verified Allergy, Intermediate, 01/30/18) TOLERATES MERREM ROS Review of System CONSTITUTIONAL: No fever or chills EYES: No recent changes SKIN: No rash or itching. Open wounds to right foot. CARDIOVASCULAR: No chest pain, syncope, palpitations, or edema RESPIRATORY: No SOB or cough GASTROINTESTINAL: No nausea, vomiting or abdominal pain NEUROLOGICAL: No headaches or weakness ENDOCRINE: No cold or heat intolerance GENITOURINARY: No urgency or frequency of urination MUSCULOSKELETAL: No back pain or joint pain LYMPHATICS: No enlarged lymph nodes PSYCHIATRIC: No anxiety or depression Physical Exam General: Alert, Oriented X3, No acute distress HEENT: Atraumatic Lungs: Normal air movement, Other (On RA, not requiring supplemental O2.) Heart: Regular rate Abdomen: Soft, No tenderness, No masses Extremities: No clubbing, No cyanosis, No edema, Normal pulses, Other (RLE Quantiflow 1.26) Skin: No rashes, Other (Wound to plantar aspect of right foot. Wound bed covered with rough callus. Surrounding tissue with thickened callus. No active drainage. No surrounding edema or erythema. 2nd wound to right lateral foot. Wound bed 50% tendon, 50% granulation. Surrounding tissue with thickened callus. No drainage. No edema or erythema. Bedside debrided callus. Serial debridement will be needed following softening of callus. ) Neuro: Normal gait, Normal speech, Other (Pt with poor sensate to BLE) MUSCULOSKELETAL: No joint tenderness, Full range of motion without pain Vitals VITALS Vital Signs Date Time Temp Pulse Resp B/P (MAP) Pulse Ox O2 Delivery O2 Flow Rate FiO2 03/09/18 09:57 79 138/89 03/09/18 07:00 98.7 18 100 Room Air 98.7 Labs Labs Laboratory Tests Test 03/08/18 19:58 03/08/18 21:30 03/08/18 23:16 03/09/18 07:14 Urine Collection Type Unknown Urine Color Yellow Urine Clarity Clear Urine pH 6.0 Urine Specific [place] 1.025 Urine Protein Negative mg/dL (NEG-TRACE) Urine Glucose (UA) >=1000 mg/dL (NEG) Urine Ketones (Stick) Negative mg/dL (NEG) Urine Blood Negative (NEG) Urine Nitrite Negative (NEG) Urine Bilirubin Negative (NEG) Urine Urobilinogen Dipstick 0.2 mg/dL (0.2 mg/dL) Urine Leukocyte Esterase Negative (NEG) Urine RBC 0 /HPF (0-2) Urine WBC 0 /HPF (0-4) Urine Bacteria 0 /HPF (0-FEW) Urine Opiates Screen Neg (NEG) Urine Methadone Screen Neg (NEG) Urine Barbiturates Neg (NEG) Urine Phencyclidine Screen Neg (NEG) Urine Amphetamine/Methamphetamine Neg (NEG) Urine Benzodiazepines Screen Neg (NEG) Urine Cocaine Screen Neg (NEG) Urine Cannabinoids Screen Neg (NEG) Urine Ethyl Alcohol Neg (NEG) White Blood Count 8.0 x10^3/uL (4.0-11.0) Red Blood Count 4.41 x10^6/uL (4.30-5.70) Hemoglobin 14.0 g/dL (13.0-17.5) Hematocrit 39.6 % (39.0-53.0) Mean Corpuscular Volume 90 fL (79-100) Mean Corpuscular Hemoglobin 32 pg (25-35) Mean Corpuscular Hemoglobin Concent 35 g/dL (31-37) Red Cell Distribution Width 13.9 % (11.5-14.5) Platelet Count 202 x10^3/uL (140-400) Neutrophils (%) (Auto) 63 % (31-73) Lymphocytes (%) (Auto) 28 % (24-48) Monocytes (%) (Auto) 7 % (0-9) Eosinophils (%) (Auto) 2 % (0-3) Basophils (%) (Auto) 1 % (0-3) Neutrophils # (Auto) 5.0 x10^3uL (1.8-7.7) Lymphocytes # (Auto) 2.2 x10^3/uL (1.0-4.8) Monocytes # (Auto) 0.5 x10^3/uL (0.0-1.1) Eosinophils # (Auto) 0.2 x10^3/uL (0.0-0.7) Basophils # (Auto) 0.1 x10^3/uL (0.0-0.2) Erythrocyte Sedimentation Rate 26 (0-15) Sodium Level 138 mmol/L (136-145) Potassium Level 4.0 mmol/L (3.5-5.1) Chloride Level 102 mmol/L (98-107) Carbon Dioxide Level 26 mmol/L (21-32) Anion Gap 10 (6-14) Blood Urea Nitrogen 13 mg/dL (8-26) Creatinine 1.1 mg/dL (0.7-1.3) Estimated GFR (Cockcroft-Gault) 86.8 BUN/Creatinine Ratio 12 (6-20) Glucose Level 392 mg/dL (70-99) Calcium Level 9.3 mg/dL (8.5-10.1) Total Bilirubin 0.2 mg/dL (0.2-1.0) Aspartate Amino Transf (AST/SGOT) 17 U/L (15-37) Alanine Aminotransferase (ALT/SGPT) 24 U/L (16-63) Alkaline Phosphatase 95 U/L (46-116) C-Reactive Protein, Quantitative 3.0 mg/L (0-3.3) Total Protein 8.1 g/dL (6.4-8.2) Albumin 3.8 g/dL (3.4-5.0) Albumin/Globulin Ratio 0.9 (1.0-1.7) Ethyl Alcohol Level < 10 mg/dL (0-10) Glucose (Fingerstick) 350 mg/dL (70-99) 409 mg/dL (70-99) Test 03/09/18 11:30 White Blood Count 6.4 x10^3/uL (4.0-11.0) Red Blood Count 4.28 x10^6/uL (4.30-5.70) Hemoglobin 13.5 g/dL (13.0-17.5) Hematocrit 38.2 % (39.0-53.0) Mean Corpuscular Volume 89 fL (79-100) Mean Corpuscular Hemoglobin 32 pg (25-35) Mean Corpuscular Hemoglobin Concent 35 g/dL (31-37) Red Cell Distribution Width 13.7 % (11.5-14.5) Platelet Count 185 x10^3/uL (140-400) Neutrophils (%) (Auto) 59 % (31-73) Lymphocytes (%) (Auto) 28 % (24-48) Monocytes (%) (Auto) 9 % (0-9) Eosinophils (%) (Auto) 4 % (0-3) Basophils (%) (Auto) 1 % (0-3) Neutrophils # (Auto) 3.8 x10^3uL (1.8-7.7) Lymphocytes # (Auto) 1.8 x10^3/uL (1.0-4.8) Monocytes # (Auto) 0.6 x10^3/uL (0.0-1.1) Eosinophils # (Auto) 0.2 x10^3/uL (0.0-0.7) Basophils # (Auto) 0.0 x10^3/uL (0.0-0.2) Sodium Level 141 mmol/L (136-145) Potassium Level 4.1 mmol/L (3.5-5.1) Chloride Level 104 mmol/L (98-107) Carbon Dioxide Level 28 mmol/L (21-32) Anion Gap 9 (6-14) Blood Urea Nitrogen 13 mg/dL (8-26) Creatinine 1.2 mg/dL (0.7-1.3) Estimated GFR (Cockcroft-Gault) 78.5 Glucose Level 152 mg/dL (70-99) Calcium Level 9.5 mg/dL (8.5-10.1) Laboratory Tests Test 03/08/18 19:58 03/08/18 21:30 03/08/18 23:16 03/09/18 07:14 Urine Collection Type Unknown Urine Color Yellow Urine Clarity Clear Urine pH 6.0 Urine Specific [place] 1.025 Urine Protein Negative mg/dL (NEG-TRACE) Urine Glucose (UA) >=1000 mg/dL (NEG) Urine Ketones (Stick) Negative mg/dL (NEG) Urine Blood Negative (NEG) Urine Nitrite Negative (NEG) Urine Bilirubin Negative (NEG) Urine Urobilinogen Dipstick 0.2 mg/dL (0.2 mg/dL) Urine Leukocyte Esterase Negative (NEG) Urine RBC 0 /HPF (0-2) Urine WBC 0 /HPF (0-4) Urine Bacteria 0 /HPF (0-FEW) Urine Opiates Screen Neg (NEG) Urine Methadone Screen Neg (NEG) Urine Barbiturates Neg (NEG) Urine Phencyclidine Screen Neg (NEG) Urine Amphetamine/Methamphetamine Neg (NEG) Urine Benzodiazepines Screen Neg (NEG) Urine Cocaine Screen Neg (NEG) Urine Cannabinoids Screen Neg (NEG) Urine Ethyl Alcohol Neg (NEG) White Blood Count 8.0 x10^3/uL (4.0-11.0) Red Blood Count 4.41 x10^6/uL (4.30-5.70) Hemoglobin 14.0 g/dL (13.0-17.5) Hematocrit 39.6 % (39.0-53.0) Mean Corpuscular Volume 90 fL (79-100) Mean Corpuscular Hemoglobin 32 pg (25-35) Mean Corpuscular Hemoglobin Concent 35 g/dL (31-37) Red Cell Distribution Width 13.9 % (11.5-14.5) Platelet Count 202 x10^3/uL (140-400) Neutrophils (%) (Auto) 63 % (31-73) Lymphocytes (%) (Auto) 28 % (24-48) Monocytes (%) (Auto) 7 % (0-9) Eosinophils (%) (Auto) 2 % (0-3) Basophils (%) (Auto) 1 % (0-3) Neutrophils # (Auto) 5.0 x10^3uL (1.8-7.7) Lymphocytes # (Auto) 2.2 x10^3/uL (1.0-4.8) Monocytes # (Auto) 0.5 x10^3/uL (0.0-1.1) Eosinophils # (Auto) 0.2 x10^3/uL (0.0-0.7) Basophils # (Auto) 0.1 x10^3/uL (0.0-0.2) Erythrocyte Sedimentation Rate 26 (0-15) Sodium Level 138 mmol/L (136-145) Potassium Level 4.0 mmol/L (3.5-5.1) Chloride Level 102 mmol/L (98-107) Carbon Dioxide Level 26 mmol/L (21-32) Anion Gap 10 (6-14) Blood Urea Nitrogen 13 mg/dL (8-26) Creatinine 1.1 mg/dL (0.7-1.3) Estimated GFR (Cockcroft-Gault) 86.8 BUN/Creatinine Ratio 12 (6-20) Glucose Level 392 mg/dL (70-99) Calcium Level 9.3 mg/dL (8.5-10.1) Total Bilirubin 0.2 mg/dL (0.2-1.0) Aspartate Amino Transf (AST/SGOT) 17 U/L (15-37) Alanine Aminotransferase (ALT/SGPT) 24 U/L (16-63) Alkaline Phosphatase 95 U/L (46-116) C-Reactive Protein, Quantitative 3.0 mg/L (0-3.3) Total Protein 8.1 g/dL (6.4-8.2) Albumin 3.8 g/dL (3.4-5.0) Albumin/Globulin Ratio 0.9 (1.0-1.7) Ethyl Alcohol Level < 10 mg/dL (0-10) Glucose (Fingerstick) 350 mg/dL (70-99) 409 mg/dL (70-99) Test 03/09/18 11:30 White Blood Count 6.4 x10^3/uL (4.0-11.0) Red Blood Count 4.28 x10^6/uL (4.30-5.70) Hemoglobin 13.5 g/dL (13.0-17.5) Hematocrit 38.2 % (39.0-53.0) Mean Corpuscular Volume 89 fL (79-100) Mean Corpuscular Hemoglobin 32 pg (25-35) Mean Corpuscular Hemoglobin Concent 35 g/dL (31-37) Red Cell Distribution Width 13.7 % (11.5-14.5) Platelet Count 185 x10^3/uL (140-400) Neutrophils (%) (Auto) 59 % (31-73) Lymphocytes (%) (Auto) 28 % (24-48) Monocytes (%) (Auto) 9 % (0-9) Eosinophils (%) (Auto) 4 % (0-3) Basophils (%) (Auto) 1 % (0-3) Neutrophils # (Auto) 3.8 x10^3uL (1.8-7.7) Lymphocytes # (Auto) 1.8 x10^3/uL (1.0-4.8) Monocytes # (Auto) 0.6 x10^3/uL (0.0-1.1) Eosinophils # (Auto) 0.2 x10^3/uL (0.0-0.7) Basophils # (Auto) 0.0 x10^3/uL (0.0-0.2) Sodium Level 141 mmol/L (136-145) Potassium Level 4.1 mmol/L (3.5-5.1) Chloride Level 104 mmol/L (98-107) Carbon Dioxide Level 28 mmol/L (21-32) Anion Gap 9 (6-14) Blood Urea Nitrogen 13 mg/dL (8-26) Creatinine 1.2 mg/dL (0.7-1.3) Estimated GFR (Cockcroft-Gault) 78.5 Glucose Level 152 mg/dL (70-99) Calcium Level 9.5 mg/dL (8.5-10.1) Assessment/Plan Assessment/Plan 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 -Cleanse and pat dry. Apply Lubricating Jelly, cover with Xeroform and cover with ABD and Kerlix. Change daily or prn. - Recommend Orthowedge offloading shoe. Pt will also need a script for diabetic shoes for appropriate offloading following wound healing. - Follow IDs lead for abx therapy. - Follow hospitalist lead for diabetic medication regimen. - Dc tobacco use BERNY CHOUDHURY DO 03/09/18 1328: CONSULT Identification/Chief Complaint Chief Complaint This has included various offloading opportunities, cessation of tobacco use and recommendations for appropriate IV antibiotic therapy as well as control of blood glucose and chronic medical conditions. Assessment/Plan Assessment/Plan Diabetic [place] 3 ulcerations of the right forefoot with evidence of bone necrosis DEXTER JENKINS APRN Mar 09, 2018 12:42 BERNY CHOUDHURY DO Mar 09, 2018 13:28
[2018-03-09 15:33] VITALS: BP 151/84
[2018-03-09 19:15] VITALS: BP 164/93
[2018-03-09] MEDS: ATORVASTATIN CALCIUM 40 MG TABLET. PO SCH (22:36)
[2018-03-09] MEDS: LACTOBACILLUS RHAMNOSUS GG 1 CAPSULE. PO SCH (22:39)
[2018-03-09] MEDS: INSULIN GLARGINE 300 UNITS/3 ML INSULN.PEN. SQ SCH (22:54)
[2018-03-09 23:02] VITALS: BP 153/97
[2018-03-10 02:55] VITALS: BP 150/90
[2018-03-10] MEDS: MEROPENEM 1 GM in IV NORMAL SALINE 100ML 100 ML IV SCH ×3 (06:18→21:30)
[2018-03-10 07:00] VITALS: BP 143/90
[2018-03-10] MEDS: DOXYCYCLINE HYCLATE 100 MG TABLET PO SCH ×2 (08:05→21:26)
[2018-03-10] MEDS: LACTOBACILLUS RHAMNOSUS GG 1 CAPSULE. PO SCH ×2 (08:06→21:27)
[2018-03-10] MEDS: FLUCONAZOLE 100 MG TABLET. PO SCH (08:06)
[2018-03-10] MEDS: LINEZOLID 600 MG TABLET PO SCH ×2 (08:06→21:27)
[2018-03-10] MEDS: INSULIN LISPRO 300 UNITS/3 ML INSULN.PEN. SQ SCH ×6 (08:13→16:59)
[2018-03-10] MEDS: amLODIPine BESYLATE 10 MG TABLET PO SCH (08:27)
--- NOTE | 2018-03-10 09:31 | PDOC ---
Infectious Disease Note Subjective: Subjective pt says had nausea earlier today ,now resolved no vomiting He has no f/c/d/sob He continues to walk on his foot ROS: ROS neg otherwise D/W RN Vital Signs: Vital Signs Vital Signs Date Time Temp Pulse Resp B/P (MAP) Pulse Ox O2 Delivery O2 Flow Rate FiO2 03/10/18 08:27 73 143/90 03/10/18 08:27 16 Room Air 03/10/18 07:00 97.7 98 97.7 Physical Exam: PHYSICAL EXAM GENERAL:Pt is AXOX3 male in nad HENT: Normal conjunctivae. Oral cavity pink and moist LILUNGS: Clear HEART: S1, S2 ABD: Obese, BS active, soft, NT EXT: No gross edema or cyanosis. 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 RUE-PICC (POA) w/o signs of complications Medications: Inpatient Meds: Current Medications Medications (Trade) Dose Ordered Sig/Dick Start Time Stop Time Status Last Admin Dose Admin Acetaminophen (Tylenol) 650 mg PRN Q4HRS PRN 03/08/18 22:15 03/09/18 22:14 DC Alteplase, Recombinant (Cathflo) 2 mg 1X ONCE 03/09/18 11:00 03/09/18 11:01 DC Amlodipine Besylate (Norvasc) 10 mg DAILY 03/09/18 09:00 03/10/18 08:27 10 MG Atorvastatin Calcium (Lipitor) 40 mg QHS 03/09/18 21:00 03/09/18 22:36 40 MG Dextrose (Dextrose 50%-Water Syringe) 12.5 gm PRN Q15MIN PRN 03/09/18 08:15 Doxycycline Hyclate (Vibra-Tab) 100 mg BID 03/09/18 10:00 03/10/18 08:05 100 MG Fluconazole (Diflucan) 100 mg DAILY 03/09/18 10:00 03/10/18 08:06 100 MG Insulin Glargine (Lantus) 45 units QHS 03/09/18 21:00 03/09/18 22:54 45 UNITS Insulin Human Lispro (HumaLOG) 10 units TIDWMEALS 03/09/18 12:00 03/10/18 08:13 10 UNITS Lactobacillus Rhamnosus (Culturelle) 1 cap BID 03/09/18 21:00 03/10/18 08:06 1 CAP Linezolid (Zyvox) 600 mg BID 03/09/18 09:00 03/10/18 08:06 600 MG Meropenem 1 gm/ Sodium Chloride 100 ml @ 200 mls/hr Q8HRS 03/08/18 23:00 03/10/18 06:18 200 MLS/HR Morphine Sulfate (Morphine Sulfate) 4 mg PRN Q2HR PRN 03/08/18 22:15 03/09/18 22:14 DC Nicotine (Nicoderm Cq 21mg) 1 patch PRN DAILY PRN 03/09/18 08:15 Non-Formulary Medication (Ertapenem Sodium (Invanz)) 1 gm DAILY 03/09/18 09:00 03/09/18 09:00 DC Ondansetron HCl (Zofran) 4 mg PRN Q6HRS PRN 03/09/18 08:15 03/10/18 07:27 4 MG Oxycodone/ Acetaminophen (Percocet 10/325) 1 tab PRN Q4HRS PRN 03/09/18 08:15 Oxycodone/ Acetaminophen (Percocet 5/325) 1 tab PRN Q4HRS PRN 03/09/18 08:15 03/10/18 08:27 1 TAB Sodium Chloride 1,000 ml @ 1,000 mls/hr 1X ONCE 03/08/18 20:00 03/08/18 20:59 DC 03/08/18 21:48 1,000 MLS/HR Labs: Lab Laboratory Tests Test 03/09/18 11:30 03/09/18 11:49 03/09/18 17:02 03/09/18 20:52 White Blood Count 6.4 x10^3/uL (4.0-11.0) Red Blood Count 4.28 x10^6/uL (4.30-5.70) Hemoglobin 13.5 g/dL (13.0-17.5) Hematocrit 38.2 % (39.0-53.0) Mean Corpuscular Volume 89 fL (79-100) Mean Corpuscular Hemoglobin 32 pg (25-35) Mean Corpuscular Hemoglobin Concent 35 g/dL (31-37) Red Cell Distribution Width 13.7 % (11.5-14.5) Platelet Count 185 x10^3/uL (140-400) Neutrophils (%) (Auto) 59 % (31-73) Lymphocytes (%) (Auto) 28 % (24-48) Monocytes (%) (Auto) 9 % (0-9) Eosinophils (%) (Auto) 4 % (0-3) Basophils (%) (Auto) 1 % (0-3) Neutrophils # (Auto) 3.8 x10^3uL (1.8-7.7) Lymphocytes # (Auto) 1.8 x10^3/uL (1.0-4.8) Monocytes # (Auto) 0.6 x10^3/uL (0.0-1.1) Eosinophils # (Auto) 0.2 x10^3/uL (0.0-0.7) Basophils # (Auto) 0.0 x10^3/uL (0.0-0.2) Sodium Level 141 mmol/L (136-145) Potassium Level 4.1 mmol/L (3.5-5.1) Chloride Level 104 mmol/L (98-107) Carbon Dioxide Level 28 mmol/L (21-32) Anion Gap 9 (6-14) Blood Urea Nitrogen 13 mg/dL (8-26) Creatinine 1.2 mg/dL (0.7-1.3) Estimated GFR (Cockcroft-Gault) 78.5 Glucose Level 152 mg/dL (70-99) Calcium Level 9.5 mg/dL (8.5-10.1) Glucose (Fingerstick) 153 mg/dL (70-99) 187 mg/dL (70-99) 373 mg/dL (70-99) Test 03/10/18 07:53 Glucose (Fingerstick) 261 mg/dL (70-99) Micro RUN DATE: 01/10/18 PAGE 1 RUN TIME: 8749 [facility] [address] [place] [address] Bernabe Cao M.D., Mobile Manager PATIENT: KUSH WILKS ACCT: [id number] LOC: [address] [place] [address] U : [id number] AGE/SX: 47/M ROOM: [facility] REG : 01/06/[address]: JOSÉ MANUEL VALDERRAMA MD : 1970 BED: 1 DIS : STATUS: ADM IN TLOC: SPEC #: [id number] NILESH: 01/07/18 STATUS: COMP REQ #: [id number] RECD: 01/07/[address]: MELISSA BEATTY Jr. DO SOURCE: FOOT ENTR: 01/07/18 ALTAGRACIA GIMENEZ: ANTWAN TIMMONS SPDESC: SANDY LORENZO DPM, CHUNMEI MD ORDERED: AEROBIC CULT GS Procedure Result AEROBIC CULTURE Final Final report AEROBIC RES 1 Final Escherichia coli 4+ AEROBIC RES 2 Final Enterococcus faecalis 4+ AEROBIC RES 3 Final Yeast isolated. 2+ Request for further identification must be made within 1 week. AEROBIC RES 4 Final Mixed skin shayna 3+ ANTIMICROBIAL SUSCEPTIBILITY Final Comment S = Susceptible; I = Intermediate; R = Resistant P = Positive; N = Negative MICS are expressed in micrograms per mL Antibiotic RSLT#1 RSLT#2 RSLT#3 RSLT#4 Amoxicillin/Clavulanic Acid S =8 Ampicillin R>=32 Cefazolin R>=64 Cefepime I =8 Ceftriaxone R>=64 Cefuroxime R>=64 CONTINUED ON NEXT PAGE RUN DATE: 01/10/18 PAGE 2 RUN TIME: 1620 [facility] [address] [place] [address] Bernabe Cao M.D., Mobile Manager SPEC: [id number] PATIENT: CARLOS WILKSFORD [id number] ( Continued) Procedure Result ANTIMICROBIAL SUSCEPTIBILITY Final (continued) Ciprofloxacin R>=4 Ertapenem S<=0.12 Gentamicin S<=1 Imipenem S<=0.25 Levofloxacin R>=8 Meropenem S<=0.25 Penicillin R =16 Piperacillin/Tazobactam S<=4 Tetracycline S =4 Tobramycin S<=1 Trimethoprim/Sulfa R>=320 Vancomycin S =1 Performed at: [address] [id number] Escalator Constructor: JENNIFER Ladd MD, Phone: [phone] GRAM STAIN Final Final report GRAM STAIN RESULT 1 Final Comment No white blood cells seen. GRAM STAIN RESULT 2 Final Comment Moderate gram negative rods. GRAM STAIN RESULT 3 Final Comment Moderate amount of gram positive cocci in chains Performed at: [address] [id number] Escalator Constructor: JENNIFER Ladd MD, Phone: [phone] RUN DATE: 03/09/18 PAGE 1 RUN TIME: 172 [facility] [address] [place] [address] Bernabe Cao M.D., Mobile Manager PATIENT: KUSH PLASCENCIA ACCT: [id number] LOC: [address] [place] [address] U : [id number] AGE/SX: 47/M ROOM: 400 REG : 03/08/[address]: MARY LESLIE III DO : 1970 BED: 1 DIS : STATUS: ADM IN TLOC: SPEC #: [id number] NILESH: 03/08/18 STATUS: RES REQ #: [id number] RECD: 03/08/[address]: LEIGHA CONWAY APRN SOURCE: FOOT ENTR: 03/08/[address]: ABDULKADIR,STAFF SPDESC: RIGHT NO PCP ORDERED: ANAER/AEROB/GS Procedure Result ANAEROBIC-AEROBIC CULTURE PENDING ANAEROBIC RES 1 PENDING AEROBIC CULT PENDING AEROBIC RES 1 PENDING GRAM STAIN Final Final report GRAM STAIN RES 1 Final Comment Rare gram negative rods. GRAM STAIN RES 2 Final Comment No white blood cells seen. Performed at: DA - [facility] [address], [place], [place] [id number] Escalator Constructor: JENNIFER Ladd MD, Phone: [phone] Objective: Assessment: Right foot wound with osteomyelitis. s/p I and D 01/31. - Has had multiple recommendations for TMA and has refused. - Has been on IV antibiotics Invanz and doxycycline but missed last 5 days of tx - ESR 26,CRP 3 - Foot x ray reviewed - wound c/s GNR Right fifth toe amputation at [facility]. Diabetes. PENICILLIN ALLERGY A CHILD. PAD - h/o angioplasty HTN HLD Tobaccoism, says knows need to quit Noncompliance - ambulating frequently and leaving floor per RN Dry skin Nausea Plan: Plan of Care Continue meropenem Cont fluconazole and doxycycline Cont local wound care FU ID and OLIVA GNR D/W Pt again that if he continues to walk he will not heal optimally He needs to off load as much as possible Also he has been recommended TMA here and at [place],he refuses F/U labs Continue local wound care PRATIK WHITE MD Mar 10, 2018 09:31
--- NOTE | 2018-03-10 10:21 | PDOC ---
PROGRESS NOTES Chief Complaint Chief Complaint Right foot wound with osteomyelitis. s/p I and D 01/31. -Has had multiple recommendations for TMA and has refused. Right fifth toe amputation at [facility]. Diabetes. hgba1c 11 PENICILLIN ALLERGY A CHILD. PAD - h/o angioplasty Noncompliance - ambulating frequently and leaving floor HTN HLD Tobaccoism History of Present Illness History of Present Illness Blood sugars running high, hemoglobin A1c 11 He is bearing weight on that extremity when he is told not to Plan: Increase NovoLog from 10 to 15 units SQ 3 times a day Continue meropenem and follow ID/cultures Offload that right leg COmpliance I emphasized again today Vitals Vitals Vital Signs Date Time Temp Pulse Resp B/P (MAP) Pulse Ox O2 Delivery O2 Flow Rate FiO2 03/10/18 08:27 73 143/90 03/10/18 08:27 16 Room Air 03/10/18 07:00 97.7 98 97.7 Physical Exam Physical Exam GENERAL:Pt is AXOX3 male in nad HENT: Normal conjunctivae. Oral cavity pink and moist LILUNGS: Clear HEART: S1, S2 ABD: Obese, BS active, soft, NT EXT: No gross edema or cyanosis. 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 Wound bed covered with rough callus. Surrounding tissue with thickened callus. No active drainage. No surrounding edema or erythema. 2nd wound to right lateral foot. Wound bed 50% tendon, 50% granulation. Surrounding tissue with thickened callus. No drainage. No edema or erythema. Bedside debrided callus. Serial debridement will be needed following softening of callus. ) Labs LABS Laboratory Tests Test 03/09/18 11:30 03/09/18 11:49 03/09/18 17:02 03/09/18 20:52 White Blood Count 6.4 x10^3/uL (4.0-11.0) Red Blood Count 4.28 x10^6/uL (4.30-5.70) Hemoglobin 13.5 g/dL (13.0-17.5) Hematocrit 38.2 % (39.0-53.0) Mean Corpuscular Volume 89 fL (79-100) Mean Corpuscular Hemoglobin 32 pg (25-35) Mean Corpuscular Hemoglobin Concent 35 g/dL (31-37) Red Cell Distribution Width 13.7 % (11.5-14.5) Platelet Count 185 x10^3/uL (140-400) Neutrophils (%) (Auto) 59 % (31-73) Lymphocytes (%) (Auto) 28 % (24-48) Monocytes (%) (Auto) 9 % (0-9) Eosinophils (%) (Auto) 4 % (0-3) Basophils (%) (Auto) 1 % (0-3) Neutrophils # (Auto) 3.8 x10^3uL (1.8-7.7) Lymphocytes # (Auto) 1.8 x10^3/uL (1.0-4.8) Monocytes # (Auto) 0.6 x10^3/uL (0.0-1.1) Eosinophils # (Auto) 0.2 x10^3/uL (0.0-0.7) Basophils # (Auto) 0.0 x10^3/uL (0.0-0.2) Sodium Level 141 mmol/L (136-145) Potassium Level 4.1 mmol/L (3.5-5.1) Chloride Level 104 mmol/L (98-107) Carbon Dioxide Level 28 mmol/L (21-32) Anion Gap 9 (6-14) Blood Urea Nitrogen 13 mg/dL (8-26) Creatinine 1.2 mg/dL (0.7-1.3) Estimated GFR (Cockcroft-Gault) 78.5 Glucose Level 152 mg/dL (70-99) Calcium Level 9.5 mg/dL (8.5-10.1) Glucose (Fingerstick) 153 mg/dL (70-99) 187 mg/dL (70-99) 373 mg/dL (70-99) Test 03/10/18 07:53 Glucose (Fingerstick) 261 mg/dL (70-99) Review of Systems Review of Systems A 14 point ROS was completed with the following noted as positive: Other systems reviewed and negative. \CONSTITUTIONAL: No fever or chills EYES: No recent changes SKIN: No rash or itching CARDIOVASCULAR: No chest pain, syncope, palpitations, or edema RESPIRATORY: No SOB or cough GASTROINTESTINAL: No nausea, vomiting or abdominal pain NEUROLOGICAL: No headaches or weakness ENDOCRINE: No cold or heat intolerance GENITOURINARY: No urgency or frequency of urination MUSCULOSKELETAL: No back pain or joint pain LYMPHATICS: No enlarged lymph nodes PSYCHIATRIC: No anxiety or depression Assessment and Plan Assessmemt and Plan Problems Medical Problems: (1) Chronic osteomyelitis Status: Acute (2) Uncontrolled diabetes mellitus Status: Acute Comment Review of Relevant I have reviewed the following items yuly (where applicable) has been applied. Labs Laboratory Tests Test 03/08/18 19:58 03/08/18 21:30 03/08/18 23:16 03/09/18 07:14 Urine Collection Type Unknown Urine Color Yellow Urine Clarity Clear Urine pH 6.0 Urine Specific Bruin 1.025 Urine Protein Negative mg/dL (NEG-TRACE) Urine Glucose (UA) >=1000 mg/dL (NEG) Urine Ketones (Stick) Negative mg/dL (NEG) Urine Blood Negative (NEG) Urine Nitrite Negative (NEG) Urine Bilirubin Negative (NEG) Urine Urobilinogen Dipstick 0.2 mg/dL (0.2 mg/dL) Urine Leukocyte Esterase Negative (NEG) Urine RBC 0 /HPF (0-2) Urine WBC 0 /HPF (0-4) Urine Bacteria 0 /HPF (0-FEW) Urine Opiates Screen Neg (NEG) Urine Methadone Screen Neg (NEG) Urine Barbiturates Neg (NEG) Urine Phencyclidine Screen Neg (NEG) Urine Amphetamine/Methamphetamine Neg (NEG) Urine Benzodiazepines Screen Neg (NEG) Urine Cocaine Screen Neg (NEG) Urine Cannabinoids Screen Neg (NEG) Urine Ethyl Alcohol Neg (NEG) White Blood Count 8.0 x10^3/uL (4.0-11.0) Red Blood Count 4.41 x10^6/uL (4.30-5.70) Hemoglobin 14.0 g/dL (13.0-17.5) Hematocrit 39.6 % (39.0-53.0) Mean Corpuscular Volume 90 fL (79-100) Mean Corpuscular Hemoglobin 32 pg (25-35) Mean Corpuscular Hemoglobin Concent 35 g/dL (31-37) Red Cell Distribution Width 13.9 % (11.5-14.5) Platelet Count 202 x10^3/uL (140-400) Neutrophils (%) (Auto) 63 % (31-73) Lymphocytes (%) (Auto) 28 % (24-48) Monocytes (%) (Auto) 7 % (0-9) Eosinophils (%) (Auto) 2 % (0-3) Basophils (%) (Auto) 1 % (0-3) Neutrophils # (Auto) 5.0 x10^3uL (1.8-7.7) Lymphocytes # (Auto) 2.2 x10^3/uL (1.0-4.8) Monocytes # (Auto) 0.5 x10^3/uL (0.0-1.1) Eosinophils # (Auto) 0.2 x10^3/uL (0.0-0.7) Basophils # (Auto) 0.1 x10^3/uL (0.0-0.2) Erythrocyte Sedimentation Rate 26 (0-15) Sodium Level 138 mmol/L (136-145) Potassium Level 4.0 mmol/L (3.5-5.1) Chloride Level 102 mmol/L (98-107) Carbon Dioxide Level 26 mmol/L (21-32) Anion Gap 10 (6-14) Blood Urea Nitrogen 13 mg/dL (8-26) Creatinine 1.1 mg/dL (0.7-1.3) Estimated GFR (Cockcroft-Gault) 86.8 BUN/Creatinine Ratio 12 (6-20) Glucose Level 392 mg/dL (70-99) Calcium Level 9.3 mg/dL (8.5-10.1) Total Bilirubin 0.2 mg/dL (0.2-1.0) Aspartate Amino Transf (AST/SGOT) 17 U/L (15-37) Alanine Aminotransferase (ALT/SGPT) 24 U/L (16-63) Alkaline Phosphatase 95 U/L (46-116) C-Reactive Protein, Quantitative 3.0 mg/L (0-3.3) Total Protein 8.1 g/dL (6.4-8.2) Albumin 3.8 g/dL (3.4-5.0) Albumin/Globulin Ratio 0.9 (1.0-1.7) Ethyl Alcohol Level < 10 mg/dL (0-10) Glucose (Fingerstick) 350 mg/dL (70-99) 409 mg/dL (70-99) Test 03/09/18 11:30 03/09/18 11:49 03/09/18 17:02 03/09/18 20:52 White Blood Count 6.4 x10^3/uL (4.0-11.0) Red Blood Count 4.28 x10^6/uL (4.30-5.70) Hemoglobin 13.5 g/dL (13.0-17.5) Hematocrit 38.2 % (39.0-53.0) Mean Corpuscular Volume 89 fL (79-100) Mean Corpuscular Hemoglobin 32 pg (25-35) Mean Corpuscular Hemoglobin Concent 35 g/dL (31-37) Red Cell Distribution Width 13.7 % (11.5-14.5) Platelet Count 185 x10^3/uL (140-400) Neutrophils (%) (Auto) 59 % (31-73) Lymphocytes (%) (Auto) 28 % (24-48) Monocytes (%) (Auto) 9 % (0-9) Eosinophils (%) (Auto) 4 % (0-3) Basophils (%) (Auto) 1 % (0-3) Neutrophils # (Auto) 3.8 x10^3uL (1.8-7.7) Lymphocytes # (Auto) 1.8 x10^3/uL (1.0-4.8) Monocytes # (Auto) 0.6 x10^3/uL (0.0-1.1) Eosinophils # (Auto) 0.2 x10^3/uL (0.0-0.7) Basophils # (Auto) 0.0 x10^3/uL (0.0-0.2) Sodium Level 141 mmol/L (136-145) Potassium Level 4.1 mmol/L (3.5-5.1) Chloride Level 104 mmol/L (98-107) Carbon Dioxide Level 28 mmol/L (21-32) Anion Gap 9 (6-14) Blood Urea Nitrogen 13 mg/dL (8-26) Creatinine 1.2 mg/dL (0.7-1.3) Estimated GFR (Cockcroft-Gault) 78.5 Glucose Level 152 mg/dL (70-99) Calcium Level 9.5 mg/dL (8.5-10.1) Glucose (Fingerstick) 153 mg/dL (70-99) 187 mg/dL (70-99) 373 mg/dL (70-99) Test 03/10/18 07:53 Glucose (Fingerstick) 261 mg/dL (70-99) Laboratory Tests Test 03/09/18 11:30 03/09/18 11:49 03/09/18 17:02 03/09/18 20:52 White Blood Count 6.4 x10^3/uL (4.0-11.0) Red Blood Count 4.28 x10^6/uL (4.30-5.70) Hemoglobin 13.5 g/dL (13.0-17.5) Hematocrit 38.2 % (39.0-53.0) Mean Corpuscular Volume 89 fL (79-100) Mean Corpuscular Hemoglobin 32 pg (25-35) Mean Corpuscular Hemoglobin Concent 35 g/dL (31-37) Red Cell Distribution Width 13.7 % (11.5-14.5) Platelet Count 185 x10^3/uL (140-400) Neutrophils (%) (Auto) 59 % (31-73) Lymphocytes (%) (Auto) 28 % (24-48) Monocytes (%) (Auto) 9 % (0-9) Eosinophils (%) (Auto) 4 % (0-3) Basophils (%) (Auto) 1 % (0-3) Neutrophils # (Auto) 3.8 x10^3uL (1.8-7.7) Lymphocytes # (Auto) 1.8 x10^3/uL (1.0-4.8) Monocytes # (Auto) 0.6 x10^3/uL (0.0-1.1) Eosinophils # (Auto) 0.2 x10^3/uL (0.0-0.7) Basophils # (Auto) 0.0 x10^3/uL (0.0-0.2) Sodium Level 141 mmol/L (136-145) Potassium Level 4.1 mmol/L (3.5-5.1) Chloride Level 104 mmol/L (98-107) Carbon Dioxide Level 28 mmol/L (21-32) Anion Gap 9 (6-14) Blood Urea Nitrogen 13 mg/dL (8-26) Creatinine 1.2 mg/dL (0.7-1.3) Estimated GFR (Cockcroft-Gault) 78.5 Glucose Level 152 mg/dL (70-99) Calcium Level 9.5 mg/dL (8.5-10.1) Glucose (Fingerstick) 153 mg/dL (70-99) 187 mg/dL (70-99) 373 mg/dL (70-99) Test 03/10/18 07:53 Glucose (Fingerstick) 261 mg/dL (70-99) Microbiology 03/08/18 Blood Culture - Preliminary, Resulted NO GROWTH AFTER 1 DAY 03/08/18 Anaerobic/Aerobic Culture, Resulted Pending 03/08/18 Anaerobic Culture Result 1 (OLIVA), Resulted Pending 03/08/18 Aerobic Culture, Resulted Pending 03/08/18 Aerobic Culture Result 1 (OLIVA), Resulted Pending 03/08/18 Gram Stain - Final, Resulted 03/08/18 Gram Stain Result 1 (OLIVA) - Final, Resulted 03/08/18 Gram Stain Result 2 (OLIVA) - Final, Resulted Medications Current Medications Sodium Chloride 1,000 ml @ 1,000 mls/hr 1X ONCE IV Last administered on 03/08at 21:48; Start 03/08/18 at 20:00; Stop 03/08/18 at 20:59; Status DC Morphine Sulfate (Morphine Sulfate) 5 mg 1X ONCE IV Last administered on 03/08at 21:47; Start 03/08/18 at 20:00; Stop 03/08/18 at 20:05; Status DC Ondansetron HCl (Zofran) 4 mg PRN Q8HRS PRN IV NAUSEA/VOMITING 1ST CHOICE; Start 03/08/18 at 22:15; Stop 03/09/18 at 08:11; Status DC Morphine Sulfate (Morphine Sulfate) 4 mg PRN Q2HR PRN IV SEVERE PAIN; Start at 22:15; Stop 03/09/18 at 22:14; Status DC Acetaminophen (Tylenol) 650 mg PRN Q4HRS PRN PO FEVER; Start 03/08/18 at 22:15 ; Stop 03/09/18 at 22:14; Status DC Insulin Human Lispro (HumaLOG) 0-5 UNITS TIDWMEALS SQ Last administered on 04/16at 07:34; Start 03/09/18 at 08:00; Stop 03/09/18 at 08:11; Status DC Dextrose (Dextrose 50%-Water Syringe) 12.5 gm PRN Q15MIN PRN IV SEE COMMENTS; Start 03/08/18 at 22:15; Stop 03/09/18 at 08:40; Status DC Meropenem 1 gm/ Sodium Chloride 100 ml @ 200 mls/hr Q8HRS IV Last administered on 03/10/18at 06:18; Start 03/08/18 at 23:00 Ondansetron HCl (Zofran) 4 mg PRN Q6HRS PRN IV NAUSEA/VOMITING 1ST CHOICE Last administered on 03/10/18at 07:27; Start 03/09/18 at 08:15 Oxycodone/ Acetaminophen (Percocet 10/325) 1 tab PRN Q4HRS PRN PO pain SEVERE; Start 03/09/18 at 08:15 Oxycodone/ Acetaminophen (Percocet 5/325) 1 tab PRN Q4HRS PRN PO PAIN MODERATE Last administered on 03/10/18at 08:27; Start 03/09/18 at 08:15 Nicotine (Nicoderm Cq 21mg) 1 patch PRN DAILY PRN TD SMOKING CESSATION; Start 03/09/18 at 08:15 Insulin Human Lispro (HumaLOG) 0-9 UNITS TIDWMEALS SQ Last administered on 05/16at 08:13; Start 03/09/18 at 12:00 Dextrose (Dextrose 50%-Water Syringe) 12.5 gm PRN Q15MIN PRN IV SEE COMMENTS; Start 03/09/18 at 08:15 Amlodipine Besylate (Norvasc) 10 mg DAILY PO Last administered on 03/10/18at 08 :27; Start 03/09/18 at 09:00 Atorvastatin Calcium (Lipitor) 40 mg QHS PO Last administered on 03/09/18at 22: 36; Start 03/09/18 at 21:00 Insulin Glargine (Lantus) 45 units QHS SQ Last administered on 03/09/18at 22:54 ; Start 03/09/18 at 21:00 Non-Formulary Medication (Ertapenem Sodium (Invanz)) 1 gm DAILY IJ ; Start 04/16 at 09:00; Stop 03/09/18 at 09:00; Status DC Insulin Human Lispro (HumaLOG) 10 units TIDWMEALS SQ Last administered on 03/10at 08:13; Start 03/09/18 at 12:00; Stop 03/10/18 at 09:58; Status DC Linezolid (Zyvox) 600 mg BID PO Last administered on 03/10/18at 08:06; Start 03/09/18 at 09:00 Fluconazole (Diflucan) 200 mg DAILY PO ; Start 03/09/18 at 09:00; Stop at 09:55; Status DC Fluconazole (Diflucan) 100 mg DAILY PO Last administered on 03/10/18at 08:06; Start 03/09/18 at 10:00 Doxycycline Hyclate (Vibra-Tab) 100 mg BID PO Last administered on 03/10/18at 08:05; Start 03/09/18 at 10:00 Alteplase, Recombinant (Cathflo) 2 mg 1X ONCE INT CAT ; Start 03/09/18 at 11: 00; Stop 03/09/18 at 11:01; Status DC Lactobacillus Rhamnosus (Culturelle) 1 cap BID PO Last administered on at 08:06; Start 03/09/18 at 21:00 Insulin Human Lispro (HumaLOG) 15 units TIDWMEALS SQ ; Start 03/10/18 at 12:00 Active Scripts Active Hydrocodone-Apap 5-325 (Hydrocodone Bit/Acetaminophen) 1 Each Tablet 1 Tab PO PRN Q6HRS PRN Novolog Flexpen (Insulin Aspart) 100 Unit/1 Ml Insuln.pen 10 Unit SQ TIDAC [Fluconazole] 100 MG Tablet 200 Mg PO DAILY Invanz (Ertapenem Sodium) 1 Gm Vial 1 Gm IJ DAILY Lantus Solostar (Insulin Glargine,Hum.rec.anlog) 100 Unit/1 Ml Insuln.pen 45 Unit SQ QHS Doxycycline Hyclate 100 Mg Tablet 100 Mg PO BID Hydrocodone-Apap 5-325 (Hydrocodone Bit/Acetaminophen) 1 Each Tablet 1 Tab PO PRN Q4HRS PRN Reported Zyvox (Linezolid) 600 Mg Tablet 600 Mg PO BID Atorvastatin Calcium 40 Mg Tablet 1 Tab PO QHS Amlodipine Besylate 10 Mg Tablet 10 Mg PO DAILY Vitals/I & O Vital Sign - Last 24 Hours 03/09/18 03/09/18 03/09/18 03/09/18 11:00 15:33 19:15 20:00 Temp 98.8 98.7 98.3 98.8 98.7 98.3 Pulse 92 65 84 Resp 20 18 20 B/P (MAP) 141/91 (108) 151/84 (106) 164/93 (116) Pulse Ox 100 99 98 O2 Delivery Room Air Room Air Room Air Room Air 03/09/18 03/10/18 03/10/18 03/10/18 23:02 02:55 07:00 08:00 Temp 98.7 98.4 97.7 98.7 98.4 97.7 Pulse 64 66 78 Resp 18 18 16 B/P (MAP) 153/97 (115) 150/90 (110) 143/90 (107) Pulse Ox 97 96 98 O2 Delivery Room Air Room Air Room Air Room Air 03/10/18 03/10/18 08:27 08:27 Pulse 73 Resp 16 B/P (MAP) 143/90 O2 Delivery Room Air Intake and Output 03/09/18 03/09/18 03/10/18 15:00 23:00 07:00 Intake Total 720 ml Balance 720 ml JAJA PORTER MD Mar 10, 2018 10:21
[2018-03-10 11:00] VITALS: BP 169/91
[2018-03-10 15:00] VITALS: BP 132/76
[2018-03-10 19:00] VITALS: BP 141/85
[2018-03-10] MEDS: ATORVASTATIN CALCIUM 40 MG TABLET. PO SCH (21:27)
[2018-03-10] MEDS: INSULIN GLARGINE 300 UNITS/3 ML INSULN.PEN. SQ SCH (21:41)
[2018-03-10] MEDS ORDERED: ZOLPIDEM 5 MG TABLET. PO ONE (22:00)
[2018-03-10 23:00] VITALS: BP 139/70
[2018-03-11] MEDS: MEROPENEM 1 GM in IV NORMAL SALINE 100ML 100 ML IV SCH ×3 (06:00→14:00)
[2018-03-11 07:00] VITALS: BP 145/94
[2018-03-11] MEDS: DOXYCYCLINE HYCLATE 100 MG TABLET PO SCH (08:02)
[2018-03-11] MEDS: FLUCONAZOLE 100 MG TABLET. PO SCH (08:02)
[2018-03-11] MEDS: LACTOBACILLUS RHAMNOSUS GG 1 CAPSULE. PO SCH (08:03)
[2018-03-11] MEDS: amLODIPine BESYLATE 10 MG TABLET PO SCH (08:03)
[2018-03-11] MEDS: LINEZOLID 600 MG TABLET PO SCH (08:03)
[2018-03-11] MEDS: INSULIN LISPRO 300 UNITS/3 ML INSULN.PEN. SQ SCH ×3 (08:13→12:09)
--- NOTE | 2018-03-11 09:53 | PDOC ---
PROGRESS NOTES Chief Complaint Chief Complaint Right foot wound with osteomyelitis. s/p I and D 01/31. -Has had multiple recommendations for TMA and has refused. Right fifth toe amputation at [place]. Diabetes. hgba1c 11 PENICILLIN ALLERGY A CHILD. PAD - h/o angioplasty Noncompliance - ambulating frequently and leaving floor HTN HLD Tobaccoism History of Present Illness History of Present Illness Sugars still not ideal despite me increasing insulin yesterday 03/10/18 Hemoglobin A1c is elevated Patient says he tries to offload, he is walking around the halls maybe with a limp Plan Increase Lantus to 50 daily at bedtime from 45-might need to increase to 60 pending blood sugar today Increase NovoLog to 20 from 15 3 times a day mealtimes Keep sliding-scale insulin IV abx per ID Follow cultures Continue to offload that right foot Patient seen and examined discussed with him Vitals Vitals Vital Signs Date Time Temp Pulse Resp B/P (MAP) Pulse Ox O2 Delivery O2 Flow Rate FiO2 03/11/18 08:03 83 145/94 03/11/18 08:00 Room Air 03/11/18 07:00 98.3 16 100 98.3 Physical Exam Physical Exam GENERAL:Pt is AXOX3 male in nad HENT: Normal conjunctivae. Oral cavity pink and moist LILUNGS: Clear HEART: S1, S2 ABD: Obese, BS active, soft, NT EXT: No gross edema or cyanosis. 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 Wound bed covered with rough callus. Surrounding tissue with thickened callus. No active drainage. No surrounding edema or erythema. 2nd wound to right lateral foot. Wound bed 50% tendon, 50% granulation. Surrounding tissue with thickened callus. No drainage. No edema or erythema. Bedside debrided callus. Serial debridement will be needed following softening of callus. ) Labs LABS Laboratory Tests Test 03/10/18 11:28 03/10/18 16:29 03/10/18 20:21 03/11/18 07:25 Glucose (Fingerstick) 299 mg/dL (70-99) 263 mg/dL (70-99) 209 mg/dL (70-99) 240 mg/dL (70-99) Review of Systems Review of Systems A 14 point ROS was completed with the following noted as positive: Other systems reviewed and negative. \CONSTITUTIONAL: No fever or chills EYES: No recent changes SKIN: No rash or itching CARDIOVASCULAR: No chest pain, syncope, palpitations, or edema RESPIRATORY: No SOB or cough GASTROINTESTINAL: No nausea, vomiting or abdominal pain NEUROLOGICAL: No headaches or weakness ENDOCRINE: No cold or heat intolerance GENITOURINARY: No urgency or frequency of urination MUSCULOSKELETAL: No back pain or joint pain LYMPHATICS: No enlarged lymph nodes PSYCHIATRIC: No anxiety or depression Assessment and Plan Assessmemt and Plan Problems Medical Problems: (1) Chronic osteomyelitis Status: Acute (2) Uncontrolled diabetes mellitus Status: Acute Comment Review of Relevant I have reviewed the following items yuly (where applicable) has been applied. Labs Laboratory Tests Test 03/09/18 11:30 03/09/18 11:49 03/09/18 17:02 03/09/18 20:52 White Blood Count 6.4 x10^3/uL (4.0-11.0) Red Blood Count 4.28 x10^6/uL (4.30-5.70) Hemoglobin 13.5 g/dL (13.0-17.5) Hematocrit 38.2 % (39.0-53.0) Mean Corpuscular Volume 89 fL (79-100) Mean Corpuscular Hemoglobin 32 pg (25-35) Mean Corpuscular Hemoglobin Concent 35 g/dL (31-37) Red Cell Distribution Width 13.7 % (11.5-14.5) Platelet Count 185 x10^3/uL (140-400) Neutrophils (%) (Auto) 59 % (31-73) Lymphocytes (%) (Auto) 28 % (24-48) Monocytes (%) (Auto) 9 % (0-9) Eosinophils (%) (Auto) 4 % (0-3) Basophils (%) (Auto) 1 % (0-3) Neutrophils # (Auto) 3.8 x10^3uL (1.8-7.7) Lymphocytes # (Auto) 1.8 x10^3/uL (1.0-4.8) Monocytes # (Auto) 0.6 x10^3/uL (0.0-1.1) Eosinophils # (Auto) 0.2 x10^3/uL (0.0-0.7) Basophils # (Auto) 0.0 x10^3/uL (0.0-0.2) Sodium Level 141 mmol/L (136-145) Potassium Level 4.1 mmol/L (3.5-5.1) Chloride Level 104 mmol/L (98-107) Carbon Dioxide Level 28 mmol/L (21-32) Anion Gap 9 (6-14) Blood Urea Nitrogen 13 mg/dL (8-26) Creatinine 1.2 mg/dL (0.7-1.3) Estimated GFR (Cockcroft-Gault) 78.5 Glucose Level 152 mg/dL (70-99) Calcium Level 9.5 mg/dL (8.5-10.1) Glucose (Fingerstick) 153 mg/dL (70-99) 187 mg/dL (70-99) 373 mg/dL (70-99) Test 03/10/18 07:53 03/10/18 11:28 03/10/18 16:29 03/10/18 20:21 Glucose (Fingerstick) 261 mg/dL (70-99) 299 mg/dL (70-99) 263 mg/dL (70-99) 209 mg/dL (70-99) Test 03/11/18 07:25 Glucose (Fingerstick) 240 mg/dL (70-99) Laboratory Tests Test 03/10/18 11:28 03/10/18 16:29 03/10/18 20:21 03/11/18 07:25 Glucose (Fingerstick) 299 mg/dL (70-99) 263 mg/dL (70-99) 209 mg/dL (70-99) 240 mg/dL (70-99) Microbiology 03/09/18 Blood Culture - Preliminary, Resulted NO GROWTH AFTER 1 DAY 03/08/18 Anaerobic/Aerobic Culture, Resulted Pending 03/08/18 Anaerobic Culture Result 1 (OLIVA), Resulted Pending 03/08/18 Aerobic Culture, Resulted Pending 03/08/18 Aerobic Culture Result 1 (OLIVA), Resulted Pending 03/08/18 Gram Stain - Final, Resulted 03/08/18 Gram Stain Result 1 (OLIVA) - Final, Resulted 03/08/18 Gram Stain Result 2 (OLIVA) - Final, Resulted Medications Current Medications Sodium Chloride 1,000 ml @ 1,000 mls/hr 1X ONCE IV Last administered on 03/08at 21:48; Start 03/08/18 at 20:00; Stop 03/08/18 at 20:59; Status DC Morphine Sulfate (Morphine Sulfate) 5 mg 1X ONCE IV Last administered on 03/08at 21:47; Start 03/08/18 at 20:00; Stop 03/08/18 at 20:05; Status DC Ondansetron HCl (Zofran) 4 mg PRN Q8HRS PRN IV NAUSEA/VOMITING 1ST CHOICE; Start 03/08/18 at 22:15; Stop 03/09/18 at 08:11; Status DC Morphine Sulfate (Morphine Sulfate) 4 mg PRN Q2HR PRN IV SEVERE PAIN; Start at 22:15; Stop 03/09/18 at 22:14; Status DC Acetaminophen (Tylenol) 650 mg PRN Q4HRS PRN PO FEVER; Start 03/08/18 at 22:15 ; Stop 03/09/18 at 22:14; Status DC Insulin Human Lispro (HumaLOG) 0-5 UNITS TIDWMEALS SQ Last administered on 04/16at 07:34; Start 03/09/18 at 08:00; Stop 03/09/18 at 08:11; Status DC Dextrose (Dextrose 50%-Water Syringe) 12.5 gm PRN Q15MIN PRN IV SEE COMMENTS; Start 03/08/18 at 22:15; Stop 03/09/18 at 08:40; Status DC Meropenem 1 gm/ Sodium Chloride 100 ml @ 200 mls/hr Q8HRS IV Last administered on 03/11/18at 08:04; Start 03/08/18 at 23:00 Ondansetron HCl (Zofran) 4 mg PRN Q6HRS PRN IV NAUSEA/VOMITING 1ST CHOICE Last administered on 03/10/18at 07:27; Start 03/09/18 at 08:15 Oxycodone/ Acetaminophen (Percocet 10/325) 1 tab PRN Q4HRS PRN PO pain SEVERE; Start 03/09/18 at 08:15 Oxycodone/ Acetaminophen (Percocet 5/325) 1 tab PRN Q4HRS PRN PO PAIN MODERATE Last administered on 03/10/18at 08:27; Start 03/09/18 at 08:15 Nicotine (Nicoderm Cq 21mg) 1 patch PRN DAILY PRN TD SMOKING CESSATION; Start 03/09/18 at 08:15 Insulin Human Lispro (HumaLOG) 0-9 UNITS TIDWMEALS SQ Last administered on at 08:13; Start 03/09/18 at 12:00 Dextrose (Dextrose 50%-Water Syringe) 12.5 gm PRN Q15MIN PRN IV SEE COMMENTS; Start 03/09/18 at 08:15 Amlodipine Besylate (Norvasc) 10 mg DAILY PO Last administered on 03/11/18at 08 :03; Start 03/09/18 at 09:00 Atorvastatin Calcium (Lipitor) 40 mg QHS PO Last administered on 03/10/18at 21: 27; Start 03/09/18 at 21:00 Insulin Glargine (Lantus) 45 units QHS SQ Last administered on 03/10/18at 21:41 ; Start 03/09/18 at 21:00 Non-Formulary Medication (Ertapenem Sodium (Invanz)) 1 gm DAILY IJ ; Start 04/16 at 09:00; Stop 03/09/18 at 09:00; Status DC Insulin Human Lispro (HumaLOG) 10 units TIDWMEALS SQ Last administered on 03/10at 08:13; Start 03/09/18 at 12:00; Stop 03/10/18 at 09:58; Status DC Linezolid (Zyvox) 600 mg BID PO Last administered on 03/11/18at 08:03; Start 03/09/18 at 09:00 Fluconazole (Diflucan) 200 mg DAILY PO ; Start 03/09/18 at 09:00; Stop at 09:55; Status DC Fluconazole (Diflucan) 100 mg DAILY PO Last administered on 03/11/18at 08:02; Start 03/09/18 at 10:00 Doxycycline Hyclate (Vibra-Tab) 100 mg BID PO Last administered on 03/11/18at 08:02; Start 03/09/18 at 10:00 Alteplase, Recombinant (Cathflo) 2 mg 1X ONCE INT CAT ; Start 03/09/18 at 11: 00; Stop 03/09/18 at 11:01; Status DC Lactobacillus Rhamnosus (Culturelle) 1 cap BID PO Last administered on at 08:03; Start 03/09/18 at 21:00 Insulin Human Lispro (HumaLOG) 15 units TIDWMEALS SQ Last administered on 03/11at 08:14; Start 03/10/18 at 12:00 Zolpidem Tartrate (Ambien) 5 mg 1X ONCE PO Last administered on 03/10/18at 21: 57; Start 03/10/18 at 22:00; Stop 03/10/18 at 22:01; Status DC Active Scripts Active Hydrocodone-Apap 5-325 (Hydrocodone Bit/Acetaminophen) 1 Each Tablet 1 Tab PO PRN Q6HRS PRN Novolog Flexpen (Insulin Aspart) 100 Unit/1 Ml Insuln.pen 10 Unit SQ TIDAC [Fluconazole] 100 MG Tablet 200 Mg PO DAILY Invanz (Ertapenem Sodium) 1 Gm Vial 1 Gm IJ DAILY Lantus Solostar (Insulin Glargine,Hum.rec.anlog) 100 Unit/1 Ml Insuln.pen 45 Unit SQ QHS Doxycycline Hyclate 100 Mg Tablet 100 Mg PO BID Hydrocodone-Apap 5-325 (Hydrocodone Bit/Acetaminophen) 1 Each Tablet 1 Tab PO PRN Q4HRS PRN Reported Zyvox (Linezolid) 600 Mg Tablet 600 Mg PO BID Atorvastatin Calcium 40 Mg Tablet 1 Tab PO QHS Amlodipine Besylate 10 Mg Tablet 10 Mg PO DAILY Vitals/I & O Vital Sign - Last 24 Hours 03/10/18 03/10/18 03/10/18 03/10/18 11:00 15:00 19:00 20:00 Temp 97.7 98.0 98.2 97.7 98.0 98.2 Pulse 80 78 88 Resp 16 16 16 B/P (MAP) 169/91 (117) 132/76 (94) 141/85 (103) Pulse Ox 99 98 97 O2 Delivery Room Air Room Air Room Air Room Air 03/10/18 03/11/18 03/11/18 03/11/18 23:00 07:00 08:00 08:03 Temp 98.1 98.3 98.1 98.3 Pulse 75 83 83 Resp 16 16 B/P (MAP) 139/70 (93) 145/94 (111) 145/94 Pulse Ox 98 100 O2 Delivery Room Air Room Air Room Air Intake and Output 03/10/18 03/10/18 03/11/18 15:00 23:00 07:00 Intake Total 280 ml 1680 ml 100 ml Balance 280 ml 1680 ml 100 ml JAJA PORTER MD Mar 11, 2018 09:53
[2018-03-11 11:29] VITALS: BP 142/80
--- NOTE | 2018-03-11 11:32 | PDOC ---
Infectious Disease Note Subjective Subjective c/o foot pain No F/C/S ROS ROS per HPI otherwise neg Vital Sign Vital Signs Vital Signs Date Time Temp Pulse Resp B/P (MAP) Pulse Ox O2 Delivery O2 Flow Rate FiO2 03/11/18 08:03 83 145/94 03/11/18 08:00 Room Air 03/11/18 07:00 98.3 16 100 98.3 Physical Exam PHYSICAL EXAM GENERAL: Sitting on the side of the bed, NAD HENT: Normal conjunctivae. Oral cavity pink and moist LUNGS: Clear HEART: S1, S2 ABD: Obese, BS active, soft, NT EXT: No gross edema or cyanosis. Right foot wound bandaged SKIN: Warm w/o rash SAP ENTERPRISE PORTAL CONSULTANT: Alert, nonfocal RUE-PICC (POA) w/o signs of complications Labs Lab Laboratory Tests Test 03/10/18 11:28 03/10/18 16:29 03/10/18 20:21 03/11/18 07:25 Glucose (Fingerstick) 299 mg/dL (70-99) 263 mg/dL (70-99) 209 mg/dL (70-99) 240 mg/dL (70-99) Test 03/11/18 11:17 Glucose (Fingerstick) 197 mg/dL (70-99) Micro 03/09/18 Blood Culture - Preliminary, Resulted NO GROWTH AFTER 1 DAY ANAEROBIC-AEROBIC CULTURE PENDING ANAEROBIC RES 1 PENDING AEROBIC CULT PENDING AEROBIC RES 1 PENDING GRAM STAIN Final Final report GRAM STAIN RES 1 Final Comment Rare gram negative rods. Objective Assessment Right foot wound with osteomyelitis. s/p I and D 01/31. GNR - Has had multiple recommendations for TMA and has refused. - Has been on IV antibiotics Invanz and doxycycline but missed last 5 days of tx - ESR 26, CRP 3 - Foot x ray reviewed Right fifth toe amputation at [place]. Diabetes. PENICILLIN ALLERGY A CHILD. PAD - h/o angioplasty HTN HLD Tobaccoism, says knows need to quit Noncompliance - ambulating frequently and leaving floor per RN Dry skin Nausea Plan Plan of Care Continue meropenem, fluconazole and doxycycline Cont local wound care FU ID and OLIVA GNR D/W Pt again that if he continues to walk he will not heal optimally He needs to off load as much as possible Also he has been recommended TMA here and at [place],he refuses F/U labs Continue local wound care Attending Co-Sign The patient was seen and interviewed as well as examined at the bedside. The chart was reviewed. The case was discussed. Agree with the plan of care. ANASTASIA GLEASON APRN Mar 11, 2018 11:32 GEOFFREY WHITE MD Mar 11, 2018 14:34
[2018-03-11] MEDS ORDERED: INSULIN LISPRO 300 UNITS/3 ML INSULN.PEN. SQ SCH (12:00)
[2018-03-11] MEDS ORDERED: INSU100I13 SQ (15:19)
[2018-03-11] MEDS ORDERED: INSU100I11 SQ (15:19)
--- NOTE | 2018-03-11 15:24 | PDOC3 ---
Discharge Summary Visit Information Date of Admission: Mar 09, 2018 Date of Discharge: Mar 11, 2018 Admitting Diagnosis Comment: Right foot wound with osteomyelitis. s/p I and D 01/31. -Has had multiple recommendations for TMA and has refused. Right fifth toe amputation at [place]. Diabetes. hgba1c 11 PENICILLIN ALLERGY A CHILD. PAD - h/o angioplasty Noncompliance - ambulating frequently and leaving floor HTN HLD Tobaccoism Final Diagnosis Problems Medical Problems: (1) Chronic osteomyelitis Status: Acute (2) Uncontrolled diabetes mellitus Status: Acute Brief Hospital Course Allergies Allergies Coded Allergies Type Severity Reaction Last Updated Verified lisinopril Allergy Severe ANGIOEDEMA 01/07/18 Yes Penicillins Allergy Intermediate 01/30/18 Yes Vital Signs Vital Signs Date Time Temp Pulse Resp B/P (MAP) Pulse Ox O2 Delivery O2 Flow Rate FiO2 03/11/18 11:29 98.5 87 16 142/80 (100) 97 Room Air 98.5 Lab Results Laboratory Tests Test 03/09/18 17:02 03/09/18 20:52 03/10/18 07:53 03/10/18 11:28 Glucose (Fingerstick) 187 mg/dL (70-99) 373 mg/dL (70-99) 261 mg/dL (70-99) 299 mg/dL (70-99) Test 03/10/18 16:29 03/10/18 20:21 03/11/18 07:25 03/11/18 11:17 Glucose (Fingerstick) 263 mg/dL (70-99) 209 mg/dL (70-99) 240 mg/dL (70-99) 197 mg/dL (70-99) Laboratory Tests Test 03/10/18 16:29 03/10/18 20:21 03/11/18 07:25 03/11/18 11:17 Glucose (Fingerstick) 263 mg/dL (70-99) 209 mg/dL (70-99) 240 mg/dL (70-99) 197 mg/dL (70-99) Brief Hospital Course Mr. Zuñiga is a 47 old [sex] who presented with [ ]chronic osteo of the RT foot , some non compliance, always bears weight on that ext when instructed not to do so. DM uncontrolled, needed to inc novolog from 10 TID to 20 TID and inc levemir to 50 SQ qhs PO abx okayed by ID non toxic, Home with no pT need, just local wound are. REfusing amputation as prev recommended in past multiple admits. 2 notes today Consults: ID Proc; none Remove PICC prior to dc Discharge Information Condition at Discharge: Improved, Stable Disposition/Orders: D/C to Home Scheduled Amlodipine Besylate (Amlodipine Besylate) 10 Mg Tablet, 10 MG PO DAILY, ( Reported) Entered as Reported by: JOVANA FUCHS on 01/10/181041 Last Action: Continued on 03/09/18810 by JAJA PORTER Atorvastatin Calcium (Atorvastatin Calcium) 40 Mg Tablet, 1 TAB PO QHS, #90 Ref 3 (Reported) Entered as Reported by: JOVANA FUCHS on 01/10/181041 Last Action: Continued on 03/09/18810 by JAJA PORTER Doxycycline Hyclate (Doxycycline Hyclate) 100 Mg Tablet, 100 MG PO BID, #50 Prescribed by: EUSEBIO ALBERT on 02/02/18 1233 Last Action: HELD on 03/09/18810 by JAJA PORTER Ertapenem Sodium (Invanz) 1 Gm Vial, 1 GM IJ DAILY, #14 Prescribed by: EUSEBIO ALBERT on 03/02/18851 Last Action: Converted on 03/09/18810 by JAJA PORTER Insulin Aspart (Novolog Flexpen) 100 Unit/1 Ml Insuln.pen, 10 UNIT SQ TIDAC, #2 Ref 2 Prescribed by: EUSEBIO ALBERT on 03/02/18919 Last Action: Converted on 03/09/18810 by JAJA PORTER Insulin Glargine,Hum.rec.anlog (Lantus Solostar) 100 Unit/1 Ml Insuln.pen, 45 UNIT SQ QHS, #15 Ref 3 Prescribed by: EUSEBIO ALBERT on 03/02/18851 Last Action: Continued on 03/09/18810 by JAJA PORTER Linezolid (Zyvox) 600 Mg Tablet, 600 MG PO BID, (Reported) Entered as Reported by: HANANE BRENNAN RN on 03/09/18633 Last Taken: UNKNOWN on Unknown Date & Time Last Action: Converted on 04/16 by JAJA PORTER [Fluconazole] 100 MG TABLET, 200 MG PO DAILY, #7 Prescribed by: EUSEBIO ALBERT on 03/02/18851 Last Action: Converted on 03/09/18810 by JAJA PORTER Scheduled PRN Hydrocodone Bit/Acetaminophen (Hydrocodone-Apap 5-325 ) 1 Each Tablet, 1 TAB PO PRN Q4HRS PRN for MILD PAIN, #30 Prescribed by: EUSEBIO ALBERT on 02/02/18 1111 Last Action: HELD on 03/09/18810 by JAJA PORTER Hydrocodone Bit/Acetaminophen (Hydrocodone-Apap 5-325 ) 1 Each Tablet, 1 TAB PO PRN Q6HRS PRN for PAIN, #30 Ref 0 Prescribed by: EUSEBIO ALBERT on 03/02/18919 Last Action: HELD on 03/09/18810 by JAJA RIVERO MD Mar 11, 2018 15:24
[2018-03-11] MEDS ORDERED: AMOX1TAB10 PO (15:35)
[2018-03-11] MEDS ORDERED: INSULIN GLARGINE 300 UNITS/3 ML INSULN.PEN. SQ SCH (21:00)
== END 2018-03-11 19:42 | disposition home or self-care (01) | DRG 638 ==
LOC: ER 18:16 → 4 NORTH 21:52
PROVIDERS: ADMIT Internal Medicine; ATTEND Internal Medicine
DX: E11.69 Type 2 diabetes mellitus with other specified complication (principal); M86.171 Other acute osteomyelitis, right ankle and foot; M86.671 Other chronic osteomyelitis, right ankle and foot; E11.52 Type 2 diabetes mellitus with diabetic peripheral angiopathy with gangrene; I96 Gangrene, not elsewhere classified; E11.65 Type 2 diabetes mellitus with hyperglycemia; E11.42 Type 2 diabetes mellitus with diabetic polyneuropathy; E78.00 Pure hypercholesterolemia, unspecified; J45.909 Unspecified asthma, uncomplicated; I10 Essential (primary) hypertension; E78.5 Hyperlipidemia, unspecified; F17.200 Nicotine dependence, unspecified, uncomplicated; Z79.899 Other long term (current) drug therapy; Z88.0 Allergy status to penicillin; Z88.8 Allergy status to other drugs, medicaments and biological substances; Z59.0 Homelessness; Z89.421 Acquired absence of other right toe(s); Z91.19 Patient's noncompliance with other medical treatment and regimen; E11.621 Type 2 diabetes mellitus with foot ulcer
CPT/HCPCS: 36415; 73630; 80048; 80053; 80307; 81001; 82962; 85025; 85651; 86140; 87040; 87071; 87075; 96360; G0480; J1815; J2185; J2270; J2405; J7030; 99285-25; G0479

== ENCOUNTER 2018-03-23 06:29 | Emergency (ER) | payer MEDICAID ==
[~2018-03-23] VITALS: Ht 185.4 cm; Wt 111.1 kg
[~2018-03-23 06:29] MED LIST changes: +AMOX1TAB10 PO
--- NOTE | 2018-03-23 07:49 | RAD ---
Right foot, 3 views, 03/23/2018: HISTORY: Foot wound Comparison is made to a study from 03/08/2018. There has been amputation of the great toe at the level of the distal first metatarsal. Cortical irregularity of the stump at the amputation site is unchanged. There is a bony fragment which is displaced proximally which is unchanged. There are erosive changes along both sides of the second MTP joint with subluxation at that joint, also unchanged. A lesser degree erosive change at the third MTP joint level is also unchanged. The area of current interest is reportedly at the fifth MTP joint level where a gas-containing ulcer is seen in the plantar soft tissues. There is mild spurring and cortical irregularity along the lateral aspect of the proximal end of the proximal phalanx of the fifth toe which appears unchanged. No definite acute bone destruction is seen. There is moderate diffuse soft tissue swelling. IMPRESSION: 1. Chronic findings as described above. 2. No new bony abnormality is detected. Electronically signed by: Johnson Zheng MD (03/23/2018 7:47 AM) [facility]
[2018-03-23 08:24] LABS: BASO # 0.1 x10^3/uL (0.0-0.2); BASO % 1 % (0-3); EOS # 0.1 x10^3/uL (0.0-0.7); EOS % 2 % (0-3); HEMATOCRIT 36.7 % (39.0-53.0); HEMOGLOBIN 13.1 g/dL (13.0-17.5); LYMPH # 1.9 x10^3/uL (1.0-4.8); LYMPH % 25 % (24-48); MEAN CORPUSCULAR HEMOGLOBIN 32 pg (25-35); MEAN CORPUSCULAR HGB CONC 36 g/dL (31-37); MEAN CORPUSCULAR VOLUME 89 fL (79-100); MONO # 0.5 x10^3/uL (0.0-1.1); MONO % 7 % (0-9); NEUT % 65 % (31-73); PLATELET COUNT 187 x10^3/uL (140-400); RED BLOOD COUNT 4.15 x10^6/uL (4.30-5.70); RED CELL DISTRIBUTION WIDTH 14.1 % (11.5-14.5); WHITE BLOOD COUNT 7.7 x10^3/uL (4.0-11.0)
[2018-03-23 08:40] LABS: CALCIUM 9.2 mg/dL (8.5-10.1); GFR 96.5; POTASSIUM 3.8 mmol/L (3.5-5.1)
[2018-03-23 08:45] LABS: ALBUMIN 3.7 g/dL (3.4-5.0); ALBUMIN/GLOBULIN RATIO 0.9 (1.0-1.7); C-REACTIVE PROTEIN 3.9 mg/L (0-3.3); TOTAL BILIRUBIN 0.3 mg/dL (0.2-1.0); TOTAL PROTEIN 7.8 g/dL (6.4-8.2)
[2018-03-23] MEDS ORDERED: SULF1TAB24 PO (09:27)
[2018-03-23 09:30] VITALS: BP 162/98
[2018-03-23] MEDS ORDERED: SMZ/TMP 800/160MG TABLET. PO ONE (09:30)
--- NOTE | 2018-03-23 12:30 | PHYS DOC ---
Past Medical History Past Medical History: Asthma, Diabetes-Type II, High Cholesterol, Hypertension Past Surgical History: Other Additional Past Surgical Histo: RIGHT TOE AMPUTATION,HERNIA Alcohol Use: Occasionally Drug Use: None Adult General Chief Complaint Chief Complaint: FOOT INJURY PAIN HPI HPI Patient is a 48 year old -Thai Thai male with history of hypertension, diabetes, diabetic foot ulcer with a dictation of right great toe[ ] Review of Systems Review of Systems Constitutional: Denies fever or chills [] Eyes: Denies change in visual acuity, redness, or eye pain [] HENT: Denies nasal congestion or sore throat [] Respiratory: Denies cough or shortness of breath [] Cardiovascular: No additional information not addressed in HPI [] GI: Denies abdominal pain, nausea, vomiting, bloody stools or diarrhea [] : Denies dysuria or hematuria [] Musculoskeletal: Denies back pain or joint pain [] Integument: Denies rash or skin lesions [] Neurologic: Denies headache, focal weakness or sensory changes [] Endocrine: Denies polyuria or polydipsia [] All other systems were reviewed and found to be within normal limits, except as documented in this note. Current Medications Current Medications Current Medications Medications (Trade) Dose Ordered Sig/Dick Start Time Stop Time Status Last Admin Dose Admin Trimethoprim/ Sulfamethoxazole (Bactrim Ds) 1 tab 1X ONCE 03/23/18 09:30 03/23/18 09:31 DC Allergies Allergies Allergies Coded Allergies Type Severity Reaction Last Updated Verified lisinopril Allergy Severe ANGIOEDEMA 01/07/18 Yes Penicillins Allergy Intermediate 01/30/18 Yes Physical Exam Physical Exam Constitutional: Well developed, well nourished, no acute distress, non-toxic appearance. [] HENT: Normocephalic, atraumatic, bilateral external ears normal, oropharynx moist. [] Eyes: PERRLA, EOMI, conjunctiva normal. [] Neck: Normal range of motion, no tenderness. [] Extremities: Right foot, Great toe amputation, plantar healing wound, chronic and healing, right lateral forefoot ulcer, pink, no drainage or foul odor.. [] Neurologic: Alert and oriented X 3, normal motor function, normal sensory function, no focal deficits noted. [] Psychologic: Affect normal, judgement normal, mood normal. [] Current Patient Data Vital Signs Vital Signs Date Time Temp Pulse Resp B/P (MAP) Pulse Ox O2 Delivery O2 Flow Rate FiO2 03/23/18 09:30 87 18 162/98 (119) 97 Room Air 03/23/18 06:31 98.3 98.3 Lab Values Laboratory Tests Test 03/23/18 08:10 White Blood Count 7.7 x10^3/uL (4.0-11.0) Red Blood Count 4.15 x10^6/uL (4.30-5.70) L Hemoglobin 13.1 g/dL (13.0-17.5) Hematocrit 36.7 % (39.0-53.0) L Mean Corpuscular Volume 89 fL (79-100) Mean Corpuscular Hemoglobin 32 pg (25-35) Mean Corpuscular Hemoglobin Concent 36 g/dL (31-37) Red Cell Distribution Width 14.1 % (11.5-14.5) Platelet Count 187 x10^3/uL (140-400) Neutrophils (%) (Auto) 65 % (31-73) Lymphocytes (%) (Auto) 25 % (24-48) Monocytes (%) (Auto) 7 % (0-9) Eosinophils (%) (Auto) 2 % (0-3) Basophils (%) (Auto) 1 % (0-3) Neutrophils # (Auto) 5.0 x10^3uL (1.8-7.7) Lymphocytes # (Auto) 1.9 x10^3/uL (1.0-4.8) Monocytes # (Auto) 0.5 x10^3/uL (0.0-1.1) Eosinophils # (Auto) 0.1 x10^3/uL (0.0-0.7) Basophils # (Auto) 0.1 x10^3/uL (0.0-0.2) Erythrocyte Sedimentation Rate 30 (0-15) H Sodium Level 141 mmol/L (136-145) Potassium Level 3.8 mmol/L (3.5-5.1) Chloride Level 103 mmol/L (98-107) Carbon Dioxide Level 26 mmol/L (21-32) Anion Gap 12 (6-14) Blood Urea Nitrogen 11 mg/dL (8-26) Creatinine 1.0 mg/dL (0.7-1.3) Estimated GFR (Cockcroft-Gault) 96.5 BUN/Creatinine Ratio 11 (6-20) Glucose Level 122 mg/dL (70-99) H Calcium Level 9.2 mg/dL (8.5-10.1) Total Bilirubin 0.3 mg/dL (0.2-1.0) Aspartate Amino Transferase (AST) 17 U/L (15-37) Alanine Aminotransferase (ALT) 22 U/L (16-63) Alkaline Phosphatase 83 U/L (46-116) C-Reactive Protein, Quantitative 3.9 mg/L (0-3.3) H Total Protein 7.8 g/dL (6.4-8.2) Albumin 3.7 g/dL (3.4-5.0) Albumin/Globulin Ratio 0.9 (1.0-1.7) L Laboratory Tests 03/23/18 08:10 Laboratory Tests 03/23/18 08:10 EKG EKG [] Radiology/Procedures Radiology/Procedures [Xr R foot: no acute ds per radiology report] Course & Med Decision Making Course & Med Decision Making Pertinent Labs and Imaging studies reviewed. (See chart for details) [Chronic nonhealing right foot wound, does not appear to be acutely infected. Lab work, x-ray obtained With equivocal finding. Case discussed with Dr. Ann and's infectious disease doctor. Recommendations are for outpatient treatment with PCP follow-up. Return precautions reviewed.] Dragon Disclaimer Dragon Disclaimer This electronic medical record was generated, in whole or in part, using a voice recognition dictation system. Departure Departure Impression: Primary Impression: Diabetic foot ulcer Disposition: HOME, SELF-CARE Condition: GOOD Patient Instructions: Diabetes and Foot Care Additional Instructions: Please take Bactrim DS for treatment of right foot, wound infection. Follow-up with your PCP and/or wound care doctor in the next 2-3 days for reevaluation.. Scripts Sulfamethoxazole/Trimethoprim (BACTRIM DS TABLET) 1 Each Tablet 1 TAB PO BID, #20 TAB Prov: JULISSA SIMON DO 03/23/18 JULISSA SIMON DO Mar 23, 2018 12:30
== END 2018-03-23 09:58 | disposition home or self-care (01) ==
LOC: ER 06:29
DX: E11.621 Type 2 diabetes mellitus with foot ulcer (principal); L97.518 Non-pressure chronic ulcer of other part of right foot with other specified severity; I10 Essential (primary) hypertension; J45.909 Unspecified asthma, uncomplicated; E78.00 Pure hypercholesterolemia, unspecified; Z88.0 Allergy status to penicillin; Z88.8 Allergy status to other drugs, medicaments and biological substances
CPT/HCPCS: 36415; 73630; 80053; 85025; 85651; 86140; 87040; 99285-25

== ENCOUNTER 2020-01-14 20:22 | Inpatient (IN) | payer OTHER, MEDICAID ==
[~2020-01-14] VITALS: Ht 182.9 cm; Wt 105.3 kg
[~2020-01-14 20:22] MED LIST changes: -AMLO10TA6 PO; +AMLO10TA8 PO; -ERTA1VIA IJ; +ERTA1VIA16 IJ; -HYDR-2758 PO; +HYDR-2761 PO; -LINE600T PO; +LINE600T12 PO; +SULF1TAB24 PO
--- NOTE | 2020-01-14 22:54 | PHYS DOC ---
Past Medical History Past Medical History: Asthma, Diabetes-Type II, High Cholesterol, Hypertension Past Surgical History: Other Additional Past Surgical Histo: LEFT TOE AMPUTATION,HERNIA Smoking Status: Current Every Day Smoker Alcohol Use: Occasionally Drug Use: None General Adult EDM: Chief Complaint: WOUND CHECK HPI: HPI: Patient is a 49 year old male who presents with chronic ulcer of the left foot. Patient had a first digit amputation from the left foot about 9 years ago. He stated to me that about 2 months ago he noted that that the foot started to change and that there was some blackness of that wound area and there was some swelling of the foot. He is a very difficult historian and and became irritated when I asked specific questions about what has changed recently that brought him into the emergency room. I finally got him to admit that he was admitted to [facility] and [facility] because they were talking about doing in mid tarsal foot amputation. He has had midtarsal foot amputation on the right side for similar diabetic infectious problems. He has had a history of osteomyelitis as well. Here he denies fever, chills, chest pain, shortness of breath, abdominal pain, change in smell or taste, nausea or vomiting, diarrhea. Review of Systems: Review of Systems: Constitutional: Denies fever or chills. [] Eyes: Denies change in visual acuity. [] HENT: Denies nasal congestion or sore throat. [] Respiratory: Denies cough or shortness of breath. [] Cardiovascular: Denies chest pain or edema. [] GI: Denies abdominal pain, nausea, vomiting, bloody stools or diarrhea. [] : Denies dysuria. [] Musculoskeletal: See H PI [] Integument: Denies rash. [] Neurologic: Denies headache, focal weakness or sensory changes. [] Endocrine: Denies polyuria or polydipsia. [] Lymphatic: Denies swollen glands. [] Psychiatric: Denies depression or anxiety. [] Heart Score: Risk Factors: Risk Factors: DM, Current or recent (<one month) smoker, HTN, HLP, family history of CAD, obesity. Risk Scores: Score 0 - 3: 2.5% MACE over next 6 weeks - Discharge Home Score 4 - 6: 20.3% MACE over next 6 weeks - Admit for Clinical Observation Score 7 - 10: 72.7% MACE over next 6 weeks - Early Invasive Strategies Allergies: Allergies: Allergies Coded Allergies Type Severity Reaction Last Updated Verified lisinopril Allergy Severe ANGIOEDEMA 01/07/18 Yes vancomycin Allergy Severe SOB 01/14/20 Yes Penicillins Allergy Intermediate 01/30/18 Yes Physical Exam: PE: Constitutional: Well developed, well nourished, no acute distress, non-toxic appearance. [] HENT: Normocephalic, atraumatic, bilateral external ears normal, oropharynx moist, no oral exudates, nose normal. [] Eyes: PERRLA, EOMI, conjunctiva normal, no discharge. [] Neck: Normal range of motion, no tenderness, supple, no stridor. [] Cardiovascular:Heart rate regular rhythm, no murmur [] Lungs & Thorax: Bilateral breath sounds clear to auscultation [] Abdomen: Bowel sounds normal, soft, no tenderness, no masses, no pulsatile masses. [] Skin: Warm, dry, no erythema, no rash. [] Back: No tenderness, no CVA tenderness. [] Extremities: Upper appendicular skeleton without any deformity and full range of motion, midtarsal foot amputation of the right with nonpalpable pulses on the right trace edema, left foot first toe amputation with eschar and healed wound with some mild calor and edema of the foot. No palpable pulses, capillary refill was greater than 2 seconds.. [] Neurologic: Alert and oriented X 3, normal motor function, normal sensory f unction, no focal deficits noted. [] Psychologic: Affect flat, judgement normal, mood depressed. [] Current Patient Data: Vital Signs: Vital Signs Date Time Temp Pulse Resp B/P (MAP) Pulse Ox O2 Delivery O2 Flow Rate FiO2 01/14/20 20:30 98.4 77 18 146/88 (107) 97 Room Air 98.4 EKG: EKG: [] Radiology/Procedures: Radiology/Procedures: [] Course & Med Decision Making: Course & Med Decision Making Pertinent Labs and Imaging studies reviewed. (See chart for details) 0311-patient was seen and reevaluated on multiple occasions over his hospitalization here in the emergency department. Patient did tolerate the medications well. Patient is allergic to vancomycin and I am not certain what to place him on and will consult infectious disease in the morning. The patient will be admitted to the hospitalist. [] Dragon Disclaimer: Matheus Disclaimer: This electronic medical record was generated, in whole or in part, using a voice recognition dictation system. Departure Departure Impression: Primary Impression: Diabetic foot ulcer Qualified Codes: E10.621 - Type 1 diabetes mellitus with foot ulcer; L97.524 - Non-pressure chronic ulcer of other part of left foot with necrosis of bone Additional Impression: Osteomyelitis Qualified Codes: M86.372 - Chronic multifocal osteomyelitis, left ankle and foot Disposition: 09 ADMITTED INPATIENT Condition: GOOD Referrals: NO PCP (PCP) Justicifation of Admission Dx: Justifications for Admission: Justification of Admission Dx: Yes Comments: Diabetic foot infection with osteomyelitis ELENA NAYAK MD Jan 14, 2020 22:54
[2020-01-14 23:31] LABS: CALCIUM 9.3 mg/dL (8.5-10.1); CREATININE 0.9 mg/dL (0.7-1.3); GFR 108.5; POTASSIUM 4.1 mmol/L (3.5-5.1)
[2020-01-14 23:37] LABS: ALBUMIN 3.4 g/dL (3.4-5.0); ALBUMIN/GLOBULIN RATIO 0.8 (1.0-1.7); TOTAL BILIRUBIN 0.2 mg/dL (0.2-1.0); TOTAL PROTEIN 7.8 g/dL (6.4-8.2)
--- NOTE | 2020-01-14 23:46 | RAD ---
INDICATION: Reason: POSSIBLE OSTEOMYELITIS / Spl. Instructions: / History: . Ulcer. COMPARISON: None. IMPRESSION: Left foot: 3 views obtained. Postamputation changes at the first digit at the level of the mid metatarsal. There is overlying soft tissue defect which appears to extend to the cortex. Could be secondary to ulceration within the region given the proximity to the cortex the patient would be at high risk for osteomyelitis. Destructive changes are seen at the second metatarsophalangeal joint of unknown age. This could be secondary to destructive changes from osteomyelitis. There is also a similar appearance at the third proximal interphalangeal joint and to a lesser degree as well as lucency at the fourth metatarsal head. These could be secondary to destruction from osteomyelitis of unknown age. If more accurate characterization is desired MRI or bone scan could better assess acuity of these findings. Swelling of soft tissues. Electronically signed by: Delmer Chahal MD (01/14/2020 11:43 PM) [id number]
[2020-01-15] MEDS ORDERED: CEFEPIME HCL IV Push 2 GM VIAL. IVP ONE (00:30)
[2020-01-15] MEDS ORDERED: fentaNYL PF VIAL 100 MCG/2 ML VIAL IV PRN (03:15)
[2020-01-15] MEDS ORDERED: MORPHINE SULFATE 4 MG/ML VIAL. IV PRN (03:15)
[2020-01-15] MEDS ORDERED: IV NORMAL SALINE 1000ML BAG 1,000 ML IV SCH (03:30)
[2020-01-15 05:49] VITALS: BP 140/85
[2020-01-15] MEDS: HYDROcodone/APAP 10/325 1 TAB TABLET PO PRN ×3 (06:01→18:06)
[2020-01-15 07:00] VITALS: BP 127/92
[2020-01-15] MEDS ORDERED: INSU100V8 SQ (08:16)
[2020-01-15] MEDS ORDERED: INSU100I17 SQ (08:16)
[2020-01-15] MEDS: amLODIPine BESYLATE 10 MG TABLET PO SCH (09:41)
[2020-01-15] MEDS ORDERED: INSULIN LISPRO 300 UNITS/3 ML VIAL. SQ ONE (09:45)
[2020-01-15 11:00] VITALS: BP 139/86
--- NOTE | 2020-01-15 11:11 | NUR ---
SS following for discharge planning. SS reviewed pt chart and discussed with pt RN. Pt is currently on room air. Wound care and Dr. Mederos following. SS will continue to follow for discharge planning.
[2020-01-15] MEDS: INSULIN LISPRO 300 UNITS/3 ML VIAL. SQ SCH ×2 (12:12→17:37)
--- NOTE | 2020-01-15 13:46 | HP ---
ADMIT DATE: 01/15/2020 CHIEF COMPLAINT: Foot ulcer. HISTORY OF PRESENT ILLNESS: The patient is a pleasant 49-year-old male who already had a transmetatarsal amputation on the right. Now, his left foot is infected. It looks like he may be heading towards another surgery on that side. He apparently left against medical advice from another facility, I think it was [facility] because they wanted to do [id number] amputation. This has been going on for quite a few years. He has got diabetes and peripheral vascular disease. I discussed the case with the ER physician. We have admitted the patient with consultation to Dr. Mederos, Orthopedics. PAST MEDICAL HISTORY: Noncompliance, peripheral vascular disease, transmetatarsal amputation, asthma, diabetes, hyperlipidemia, hypertension, tobacco abuse. ALLERGIES: PENICILLIN, LISINOPRIL, AND VANCOMYCIN. FAMILY HISTORY: Coronary artery disease. SOCIAL HISTORY: He does not admit to any drinking, smoking or drugs currently. MEDICATIONS: Reviewed, please refer to the MRAD. REVIEW OF SYSTEMS: GENERAL: No history of weight change, weakness or fevers. SKIN: No bruising, hair changes or rashes. EYES: No blurred, double or loss of vision. NOSE AND THROAT: No history of nosebleeds, hoarseness or sore throat. HEART: No history of palpitations, chest pain or shortness of breath on exertion. LUNGS: Denies cough, hemoptysis, wheezing or shortness of breath. GASTROINTESTINAL: Denies changes in appetite, nausea, vomiting, diarrhea or constipation. GENITOURINARY: No history of frequency, urgency, hesitancy or nocturia. NEUROLOGIC: Denies history of numbness, tingling, tremor or weakness. PSYCHIATRIC: No history of panic, anxiety or depression. ENDOCRINE: No history of heat or cold intolerance, polyuria or polydipsia. EXTREMITIES: Denies muscle weakness, joint pain, pain on walking or stiffness. PHYSICAL EXAMINATION: VITALS: Within normal limits and are stable. GENERAL: No apparent distress. Alert and oriented. HEENT: Normal cephalic atraumatic, external auditory canals are patent. Eyes: Extraocular muscles are intact, pupils are equally round and reactive to light and accommodation. MUSCULOSKELETAL: Well developed, well nourished, good range of motion. ENDOCRINE: No thyromegaly was palpated. LYMPHATICS: No cervical chain or axillary nodes were noted. HEMATOPOIETIC: No bruising. NECK: Supple, no JVD, no thyromegaly was noted. LUNGS: Clear to auscultation in all lung adams without rhonchi or wheezing. HEART: RRR, S1, S2 present. Peripheral pulses intact, no obvious murmurs were noted. ABDOMEN: Soft, nontender. Positive bowel sounds no organomegaly, normal bowel sounds. EXTREMITIES: He has a right transmetatarsal amputation. The left foot also has a toe missing. There is a large amount of infection at the base of the previous amputation. Please see the pictures. NEUROLOGIC: Normal speech, normal tone. A & O x3, moves all extremities, no obvious focal deficits. PSYCHIATRIC: Normal affect, normal mood. Stable. SKIN: No ulcerations or rashes, good skin turgor, no jaundice. VASCULAR: Good capillary refill, neurovascular bundle appears to be intact. ASSESSMENT AND PLAN: Peripheral vascular disease with progression of foot wound. Suspect he is going to need another transmetatarsal amputation, but for now we have consulted Dr. Mederos. We would like to have Vascular Surgery see him as well. For now, IV antibiotics, wound care, home meds, DVT prophylaxis. Full code. MARY LESLIE DO DR: MEHRAN/belkis JOB#: [id number] / [id number]
[2020-01-15 15:04] VITALS: BP 137/88
--- NOTE | 2020-01-15 16:24 | NUR ---
Wound Care Wound care consult for DFU to left great toe amp site. Pt has hard dry callous over amp site, dressed with saline moistened Aquacel ag, ABD, and Kerlix, change every other day. Pt also has DFU to right lateral foot, pictured and measured, dressed with Aquacel ag packing and covered with ABD and Kerlix. Pt educated on PU prevention, pt declined full skin inspection. No other wounds noted. WC will continue to follow for possible changes.
[2020-01-15] MEDS: MEROPENEM 500 MG in IV NORMAL SALINE 50ML 50 ML IV SCH (17:22)
[2020-01-15] MEDS: DAPTOmycin (GENERIC) IVPB 530 MG in IV NORMAL SALINE 50ML 50 ML IV SCH (18:06)
[2020-01-15 18:54] VITALS: BP 171/96
[2020-01-15] MEDS ORDERED: INSULIN GLARGINE SYRINGE. SQ SCH (21:00)
[2020-01-15] MEDS: ATORVASTATIN CALCIUM 40 MG TABLET. PO SCH (21:28)
--- NOTE | 2020-01-15 21:51 | CONS ---
DATE OF CONSULTATION: 01/15/2020 ORTHOPEDIC CONSULTATION REASON FOR CONSULTATION: Left foot infection. HISTORY OF PRESENT ILLNESS: The patient is a very pleasant 49-year-old male who has diabetes and peripheral vascular disease, who has had a fairly long-term infection in the left foot and previously had a great toe amputation on that side and had previously had a transmetatarsal amputation on the contralateral right side. He indicates quite a complex history of some previous infections and surgeries on the left foot, but particularly it was recommended I guess at [facility] that he have a below-knee amputation. He is not on board with that at this point and left and came to [facility] instead for another opinion. He was told in the past that the transmetatarsal amputation site on the right was infected and he would have to have a below-knee amputation as well and indicates that this area had healed well in the past despite that recommendation. PAST MEDICAL HISTORY: Significant for diabetes that is somewhat poorly controlled along with hyperlipidemia, hypertension, peripheral vascular disease, and tobacco use as well as asthma. PAST SURGICAL HISTORY: Surgeries on the left foot as well as transmetatarsal amputation on the right. ALLERGIES: INCLUDE VANCOMYCIN, PENICILLIN AND LISINOPRIL. FAMILY HISTORY: Heart disease. SOCIAL HISTORY: Denies current smoking, alcohol or drug use, but did smoke in the past. MEDICATIONS: List is reviewed. REVIEW OF SYSTEMS: Significant for the left foot infection along with some drainage and pain and the history as outlined above of right transmetatarsal amputation. Denies any current fever, chills, radiating pain, shortness of breath, chest pain or other constitutional symptoms and little inconsistent information about his smoking history overall. PHYSICAL EXAMINATION: GENERAL: A pleasant, cooperative 49-year-old male, alert and oriented, no acute distress, pleasant, conversational and cooperative. EXTREMITIES: On examination of the lower extremities, he has a healed transmetatarsal amputation on the right. Left great toe is missing and he has an open wound at the base of his great toe amputation and some pain with movement of the lesser toes, particularly adjacent to the great toe. There does not seem to be surrounding redness or erythema. His distal pulses are weak, but warm and he does have a small ulcerated area on the right foot, but nothing deep. He has normal alignment and stability of bilateral hips, knees and ankles and walks around with excellent balance despite the transmetatarsal amputation on the right and great toe amputation on the left. IMAGING: X-rays show an extensive deformity with some bony abnormality in the left metatarsal head area. Extensive destruction of the metatarsal heads and remaining portion of the phalanges in the third and fourth rays of the left toe and some bony changes in the fourth metatarsal head noted as well. IMPRESSION: Poorly controlled diabetes, peripheral vascular disease and left foot infection. History of left great toe, transmetatarsal amputation on the right and x-ray evidence of osteomyelitis in the distal portion of the left foot. TREATMENT PLAN: I did discuss with him that I think we need to gain a lot more information in terms of the extent of the bony infection and his vascular supply and ability to heal any surgical area, which also needs good blood supply for healing, covering skin as well as eliminating any infection. I talked about the difficulty of a resolving infection in the bone, but I think again a lot more information in terms of vascular studies, perhaps even an MRI of his foot is needed to characterize further his ability to heal the area and type of surgery recommended to be done. A vascular consult is pending and I think that additional information in their evaluation of whether perhaps even a revascularization would help this otherwise young and very active individual. I will continue to follow from an orthopedic standpoint as well. LEONA MATTHEW MD DR: MARIO/belkis JOB#: [id number] / [id number]
--- NOTE | 2020-01-15 22:00 | NUR ---
This telegraphic typewriter installer enters room to start iv, as patient pulled out when he got out of the shower. Patient, angrily, tells rn the many places that I cannot start his iv...verbally loud and aggressive...you can't start it without a scan..one of those vein finders...so patient is informed that another nurse will start his iv. but as oksana Strange checks patient for a suitable iv site, patient, again, tells her the many places that she can't put any iv in..Alie gandhi, walks out of room, in frustration...
--- NOTE | 2020-01-15 23:50 | NUR ---
Spoke with Sydni, nursing seed production field supervisor, she will inform oncoming seed production field supervisor of the iv start, patient informed of this.
[2020-01-15 23:57] VITALS: BP 146/77
[2020-01-16] MEDS: HYDROcodone/APAP 10/325 1 TAB TABLET PO PRN ×3 (00:01→12:01)
[2020-01-16 03:20] VITALS: BP 138/87
--- NOTE | 2020-01-16 05:59 | NUR ---
patient's Merropenum given at 0100, not scanned r/t downtime of computer system.
--- NOTE | 2020-01-16 06:00 | NUR ---
Patient states he is not NPO, 'not just for the doctor to come talk to me...I ate at midnight...it's too late now.." This senior copywriter attempts to explain rationale for npo status, continues to refuse.
[2020-01-16] MEDS: MEROPENEM 500 MG in IV NORMAL SALINE 50ML 50 ML IV SCH ×4 (06:25→17:18)
[2020-01-16 07:00] VITALS: BP 141/88
--- NOTE | 2020-01-16 08:03 | PDOC ---
Provider Note Provider Note Vascular Surgery Consult - agree with Karolyn Hudson full consult note, I saw the pt on 01/16/2020. 49 year old male with a history of PVD, right TMA and left 1st toe amputation. He has necrotic tissue at his left toe amputation site and possible osteo by xray. The right tma has a small wound on the lateral foot. Recommend an angiogram of the bilateral lower extremities with possible left leg intervention. He has know disease by angio 2018 with peroneal runoff on the left. Agree with MRI of the foot for further info on possible osteo, ortho following for the foot. No signs of severe infection on exam of the foot. Likely can try left foot debridement/toe amputation/TMA based on MRI findings and see if this will heal. If not a higher amputation would be needed. He currently is refusing a BKA. Consult ID for antibiotic management. Natalia Parker MD Justicifation of Admission Dx: Justifications for Admission: Justification of Admission Dx: Yes NATALIA PARKER MD Jan 16, 2020 08:03
--- NOTE | 2020-01-16 08:37 | PDOC2 ---
CONSULT Date of Service Date of Service DATE: 01/16/20 TIME: 08:18 Reason for Consult Reason for Consult: PVD, left first toe wound Referring Physician Referring Physician: Dr. García Identification/Chief Complaint Chief Complaint Left first toe amputation site with nonhealing wound Source Source: Chart review, Patient History of Present Illness Reason for Visit: This is a 49-year-old male with a history of diabetes and peripheral vascular disease who presents with a left first toe amputation wound. Patient recently was seen at another facility and recommendation was for a below-knee amputation he came to [facility] for evaluation and second opinion. Patient is somewhat noncompliant and providing information most of the information was obtained from chart review. Patient has a history of right transmetatarsal. The patient has a remote history of left first toe amputation approximately 5 years ago there is now an open necrotic wound over the first metatarsal and is involving the plantar surface of the second toe. His last documented angiogram was in December 2017 this demonstrates an occlusion of the left anterior tibial and posterior tibial arteries. The peroneal artery apparently is open feeding a collateral into the posterior tibial and some plantar branches. His dorsalis pedis is occluded. Recent foot x-ray demonstrates soft tissue defect which appears to extend to the cortex and destructive changes are seen at the second, third and fourth toes. Infectious Diseases has been consulted. We have been asked to see the patient in regards to his arterial circulation. Patient denies any fever, chills or fatigue. Patient does complain of pain in bilateral feet greater on the left. He is able to ambulate. His diabetes is in poor control. Past Medical History Cardiovascular: Hyperlipidemia, Other CENTRAL NERVOUS SYSTEM: Periperal neuropathy Endocrine: Diabetes Past Surgical History Past Surgical History: Other Family History Family History: Hypertension, Family History Unknown Social History Social History + tobacco ALCOHOL: occassional Drugs: None Lives: Homeless Current Problem List Problem List Problems Medical Problems: (1) Diabetic foot ulcer Status: Acute Current Medications Current Medications Current Medications Cefepime HCl (Maxipime) 2 gm 1X ONCE IVP Last administered on 01/15/20at 01:43; Start 01/15/20 at 00:30; Stop 01/15/20 at 00:31; Status DC Morphine Sulfate (Morphine Sulfate) 4 mg PRN Q2HR PRN IV SEVERE PAIN 7-10; Start 01/15/20 at 03:15; Stop 01/15/20 at 05:33; Status DC Fentanyl Citrate (Fentanyl 2ml Vial) 50 mcg PRN Q1HR PRN IV SEVERE PAIN 7-10; Start 01/15/20 at 03:15; Stop 01/15/20 at 05:33; Status DC Sodium Chloride 1,000 ml @ 30 mls/hr Q24H IV ; Start 01/15/20 at 03:30; Stop 01/16/20 at 03:29; Status DC Acetaminophen/ Hydrocodone Bitart (Lortab 10/325) 1 tab PRN Q6HRS PRN PO SEVERE PAIN 7-10 Last administered on 01/16/20at 06:24; Start 01/15/20 at 05:45 Amlodipine Besylate (Norvasc) 10 mg DAILY PO Last administered on 01/15/20at 09:41; Start 01/15/20 at 10:00 Atorvastatin Calcium (Lipitor) 40 mg QHS PO Last administered on 01/15/20at 21:28; Start 01/15/20 at 21:00 Insulin Glargine (Lantus Syringe) 80 unit HS SQ Last administered on 01/15/20at 21:36; Start 01/15/20 at 21:00 Insulin Human Lispro (HumaLOG) 38 units TIDWMEALS SQ Last administered on 01/15/20at 17:37; Start 01/15/20 at 12:00 Insulin Human Lispro (HumaLOG) 38 units 1X ONCE SQ Last administered on 01/15/20at 09:46; Start 01/15/20 at 09:45; Stop 01/15/20 at 09:46; Status DC Daptomycin 530 mg/ Sodium Chloride 50 ml @ 100 mls/hr Q24H IV Last administered on 01/15/20at 18:06; Start 01/15/20 at 18:30 Meropenem 500 mg/ Sodium Chloride 50 ml @ 100 mls/hr Q6HRS IV Last administered on 01/16/20at 06:25; Start 01/15/20 at 18:00 Active Scripts Active Bactrim Ds Tablet (Sulfamethoxazole/Trimethoprim) 1 Each Tablet 1 Tab PO BID Hydrocodone-Apap 5-325 (Hydrocodone Bit/Acetaminophen) 1 Each Tablet 1 Tab PO PRN Q6HRS PRN [Fluconazole] 100 MG Tablet 200 Mg PO DAILY Invanz (Ertapenem Sodium) 1 Gm Vial 1 Gm IJ DAILY Doxycycline Hyclate 100 Mg Tablet 100 Mg PO BID Hydrocodone-Apap 5-325 (Hydrocodone Bit/Acetaminophen) 1 Each Tablet 1 Tab PO PRN Q4HRS PRN Reported Novolog Flexpen (Insulin Aspart) 100 Unit/1 Ml Insuln.pen 38 Unit SQ TIDAC Lantus (Insulin Glargine,Hum.rec.anlog) 100 Unit/1 Ml Vial 80 Unit SQ HS Amox Tr-K Clv 500-125 Mg Tab (Amoxicillin/Potassium Clav) 1 Each Tablet 1 Tab PO BID Atorvastatin Calcium 40 Mg Tablet 1 Tab PO QHS Amlodipine Besylate 10 Mg Tablet 10 Mg PO DAILY Allergies Allergies: Coded Allergies: lisinopril (Verified Allergy, Severe, ANGIOEDEMA, 01/07/18) vancomycin (Verified Allergy, Severe, SOB, 01/14/20) Penicillins (Verified Allergy, Intermediate, 01/30/18) TOLERATES MERREM ROS Review of System Constitutional: Denies fever or chills Eyes: Denies any visual disturbances HENT: Denies nasal congestion or sore throat Respiratory: Denies cough or shortness of breath Cardiovascular: Denies any palpitations or chest pain GI: Denies abdominal pain, nausea, vomiting, bloody stools or diarrhea : Denies dysuria or hematuria Musculoskeletal: As per HPI Integument: As per HPI Neurologic: No gross deficits Endocrine: Diabetes Physical Exam Physical Exam Gen.: Alert and oriented -3. Cardiac: Heart rate regular. Lungs: Nonlabored respirations. Abdomen: Soft, nontender, nondistended, no palpable masses. Extremities:Unable to appreciate distal pulses. Skin: Left foot with ulceration over first toe amputation site with gangrenous skin changes this involves the plantar surface of the second toe, mild swelling, minimal erythema. Right TMA with small lateral ulceration. Neurological: Motor and sensation intact Vitals VITALS Vital Signs Date Time Temp Pulse Resp B/P (MAP) Pulse Ox O2 Delivery O2 Flow Rate FiO2 01/16/20 06:24 20 Room Air 01/16/20 03:20 98.0 82 138/87 (104) 92 98.0 Labs Labs Laboratory Tests Test 01/14/20 22:45 01/15/20 07:49 01/15/20 11:50 01/15/20 16:56 Sodium Level 138 mmol/L (136-145) Potassium Level 4.1 mmol/L (3.5-5.1) Chloride Level 102 mmol/L (98-107) Carbon Dioxide Level 25 mmol/L (21-32) Anion Gap 11 (6-14) Blood Urea Nitrogen 16 mg/dL (8-26) Creatinine 0.9 mg/dL (0.7-1.3) Estimated GFR (Cockcroft-Gault) 108.5 BUN/Creatinine Ratio 18 (6-20) Glucose Level 211 mg/dL (70-99) Calcium Level 9.3 mg/dL (8.5-10.1) Total Bilirubin 0.2 mg/dL (0.2-1.0) Aspartate Amino Transf (AST/SGOT) 21 U/L (15-37) Alanine Aminotransferase (ALT/SGPT) 29 U/L (16-63) Alkaline Phosphatase 107 U/L (46-116) Total Protein 7.8 g/dL (6.4-8.2) Albumin 3.4 g/dL (3.4-5.0) Albumin/Globulin Ratio 0.8 (1.0-1.7) Glucose (Fingerstick) 326 mg/dL (70-99) 257 mg/dL (70-99) 263 mg/dL (70-99) Test 01/15/20 21:33 01/16/20 08:15 Glucose (Fingerstick) 330 mg/dL (70-99) 231 mg/dL (70-99) Laboratory Tests Test 01/15/20 11:50 01/15/20 16:56 01/15/20 21:33 01/16/20 08:15 Glucose (Fingerstick) 257 mg/dL (70-99) 263 mg/dL (70-99) 330 mg/dL (70-99) 231 mg/dL (70-99) Assessment/Plan Assessment/Plan 49 year old male with a history of peripheral vascular disease, right transmetatarsal amputation and left 1st toe amputation. He has necrotic tissue at his left toe amputation site and possible osteomyelitis by xray. The right transmetatarsal amputation has a small wound on the lateral foot. Recommend an angiogram of the bilateral lower extremities with possible left leg intervention. He has know disease by angiogram 2018 with peroneal runoff on the left. Agree with MRI of the foot for further info on possible osteomyelitis orthopedic surgeon following for the foot. No signs of severe infection on exam of the foot. Likely can try left foot debridement/toe amputation/TMA based on MRI findings and see if this will heal. If not a higher amputation would be needed. He currently is refusing a BKA. Consult ID for antibiotic management. Patient was made n.p.o. but unfortunately patient ate food this morning so will likely obtain angiogram tomorrow. Cr. 0.8 Patient seen and examined with Dr. Parker and she agrees with the above. YARITZA QUAN APRN Jan 16, 2020 08:37
[2020-01-16 09:03] LABS: BASO % 1 % (0-3); EOS # 0.2 x10^3/uL (0.0-0.7); EOS % 3 % (0-3); HEMATOCRIT 38.2 % (39.0-53.0); LYMPH # 1.7 x10^3/uL (1.0-4.8); LYMPH % 26 % (24-48); MEAN CORPUSCULAR HEMOGLOBIN 30 pg (25-35); MEAN CORPUSCULAR HGB CONC 34 g/dL (31-37); MEAN CORPUSCULAR VOLUME 87 fL (79-100); MONO # 0.6 x10^3/uL (0.0-1.1); MONO % 9 % (0-9); NEUT % 61 % (31-73); PLATELET COUNT 230 x10^3/uL (140-400); RED CELL DISTRIBUTION WIDTH 14.9 % (11.5-14.5); WHITE BLOOD COUNT 6.6 x10^3/uL (4.0-11.0)
--- NOTE | 2020-01-16 09:12 | PDOC ---
Infectious Disease Note Vital Sign Vital Signs Vital Signs Date Time Temp Pulse Resp B/P (MAP) Pulse Ox O2 Delivery O2 Flow Rate FiO2 01/16/20 06:24 20 Room Air 01/16/20 03:20 98.0 82 138/87 (104) 92 98.0 Labs Lab Laboratory Tests Test 01/15/20 11:50 01/15/20 16:56 01/15/20 21:33 01/16/20 08:15 Glucose (Fingerstick) 257 mg/dL (70-99) 263 mg/dL (70-99) 330 mg/dL (70-99) 231 mg/dL (70-99) Micro Microbiology 01/14/20 Blood Culture - Preliminary, Resulted NO GROWTH AFTER 1 DAY Objective Assessment Left great toe amp site infection Abx allergies - PCN as a chlild and tolerated Cefepime 01/13/Vanc DM PAD Plan Plan of Care Began Dapto and Meropenem 01/14 F/u labs and cults Await Aortogram F/u MRI D/w [facility] micro [phone] cults 01/13 with Proteus and Enterobacter complex . proteus sens not available yet. Enterobacter sen to meropenem Thank you # [id number] NAFISA JURADO MD Jan 16, 2020 09:12
[2020-01-16 09:14] LABS: PROTHROMBIN TIME PATIENT 13.2 SEC (11.7-14.0)
[2020-01-16] MEDS: INSULIN LISPRO 300 UNITS/3 ML VIAL. SQ SCH ×3 (09:17→17:00)
--- NOTE | 2020-01-16 09:37 | NUR ---
SS following for discharge planning. SS reviewed pt chart and discussed with pt RN. Pt is currently on room air. Pt on IV Daptomycin and Meropenem. Per RN, pt ate at midnight. Pt scheduled for Angiogram tomorrow. SS will continue to follow for discharge planning.
[2020-01-16 09:50] LABS: ALBUMIN 3.3 g/dL (3.4-5.0); ALBUMIN/GLOBULIN RATIO 0.7 (1.0-1.7); CALCIUM 8.8 mg/dL (8.5-10.1); GFR 96.1; POTASSIUM 4.1 mmol/L (3.5-5.1); TOTAL BILIRUBIN 0.3 mg/dL (0.2-1.0)
[2020-01-16] MEDS: DOCUSATE SODIUM 100 MG CAPSULE. PO SCH (10:09)
[2020-01-16] MEDS: amLODIPine BESYLATE 10 MG TABLET PO SCH (10:09)
[2020-01-16 11:00] VITALS: BP 131/87
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
[2020-01-16] MEDS ORDERED: ACETAMINOPHEN 650 MG/20.3 ML SOLUTION. PO PRN (13:30)
--- NOTE | 2020-01-16 14:37 | PDOC ---
PROGRESS NOTES Date of Service: DATE: 01/16/20 TIME: 14:33 Chief Complaint Chief Complaint Peripheral vascular disease Right mid transmetatarsal amputation Left first toe amputation Lower extremity pain is results of his diabetic complications Noncompliance History of asthma Dyslipidemia Tobacco abuse Drug-seeking behavior Plan We will adjust pain management with extended release morphine and immediate release for breakthrough pain Supplement with Tylenol Angiography in the a.m. We will follow recommendations from vascular men's custom hair piece consultant Glycemia control Further recommendations based on the clinical course History of Present Illness History of Present Illness The patient is a pleasant 49-year-old male who already had a transmetatarsal amputation on the right. Now, his left foot is infected. It looks like he may be heading towards another surgery on that side. He apparently left against medical advice from another facility, I think it was [facility] because they wanted to do [id number] amputation. This has been going on for quite a few years. He has got diabetes and peripheral vascular disease. I discussed the case with the ER physician. We have admitted the patient with consultation to Dr. Mederos, Orthopedics. 01/15 Patient with no acute events reported overnight. The patient already had eaten this morning and unfortunately will not be able to have his angiography today. He is bargaining with pain management due to narcotic use for the last 6 months. He is not happy with being on a extended release form of morphine explained the necessity of maintaining the least amount of narcotics possible in order to control his discomfort and the patient does not even seem in acute distress during my interview. He is able to ambulate and not complain of pain during ambulation. Discussed with nursing staff and encouraged to avoid excess narcotics Vitals Vitals Vital Signs Date Time Temp Pulse Resp B/P (MAP) Pulse Ox O2 Delivery O2 Flow Rate FiO2 01/16/20 12:01 Room Air 01/16/20 11:00 98.0 76 20 131/87 (102) 99 98.0 Physical Exam Physical Exam Gen.: well-developed well-nourished in no apparent distress Head: Normal shape atraumatic Eyes: Pupils equal reactive to light and accommodation, normal conjunctivae and lids Ears: Normal shape Nose: Normal shape no trauma Mouth: No exudates of the back of throat no thrush no lesions Neck: Supple no JVD no carotid bruit or lymphadenopathy no thyromegaly Chest: Lungs clear to auscultation with good inspiratory effort no crackles rales or rhonchi Cardiovascular: S1-S2 regular rhythm no murmurs gallops or rubs Abdomen: Bowel sounds present soft nontender no hepatosplenomegaly appreciated sign Extremities: He has a right transmetatarsal amputation. The left foot also has a toe missing. There is a large amount of infection at the base of the previous amputation. Please see the pictures. Neurological: Alert awake oriented in person time place and situation, cranial nerves II through XII intact, no motor or sensory deficits appreciated Psych: Appropriate mood, cooperative Lungs: Clear Labs LABS Laboratory Tests Test 01/15/20 16:56 01/15/20 21:33 01/16/20 08:15 01/16/20 08:45 Glucose (Fingerstick) 263 mg/dL (70-99) 330 mg/dL (70-99) 231 mg/dL (70-99) White Blood Count 6.6 x10^3/uL (4.0-11.0) Red Blood Count 4.40 x10^6/uL (4.30-5.70) Hemoglobin 13.0 g/dL (13.0-17.5) Hematocrit 38.2 % (39.0-53.0) Mean Corpuscular Volume 87 fL (79-100) Mean Corpuscular Hemoglobin 30 pg (25-35) Mean Corpuscular Hemoglobin Concent 34 g/dL (31-37) Red Cell Distribution Width 14.9 % (11.5-14.5) Platelet Count 230 x10^3/uL (140-400) Neutrophils (%) (Auto) 61 % (31-73) Lymphocytes (%) (Auto) 26 % (24-48) Monocytes (%) (Auto) 9 % (0-9) Eosinophils (%) (Auto) 3 % (0-3) Basophils (%) (Auto) 1 % (0-3) Neutrophils # (Auto) 4.0 x10^3/uL (1.8-7.7) Lymphocytes # (Auto) 1.7 x10^3/uL (1.0-4.8) Monocytes # (Auto) 0.6 x10^3/uL (0.0-1.1) Eosinophils # (Auto) 0.2 x10^3/uL (0.0-0.7) Basophils # (Auto) 0.0 x10^3/uL (0.0-0.2) Prothrombin Time 13.2 SEC (11.7-14.0) Prothromb Time International Ratio 1.0 (0.8-1.1) Activated Partial Thromboplast Time 26 SEC (24-38) Sodium Level 138 mmol/L (136-145) Potassium Level 4.1 mmol/L (3.5-5.1) Chloride Level 102 mmol/L (98-107) Carbon Dioxide Level 25 mmol/L (21-32) Anion Gap 11 (6-14) Blood Urea Nitrogen 11 mg/dL (8-26) Creatinine 1.0 mg/dL (0.7-1.3) Estimated GFR (Cockcroft-Gault) 96.1 BUN/Creatinine Ratio 11 (6-20) Glucose Level 228 mg/dL (70-99) Calcium Level 8.8 mg/dL (8.5-10.1) Total Bilirubin 0.3 mg/dL (0.2-1.0) Aspartate Amino Transf (AST/SGOT) 23 U/L (15-37) Alanine Aminotransferase (ALT/SGPT) 34 U/L (16-63) Alkaline Phosphatase 112 U/L (46-116) Total Protein 8.0 g/dL (6.4-8.2) Albumin 3.3 g/dL (3.4-5.0) Albumin/Globulin Ratio 0.7 (1.0-1.7) Test 01/16/20 11:47 Glucose (Fingerstick) 326 mg/dL (70-99) Assessment and Plan Assessmemt and Plan Problems Medical Problems: (1) Diabetic foot ulcer Status: Acute Comment Review of Relevant I have reviewed the following items yuly (where applicable) has been applied. Labs Laboratory Tests Test 01/14/20 22:45 01/15/20 07:49 01/15/20 11:50 01/15/20 16:56 Sodium Level 138 mmol/L (136-145) Potassium Level 4.1 mmol/L (3.5-5.1) Chloride Level 102 mmol/L (98-107) Carbon Dioxide Level 25 mmol/L (21-32) Anion Gap 11 (6-14) Blood Urea Nitrogen 16 mg/dL (8-26) Creatinine 0.9 mg/dL (0.7-1.3) Estimated GFR (Cockcroft-Gault) 108.5 BUN/Creatinine Ratio 18 (6-20) Glucose Level 211 mg/dL (70-99) Calcium Level 9.3 mg/dL (8.5-10.1) Total Bilirubin 0.2 mg/dL (0.2-1.0) Aspartate Amino Transf (AST/SGOT) 21 U/L (15-37) Alanine Aminotransferase (ALT/SGPT) 29 U/L (16-63) Alkaline Phosphatase 107 U/L (46-116) Total Protein 7.8 g/dL (6.4-8.2) Albumin 3.4 g/dL (3.4-5.0) Albumin/Globulin Ratio 0.8 (1.0-1.7) Glucose (Fingerstick) 326 mg/dL (70-99) 257 mg/dL (70-99) 263 mg/dL (70-99) Test 01/15/20 21:33 01/16/20 08:15 01/16/20 08:45 01/16/20 11:47 Glucose (Fingerstick) 330 mg/dL (70-99) 231 mg/dL (70-99) 326 mg/dL (70-99) White Blood Count 6.6 x10^3/uL (4.0-11.0) Red Blood Count 4.40 x10^6/uL (4.30-5.70) Hemoglobin 13.0 g/dL (13.0-17.5) Hematocrit 38.2 % (39.0-53.0) Mean Corpuscular Volume 87 fL (79-100) Mean Corpuscular Hemoglobin 30 pg (25-35) Mean Corpuscular Hemoglobin Concent 34 g/dL (31-37) Red Cell Distribution Width 14.9 % (11.5-14.5) Platelet Count 230 x10^3/uL (140-400) Neutrophils (%) (Auto) 61 % (31-73) Lymphocytes (%) (Auto) 26 % (24-48) Monocytes (%) (Auto) 9 % (0-9) Eosinophils (%) (Auto) 3 % (0-3) Basophils (%) (Auto) 1 % (0-3) Neutrophils # (Auto) 4.0 x10^3/uL (1.8-7.7) Lymphocytes # (Auto) 1.7 x10^3/uL (1.0-4.8) Monocytes # (Auto) 0.6 x10^3/uL (0.0-1.1) Eosinophils # (Auto) 0.2 x10^3/uL (0.0-0.7) Basophils # (Auto) 0.0 x10^3/uL (0.0-0.2) Prothrombin Time 13.2 SEC (11.7-14.0) Prothromb Time International Ratio 1.0 (0.8-1.1) Activated Partial Thromboplast Time 26 SEC (24-38) Sodium Level 138 mmol/L (136-145) Potassium Level 4.1 mmol/L (3.5-5.1) Chloride Level 102 mmol/L (98-107) Carbon Dioxide Level 25 mmol/L (21-32) Anion Gap 11 (6-14) Blood Urea Nitrogen 11 mg/dL (8-26) Creatinine 1.0 mg/dL (0.7-1.3) Estimated GFR (Cockcroft-Gault) 96.1 BUN/Creatinine Ratio 11 (6-20) Glucose Level 228 mg/dL (70-99) Calcium Level 8.8 mg/dL (8.5-10.1) Total Bilirubin 0.3 mg/dL (0.2-1.0) Aspartate Amino Transf (AST/SGOT) 23 U/L (15-37) Alanine Aminotransferase (ALT/SGPT) 34 U/L (16-63) Alkaline Phosphatase 112 U/L (46-116) Total Protein 8.0 g/dL (6.4-8.2) Albumin 3.3 g/dL (3.4-5.0) Albumin/Globulin Ratio 0.7 (1.0-1.7) Laboratory Tests Test 01/15/20 16:56 01/15/20 21:33 01/16/20 08:15 01/16/20 08:45 Glucose (Fingerstick) 263 mg/dL (70-99) 330 mg/dL (70-99) 231 mg/dL (70-99) White Blood Count 6.6 x10^3/uL (4.0-11.0) Red Blood Count 4.40 x10^6/uL (4.30-5.70) Hemoglobin 13.0 g/dL (13.0-17.5) Hematocrit 38.2 % (39.0-53.0) Mean Corpuscular Volume 87 fL (79-100) Mean Corpuscular Hemoglobin 30 pg (25-35) Mean Corpuscular Hemoglobin Concent 34 g/dL (31-37) Red Cell Distribution Width 14.9 % (11.5-14.5) Platelet Count 230 x10^3/uL (140-400) Neutrophils (%) (Auto) 61 % (31-73) Lymphocytes (%) (Auto) 26 % (24-48) Monocytes (%) (Auto) 9 % (0-9) Eosinophils (%) (Auto) 3 % (0-3) Basophils (%) (Auto) 1 % (0-3) Neutrophils # (Auto) 4.0 x10^3/uL (1.8-7.7) Lymphocytes # (Auto) 1.7 x10^3/uL (1.0-4.8) Monocytes # (Auto) 0.6 x10^3/uL (0.0-1.1) Eosinophils # (Auto) 0.2 x10^3/uL (0.0-0.7) Basophils # (Auto) 0.0 x10^3/uL (0.0-0.2) Prothrombin Time 13.2 SEC (11.7-14.0) Prothromb Time International Ratio 1.0 (0.8-1.1) Activated Partial Thromboplast Time 26 SEC (24-38) Sodium Level 138 mmol/L (136-145) Potassium Level 4.1 mmol/L (3.5-5.1) Chloride Level 102 mmol/L (98-107) Carbon Dioxide Level 25 mmol/L (21-32) Anion Gap 11 (6-14) Blood Urea Nitrogen 11 mg/dL (8-26) Creatinine 1.0 mg/dL (0.7-1.3) Estimated GFR (Cockcroft-Gault) 96.1 BUN/Creatinine Ratio 11 (6-20) Glucose Level 228 mg/dL (70-99) Calcium Level 8.8 mg/dL (8.5-10.1) Total Bilirubin 0.3 mg/dL (0.2-1.0) Aspartate Amino Transf (AST/SGOT) 23 U/L (15-37) Alanine Aminotransferase (ALT/SGPT) 34 U/L (16-63) Alkaline Phosphatase 112 U/L (46-116) Total Protein 8.0 g/dL (6.4-8.2) Albumin 3.3 g/dL (3.4-5.0) Albumin/Globulin Ratio 0.7 (1.0-1.7) Test 01/16/20 11:47 Glucose (Fingerstick) 326 mg/dL (70-99) Microbiology 01/14/20 Blood Culture - Preliminary, Resulted NO GROWTH AFTER 1 DAY Medications Current Medications Cefepime HCl (Maxipime) 2 gm 1X ONCE IVP Last administered on 01/15/20at 01:43; Start 01/15/20 at 00:30; Stop 01/15/20 at 00:31; Status DC Morphine Sulfate (Morphine Sulfate) 4 mg PRN Q2HR PRN IV SEVERE PAIN 7-10; Start 01/15/20 at 03:15; Stop 01/15/20 at 05:33; Status DC Fentanyl Citrate (Fentanyl 2ml Vial) 50 mcg PRN Q1HR PRN IV SEVERE PAIN 7-10; Start 01/15/20 at 03:15; Stop 01/15/20 at 05:33; Status DC Sodium Chloride 1,000 ml @ 30 mls/hr Q24H IV ; Start 01/15/20 at 03:30; Stop 01/16/20 at 03:29; Status DC Acetaminophen/ Hydrocodone Bitart (Lortab 10/325) 1 tab PRN Q6HRS PRN PO SEVERE PAIN 7-10 Last administered on 01/16/20at 12:01; Start 01/15/20 at 05:45; Stop 01/16/20 at 13:23; Status DC Amlodipine Besylate (Norvasc) 10 mg DAILY PO Last administered on 01/16/20at 10:09; Start 01/15/20 at 10:00 Atorvastatin Calcium (Lipitor) 40 mg QHS PO Last administered on 01/15/20at 21:28; Start 01/15/20 at 21:00 Insulin Glargine (Lantus Syringe) 80 unit HS SQ Last administered on 01/15/20at 21:36; Start 01/15/20 at 21:00; Stop 01/16/20 at 13:21; Status DC Insulin Human Lispro (HumaLOG) 38 units TIDWMEALS SQ Last administered on 01/16/20at 12:03; Start 01/15/20 at 12:00 Insulin Human Lispro (HumaLOG) 38 units 1X ONCE SQ Last administered on 01/15/20at 09:46; Start 01/15/20 at 09:45; Stop 01/15/20 at 09:46; Status DC Daptomycin 530 mg/ Sodium Chloride 50 ml @ 100 mls/hr Q24H IV Last administered on 01/15/20at 18:06; Start 01/15/20 at 18:30 Meropenem 500 mg/ Sodium Chloride 50 ml @ 100 mls/hr Q6HRS IV Last administered on 01/16/20at 12:01; Start 01/15/20 at 18:00 Docusate Sodium (Colace) 100 mg DAILY PO Last administered on 01/16/20at 10:09; Start 01/16/20 at 09:00 Insulin Glargine (Lantus Syringe) 44 unit BID SQ ; Start 01/16/20 at 13:30 Morphine Sulfate (Ms Contin) 15 mg BID PO ; Start 01/16/20 at 14:00 Morphine Sulfate (Morphine Ir) 15 mg PRN Q6HRS PRN PO BREAKTHRU PAIN; Start 01/16/20 at 13:30 Acetaminophen (Tylenol) 650 mg PRN Q6HRS PRN PO MILD PAIN / TEMP > 100.3'F; Start 01/16/20 at 13:30 Lactobacillus Rhamnosus (Culturelle) 1 cap BID PO ; Start 01/16/20 at 21:00 Active Scripts Active Bactrim Ds Tablet (Sulfamethoxazole/Trimethoprim) 1 Each Tablet 1 Tab PO BID Hydrocodone-Apap 5-325 (Hydrocodone Bit/Acetaminophen) 1 Each Tablet 1 Tab PO PRN Q6HRS PRN [Fluconazole] 100 MG Tablet 200 Mg PO DAILY Invanz (Ertapenem Sodium) 1 Gm Vial 1 Gm IJ DAILY Doxycycline Hyclate 100 Mg Tablet 100 Mg PO BID Hydrocodone-Apap 5-325 (Hydrocodone Bit/Acetaminophen) 1 Each Tablet 1 Tab PO PRN Q4HRS PRN Reported Novolog Flexpen (Insulin Aspart) 100 Unit/1 Ml Insuln.pen 38 Unit SQ TIDAC Lantus (Insulin Glargine,Hum.rec.anlog) 100 Unit/1 Ml Vial 80 Unit SQ HS Amox Tr-K Clv 500-125 Mg Tab (Amoxicillin/Potassium Clav) 1 Each Tablet 1 Tab PO BID Atorvastatin Calcium 40 Mg Tablet 1 Tab PO QHS Amlodipine Besylate 10 Mg Tablet 10 Mg PO DAILY Vitals/I & O Vital Sign - Last 24 Hours 01/15/20 01/15/20 01/15/20 01/15/20 15:04 18:54 19:06 20:20 Temp 98.4 97.8 98.4 97.8 Pulse 87 90 Resp 20 B/P (MAP) 137/88 (104) 171/96 (121) Pulse Ox 98 97 O2 Delivery Room Air Room Air Room Air Room Air 01/15/20 01/16/20 01/16/20 01/16/20 23:57 00:01 01:01 03:20 Temp 98.2 98.0 98.2 98.0 Pulse 87 82 Resp 20 20 20 B/P (MAP) 146/77 (100) 138/87 (104) Pulse Ox 97 92 O2 Delivery Room Air Room Air Room Air Room Air 01/16/20 01/16/20 01/16/20 01/16/20 06:24 07:00 08:10 10:09 Temp 98.2 98.2 Pulse 76 76 Resp 20 20 B/P (MAP) 141/88 (105) 141/88 Pulse Ox 99 O2 Delivery Room Air Room Air Room Air 01/16/20 01/16/20 11:00 12:01 Temp 98.0 98.0 Pulse 76 Resp 20 B/P (MAP) 131/87 (102) Pulse Ox 99 O2 Delivery Room Air Room Air Intake and Output 01/15/20 01/15/20 01/16/20 15:00 23:00 07:00 Intake Total 420 ml 490 ml 500 ml Output Total 600 ml Balance 420 ml 490 ml -100 ml Justicifation of Admission Dx: Justifications for Admission: Justification of Admission Dx: Yes ELLA PICKARD MD Jan 16, 2020 14:37
[2020-01-16] MEDS: MORPHINE ER 15 MG TABLET.ER PO SCH ×2 (14:51→21:22)
[2020-01-16] MEDS: INSULIN GLARGINE SYRINGE. SQ SCH ×2 (14:53→21:29)
[2020-01-16 15:00] VITALS: BP 156/83
[2020-01-16] MEDS: MORPHINE IR 15 MG TABLET PO PRN ×2 (17:13→23:04)
[2020-01-16] MEDS: DAPTOmycin (GENERIC) IVPB 530 MG in IV NORMAL SALINE 50ML 50 ML IV SCH (18:20)
--- NOTE | 2020-01-16 18:38 | NUR ---
Pt scheduled for Angiogram 01/16 . NPO after midnight - no exceptions per Dr. Parker. Patient's pain medication changed to Morphine ER scheduled Q12, Morphine IR PRN Q6 for breakthrough pain, Tylenol for mild pain. Patient stated that his pain is managed now. Patient's insulin regiment was changed also.
[2020-01-16 19:00] VITALS: BP 138/71
[2020-01-16] MEDS: ATORVASTATIN CALCIUM 40 MG TABLET. PO SCH (21:21)
[2020-01-16] MEDS: LACTOBACILLUS RHAMNOSUS GG 1 CAPSULE. PO SCH (21:21)
[2020-01-16] MEDS ORDERED: INSULIN REGULAR 100 UNIT/ML 3ML VIAL. IV ONE (21:30)
[2020-01-16 23:00] VITALS: BP_SYST 116; BP_SYST 159; BP_DIAS 71; BP_DIAS 90
[2020-01-17] VITALS (7 sets, daily range): BP systolic 132–174; BP diastolic 82–104
[2020-01-17] MEDS: MEROPENEM 500 MG in IV NORMAL SALINE 50ML 50 ML IV SCH ×5 (00:01→23:03)
[2020-01-17] MEDS: MORPHINE IR 15 MG TABLET PO PRN ×3 (06:25→21:25)
[2020-01-17] MEDS: INSULIN LISPRO 300 UNITS/3 ML VIAL. SQ SCH ×7 (08:00→21:28)
--- NOTE | 2020-01-17 08:35 | PDOC ---
PROGRESS NOTES Date of Service DATE: 01/17/20 TIME: 08:30 Subjective Subjective Patient seen in room. He continues to complain of left foot pain. States the Morphine is not working and would like to transition back to Hydrocodone, "It works". Objective Objective Vital Signs Date Time Temp Pulse Resp B/P (MAP) Pulse Ox O2 Delivery O2 Flow Rate FiO2 01/17/20 06:25 20 Room Air 01/17/20 03:00 98.1 80 174/95 (121) 99 98.1 Intake and Output 01/17/20 07:00 Intake Total 1750 ml Output Total 500 ml Balance 1250 ml Intake Oral 1750 ml Output Urine Total 500 ml Physical Exam Physical Exam Awake and alert HRR VSS, afebrile Bilateral feet dressed. Assessment Assessment Problems Medical Problems: (1) Diabetic foot ulcer Status: Acute Plan Plan of Care 49 year old male with a history of peripheral vascular disease, right transmetatarsal amputation and left 1st toe amputation. He has necrotic tissue at his left toe amputation site and possible osteomyelitis by xray. The right transmetatarsal amputation has a small wound on the lateral foot. MRI from [facility] concerning for osteomyelitis in toes and midfoot. Recommend an angiogram of the bilateral lower extremities with possible left leg intervention. Will make additional recommendations pending results. Abx per [facility] Pain Management per Hospitalist. Discussed above with RNArgentina. Comment Review of Relevant I have reviewed the following items yuly (where applicable) has been applied. Labs Laboratory Tests Test 01/15/20 11:50 01/15/20 16:56 01/15/20 21:33 01/16/20 08:15 Glucose (Fingerstick) 257 mg/dL (70-99) 263 mg/dL (70-99) 330 mg/dL (70-99) 231 mg/dL (70-99) Test 01/16/20 08:45 01/16/20 11:47 01/16/20 16:54 01/16/20 20:34 White Blood Count 6.6 x10^3/uL (4.0-11.0) Red Blood Count 4.40 x10^6/uL (4.30-5.70) Hemoglobin 13.0 g/dL (13.0-17.5) Hematocrit 38.2 % (39.0-53.0) Mean Corpuscular Volume 87 fL (79-100) Mean Corpuscular Hemoglobin 30 pg (25-35) Mean Corpuscular Hemoglobin Concent 34 g/dL (31-37) Red Cell Distribution Width 14.9 % (11.5-14.5) Platelet Count 230 x10^3/uL (140-400) Neutrophils (%) (Auto) 61 % (31-73) Lymphocytes (%) (Auto) 26 % (24-48) Monocytes (%) (Auto) 9 % (0-9) Eosinophils (%) (Auto) 3 % (0-3) Basophils (%) (Auto) 1 % (0-3) Neutrophils # (Auto) 4.0 x10^3/uL (1.8-7.7) Lymphocytes # (Auto) 1.7 x10^3/uL (1.0-4.8) Monocytes # (Auto) 0.6 x10^3/uL (0.0-1.1) Eosinophils # (Auto) 0.2 x10^3/uL (0.0-0.7) Basophils # (Auto) 0.0 x10^3/uL (0.0-0.2) Prothrombin Time 13.2 SEC (11.7-14.0) Prothromb Time International Ratio 1.0 (0.8-1.1) Activated Partial Thromboplast Time 26 SEC (24-38) Sodium Level 138 mmol/L (136-145) Potassium Level 4.1 mmol/L (3.5-5.1) Chloride Level 102 mmol/L (98-107) Carbon Dioxide Level 25 mmol/L (21-32) Anion Gap 11 (6-14) Blood Urea Nitrogen 11 mg/dL (8-26) Creatinine 1.0 mg/dL (0.7-1.3) Estimated GFR (Cockcroft-Gault) 96.1 BUN/Creatinine Ratio 11 (6-20) Glucose Level 228 mg/dL (70-99) Calcium Level 8.8 mg/dL (8.5-10.1) Total Bilirubin 0.3 mg/dL (0.2-1.0) Aspartate Amino Transf (AST/SGOT) 23 U/L (15-37) Alanine Aminotransferase (ALT/SGPT) 34 U/L (16-63) Alkaline Phosphatase 112 U/L (46-116) Total Protein 8.0 g/dL (6.4-8.2) Albumin 3.3 g/dL (3.4-5.0) Albumin/Globulin Ratio 0.7 (1.0-1.7) Glucose (Fingerstick) 326 mg/dL (70-99) 299 mg/dL (70-99) 353 mg/dL (70-99) Test 01/16/20 22:03 01/17/20 07:38 Glucose (Fingerstick) 365 mg/dL (70-99) 245 mg/dL (70-99) Laboratory Tests Test 01/16/20 08:45 01/16/20 11:47 01/16/20 16:54 01/16/20 20:34 White Blood Count 6.6 x10^3/uL (4.0-11.0) Red Blood Count 4.40 x10^6/uL (4.30-5.70) Hemoglobin 13.0 g/dL (13.0-17.5) Hematocrit 38.2 % (39.0-53.0) Mean Corpuscular Volume 87 fL (79-100) Mean Corpuscular Hemoglobin 30 pg (25-35) Mean Corpuscular Hemoglobin Concent 34 g/dL (31-37) Red Cell Distribution Width 14.9 % (11.5-14.5) Platelet Count 230 x10^3/uL (140-400) Neutrophils (%) (Auto) 61 % (31-73) Lymphocytes (%) (Auto) 26 % (24-48) Monocytes (%) (Auto) 9 % (0-9) Eosinophils (%) (Auto) 3 % (0-3) Basophils (%) (Auto) 1 % (0-3) Neutrophils # (Auto) 4.0 x10^3/uL (1.8-7.7) Lymphocytes # (Auto) 1.7 x10^3/uL (1.0-4.8) Monocytes # (Auto) 0.6 x10^3/uL (0.0-1.1) Eosinophils # (Auto) 0.2 x10^3/uL (0.0-0.7) Basophils # (Auto) 0.0 x10^3/uL (0.0-0.2) Prothrombin Time 13.2 SEC (11.7-14.0) Prothromb Time International Ratio 1.0 (0.8-1.1) Activated Partial Thromboplast Time 26 SEC (24-38) Sodium Level 138 mmol/L (136-145) Potassium Level 4.1 mmol/L (3.5-5.1) Chloride Level 102 mmol/L (98-107) Carbon Dioxide Level 25 mmol/L (21-32) Anion Gap 11 (6-14) Blood Urea Nitrogen 11 mg/dL (8-26) Creatinine 1.0 mg/dL (0.7-1.3) Estimated GFR (Cockcroft-Gault) 96.1 BUN/Creatinine Ratio 11 (6-20) Glucose Level 228 mg/dL (70-99) Calcium Level 8.8 mg/dL (8.5-10.1) Total Bilirubin 0.3 mg/dL (0.2-1.0) Aspartate Amino Transf (AST/SGOT) 23 U/L (15-37) Alanine Aminotransferase (ALT/SGPT) 34 U/L (16-63) Alkaline Phosphatase 112 U/L (46-116) Total Protein 8.0 g/dL (6.4-8.2) Albumin 3.3 g/dL (3.4-5.0) Albumin/Globulin Ratio 0.7 (1.0-1.7) Glucose (Fingerstick) 326 mg/dL (70-99) 299 mg/dL (70-99) 353 mg/dL (70-99) Test 01/16/20 22:03 01/17/20 07:38 Glucose (Fingerstick) 365 mg/dL (70-99) 245 mg/dL (70-99) Microbiology 01/14/20 Blood Culture - Preliminary, Resulted NO GROWTH AFTER 2 DAYS Medications Current Medications Cefepime HCl (Maxipime) 2 gm 1X ONCE IVP Last administered on 01/15/20at 01:43; Start 01/15/20 at 00:30; Stop 01/15/20 at 00:31; Status DC Morphine Sulfate (Morphine Sulfate) 4 mg PRN Q2HR PRN IV SEVERE PAIN 7-10; Start 01/15/20 at 03:15; Stop 01/15/20 at 05:33; Status DC Fentanyl Citrate (Fentanyl 2ml Vial) 50 mcg PRN Q1HR PRN IV SEVERE PAIN 7-10; Start 01/15/20 at 03:15; Stop 01/15/20 at 05:33; Status DC Sodium Chloride 1,000 ml @ 30 mls/hr Q24H IV ; Start 01/15/20 at 03:30; Stop 01/16/20 at 03:29; Status DC Acetaminophen/ Hydrocodone Bitart (Lortab 10/325) 1 tab PRN Q6HRS PRN PO SEVERE PAIN 7-10 Last administered on 01/16/20at 12:01; Start 01/15/20 at 05:45; Stop 01/16/20 at 13:23; Status DC Amlodipine Besylate (Norvasc) 10 mg DAILY PO Last administered on 01/16/20at 10:09; Start 01/15/20 at 10:00 Atorvastatin Calcium (Lipitor) 40 mg QHS PO Last administered on 01/16/20at 21:21; Start 01/15/20 at 21:00 Insulin Glargine (Lantus Syringe) 80 unit HS SQ Last administered on 01/15/20at 21:36; Start 01/15/20 at 21:00; Stop 01/16/20 at 13:21; Status DC Insulin Human Lispro (HumaLOG) 38 units TIDWMEALS SQ Last administered on 01/16/20at 17:00; Start 01/15/20 at 12:00 Insulin Human Lispro (HumaLOG) 38 units 1X ONCE SQ Last administered on 01/15/20at 09:46; Start 01/15/20 at 09:45; Stop 01/15/20 at 09:46; Status DC Daptomycin 530 mg/ Sodium Chloride 50 ml @ 100 mls/hr Q24H IV Last administered on 01/16/20at 18:20; Start 01/15/20 at 18:30 Meropenem 500 mg/ Sodium Chloride 50 ml @ 100 mls/hr Q6HRS IV Last administered on 01/17/20at 06:28; Start 01/15/20 at 18:00 Docusate Sodium (Colace) 100 mg DAILY PO Last administered on 01/16/20at 10:09; Start 01/16/20 at 09:00 Insulin Glargine (Lantus Syringe) 44 unit BID SQ Last administered on 01/16/20at 21:29; Start 01/16/20 at 13:30 Morphine Sulfate (Ms Contin) 15 mg BID PO Last administered on 01/16/20at 21:22; Start 01/16/20 at 14:00 Morphine Sulfate (Morphine Ir) 15 mg PRN Q6HRS PRN PO BREAKTHRU PAIN Last administered on 01/17/20at 06:25; Start 01/16/20 at 13:30 Acetaminophen (Tylenol) 650 mg PRN Q6HRS PRN PO MILD PAIN / TEMP > 100.3'F; Start 01/16/20 at 13:30 Lactobacillus Rhamnosus (Culturelle) 1 cap BID PO Last administered on 01/16/20at 21:21; Start 01/16/20 at 21:00 Insulin Human Regular (HumuLIN R VIAL) 10 unit 1X ONCE IV Last administered on 01/16/20at 21:29; Start 01/16/20 at 21:30; Stop 01/16/20 at 21:31; Status DC Insulin Human Lispro (HumaLOG) 0-9 UNITS TIDWMEALHC SQ ; Start 01/17/20 at 08:00 Active Scripts Active Bactrim Ds Tablet (Sulfamethoxazole/Trimethoprim) 1 Each Tablet 1 Tab PO BID Hydrocodone-Apap 5-325 (Hydrocodone Bit/Acetaminophen) 1 Each Tablet 1 Tab PO PRN Q6HRS PRN [Fluconazole] 100 MG Tablet 200 Mg PO DAILY Invanz (Ertapenem Sodium) 1 Gm Vial 1 Gm IJ DAILY Doxycycline Hyclate 100 Mg Tablet 100 Mg PO BID Hydrocodone-Apap 5-325 (Hydrocodone Bit/Acetaminophen) 1 Each Tablet 1 Tab PO PRN Q4HRS PRN Reported Novolog Flexpen (Insulin Aspart) 100 Unit/1 Ml Insuln.pen 38 Unit SQ TIDAC Lantus (Insulin Glargine,Hum.rec.anlog) 100 Unit/1 Ml Vial 80 Unit SQ HS Amox Tr-K Clv 500-125 Mg Tab (Amoxicillin/Potassium Clav) 1 Each Tablet 1 Tab PO BID Atorvastatin Calcium 40 Mg Tablet 1 Tab PO QHS Amlodipine Besylate 10 Mg Tablet 10 Mg PO DAILY Vitals/I & O Vital Sign - Last 24 Hours 01/16/20 01/16/20 01/16/20 01/16/20 10:09 11:00 12:01 15:00 Temp 98.0 98.0 98.0 98.0 Pulse 76 76 81 Resp 20 20 B/P (MAP) 141/88 131/87 (102) 156/83 (107) Pulse Ox 99 99 O2 Delivery Room Air Room Air Room Air 01/16/20 01/16/20 01/16/20 01/16/20 17:13 18:21 19:00 20:10 Temp 98.2 98.2 Pulse 88 Resp 20 B/P (MAP) 138/71 (93) Pulse Ox 97 O2 Delivery Room Air Room Air Room Air Room Air 01/16/20 01/16/20 01/16/20 01/17/20 21:22 23:00 23:04 03:00 Temp 98.0 98.1 98.0 98.1 Pulse 92 80 Resp 20 19 22 18 B/P (MAP) 159/90 (113) 174/95 (121) Pulse Ox 98 99 O2 Delivery Room Air Room Air Room Air Room Air 01/17/20 06:25 Resp 20 O2 Delivery Room Air Intake and Output 01/16/20 01/16/20 01/17/20 15:00 23:00 07:00 Intake Total 700 ml 1050 ml Output Total 500 ml Balance 700 ml 1050 ml -500 ml Justicifation of Admission Dx: Justifications for Admission: Justification of Admission Dx: Yes YARITZA QUAN BRICKMASON Jan 17, 2020 08:35
[2020-01-17] MEDS: INSULIN GLARGINE SYRINGE. SQ SCH ×2 (09:00→21:05)
[2020-01-17] MEDS: amLODIPine BESYLATE 10 MG TABLET PO SCH (09:00)
[2020-01-17] MEDS: LACTOBACILLUS RHAMNOSUS GG 1 CAPSULE. PO SCH ×2 (09:00→20:56)
[2020-01-17] MEDS: DOCUSATE SODIUM 100 MG CAPSULE. PO SCH (09:00)
[2020-01-17] MEDS: MORPHINE ER 15 MG TABLET.ER PO SCH ×2 (10:42→20:58)
[2020-01-17] MEDS ORDERED: IODIXANOL 320 MG/ML 100 ML VIAL. ONE (11:46)
[2020-01-17] MEDS ORDERED: HEPARIN for ARTERIAL LINE 1,500 ML ONE (11:46)
[2020-01-17] MEDS ORDERED: LIDOCAINE WITH 8.4% SOD BICARB 3 ML DISP.SYRIN. ONE (11:46)
[2020-01-17] MEDS ORDERED: MIDAZOLAM HCL/PF 5 MG/5 ML VIAL. ONE (12:13)
[2020-01-17] MEDS ORDERED: HEPARIN for IV BOLUS 10,000 UNIT/10 ML VIAL. ONE (12:13)
[2020-01-17] MEDS ORDERED: fentaNYL PF VIAL 100 MCG/2 ML VIAL ONE (12:13)
[2020-01-17] MEDS ORDERED: LIDOCAINE WITH 8.4% SOD BICARB 3 ML DISP.SYRIN. IJ ONE (12:15)
[2020-01-17] MEDS ORDERED: IODIXANOL 320 MG/ML 100 ML VIAL. IART ONE (12:15)
[2020-01-17] MEDS ORDERED: MIDAZOLAM HCL/PF 5 MG/5 ML VIAL. IV ONE (12:15)
[2020-01-17] MEDS ORDERED: fentaNYL PF VIAL 100 MCG/2 ML VIAL IV ONE (12:15)
--- NOTE | 2020-01-17 12:55 | NUR ---
SS following up with discharge planning. SS reviewed pt chart and discussed with pt RN. Pt is currently on room air. Pt on IV Daptomycin and Meropenem. Pt having Angiogram today. SS will continue to follow for discharge planning.
[2020-01-17] MEDS ORDERED: HEPARIN for IV BOLUS 10,000 UNIT/10 ML VIAL. IV ONE (13:30)
--- NOTE | 2020-01-17 16:15 | PDOC ---
PROGRESS NOTES Date of Service: DATE: 01/17/20 TIME: 16:14 Chief Complaint Chief Complaint Peripheral vascular disease Right mid transmetatarsal amputation Left first toe amputation Lower extremity pain is results of his diabetic complications Noncompliance History of asthma Dyslipidemia Tobacco abuse Drug-seeking behavior Plan We will adjust pain management with extended release morphine and immediate release for breakthrough pain Supplement with Tylenol Angiography done awaiting results continues to exhibit drug seeking behaviour and bargaining. We will follow recommendations from vascular literacy consultant Glycemia control Further recommendations based on the clinical course History of Present Illness History of Present Illness The patient is a pleasant 49-year-old male who already had a transmetatarsal amputation on the right. Now, his left foot is infected. It looks like he may be heading towards another surgery on that side. He apparently left against medical advice [facility] wanted to do [id number] amputation. This has been going on for quite a few years. He has got diabetes and peripheral vascular disease. I discussed the case with the ER physician. We have admitted the patient with consultation to Dr. Mederos, Orthopedics. 01/15 Patient with no acute events reported overnight. The patient already had eaten this morning and unfortunately will not be able to have his angiography today. He is bargaining with pain management due to narcotic use for the last 6 months. He is not happy with being on a extended release form of morphine explained the necessity of maintaining the least amount of narcotics possible in order to control his discomfort and the patient does not even seem in acute distress during my interview. He is able to ambulate and not complain of pain during ambulation. Discussed with nursing staff and encouraged to avoid excess narcotics 01/16 No acute events reported overnight, patient follow literacy consultant day he wants to go back to hydrocodone since the morphine is not alleviating his pain nevertheless he is not in pain does not seem to exhibit signs of discomfort while I am ass essing him. Certainly exhibiting drug-seeking behavior which will not be encouraged. At the present time awaiting for results of angiography Vitals Vitals Vital Signs Date Time Temp Pulse Resp B/P (MAP) Pulse Ox O2 Delivery O2 Flow Rate FiO2 01/17/20 15:51 18 100 Room Air 01/17/20 14:22 69 2.0 01/17/20 11:00 98.6 132/89 (103) 98.6 Physical Exam Physical Exam Gen.: well-developed well-nourished in no apparent distress Head: Normal shape atraumatic Eyes: Pupils equal reactive to light and accommodation, normal conjunctivae and lids Ears: Normal shape Nose: Normal shape no trauma Mouth: No exudates of the back of throat no thrush no lesions Neck: Supple no JVD no carotid bruit or lymphadenopathy no thyromegaly Chest: Lungs clear to auscultation with good inspiratory effort no crackles rales or rhonchi Cardiovascular: S1-S2 regular rhythm no murmurs gallops or rubs Abdomen: Bowel sounds present soft nontender no hepatosplenomegaly appreciated sign Extremities: He has a right transmetatarsal amputation. The left foot also has a toe missing. There is a large amount of infection at the base of the previous amputation. Please see the pictures. Neurological: Alert awake oriented in person time place and situation, cranial nerves II through XII intact, no motor or sensory deficits appreciated Psych: Appropriate mood, cooperative Lungs: Clear Labs LABS Laboratory Tests Test 01/16/20 16:54 01/16/20 20:34 01/16/20 22:03 01/17/20 07:38 Glucose (Fingerstick) 299 mg/dL (70-99) 353 mg/dL (70-99) 365 mg/dL (70-99) 245 mg/dL (70-99) Test 01/17/20 11:42 Glucose (Fingerstick) 179 mg/dL (70-99) Assessment and Plan Assessmemt and Plan Problems Medical Problems: (1) Diabetic foot ulcer Status: Acute Comment Review of Relevant I have reviewed the following items yuly (where applicable) has been applied. Labs Laboratory Tests Test 01/15/20 16:56 01/15/20 21:33 01/16/20 08:15 01/16/20 08:45 Glucose (Fingerstick) 263 mg/dL (70-99) 330 mg/dL (70-99) 231 mg/dL (70-99) White Blood Count 6.6 x10^3/uL (4.0-11.0) Red Blood Count 4.40 x10^6/uL (4.30-5.70) Hemoglobin 13.0 g/dL (13.0-17.5) Hematocrit 38.2 % (39.0-53.0) Mean Corpuscular Volume 87 fL (79-100) Mean Corpuscular Hemoglobin 30 pg (25-35) Mean Corpuscular Hemoglobin Concent 34 g/dL (31-37) Red Cell Distribution Width 14.9 % (11.5-14.5) Platelet Count 230 x10^3/uL (140-400) Neutrophils (%) (Auto) 61 % (31-73) Lymphocytes (%) (Auto) 26 % (24-48) Monocytes (%) (Auto) 9 % (0-9) Eosinophils (%) (Auto) 3 % (0-3) Basophils (%) (Auto) 1 % (0-3) Neutrophils # (Auto) 4.0 x10^3/uL (1.8-7.7) Lymphocytes # (Auto) 1.7 x10^3/uL (1.0-4.8) Monocytes # (Auto) 0.6 x10^3/uL (0.0-1.1) Eosinophils # (Auto) 0.2 x10^3/uL (0.0-0.7) Basophils # (Auto) 0.0 x10^3/uL (0.0-0.2) Prothrombin Time 13.2 SEC (11.7-14.0) Prothromb Time International Ratio 1.0 (0.8-1.1) Activated Partial Thromboplast Time 26 SEC (24-38) Sodium Level 138 mmol/L (136-145) Potassium Level 4.1 mmol/L (3.5-5.1) Chloride Level 102 mmol/L (98-107) Carbon Dioxide Level 25 mmol/L (21-32) Anion Gap 11 (6-14) Blood Urea Nitrogen 11 mg/dL (8-26) Creatinine 1.0 mg/dL (0.7-1.3) Estimated GFR (Cockcroft-Gault) 96.1 BUN/Creatinine Ratio 11 (6-20) Glucose Level 228 mg/dL (70-99) Calcium Level 8.8 mg/dL (8.5-10.1) Total Bilirubin 0.3 mg/dL (0.2-1.0) Aspartate Amino Transf (AST/SGOT) 23 U/L (15-37) Alanine Aminotransferase (ALT/SGPT) 34 U/L (16-63) Alkaline Phosphatase 112 U/L (46-116) Total Protein 8.0 g/dL (6.4-8.2) Albumin 3.3 g/dL (3.4-5.0) Albumin/Globulin Ratio 0.7 (1.0-1.7) Test 01/16/20 11:47 01/16/20 16:54 01/16/20 20:34 01/16/20 22:03 Glucose (Fingerstick) 326 mg/dL (70-99) 299 mg/dL (70-99) 353 mg/dL (70-99) 365 mg/dL (70-99) Test 01/17/20 07:38 01/17/20 11:42 Glucose (Fingerstick) 245 mg/dL (70-99) 179 mg/dL (70-99) Laboratory Tests Test 01/16/20 16:54 01/16/20 20:34 01/16/20 22:03 01/17/20 07:38 Glucose (Fingerstick) 299 mg/dL (70-99) 353 mg/dL (70-99) 365 mg/dL (70-99) 245 mg/dL (70-99) Test 01/17/20 11:42 Glucose (Fingerstick) 179 mg/dL (70-99) Microbiology 01/14/20 Blood Culture - Preliminary, Resulted NO GROWTH AFTER 2 DAYS Medications Current Medications Cefepime HCl (Maxipime) 2 gm 1X ONCE IVP Last administered on 01/15/20at 01:43; Start 01/15/20 at 00:30; Stop 01/15/20 at 00:31; Status DC Morphine Sulfate (Morphine Sulfate) 4 mg PRN Q2HR PRN IV SEVERE PAIN 7-10; Start 01/15/20 at 03:15; Stop 01/15/20 at 05:33; Status DC Fentanyl Citrate (Fentanyl 2ml Vial) 50 mcg PRN Q1HR PRN IV SEVERE PAIN 7-10; Start 01/15/20 at 03:15; Stop 01/15/20 at 05:33; Status DC Sodium Chloride 1,000 ml @ 30 mls/hr Q24H IV ; Start 01/15/20 at 03:30; Stop 01/16/20 at 03:29; Status DC Acetaminophen/ Hydrocodone Bitart (Lortab 10/325) 1 tab PRN Q6HRS PRN PO SEVERE PAIN 7-10 Last administered on 01/16/20 12:01; Start 01/15/20 at 05:45; Stop 01/16/20 at 13:23; Status DC Amlodipine Besylate (Norvasc) 10 mg DAILY PO Last administered on 01/16/20at 10:09; Start 01/15/20 at 10:00 Atorvastatin Calcium (Lipitor) 40 mg QHS PO Last administered on 01/16/20at 21:21; Start 01/15/20 at 21:00 Insulin Glargine (Lantus Syringe) 80 unit HS SQ Last administered on 01/15/20at 21:36; Start 01/15/20 at 21:00; Stop 01/16/20 at 13:21; Status DC Insulin Human Lispro (HumaLOG) 38 units TIDWMEALS SQ Last administered on 01/16/20at 17:00; Start 01/15/20 at 12:00 Insulin Human Lispro (HumaLOG) 38 units 1X ONCE SQ Last administered on 01/15/20at 09:46; Start 01/15/20 at 09:45; Stop 01/15/20 at 09:46; Status DC Daptomycin 530 mg/ Sodium Chloride 50 ml @ 100 mls/hr Q24H IV Last administered on 01/16/20at 18:20; Start 01/15/20 at 18:30 Meropenem 500 mg/ Sodium Chloride 50 ml @ 100 mls/hr Q6HRS IV Last administered on 01/17/20at 06:28; Start 01/15/20 at 18:00 Docusate Sodium (Colace) 100 mg DAILY PO Last administered on 01/16/20at 10:09; Start 01/16/20 at 09:00 Insulin Glargine (Lantus Syringe) 44 unit BID SQ Last administered on 01/16/20 21:29; Start 01/16/20 at 13:30 Morphine Sulfate (Ms Contin) 15 mg BID PO Last administered on 01/17/20at 10:42; Start 01/16/20 at 14:00 Morphine Sulfate (Morphine Ir) 15 mg PRN Q6HRS PRN PO BREAKTHRU PAIN Last administered on 01/17/20at 14:51; Start 01/16/20 at 13:30 Acetaminophen (Tylenol) 650 mg PRN Q6HRS PRN PO MILD PAIN / TEMP > 100.3'F; Start 01/16/20 at 13:30 Lactobacillus Rhamnosus (Culturelle) 1 cap BID PO Last administered on 01/16/20at 21:21; Start 01/16/20 at 21:00 Insulin Human Regular (HumuLIN R VIAL) 10 unit 1X ONCE IV Last administered on 01/16/20at 21:29; Start 01/16/20 at 21:30; Stop 01/16/20 at 21:31; Status DC Insulin Human Lispro (HumaLOG) 0-9 UNITS TIDWMEALHC SQ ; Start 01/17/20 at 08:00 Lidocaine HCl (Buffered Lidocaine 1%) 3 ml STK-MED ONCE .ROUTE ; Start 01/17/20 at 11:46; Stop 01/17/20 at 11:46; Status DC Iodixanol (Visipaque 320) 100 ml STK-MED ONCE .ROUTE ; Start 01/17/20 at 11:46; Stop 01/17/20 at 11:46; Status DC Heparin Sodium/ Sodium Chloride 1,500 ml @ As Directed STK-MED ONCE .ROUTE ; Start 01/17/20 at 11:46; Stop 01/17/20 at 11:46; Status DC Midazolam HCl (Versed) 5 mg STK-MED ONCE .ROUTE ; Start 01/17/20 at 12:13; Stop 01/17/20 at 12:13; Status DC Fentanyl Citrate (Fentanyl 2ml Vial) 100 mcg STK-MED ONCE .ROUTE ; Start 01/17/20 at 12:13; Stop 01/17/20 at 12:13; Status DC Heparin Sodium (Porcine) (Heparin Sodium) 10,000 unit STK-MED ONCE .ROUTE ; Start 01/17/20 at 12:13; Stop 01/17/20 at 12:13; Status DC Heparin Sodium/ Sodium Chloride (HEPARIN for ARTERIAL LINE FLUSH) 1,000 unit 1X ONCE IART Last administered on 01/17/20at 12:15; Start 01/17/20 at 12:15; Stop 01/17/20 at 12:20; Status DC Heparin Sodium/ Sodium Chloride (HEPARIN for ARTERIAL LINE FLUSH) 1,000 unit 1X ONCE IART Last administered on 01/17/20at 12:15; Start 01/17/20 at 12:15; Stop 01/17/20 at 12:20; Status DC Lidocaine HCl (Buffered Lidocaine 1%) 3 ml 1X ONCE IJ Last administered on 01/17/20at 13:05; Start 01/17/20 at 12:15; Stop 01/17/20 at 12:20; Status DC Midazolam HCl (Versed) 5 mg 1X ONCE IV Last administered on 01/17/20at 13:03; Start 01/17/20 at 12:15; Stop 01/17/20 at 12:20; Status DC Fentanyl Citrate (Fentanyl 2ml Vial) 100 mcg 1X ONCE IV Last administered on 01/17/20at 13:03; Start 01/17/20 at 12:15; Stop 01/17/20 at 12:20; Status DC Iodixanol (Visipaque 320) 100 ml 1X ONCE IART Last administered on 01/17/20at 14:10; Start 01/17/20 at 12:15; Stop 01/17/20 at 12:20; Status DC Heparin Sodium (Porcine) (Heparin Sodium) 5,000 unit 1X ONCE IV Last administered on 01/17/20at 13:30; Start 01/17/20 at 13:30; Stop 01/17/20 at 13:31; Status DC Active Scripts Active Bactrim Ds Tablet (Sulfamethoxazole/Trimethoprim) 1 Each Tablet 1 Tab PO BID Hydrocodone-Apap 5-325 (Hydrocodone Bit/Acetaminophen) 1 Each Tablet 1 Tab PO PRN Q6HRS PRN [Fluconazole] 100 MG Tablet 200 Mg PO DAILY Invanz (Ertapenem Sodium) 1 Gm Vial 1 Gm IJ DAILY Doxycycline Hyclate 100 Mg Tablet 100 Mg PO BID Hydrocodone-Apap 5-325 (Hydrocodone Bit/Acetaminophen) 1 Each Tablet 1 Tab PO PRN Q4HRS PRN Reported Novolog Flexpen (Insulin Aspart) 100 Unit/1 Ml Insuln.pen 38 Unit SQ TIDAC Lantus (Insulin Glargine,Hum.rec.anlog) 100 Unit/1 Ml Vial 80 Unit SQ HS Amox Tr-K Clv 500-125 Mg Tab (Amoxicillin/Potassium Clav) 1 Each Tablet 1 Tab PO BID Atorvastatin Calcium 40 Mg Tablet 1 Tab PO QHS Amlodipine Besylate 10 Mg Tablet 10 Mg PO DAILY Vitals/I & O Vital Sign - Last 24 Hours 01/16/20 01/16/20 01/16/20 01/16/20 17:13 18:21 19:00 20:10 Temp 98.2 98.2 Pulse 88 Resp 20 B/P (MAP) 138/71 (93) Pulse Ox 97 O2 Delivery Room Air Room Air Room Air Room Air 01/16/20 01/16/20 01/16/20 01/17/20 21:22 23:00 23:04 03:00 Temp 98.0 98.1 98.0 98.1 Pulse 92 80 Resp 20 19 22 18 B/P (MAP) 159/90 (113) 174/95 (121) Pulse Ox 98 99 O2 Delivery Room Air Room Air Room Air Room Air 01/17/20 01/17/20 01/17/20 01/17/20 06:25 07:00 08:00 10:42 Temp 98.5 98.5 Pulse 69 Resp 20 18 B/P (MAP) 133/82 (99) Pulse Ox 98 98 O2 Delivery Room Air Room Air Room Air Room Air 01/17/20 01/17/20 01/17/20 01/17/20 11:00 13:03 14:22 14:42 Temp 98.6 98.6 Pulse 85 69 Resp 20 15 15 20 B/P (MAP) 132/89 (103) Pulse Ox 97 100 100 O2 Delivery Room Air Nasal Cannula Room Air O2 Flow Rate 2.0 01/17/20 01/17/20 14:51 15:51 Resp 20 18 Pulse Ox 100 100 O2 Delivery Room Air Room Air Intake and Output 01/16/20 01/16/20 01/17/20 15:00 23:00 07:00 Intake Total 700 ml 1050 ml Output Total 500 ml Balance 700 ml 1050 ml -500 ml Justicifation of Admission Dx: Justifications for Admission: Justification of Admission Dx: Yes ELLA PICKARD MD Jan 17, 2020 16:15
[2020-01-17] MEDS: DAPTOmycin (GENERIC) IVPB 530 MG in IV NORMAL SALINE 50ML 50 ML IV SCH (18:20)
[2020-01-17] MEDS: ATORVASTATIN CALCIUM 40 MG TABLET. PO SCH (20:59)
--- NOTE | 2020-01-17 21:08 | NUR ---
Patient is requesting something for sleep.There are no prn sleep medications ordered. RN paged Dr. Pagan.
[2020-01-17] MEDS: ZOLPIDEM 5 MG TABLET. PO PRN ×2 (21:26→23:02)
[2020-01-18] MEDS: MORPHINE IR 15 MG TABLET PO PRN ×2 (03:21→10:13)
[2020-01-18] MEDS: MEROPENEM 500 MG in IV NORMAL SALINE 50ML 50 ML IV SCH ×2 (03:22→11:32)
[2020-01-18 07:00] VITALS: BP 165/101
[2020-01-18] MEDS: amLODIPine BESYLATE 10 MG TABLET PO SCH (07:32)
[2020-01-18] MEDS: LACTOBACILLUS RHAMNOSUS GG 1 CAPSULE. PO SCH (08:42)
[2020-01-18] MEDS: DOCUSATE SODIUM 100 MG CAPSULE. PO SCH (08:42)
[2020-01-18] MEDS: MORPHINE ER 15 MG TABLET.ER PO SCH (08:43)
[2020-01-18] MEDS: INSULIN LISPRO 300 UNITS/3 ML VIAL. SQ SCH ×4 (08:51→12:10)
[2020-01-18] MEDS: INSULIN GLARGINE SYRINGE. SQ SCH (08:52)
--- NOTE | 2020-01-18 09:07 | NUR ---
Pt refused this event services manager. This RN attempted to educate patient on lower carb diet to help control his blood sugar. Pt refused to learn. Pt has been rude and disrespectful. Pt insisted on having only what he wants. Refuses to learn new education. Pt did not allow this RN to speak. Pt insisted upon administering his own insulin and medications. Referred him to the charge nurse. Due to pt behavior, this RN was not comfortable him doing that.
--- NOTE | 2020-01-18 09:19 | RAD ---
01/17/2020 Procedure: 1 . Abdominal aortogram 2. Pelvic angiogram 3. Left lower extremity angiogram 4. Angioplasty of the peroneal artery Clinical Indication: Poorly healing left lower extremity toe wound following amputation, with probable underlying osteomyelitis. Patient with known severe peripheral vascular disease and single vessel runoff to the left foot demonstrated on the angiography December 2017 Discussion: The procedure was explained in its entirety to the patient or the patients designated employee relations representative by a member of the treatment team, including a discussion of the risks, benefits and commonly accepted alternatives to the procedure, as well as the expected consequences of no therapy whatsoever. Discussion of the risks included, but was not limited to, those that are most frequent and those that are rare but possibly severe or life-threatening, as well as the possibility of unforeseen complications. All elements of maximal sterile barrier technique including the use of a cap, mask, sterile gown, sterile gloves, large sterile sheet, appropriate hand hygiene, and 2% chlorhexidine for cutaneous antisepsis (or acceptable alternative antiseptic per current guidelines) were followed for this procedure. The right groin was prepped and draped using maximum sterile barrier technique. 1% lidocaine was administered for local anesthesia. Ultrasound evaluation demonstrates right common femoral artery be patent. There is accessed using micropuncture technique and direct ultrasound guidance. Reference ultrasound images were saved the medical record. 5 [place] vascular sheath was placed. Nonocclusive catheter was advanced to the abdominal aorta. Abdominal aortogram was obtained demonstrating no aneurysm or flow-limiting stenosis. Catheter was repositioned in the inferior most abdominal aorta. Pelvic angiography demonstrates no hemodynamically significant aortoiliac stenosis. The aortic bifurcation was crossed. Catheter was positioned in the common femoral artery. An angiogram was obtained demonstrating patent left common femoral artery, and profunda artery. Catheter was repositioned and superficial femoral artery. Left lower extremity angiography was then performed. The left SFA is patent. The popliteal artery is patent. There are single vessel runoff to the foot via the peroneal artery, similar to 2008 exam. There is approximately 8 and 90% narrowing of the proximalmost peroneal artery. Distal peroneal artery is patent. There is a collateral arising from the distal peroneal artery providing relatively robust flow to the distal posterior tibial artery extending into the lateral plantar artery which extends across entire plantar surface of the foot. Some reconstitution of collateral arteries in the anterior further seen without a definitive dorsalis pedis artery. Multiple collaterals are seen however perfusing the dorsal aspect of the foot. Balloon angioplasty was performed in the proximal posterior tibial artery up to 3 mm which significantly improved morphology and flow. Angiography through the sheath demonstrates a mid common femoral puncture site. A minx device was deployed to achieve hemostasis. Sterile dressings were applied. No immediate complications were identified. Total fluoroscopy time: 14.4 minutes Dose area product: 166 Gycm2 The procedures performed under conscious sedation including continuous cardiopulmonary monitoring via dedicated sedation nurse. [id number] sedation time: 77 minutes Impression single vessel runoff to the left foot with new relatively high-grade stenosis of the proximal peroneal artery successfully treated with balloon angioplasty.
--- NOTE | 2020-01-18 09:36 | PDOC ---
PROGRESS NOTES Date of Service DATE: 01/18/20 TIME: 09:27 Subjective Subjective Patient seen and examined in room. Patient states that his pain is well controlled. Patient is anxious and states he "wants to go home". Objective Objective Vital Signs Date Time Temp Pulse Resp B/P (MAP) Pulse Ox O2 Delivery O2 Flow Rate FiO2 01/18/20 08:43 97 Room Air 2.0 01/18/20 07:32 82 165/101 01/18/20 07:00 98.5 20 98.5 Intake and Output 01/18/20 07:00 Intake Total 4170 ml Output Total 750 ml Balance 3420 ml Intake Oral 3820 ml IV Total 50 ml Other 300 ml Output Urine Total 750 ml # Voids 6 Physical Exam Physical Exam Awake and alert Vital signs stable, afebrile Left foot dressing removed, first toe amputation site with large area of necrosis the necrosis extends on the plantar surface over to the second metatarsal, no drainage. Foot is warm, mild swelling. Biphasic Doppler signal in posterior tibial artery at the ankle. Assessment Assessment Problems Medical Problems: (1) Diabetic foot ulcer Status: Acute Plan Plan of Care Peripheral vascular disease with left first toe amputation site with necrotic tissue and possible osteomyelitis by x-ray. Outside MRI suggest osteomyeletis in toes and midfoot. Angiogram 01/16 with successful angioplasty of a high-grade stenosis in the proximal peroneal artery. The peroneal artery supplies a large collateral to the posterior tibial artery. Discussed angiogram results with Dr. Parker and she has reviewed the films. She is recommending peripheral bypass to improve flow to the posterior tibial artery to provide optimal healing. Will plan foot debridement and wound vac at that time. The patient is adamant he needs to go home first. Will need vein mapping and cardiac clearance prior to procedure, will try to obtain those during this visit, but patient could p otentially go home and return for bypass if ok with Hospitalist and ID. I did discuss plan of care with Dr. Johnston. Continue antibiotics per infectious disease. Recommend daily Aspirin. Comment Review of Relevant I have reviewed the following items yuly (where applicable) has been applied. Labs Laboratory Tests Test 01/16/20 11:47 01/16/20 16:54 01/16/20 20:34 01/16/20 22:03 Glucose (Fingerstick) 326 mg/dL (70-99) 299 mg/dL (70-99) 353 mg/dL (70-99) 365 mg/dL (70-99) Test 01/17/20 07:38 01/17/20 11:42 01/17/20 16:43 01/17/20 20:32 Glucose (Fingerstick) 245 mg/dL (70-99) 179 mg/dL (70-99) 173 mg/dL (70-99) 213 mg/dL (70-99) Test 01/18/20 07:32 Glucose (Fingerstick) 346 mg/dL (70-99) Laboratory Tests Test 01/17/20 11:42 01/17/20 16:43 01/17/20 20:32 01/18/20 07:32 Glucose (Fingerstick) 179 mg/dL (70-99) 173 mg/dL (70-99) 213 mg/dL (70-99) 346 mg/dL (70-99) Microbiology 01/14/20 Blood Culture - Preliminary, Resulted NO GROWTH AFTER 3 DAYS Medications Current Medications Cefepime HCl (Maxipime) 2 gm 1X ONCE IVP Last administered on 01/15/20at 01:43; Start 01/15/20 at 00:30; Stop 01/15/20 at 00:31; Status DC Morphine Sulfate (Morphine Sulfate) 4 mg PRN Q2HR PRN IV SEVERE PAIN 7-10; Start 01/15/20 at 03:15; Stop 01/15/20 at 05:33; Status DC Fentanyl Citrate (Fentanyl 2ml Vial) 50 mcg PRN Q1HR PRN IV SEVERE PAIN 7-10; Start 01/15/20 at 03:15; Stop 01/15/20 at 05:33; Status DC Sodium Chloride 1,000 ml @ 30 mls/hr Q24H IV ; Start 01/15/20 at 03:30; Stop 01/16/20 at 03:29; Status DC Acetaminophen/ Hydrocodone Bitart (Lortab 10/325) 1 tab PRN Q6HRS PRN PO SEVERE PAIN 7-10 Last administered on 01/16/20at 12:01; Start 01/15/20 at 05:45; Stop 01/16/20 at 13:23; Status DC Amlodipine Besylate (Norvasc) 10 mg DAILY PO Last administered on 01/18/20at 07:32; Start 01/15/20 at 10:00 Atorvastatin Calcium (Lipitor) 40 mg QHS PO Last administered on 01/17/20at 20:59; Start 01/15/20 at 21:00 Insulin Glargine (Lantus Syringe) 80 unit HS SQ Last administered on 01/15/20at 21:36; Start 01/15/20 at 21:00; Stop 01/16/20 at 13:21; Status DC Insulin Human Lispro (HumaLOG) 38 units TIDWMEALS SQ Last administered on 01/18/20at 08:51; Start 01/15/20 at 12:00 Insulin Human Lispro (HumaLOG) 38 units 1X ONCE SQ Last administered on 01/15/20at 09:46; Start 01/15/20 at 09:45; Stop 01/15/20 at 09:46; Status DC Daptomycin 530 mg/ Sodium Chloride 50 ml @ 100 mls/hr Q24H IV Last administered on 01/17/20at 18:20; Start 01/15/20 at 18:30 Meropenem 500 mg/ Sodium Chloride 50 ml @ 100 mls/hr Q6HRS IV Last administered on 01/18/20at 03:22; Start 01/15/20 at 18:00 Docusate Sodium (Colace) 100 mg DAILY PO Last administered on 01/18/20at 08:42; Start 01/16/20 at 09:00 Insulin Glargine (Lantus Syringe) 44 unit BID SQ Last administered on 01/18/20at 08:52; Start 01/16/20 at 13:30 Morphine Sulfate (Ms Contin) 15 mg BID PO Last administered on 01/18/20at 08:43; Start 01/16/20 at 14:00 Morphine Sulfate (Morphine Ir) 15 mg PRN Q6HRS PRN PO BREAKTHRU PAIN Last administered on 01/18/20at 03:21; Start 01/16/20 at 13:30 Acetaminophen (Tylenol) 650 mg PRN Q6HRS PRN PO MILD PAIN / TEMP > 100.3'F; Start 01/16/20 at 13:30 Lactobacillus Rhamnosus (Culturelle) 1 cap BID PO Last administered on 01/18/20at 08:42; Start 01/16/20 at 21:00 Insulin Human Regular (HumuLIN R VIAL) 10 unit 1X ONCE IV Last administered on 01/16/20at 21:29; Start 01/16/20 at 21:30; Stop 01/16/20 at 21:31; Status DC Insulin Human Lispro (HumaLOG) 0-9 UNITS TIDWMEALHC SQ Last administered on 01/18/20at 08:51; Start 01/17/20 at 08:00 Lidocaine HCl (Buffered Lidocaine 1%) 3 ml STK-MED ONCE .ROUTE ; Start 01/17/20 at 11:46; Stop 01/17/20 at 11:46; Status DC Iodixanol (Visipaque 320) 100 ml STK-MED ONCE .ROUTE ; Start 01/17/20 at 11:46; Stop 01/17/20 at 11:46; Status DC Heparin Sodium/ Sodium Chloride 1,500 ml @ As Directed STK-MED ONCE .ROUTE ; Start 01/17/20 at 11:46; Stop 01/17/20 at 11:46; Status DC Midazolam HCl (Versed) 5 mg STK-MED ONCE .ROUTE ; Start 01/17/20 at 12:13; Stop 01/17/20 at 12:13; Status DC Fentanyl Citrate (Fentanyl 2ml Vial) 100 mcg STK-MED ONCE .ROUTE ; Start 01/17/20 at 12:13; Stop 01/17/20 at 12:13; Status DC Heparin Sodium (Porcine) (Heparin Sodium) 10,000 unit STK-MED ONCE .ROUTE ; Start 01/17/20 at 12:13; Stop 01/17/20 at 12:13; Status DC Heparin Sodium/ Sodium Chloride (HEPARIN for ARTERIAL LINE FLUSH) 1,000 unit 1X ONCE IART Last administered on 01/17/20at 12:15; Start 01/17/20 at 12:15; Stop 01/17/20 at 12:20; Status DC Heparin Sodium/ Sodium Chloride (HEPARIN for ARTERIAL LINE FLUSH) 1,000 unit 1X ONCE IART Last administered on 01/17/20at 12:15; Start 01/17/20 at 12:15; Stop 01/17/20 at 12:20; Status DC Lidocaine HCl (Buffered Lidocaine 1%) 3 ml 1X ONCE IJ Last administered on 12/29 13:05; Start 01/17/20 at 12:15; Stop 01/17/20 at 12:20; Status DC Midazolam HCl (Versed) 5 mg 1X ONCE IV Last administered on 01/17/20at 13:03; Start 01/17/20 at 12:15; Stop 01/17/20 at 12:20; Status DC Fentanyl Citrate (Fentanyl 2ml Vial) 100 mcg 1X ONCE IV Last administered on 01/17/20at 13:03; Start 01/17/20 at 12:15; Stop 01/17/20 at 12:20; Status DC Iodixanol (Visipaque 320) 100 ml 1X ONCE IART Last administered on 01/17/20at 14:10; Start 01/17/20 at 12:15; Stop 01/17/20 at 12:20; Status DC Heparin Sodium (Porcine) (Heparin Sodium) 5,000 unit 1X ONCE IV Last administered on 01/17/20at 13:30; Start 01/17/20 at 13:30; Stop 01/17/20 at 13:31; Status DC Zolpidem Tartrate (Ambien) 5 mg PRN QHS PRN PO INSOMNIA Last administered on 01/17/20at 23:02; Start 01/17/20 at 21:15 Active Scripts Active Bactrim Ds Tablet (Sulfamethoxazole/Trimethoprim) 1 Each Tablet 1 Tab PO BID Hydrocodone-Apap 5-325 (Hydrocodone Bit/Acetaminophen) 1 Each Tablet 1 Tab PO PRN Q6HRS PRN [Fluconazole] 100 MG Tablet 200 Mg PO DAILY Invanz (Ertapenem Sodium) 1 Gm Vial 1 Gm IJ DAILY Doxycycline Hyclate 100 Mg Tablet 100 Mg PO BID Hydrocodone-Apap 5-325 (Hydrocodone Bit/Acetaminophen) 1 Each Tablet 1 Tab PO PRN Q4HRS PRN Reported Novolog Flexpen (Insulin Aspart) 100 Unit/1 Ml Insuln.pen 38 Unit SQ TIDAC Lantus (Insulin Glargine,Hum.rec.anlog) 100 Unit/1 Ml Vial 80 Unit SQ HS Amox Tr-K Clv 500-125 Mg Tab (Amoxicillin/Potassium Clav) 1 Each Tablet 1 Tab PO BID Atorvastatin Calcium 40 Mg Tablet 1 Tab PO QHS Amlodipine Besylate 10 Mg Tablet 10 Mg PO DAILY Vitals/I & O Vital Sign - Last 24 Hours 01/17/20 01/17/20 01/17/20 01/17/20 10:42 11:00 13:03 14:22 Temp 98.6 98.6 Pulse 85 69 Resp 20 15 15 B/P (MAP) 132/89 (103) Pulse Ox 98 97 100 O2 Delivery Room Air Room Air Nasal Cannula O2 Flow Rate 2.0 01/17/20 01/17/20 01/17/20 01/17/20 14:42 14:51 15:00 15:51 Temp 98.7 98.7 Pulse 76 Resp 20 20 20 18 B/P (MAP) 154/104 (121) Pulse Ox 100 100 98 100 O2 Delivery Room Air Room Air Room Air Room Air 01/17/20 01/17/20 01/17/20 01/17/20 19:03 20:00 20:58 21:25 Temp 98.3 98.3 Pulse 78 Resp 20 18 18 B/P (MAP) 167/93 (117) Pulse Ox 98 98 98 O2 Delivery Room Air Room Air Room Air Room Air O2 Flow Rate 2.0 2.0 01/17/20 01/17/20 01/18/20 01/18/20 22:25 23:43 00:58 02:02 Temp 98.3 98.2 98.3 98.2 Pulse 87 82 Resp 18 20 18 20 B/P (MAP) 144/89 (107) Pulse Ox 96 97 96 96 O2 Delivery Room Air Room Air Room Air Room Air O2 Flow Rate 2.0 2.0 01/18/20 01/18/20 01/18/20 01/18/20 03:21 04:21 07:00 07:32 Temp 98.5 98.5 Pulse 84 82 Resp 18 18 20 B/P (MAP) 165/101 (122) 165/101 Pulse Ox 96 96 97 O2 Delivery Room Air Room Air Room Air O2 Flow Rate 2.0 2.0 01/18/20 08:43 Pulse Ox 97 O2 Delivery Room Air O2 Flow Rate 2.0 Intake and Output 01/17/20 01/17/20 01/18/20 15:00 23:00 07:00 Intake Total 0 ml 670 ml 3500 ml Output Total 750 ml Balance 0 ml -80 ml 3500 ml Justicifation of Admission Dx: Justifications for Admission: Justification of Admission Dx: Yes YARITZA QUAN ASSISTANT CLINICAL NURSE MANAGER Jan 18, 2020 09:36
[2020-01-18] MEDS ORDERED: ASPIRIN 325 MG TABLET PO SCH (10:00)
--- NOTE | 2020-01-18 10:10 | PDOC ---
Infectious Disease Note Subjective Subjective Feels great as procedure went well. No F/C/S/N/V/D/SOA/rash ROS ROS o/w neg Vital Sign Vital Signs Vital Signs Date Time Temp Pulse Resp B/P (MAP) Pulse Ox O2 Delivery O2 Flow Rate FiO2 01/18/20 08:43 97 Room Air 2.0 01/18/20 07:32 82 165/101 01/18/20 07:00 98.5 20 98.5 Physical Exam PHYSICAL EXAM Gen.: well-developed well-nourished in no apparent distress Head: Normal shape atraumatic Eyes: Pupils equal reactive to light and accommodation, normal conjunctivae and lids Ears: Normal shape Nose: Normal shape no trauma Mouth: No exudates of the back of throat no thrush no lesions Neck: Supple no JVD no carotid bruit or lymphadenopathy no thyromegaly Chest: Lungs clear to auscultation with good inspiratory effort no crackles rales or rhonchi Cardiovascular: S1-S2 regular rhythm no murmurs gallops or rubs Abdomen: Bowel sounds present soft nontender no hepatosplenomegaly appreciated sign Extremities: He has a right transmetatarsal amputation. The left foot also has a toe missing. There is a large amount of dried and some necrotic tissue Neurological: Alert awake oriented in person time place and situation, cranial nerves II through XII intact, no motor or sensory deficits appreciated Psych: Appropriate mood, cooperative Labs Lab Laboratory Tests Test 01/17/20 11:42 01/17/20 16:43 01/17/20 20:32 01/18/20 07:32 Glucose (Fingerstick) 179 mg/dL (70-99) 173 mg/dL (70-99) 213 mg/dL (70-99) 346 mg/dL (70-99) Micro Microbiology 01/14/20 Blood Culture - Preliminary, Resulted NO GROWTH AFTER 1 DAY Objective Assessment Left great toe amp site infection - Enterobacter/Proteus -d/w [facility] Abx allergies - PCN as a chlild and tolerated Cefepime DM PAD - s/p arteriogram- Impression single vessel runoff to the left foot with new relatively high-grade stenosis of the proximal peroneal artery successfully treated with balloon angioplasty.nd reported PTCA 01/16 Plan Plan of Care Discussed with Mr. Zuñiga that I believe he needs surgery to clear necrotic tissue and properly evaluate the wounds and will likely need a PICC line and IV abx to get a proper chance to heal the wound. I stated he risks TMA like the right side or maybe worse if not addressed. He states he understands but he has to leave to because he has the food stamp card for his family. I discussed case management eval to help. I stated if he left Cipro could be an option but would unlikely clear the infection as he needs the tissue removed could lead to resistance.. I also discussed the risks of Cipro incluind Tendon complications including rupture and development of Aortic aneurysms Have asked nursing to contact Ortho so they can assess the wound as Vascular will defer to them Disc Dapto based on cults Cont Meropenem 01/14 F/u labs and cults MRI report in chart from [facility] reviewed D/w [facility] micro [phone] cults 01/13 with Proteus and Enterobacter complex . proteus pansensitive. 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
--- NOTE | 2020-01-18 10:53 | NUR ---
SS following up with discharge planning. SS reviewed pt chart and discussed with pt RN. Pt is currently on room air. Pt on IV Meropenem. Vein mapping ordered. Pt scheduled for peripheral bypass on 01/23/2020. SS will continue to follow for discharge planning.
[2020-01-18 11:00] VITALS: BP 125/68
--- NOTE | 2020-01-18 11:12 | PDOC2 ---
WILMA WISE NIGHT ASSISTANT 01/18/20 1111: CARDIAC CONSULT DATE OF CONSULT Date of Consult DATE: 01/18/20 TIME: 11:02 REASON FOR CONSULT Reason for Consult: preop clearance REFERRING PHYSICIAN Referring Physician: Keith SOURCE Source: Chart review, Patient HISTORY OF PRESENT ILLNESS HISTORY OF PRESENT ILLNESS This is a 49 yo AA male admitted for complains of chronic ulcer to left. He has had left big toe amputations and appears to have not healed well and has necrotic tissue around. Notable contributor is DM, DPN and also noted with severe PAD prompting SECURITY EXPERT. Per vascular this would not be sufficient for optimal healing and would benefit from open revascularization planned for next week and needing preop cardiac eval due to high risk surgery. So far no prior stress test nor TTE and no hx of CAD or any arrhythmias but significnat cardiac risk factors as indicated in his medical history. No chest pain, SOA and exertional CP nor SELLERS. PAST MEDICAL HISTORY Cardiovascular: HTN, Hyperlipidemia Pulmonary: Asthma CENTRAL NERVOUS SYSTEM: Periperal neuropathy, Other (No pertinenthistory) Renal/: No pertinent hx Endocrine: Diabetes (2) Dermatology: Other (right foot wound) PAST SURGICAL HISTORY Past Surgical History: Tonsillectomy, Other (S/P partial right foot amputation; LLE SECURITY EXPERT and big toe amputation) FAMILY HISTORY Family History: Diabetes SOCIAL HISTORY Smoke: <1 pack per day ALCOHOL: none Drugs: Marijuana Lives: with Family CURRENT MEDICATIONS CURRENT MEDICATIONS Current Medications Medications (Trade) Dose Ordered Sig/Dick Route PRN Reason Start Time Stop Time Status Last Admin Dose Admin Heparin Sodium/ Sodium Chloride (HEPARIN for ARTERIAL LINE FLUSH) 1,000 unit 1X ONCE IART 01/17/20 12:15 01/17/20 12:20 DC 01/17/20 12:15 Heparin Sodium/ Sodium Chloride (HEPARIN for ARTERIAL LINE FLUSH) 1,000 unit 1X ONCE IART 01/17/20 12:15 01/17/20 12:20 DC 01/17/20 12:15 Lidocaine HCl (Buffered Lidocaine 1%) 3 ml 1X ONCE IJ 01/17/20 12:15 01/17/20 12:20 DC 01/17/20 13:05 Midazolam HCl (Versed) 5 mg 1X ONCE IV 01/17/20 12:15 01/17/20 12:20 DC 01/17/20 13:03 Fentanyl Citrate (Fentanyl 2ml Vial) 100 mcg 1X ONCE IV 8/20/20 12:15 01/17/20 12:20 DC 01/17/20 13:03 Iodixanol (Visipaque 320) 100 ml 1X ONCE IART 01/17/20 12:15 01/17/20 12:20 DC 01/17/20 14:10 Heparin Sodium (Porcine) (Heparin Sodium) 5,000 unit 1X ONCE IV 01/17/20 13:30 01/17/20 13:31 DC 01/17/20 13:30 Zolpidem Tartrate (Ambien) 5 mg PRN QHS PRN PO INSOMNIA 01/17/20 21:15 01/17/20 23:02 Aspirin (Gab Aspirin) 325 mg DAILYWBKFT PO 01/18/20 10:00 01/18/20 10:13 ALLERGIES ALLERGIES: Coded Allergies: lisinopril (Verified Allergy, Severe, ANGIOEDEMA, 01/07/18) vancomycin (Verified Allergy, Severe, SOB, 01/14/20) Penicillins (Verified Allergy, Intermediate, 01/30/18) TOLERATES MERREM ROS Review of System 14 point ROS evaluated with pertinent positives noted per HPI PHYSICAL EXAM General: Alert, Oriented X3, Cooperative, No acute distress HEENT: Atraumatic, Mucous membr. moist/pink Lungs: Clear to auscultation, Normal air movement Heart: Regular rate (SR), Normal S1, Normal S2, No murmurs Abdomen: Soft, No tenderness Extremities: No cyanosis, Other (1+ bilateral LE itting edema) Skin: Other (left foot necrotic tissues) Neuro: Normal speech, Sensation intact Psych/Mental Status: Mental status NL, Mood NL MUSCULOSKELETAL: Osteoarthritic changes both hands VITALS/I&O VITALS/I&O: Vital Signs Date Time Temp Pulse Resp B/P (MAP) Pulse Ox O2 Delivery O2 Flow Rate FiO2 01/18/20 10:13 97 Room Air 01/18/20 08:43 2.0 01/18/20 07:32 82 165/101 01/18/20 07:00 98.5 20 98.5 I & O 01/17/20 01/17/20 01/18/20 15:00 23:00 07:00 Intake Total 0 ml 670 ml 3500 ml Output Total 750 ml Balance 0 ml -80 ml 3500 ml LABS Lab: Laboratory Tests Test 01/17/20 11:42 01/17/20 16:43 01/17/20 20:32 01/18/20 07:32 Glucose (Fingerstick) 179 mg/dL (70-99) H 173 mg/dL (70-99) H 213 mg/dL (70-99) H 346 mg/dL (70-99) H ASSESSMENT/PLAN ASSESSMENT/PLAN 1. Left foot pain with necrotic tissue/possible osteomyelitis S/P left big toe amputation poor healing with necrotic tissue and contributing severe PAD/DM 2. Severe PAD: S/P SECURITY EXPERT proximal peroneal artery 01/16. Per vascular RLE open revascularization is warranted for optimal healing and ebirdement as well planned for next week 3. DM2/DPN 4. HLP 5. Noncompliance 6. Tobacco abuse 7. Obesity 8. HTN: labile 9. Marijuana use 10. Hx of ACEi related angioedema Recommendations ASA, lipitor, norvasc TTE if none recent will need MPI due to high risk surgery Pt wanting to go home to care for his children and spouse and will be willing to come back on Tuesday for the stress test with LLE operation tentatively set on Tuesday next week. Smoking and marijuana cessation. Discussed treatment compliance KRIS OLEARY MD 01/18/20 2174: CARDIAC CONSULT ASSESSMENT/PLAN ASSESSMENT/PLAN Patient seen and examined. Agree with DIRECTOR OF COMMUNICATIONS's assessment and plan. Vascular surgery planning peripheral bypass for PAD next Tuesday. Due to multiple cardiovascular factors, we will obtain Lexiscan nuclear stress test to rule out ischemia prior to cardiac clearance. 2D echo showed normal LV systolic function. Okay for DC home today and MPI on Tuesday. Thank you for your consultation. WILMA WISE APRN Jan 18, 2020 11:11 KRIS OLEARY MD Jan 18, 2020 17:44
[2020-01-18] MEDS ORDERED: ASPI325T8 PO (11:20)
[2020-01-18] MEDS ORDERED: MORP-15 PO (11:20)
[2020-01-18] MEDS ORDERED: MORP15TA PO (11:20)
[2020-01-18] MEDS ORDERED: CIPR500S2 PO (11:21)
[2020-01-18] MEDS ORDERED: LACT1CAP19 PO (11:21)
--- NOTE | 2020-01-18 14:20 | PDOC3 ---
Discharge Summary Visit Information Date of Admission: Jan 15, 2020 Date of Discharge: Jan 18, 2020 Admitting Diagnosis Comment: Peripheral vascular disease with progression of foot wound. Suspect he is going to need another transmetatarsal amputation, Final Diagnosis Problems Medical Problems: (1) Diabetic foot ulcer Status: Acute Peripheral vascular disease Right mid transmetatarsal amputation Left first toe amputation Lower extremity pain is results of his diabetic complications Noncompliance History of asthma Dyslipidemia Tobacco abuse Brief Hospital Course Allergies Allergies Coded Allergies Type Severity Reaction Last Updated Verified lisinopril Allergy Severe ANGIOEDEMA 01/07/18 Yes vancomycin Allergy Severe SOB 01/14/20 Yes Penicillins Allergy Intermediate 01/30/18 Yes Vital Signs Vital Signs Date Time Temp Pulse Resp B/P (MAP) Pulse Ox O2 Delivery O2 Flow Rate FiO2 01/18/20 11:27 97 Room Air 01/18/20 11:00 98.0 80 20 125/68 (87) 98.0 01/18/20 08:43 2.0 Lab Results Laboratory Tests Test 01/16/20 16:54 01/16/20 20:34 01/16/20 22:03 01/17/20 07:38 Glucose (Fingerstick) 299 mg/dL (70-99) 353 mg/dL (70-99) 365 mg/dL (70-99) 245 mg/dL (70-99) Test 01/17/20 11:42 01/17/20 16:43 01/17/20 20:32 01/18/20 07:32 Glucose (Fingerstick) 179 mg/dL (70-99) 173 mg/dL (70-99) 213 mg/dL (70-99) 346 mg/dL (70-99) Test 01/18/20 11:48 Glucose (Fingerstick) 210 mg/dL (70-99) Laboratory Tests Test 01/17/20 16:43 01/17/20 20:32 01/18/20 07:32 01/18/20 11:48 Glucose (Fingerstick) 173 mg/dL (70-99) 213 mg/dL (70-99) 346 mg/dL (70-99) 210 mg/dL (70-99) Brief Hospital Course History of Present Illness The patient is a pleasant 49-year-old male who already had a transmetatarsal amputation on the right. Now, his left foot is infected. It looks like he may be heading towards another surgery on that side. He apparently left against medical advice from another facility, I think it was [facility] because they wanted to do [id number]-elhj amputation. This has been going on for quite a few years. He has got diabetes and peripheral vascular disease. I discussed the case with the ER physician. We have admitted the patient with consultation to Dr. Mederos, Orthopedics. 01/15 Patient with no acute events reported overnight. The patient already had eaten this morning and unfortunately will not be able to have his angiography today. He is bargaining with pain management due to narcotic use for the last 6 months. He is not happy with being on a extended release form of morphine explained the necessity of maintaining the least amount of narcotics possible in order to control his discomfort and the patient does not even seem in acute distress during my interview. He is able to ambulate and not complain of pain during ambulation. Discussed with nursing staff and encouraged to avoid excess narcotics 01/16 No acute events reported overnight, patient follow senior business consultant day he wants to go back to hydrocodone since the morphine is not alleviating his pain nevertheless he is not in pain does not seem to exhibit signs of discomfort while I am assessing him. Certainly exhibiting drug-seeking behavior which will not be encouraged. At the present time awaiting for results of angiography 01/17 Case discussed with orthopedic senior business consultant vascular senior business consultant interventional radiology senior business consultant and also with infectious disease. Given that the patient has his diabetic necrotic lesions in his lower extremities infectious disease senior business consultant was recommending for him to continue with IV antibiotics awaiting for procedures and debridements, nevertheless the patient unfortunately due to social issues is unable to continue with his hospital stay and has pleaded to us to continue with his treatment plan in the outpatient setting. This was discussed at length with all the different consultants and vascular surgeon has him on the schedule for procedure on Tuesday after he gets cleared by cardiology hopefully on Tuesday with a stress test. Patient is here to undergo a high risk procedure and given his comorbidities he is also at high risk for adverse cardiovascular outcomes. The patient also acknowledged understanding of the risk that he is taking by continuing with antibiotic therapy in the outpatient setting which preferably would continue to be with IV antibiotics as per our senior business consultant. Please see his note for details recommendations were greatly appreciated. As far as pain goes the patient has responded well to a combination of extended release morphine and immediate release form of the morphine for breakthrough pain Dr. Mederos who was also involved in the case and his expertise was greatly appreciated at the present time given the patient is unfortunately very eager to leave the institution will defer further debridement plans for the near future after vascular procedure has been done. This will give the patient the best chance at recovery and healing given that his blood flow will be improved hopefully. He already notices the difference and also in his discomfort after successful angioplasty performed the day prior to his admission, please see below for details of the procedure Greater than 35 minutes were spent in the discharge process the patient in counseling coordination of care and arrangements for a safe discharge. Patient acknowledged understanding of all the instructions and he understands the instructions close follow-up come back on Tuesday for his stress test. Signs and symptoms of concern when to seek medical attention were discussed with the patient at length as well prior to discharge, I have addressed all concerns to the best of my abilities Physical Exam Head: Normal shape atraumatic Eyes: Pupils equal reactive to light and accommodation, normal conjunctivae and lids Ears: Normal shape Nose: Normal shape no trauma Mouth: No exudates of the back of throat no thrush no lesions Neck: Supple no JVD no carotid bruit or lymphadenopathy no thyromegaly Chest: Lungs clear to auscultation with good inspiratory effort no crackles rales or rhonchi Cardiovascular: S1-S2 regular rhythm no murmurs gallops or rubs Abdomen: Bowel sounds present soft nontender no hepatosplenomegaly appreciated sign Extremities: He has a right transmetatarsal amputation. The left foot also has a toe missing. There is a large amount of infection at the base of the previous amputation. Please see the pictures. Neurological: Alert awake oriented in person time place and situation, cranial nerves II through XII intact, no motor or sensory deficits appreciated Psych: Appropriate mood, cooperative Assessment Assessment PATIENT: KUSH PLASCENCIA ACCOUNT: [id number] : 1970 LOCATION: [address] [place] [address] AGE: 49 SEX: M EXAM STATUS: ADM IN ORD. PHYSICIAN: NATALIA MCNAMARA MD REASON: angio bilateral lower ext with possible left leg intervention PROCEDURE: [id number] ANGIO EXTREMITY BILAT 01/17/2020 Procedure: 1 . Abdominal aortogram 2. Pelvic angiogram 3. Left lower extremity angiogram 4. Angioplasty of the peroneal artery Clinical Indication: Poorly healing left lower extremity toe wound following amputation, with probable underlying osteomyelitis. Patient with known severe peripheral vascular disease and single vessel runoff to the left foot demonstrated on the angiography December 2017 Discussion: The procedure was explained in its entirety to the patient or the patients designated novelties sales representative by a member of the treatment team, including a discussion of the risks, benefits and commonly accepted alternatives to the procedure, as well as the expected consequences of no therapy whatsoever. Discussion of the risks included, but was not limited to, those that are most frequent and those that are rare but possibly severe or life-threatening, as well as the possibility of unforeseen complications. All elements of maximal sterile barrier technique including the use of a cap, mask, sterile gown, sterile gloves, large sterile sheet, appropriate hand hygiene, and 2% chlorhexidine for cutaneous antisepsis (or acceptable alternative antiseptic per current guidelines) were followed for this procedure. The right groin was prepped and draped using maximum sterile barrier technique. 1% lidocaine was administered for local anesthesia. Ultrasound evaluation demonstrates right common femoral artery be patent. There is accessed using micropuncture technique and direct ultrasound guidance. Reference ultrasound images were saved the medical record. 5 Pashto vascular sheath was placed. Nonocclusive catheter was advanced to the abdominal aorta. Abdominal aortogram was obtained demonstrating no aneurysm or flow-limiting stenosis. Catheter was repositioned in the inferior most abdominal aorta. Pelvic angiography demonstrates no hemodynamically significant aortoiliac stenosis. The aortic bifurcation was crossed. Catheter was positioned in the common femoral artery. An angiogram was obtained demonstrating patent left common femoral artery, and profunda artery. Catheter was repositioned and superficial femoral artery. Left lower extremity angiography was then performed. The left SFA is patent. The popliteal artery is patent. There are single vessel runoff to the foot via the peroneal artery, similar to 2008 exam. There is approximately 8 and 90% narrowing of the proximalmost peroneal artery. Distal peroneal artery is patent. There is a collateral arising from the distal peroneal artery providing relatively robust flow to the distal posterior tibial artery extending into the lateral plantar artery which extends across entire plantar surface of the foot. Some reconstitution of collateral arteries in the anterior further seen without a definitive dorsalis pedis artery. Multiple collaterals are seen however perfusing the dorsal aspect of the foot. Balloon angioplasty was performed in the proximal posterior tibial artery up to 3 mm which significantly improved morphology and flow. Angiography through the sheath demonstrates a mid common femoral puncture site. A minx device was deployed to achieve hemostasis. Sterile dressings were applied. No immediate complications were identified. Total fluoroscopy time: 14.4 minutes Dose area product: 166 Gycm2 The procedures performed under conscious sedation including continuous cardiopulmonary monitoring via dedicated sedation nurse. Onrl-gr-sohg sedation time: 77 minutes Impression single vessel runoff to the left foot with new relatively high-grade stenosis of the proximal peroneal artery successfully treated with balloon angioplasty. IMAGING REPORT Signed PATIENT: KUSH PLASCENCIA ACCOUNT: [id number] : 1970 LOCATION: ER AGE: 49 SEX: M EXAM STATUS: REG ER ORD. PHYSICIAN: ELENA NAYAK MD REASON: POSSIBLE OSTEOMYELITIS PROCEDURE: FOOT LEFT 3V INDICATION: Reason: POSSIBLE OSTEOMYELITIS / Spl. Instructions: / History: . Ulcer. COMPARISON: None. IMPRESSION: Left foot: 3 views obtained. Postamputation changes at the first digit at the level of the mid metatarsal. There is overlying soft tissue defect which appears to extend to the cortex. Could be secondary to ulceration within the region given the proximity to the cortex the patient would be at high risk for osteomyelitis. Destructive changes are seen at the second metatarsophalangeal joint of unknown age. This could be secondary to destructive changes from osteomyelitis. There is also a similar appearance at the third proximal interphalangeal joint and to a lesser degree as well as lucency at the fourth metatarsal head. These could be secondary to destruction from osteomyelitis of unknown age. If more accurate characterization is desired MRI or bone scan could better assess acuity of these findings. Swelling of soft tissues. Discharge Information Condition at Discharge: Improved Follow Up: Weeks Disposition/Orders: D/C to Home Scheduled Amlodipine Besylate (Amlodipine Besylate) 10 Mg Tablet, 10 MG PO DAILY, (Reported) Entered as Reported by: JOVANA FUCHS on 01/10/18 1042 Last Action: Continued on 01/15/20 0930 by SARAH HERCULES Aspirin (Aspirin) 325 Mg Tablet, 325 MG PO DAILYWBKFT for anti platelet for 30 Days, #30 Prescribed by: ELLA PICKARD MD on 01/18/20 1120 Atorvastatin Calcium (Atorvastatin Calcium) 40 Mg Tablet, 1 TAB PO QHS, #90 Ref 3 (Reported) Entered as Reported by: JOVANA FUCHS on 01/10/18 1042 Last Action: Continued on 01/15/20929 by SARAH HERCULES Ciprofloxacin (Cipro) 500 Mg/5 Ml Zakiya.mc.rec, 500 MG PO BID for diabetic foot ulcer for 7 Days Prescribed by: ELLA PICKARD MD on 01/18/20 1121 Ertapenem Sodium (Invanz) 1 Gm Vial, 1 GM IJ DAILY, #14 Prescribed by: EUSEBIO ALBERT on 03/02/18851 Insulin Aspart (Novolog Flexpen) 100 Unit/1 Ml Insuln.pen, 38 UNIT SQ TIDAC for DM , (Reported) Entered as Reported by: SARAH HERCULES on 01/15/20815 Last Taken: Unknown Dose on Unknown Date & Time Last Action: Converted on 01/15/20929 by SARAH HERCULES Insulin Glargine,Hum.rec.anlog (Lantus) 100 Unit/1 Ml Vial, 80 UNIT SQ HS for DM , (Reported) Entered as Reported by: SARAH HERCULES on 01/15/20815 Last Taken: Unknown Dose on Unknown Date & Time Last Action: Continued on 01/15/20929 by SARAH HERCULES Lactobacillus Rhamnosus Gg (Culturelle) 1 Each Cap.sprink, 1 CAP PO BID for probiotic for 30 Days, #60 Prescribed by: ELLA PICKARD MD on 01/18/201 Morphine Sulfate (Morphine Sulfate Er) 15 Mg Tablet.er, 15 MG PO BID for diabetic ulcer for 7 Days, #14 Prescribed by: ELLA PICKARD MD on 01/18/20 1120 [Fluconazole] 100 MG TABLET, 200 MG PO DAILY, #7 Prescribed by: EUSEBIO ALBERT on 03/02/18851 Scheduled PRN Morphine Sulfate (Morphine Sulfate) 15 Mg Tablet, 15 MG PO PRN Q6HRS PRN for BREAKTHRU PAIN for 3 Days, #12 Prescribed by: ELLA PICKARD MD on 01/18/20 1120 Discontinued Medications Amoxicillin/Potassium Clav (Amox Tr-K Clv 500-125 Mg Tab) 1 Each Tablet, 1 TAB PO BID, #20 (Reported) Entered as Reported by: BAILEY GRIJALVA on 03/11/18 1535 Doxycycline Hyclate (Doxycycline Hyclate) 100 Mg Tablet, 100 MG PO BID, #50 Prescribed by: EUSEBIO ALBERT on 02/02/18 1233 Hydrocodone Bit/Acetaminophen (Hydrocodone-Apap 5-325 ) 1 Each Tablet, 1 TAB PO PRN Q4HRS PRN for MILD PAIN, #30 Prescribed by: EUSEBIO ALBERT on 02/02/18 1111 Hydrocodone Bit/Acetaminophen (Hydrocodone-Apap 5-325 ) 1 Each Tablet, 1 TAB PO PRN Q6HRS PRN for PAIN, #30 Ref 0 Prescribed by: EUSEBIO ALBERT on 03/02/18 0920 Sulfamethoxazole/Trimethoprim (Bactrim Ds Tablet) 1 Each Tablet, 1 TAB PO BID, #20 Prescribed by: JULISSA SIMON on 03/23/18 0927 Justicifation of Admission Dx: Justifications for Admission: Justification of Admission Dx: Yes ELLA PICKARD MD Jan 18, 2020 14:20
--- NOTE | 2020-01-18 14:32 | NUR ---
Pt was given paper education on Nuclear Medicine MPI stress test, that was faxed, along with discharge paperwork. Pt refused verbal education. Pt stated "I know everything, you don't need to tell me anything." Pt refused wound care by this RN. Pt escorted out by wheelchair by Antoinette to main entrance where the Transportation van awaits him.
--- NOTE | 2020-01-18 14:37 | NUR ---
[place]: This Rn escorted pt ambulating to [facility], IV out prior, and all belongings in tow.
--- NOTE | 2020-01-18 16:53 | CARD ---
MR#: [id number] Date of Study: 01/18/2020 Ordering Physician: WILMA WISE, Referring Physician: WILMA WISE, Tech: Dahlia Garcia APPROVED REPORT EXAM: Two-dimensional and M-mode echocardiogram with Doppler and color Doppler. Other Information Quality : AverageHR: 72bpm INDICATION Pre-Op RISK FACTORS Hypertension Hyperlipidemia Diabetes Smoking 2D DIMENSIONS Left Atrium(2D)3.7 (1.6-4.0cm)IVSd1.2 (0.7-1.1cm) Aortic Root(2D)3.0 (2.0-3.7cm)LVDd4.9 (3.9-5.9cm) LVOT Diameter2.0 (1.8-2.4cm)PWd1.1 (0.7-1.1cm) LVDs2.7 (2.5-4.0cm)FS (%) 44.8 % SV83.9 ml Aortic Valve AoV Peak George.172.3cm/sAoV VTI26.6cm AO Peak GR.11.9mmHgLVOT Peak George.149.4cm/s LVOT VTI 25.33cmAO Mean GR.6mmHg MARY ANNE (VMAX)1.66at7AIF (VTI)2.99cm2 Mitral Valve MV E Ihhsvpzd163.1cm/sMV DECEL HDVH346wh MV A Dhjuglhs65.2cm/sMV E Mean Gr.2mmHg MV NOT77xtW/A Ratio1.7 MVA (PHT)4.16cm2 TDI E/Lateral E'10.0E/Medial E'11.3 Pulmonary Valve PV Peak Wfjwylke745.0cm/sPV Peak Grad.5mmHg Tricuspid Valve TR P. Duqgfeba528fd/sRAP BXLZRLAC9hjKb TR Peak Gr.66qcQuROGT53ylRb Pulmonary Vein S1 Lnjftqlz22.1cm/sD2 Xcylauks27.9cm/s PVa rurukjna850sivq LEFT VENTRICLE The left ventricle is normal size. There is mild concentric left ventricular hypertrophy. The left ve ntricular systolic function is normal and the ejection fraction is within normal range. The Ejection Fraction is 60-65%. There is normal LV segmental wall motion. Transmitral Doppler flow pattern is Gra de II-pseudonormal filling dynamics. RIGHT VENTRICLE The right ventricle is normal size. There is normal right ventricular wall thickness. The right ventr icular systolic function is normal. ATRIA The left atrium size is normal. The right atrium size is normal. The interatrial septum is intact wit h no evidence for an atrial septal defect or patent foramen ovale as noted on 2-D or Doppler imaging. AORTIC VALVE The aortic valve is thickened but opens well. Doppler and Color Flow revealed no significant aortic r egurgitation. There is no significant aortic valvular stenosis. Calculated aortic valve area is 2.71 cm2 with maximum pressure gradient of 14 mmHg and mean pressure gradient of 8 mmHg. MITRAL VALVE The mitral valve is normal in structure and function. There is no evidence of mitral valve prolapse. There is no mitral valve stenosis with a mean gradient of 2.2 mmHg Doppler and Color Flow revealed no mitral valve regurgitation noted. TRICUSPID VALVE The tricuspid valve is normal in structure and function. Doppler and Color Flow revealed trace tricus pid regurgitation with an estimated PAP of 26 mmHg. There is no tricuspid valve stenosis. PULMONIC VALVE The pulmonic valve is not well visualized. Doppler and Color Flow revealed no pulmonic valvular regur gitation. GREAT VESSELS The aortic root is normal in size. The ascending aorta is normal in size. The IVC is normal in size a nd collapses >50% with inspiration. PERICARDIAL EFFUSION There is no evidence of significant pericardial effusion. Critical Notification Critical Value: No <Conclusion> The left ventricle is normal size. The left ventricular systolic function is normal and the ejection fraction is within normal range. The Ejection Fraction is 60-65%. There is mild concentric left ventricular hypertrophy. Doppler and Color Flow revealed no significant aortic regurgitation. There is no significant aortic valvular stenosis. Doppler and Color Flow revealed no mitral valve regurgitation noted. Doppler and Color Flow revealed trace tricuspid regurgitation with an estimated PAP of 26 mmHg. Signed by : Lizandro Velazquez MD Electronically Approved : 01/18/2020 16:52:31
[2020-02-20] MEDS ORDERED: HYDR-2761 PO (12:17)
[2020-02-20] MEDS ORDERED: DOCU-153 PO (12:17)
[2020-02-20] MEDS ORDERED: LEVO500T8 PO (12:17)
[2020-02-20] MEDS ORDERED: ACET325T9 PO (12:17)
== END 2020-01-18 14:37 | disposition home or self-care (01) | DRG 253 ==
LOC: ER 20:22 → 2 NORTH 01-15 03:13
PROVIDERS: ADMIT Internal Medicine; ATTEND Internal Medicine
PROC: 047S3ZZ Dilation of Left Posterior Tibial Artery, Percutaneous Approach (ICD-10-PCS; principal; 2020-01-17)
PROC: B4101ZZ Fluoroscopy of Abdominal Aorta using Low Osmolar Contrast (ICD-10-PCS; 2020-01-17)
PROC: B41G1ZZ Fluoroscopy of Left Lower Extremity Arteries using Low Osmolar Contrast (ICD-10-PCS; 2020-01-17)
PROC: B41C1ZZ Fluoroscopy of Pelvic Arteries using Low Osmolar Contrast (ICD-10-PCS; 2020-01-17)
DX: E10.51 Type 1 diabetes mellitus with diabetic peripheral angiopathy without gangrene (principal); T87.44 Infection of amputation stump, left lower extremity; M86.372 Chronic multifocal osteomyelitis, left ankle and foot; E10.621 Type 1 diabetes mellitus with foot ulcer; E10.69 Type 1 diabetes mellitus with other specified complication; I10 Essential (primary) hypertension; E10.65 Type 1 diabetes mellitus with hyperglycemia; E66.9 Obesity, unspecified; E78.00 Pure hypercholesterolemia, unspecified; E78.5 Hyperlipidemia, unspecified; F12.90 Cannabis use, unspecified, uncomplicated; F17.210 Nicotine dependence, cigarettes, uncomplicated; J45.909 Unspecified asthma, uncomplicated; K59.00 Constipation, unspecified; L08.9 Local infection of the skin and subcutaneous tissue, unspecified; G62.9 Polyneuropathy, unspecified; L97.524 Non-pressure chronic ulcer of other part of left foot with necrosis of bone; Y83.5 Amputation of limb(s) as the cause of abnormal reaction of the patient, or of later complication, without mention of misadventure at the time of the procedure; Z76.5 Malingerer [conscious simulation]; Z59.0 Homelessness; Z79.4 Long term (current) use of insulin; Z82.49 Family history of ischemic heart disease and other diseases of the circulatory system; Z83.3 Family history of diabetes mellitus; Z88.1 Allergy status to other antibiotic agents; Z91.19 Patient's noncompliance with other medical treatment and regimen; Z98.62 Peripheral vascular angioplasty status; Z88.8 Allergy status to other drugs, medicaments and biological substances
CPT/HCPCS: 36247; 36415; 37228; 73630; 75710; 75716; 76937; 80053; 82962; 85025; 85610; 85730; 87040; 93306; 96374; 99152; 99153; C1713; C1725; C1760; C1769; C1892; C1894; G0269; J0692; J0878; J1644; J1815; J2185; J2250; J3010; J3490; Q9967; 99285-25; G0378

== ENCOUNTER 2021-01-20 03:54 | Inpatient (IN) | payer OTHER, MEDICAID ==
[~2021-01-20] VITALS: Ht 182.9 cm; Wt 106.1 kg
[~2021-01-20 03:54] MED LIST changes: +ACET325T9 PO; +AMLO-187 PO; -AMLO10TA8 PO; +ASPI325T8 PO; +CIPR500S2 PO; +DOCU-148 PO; +INSU100V8 SQ; +LACT1CAP19 PO; +LEVO500T8 PO; +MORP-15 PO; +MORP15TA PO
--- NOTE | 2021-01-20 04:25 | PHYS DOC ---
Past Medical History Past Medical History: Asthma, Diabetes-Type II, High Cholesterol, Hypertension Past Surgical History: Other Additional Past Surgical Histo: LEFT TOE AMPUTATION,HERNIA, R foot partial amputation Smoking Status: Current Every Day Smoker Alcohol Use: Occasionally Drug Use: None General Adult EDM: Chief Complaint: LOWER EXTREMITY SWELLING HPI: HPI: Patient is a 50 year old male with history of IDDM, HTN, HLD, peripheral vascular disease, osteomyelitis of the right foot s/p partial amputation who presents with an open right foot wound, swelling, and increasing pain over the past 2 weeks. States that it feels similar to previous infections. He does report subjective chills as well. No measured fevers. Chart review shows he was last hospitalized here in January 2020 for similar issues. Review of Systems: Review of Systems: Constitutional: Reports chills. No documented fevers. [] Eyes: Denies change in visual acuity. [] HENT: Denies nasal congestion or sore throat. [] Respiratory: Denies cough or shortness of breath. [] Cardiovascular: Denies chest pain or edema. [] GI: Denies abdominal pain, nausea, vomiting, bloody stools or diarrhea. [] : Denies dysuria. [] Musculoskeletal: +Right foot pain. [] Integument: +Open right foot wound, skin swelling and pain [] Neurologic: Denies headache, focal weakness or sensory changes. [] Endocrine: Denies polyuria or polydipsia. [] Lymphatic: Denies swollen glands. [] Psychiatric: Denies depression or anxiety. [] Heart Score: C/O Chest Pain: No Risk Factors: Risk Factors: DM, Current or recent (<one month) smoker, HTN, HLP, family history of CAD, obesity. Risk Scores: Score 0 - 3: 2.5% MACE over next 6 weeks - Discharge Home Score 4 - 6: 20.3% MACE over next 6 weeks - Admit for Clinical Observation Score 7 - 10: 72.7% MACE over next 6 weeks - Early Invasive Strategies Allergies: Allergies: Allergies Coded Allergies Type Severity Reaction Last Updated Verified lisinopril Allergy Severe ANGIOEDEMA 02/18/20 Yes vancomycin Allergy Severe SOB 02/18/20 Yes Penicillins Allergy Intermediate 02/18/20 Yes cefepime Allergy Intermediate Itching 02/18/20 Yes Physical Exam: PE: Constitutional: Well developed, well nourished, no acute distress, non-toxic appearance. [] Eyes: conjunctiva normal, no discharge. [] Neck: Normal range of motion, no tenderness, supple, no stridor. [] Cardiovascular:Heart rate regular rhythm, no murmur [] Lungs & Thorax: Normal work of breathing. Normal chest excursion. [] Abdomen: soft, no tenderness, no masses, no pulsatile masses. [] Skin: Warm, dry, no erythema, no rash. [] Back: No tenderness, no CVA tenderness. [] Extremities: Partial amputation of right foot across the metatarsals. Tenderness in the skin along the foot all over extending into the anterior lower leg. Large 2 cm ulceration on the base of the right foot. Mild drainage. [] Neurologic: Alert and oriented X 3, normal motor function, normal sensory function, no focal deficits noted. [] Psychologic: Affect normal, judgement normal, mood normal. [] EKG: EKG: [] Radiology/Procedures: Radiology/Procedures: [] Impression: [facility] [address] [place] [address] IMAGING REPORT Signed PATIENT: KUSH PLASCENCIA ACCOUNT: [id number] : 1970 LOCATION: ER AGE: 50 SEX: M EXAM STATUS: REG ER ORD. PHYSICIAN: SANDY HERNANDEZ MD REASON: amputation, previous osteomyelitis now w/ ulcer and swelling PROCEDURE: FOOT RIGHT 3V XR FOOT_RIGHT 3 VIEWS Clinical Indication: Reason: amputation, previous osteomyelitis now w/ ulcer and swelling / Spl. Instructions: / History: Comparison: Bilateral foot radiographs, February 15, 2020. Findings: There is a plantar soft tissue ulcer of the lateral midfoot that contains air and measures 2.7 cm in length and 1.7 cm in depth and is approximately 2.1 cm transverse. Deep to the defect there is increased erosion of the cuboid and the residual base of the fifth metatarsal. Redemonstrated amputation at the tarsometatarsal joints. There is moderate soft tissue swelling of the distal stump. IMPRESSION: 1. There is increased erosion of the lateral cuboid suggesting osteomyelitis. 2. There is soft tissue ulcer containing air of the lateral plantar foot. Electronically signed by: Maicol Plascencia MD (01/20/2021 4:49 AM) [facility] DICTATED and SIGNED BY: MAICOL PLASCENCIA MD DATE: 01/20/21 [id number] 0 Course & Med Decision Making: Course & Med Decision Making Pertinent Labs and Imaging studies reviewed. (See chart for details) Patient a 50-year-old male with history of IDDM, HTN, HLD, PVD, right foot osteomyelitis s/p partial amputation who presents with recurrent ulceration and pain in the right foot as well as chills. On arrival is afebrile and hemodynamically stable. Foot has a large ulceration concerning for infection. He has multiple medication allergies including penicillins, cephalosporins, vancomycin making antibiotic selection difficult. I discussed with our pharmacist, and determined meropenem and linezolid would be a suitable empiric treatment. We will obtain ESR, CRP, basic labs, and x-ray of the foot. He will require hospitalization for ongoing IV antibiotics, ID consultation, and further management 0423 Xray concerning for osteomyeltitis. Matheus Disclaimer: Matheus Disclaimer: This electronic medical record was generated, in whole or in part, using a voice recognition dictation system. Departure Departure Impression: Primary Impression: Diabetic foot ulcer Additional Impressions: Right foot pain Osteomyelitis Disposition: ADMITTED INPATIENT Admitting Physician: GLIMAR Galeas) Condition: STABLE Referrals: NO PCP (PCP) SANDY HERNANDEZ MD Jan 20, 2021 04:25
[2021-01-20] MEDS ORDERED: MEROPENEM 500 MG in IV NORMAL SALINE 50ML 50 ML IV ONE (04:30)
--- NOTE | 2021-01-20 04:51 | RAD ---
XR FOOT_RIGHT 3 VIEWS Clinical Indication: Reason: amputation, previous osteomyelitis now w/ ulcer and swelling / Spl. Inst ructions: / History: Comparison: Bilateral foot radiographs, February 15, 2020. Findings: There is a plantar soft tissue ulcer of the lateral midfoot that contains air and measures 2.7 cm in length and 1.7 cm in depth and is approximately 2.1 cm transverse. Deep to the defect there is increa sed erosion of the cuboid and the residual base of the fifth metatarsal. Redemonstrated amputation at the tarsometatarsal joints. There is moderate soft tissue swelling of the distal stump. IMPRESSION: 1. There is increased erosion of the lateral cuboid suggesting osteomyelitis. 2. There is soft tissue ulcer containing air of the lateral plantar foot. Electronically signed by: Maicol Zuñiga MD (01/20/2021 4:49 AM) NILSA
[2021-01-20 05:11] LABS: BASO # 0.1 x10^3/uL (0.0-0.2); BASO % 1 % (0-3); EOS # 0.3 x10^3/uL (0.0-0.7); EOS % 3 % (0-3); HEMATOCRIT 33.3 % (39.0-53.0); HEMOGLOBIN 11.5 g/dL (13.0-17.5); LYMPH # 1.8 x10^3/uL (1.0-4.8); LYMPH % 23 % (24-48); MEAN CORPUSCULAR HEMOGLOBIN 30 pg (25-35); MEAN CORPUSCULAR HGB CONC 35 g/dL (31-37); MEAN CORPUSCULAR VOLUME 86 fL (79-100); MONO # 0.8 x10^3/uL (0.0-1.1); MONO % 10 % (0-9); NEUT # 4.9 x10^3/uL (1.8-7.7); NEUT % 63 % (31-73); PLATELET COUNT 251 x10^3/uL (140-400); RED BLOOD COUNT 3.87 x10^6/uL (4.30-5.70); RED CELL DISTRIBUTION WIDTH 15.7 % (11.5-14.5); WHITE BLOOD COUNT 7.8 x10^3/uL (4.0-11.0)
[2021-01-20 05:36] LABS: CALCIUM 9.1 mg/dL (8.5-10.1); CREATININE 0.9 mg/dL (0.7-1.3); GFR 108.1; POTASSIUM 4.1 mmol/L (3.5-5.1)
[2021-01-20 05:41] LABS: ALBUMIN 3.2 g/dL (3.4-5.0); ALBUMIN/GLOBULIN RATIO 0.8 (1.0-1.7); C-REACTIVE PROTEIN 8.2 mg/L (0-3.3); TOTAL BILIRUBIN 0.2 mg/dL (0.2-1.0); TOTAL PROTEIN 7.2 g/dL (6.4-8.2)
[2021-01-20] MEDS ORDERED: ONDANSETRON PF 4 MG/2 ML VIAL. IVP ONE (05:45)
--- NOTE | 2021-01-20 05:46 | NUR ---
started merrem. half way through the iv bag. pt began coughing up phlegm and iv bag was stopped per pt demand he was hollering that he is allergic to it. er Dr little.. lcrn
[2021-01-20] MEDS ORDERED: diphenhydrAMINE HCL 25 MG CAPSULE PO ONE (06:30)
[2021-01-20 07:00] VITALS: BP 145/81
--- NOTE | 2021-01-20 08:20 | PDOC1 ---
History and Physical Date of Service: DOS: DATE: 01/20/21 TIME: 08:20 Chief Complaint: Problems: (1) Osteomyelitis (2) Right foot pain (3) Diabetic foot ulcer (4) Uncontrolled diabetes mellitus Chief Complain: Right foot pain History of Present Illness: HPI: Patient is a 50-year-old -[place] male who presented to the emergency room due to increased pain and swelling of a chronic diabetic foot wound on his right lower extremity. Patient has been admitted multiple times in the past for infection of said wound. Patient is for several weeks he has had worsening swelling and discharge from his right foot wound. He also was having some difficulty ambulating due to pain. Eventually decided to present to the emergency room overnight. When I evaluated the patient he was stable resting in bed. Right foot x-ray showed findings suggesting osteomyelitis. Patient received doses of meropenem and linezolid in the emergency room. Patient also reports some subjective chills. He does also report a thorough antibiotic allergy history. Past Medical/Surgical History: PMH/PSH: Asthma, Diabetes-Type II, High Cholesterol, Hypertension, peripheral vascular disease, status post right transmetatarsal amputation Allergies: Allergies: Coded Allergies: lisinopril (Verified Allergy, Severe, ANGIOEDEMA, 02/18/20) vancomycin (Verified Allergy, Severe, SOB, 02/18/20) Penicillins (Verified Allergy, Intermediate, 02/18/20) TOLERATES MERREM cefepime (Verified Allergy, Intermediate, Itching, 02/18/20) Iodinated Contrast Media (Verified Adverse Reaction, Intermediate, Nausea, 01/20/21) "Makes me throw up" Family History: Family History: Noncontributory Social History: Social History: Denies alcohol tobacco or drug use Current Medications: Current Medications Current Medications Meropenem 500 mg/ Sodium Chloride 50 ml @ 100 mls/hr ONCE ONCE IV Last administered on 01/20/21at 05:25; Start 01/20/21 at 04:30; Stop 01/20/21 at 04:59; Status DC Linezolid/Dextrose 300 ml @ 300 mls/hr ONCE ONCE IV Last administered on 01/20/21at 05:33; Start 01/20/21 at 05:00; Stop 01/20/21 at 05:59; Status DC Ondansetron HCl (Zofran) 4 mg 1X ONCE IVP Last administered on 01/20/21at 06:22; Start 01/20/21 at 05:45; Stop 01/20/21 at 05:46; Status DC Diphenhydramine HCl (Benadryl) 25 mg 1X ONCE PO Last administered on 01/20/21at 06:22; Start 01/20/21 at 06:30; Stop 01/20/21 at 06:31; Status DC Active Scripts Active Levofloxacin 500 Mg Tablet 1 Tab PO DAILY 7 Days Dok (Docusate Sodium) 100 Mg Capsule 100 Mg PO PRN BID PRN 30 Days Tylenol (Acetaminophen) 325 Mg Tablet 650 Mg PO PRN Q6HRS PRN 14 Days Hydrocodone-Apap 5-325 (Hydrocodone Bit/Acetaminophen) 1 Tab Tablet 1 Tab PO PRN Q4HRS PRN 10 Days Culturelle (Lactobacillus Rhamnosus Gg) 1 Each Cap.sprink 1 Cap PO BID 30 Days Aspirin 325 Mg Tablet 325 Mg PO DAILYWBKFT 30 Days Reported Novolog Flexpen (Insulin Aspart) 100 Unit/1 Ml Insuln.pen 38 Unit SQ TIDAC Lantus (Insulin Glargine,Hum.rec.anlog) 100 Unit/1 Ml Vial 80 Unit SQ HS Atorvastatin Calcium 40 Mg Tablet 1 Tab PO QHS Amlodipine Besylate 10 Mg Tablet 10 Mg PO DAILY ROS: Review of Systems Review of System Negative unless noted in HPI Physical Exam: Vital Signs: Vital Signs Date Time Temp Pulse Resp B/P (MAP) Pulse Ox O2 Delivery O2 Flow Rate FiO2 01/20/21 03:54 98.5 82 20 135/85 (122) 96 Room Air 98.5 Physcial Exam: GEN: No apparent distress. Alert and oriented HEENT: Normal cephalic, atraumatic, external auditory canals are patent EYES: Extraocular muscles are intact, MUSCULOSKELETAL: Well developed , well nourished, good range of motion ENDOCRINE: No thyromegaly was palpated LYMPHATICS: No cervical chain or axillary nodes were noted HEMATOPOIETIC: No bruising NECK: Supple, no JVD, no thyromegaly was noted LUNGS: Clear to auscultation in all lung adams without rhonchi or wheezing HEART: RRR, S1, S2 present. Peripheral pulses intact, no obvious murmurs noted ABDOMEN: Soft, nontender. Positive bowel sounds, no organomegaly, normal bowel sounds EXTREMITIES: Status post transmetatarsal amputation of the right foot; wound on the plantar aspect of the right foot with subcutaneous fat visible NEUROLOGIC: Normal speech and tone. A&O x 3, moves all extremitiesits PSYCHIATRIC: Normal affect, normal mood. Stable SKIN: No ulcerations or rashes, good skin turgor, no jaundice VASCULAR: Good capillary refill, neurovascular bundle appears to be intact Labs: Labs: Laboratory Tests Test 01/20/21 05:02 White Blood Count 7.8 x10^3/uL (4.0-11.0) Red Blood Count 3.87 x10^6/uL (4.30-5.70) Hemoglobin 11.5 g/dL (13.0-17.5) Hematocrit 33.3 % (39.0-53.0) Mean Corpuscular Volume 86 fL (79-100) Mean Corpuscular Hemoglobin 30 pg (25-35) Mean Corpuscular Hemoglobin Concent 35 g/dL (31-37) Red Cell Distribution Width 15.7 % (11.5-14.5) Platelet Count 251 x10^3/uL (140-400) Neutrophils (%) (Auto) 63 % (31-73) Lymphocytes (%) (Auto) 23 % (24-48) Monocytes (%) (Auto) 10 % (0-9) Eosinophils (%) (Auto) 3 % (0-3) Basophils (%) (Auto) 1 % (0-3) Neutrophils # (Auto) 4.9 x10^3/uL (1.8-7.7) Lymphocytes # (Auto) 1.8 x10^3/uL (1.0-4.8) Monocytes # (Auto) 0.8 x10^3/uL (0.0-1.1) Eosinophils # (Auto) 0.3 x10^3/uL (0.0-0.7) Basophils # (Auto) 0.1 x10^3/uL (0.0-0.2) Erythrocyte Sedimentation Rate 52 (0-15) Sodium Level 140 mmol/L (136-145) Potassium Level 4.1 mmol/L (3.5-5.1) Chloride Level 104 mmol/L (98-107) Carbon Dioxide Level 27 mmol/L (21-32) Anion Gap 9 (6-14) Blood Urea Nitrogen 15 mg/dL (8-26) Creatinine 0.9 mg/dL (0.7-1.3) Estimated GFR (Cockcroft-Gault) 108.1 BUN/Creatinine Ratio 17 (6-20) Glucose Level 128 mg/dL (70-99) Lactic Acid Level 1.0 mmol/L (0.4-2.0) Calcium Level 9.1 mg/dL (8.5-10.1) Total Bilirubin 0.2 mg/dL (0.2-1.0) Aspartate Amino Transf (AST/SGOT) 14 U/L (15-37) Alanine Aminotransferase (ALT/SGPT) 18 U/L (16-63) Alkaline Phosphatase 86 U/L (46-116) C-Reactive Protein, Quantitative 8.2 mg/L (0-3.3) Total Protein 7.2 g/dL (6.4-8.2) Albumin 3.2 g/dL (3.4-5.0) Albumin/Globulin Ratio 0.8 (1.0-1.7) Laboratory Tests Test 01/20/21 05:02 White Blood Count 7.8 x10^3/uL (4.0-11.0) Red Blood Count 3.87 x10^6/uL (4.30-5.70) Hemoglobin 11.5 g/dL (13.0-17.5) Hematocrit 33.3 % (39.0-53.0) Mean Corpuscular Volume 86 fL (79-100) Mean Corpuscular Hemoglobin 30 pg (25-35) Mean Corpuscular Hemoglobin Concent 35 g/dL (31-37) Red Cell Distribution Width 15.7 % (11.5-14.5) Platelet Count 251 x10^3/uL (140-400) Neutrophils (%) (Auto) 63 % (31-73) Lymphocytes (%) (Auto) 23 % (24-48) Monocytes (%) (Auto) 10 % (0-9) Eosinophils (%) (Auto) 3 % (0-3) Basophils (%) (Auto) 1 % (0-3) Neutrophils # (Auto) 4.9 x10^3/uL (1.8-7.7) Lymphocytes # (Auto) 1.8 x10^3/uL (1.0-4.8) Monocytes # (Auto) 0.8 x10^3/uL (0.0-1.1) Eosinophils # (Auto) 0.3 x10^3/uL (0.0-0.7) Basophils # (Auto) 0.1 x10^3/uL (0.0-0.2) Erythrocyte Sedimentation Rate 52 (0-15) Sodium Level 140 mmol/L (136-145) Potassium Level 4.1 mmol/L (3.5-5.1) Chloride Level 104 mmol/L (98-107) Carbon Dioxide Level 27 mmol/L (21-32) Anion Gap 9 (6-14) Blood Urea Nitrogen 15 mg/dL (8-26) Creatinine 0.9 mg/dL (0.7-1.3) Estimated GFR (Cockcroft-Gault) 108.1 BUN/Creatinine Ratio 17 (6-20) Glucose Level 128 mg/dL (70-99) Lactic Acid Level 1.0 mmol/L (0.4-2.0) Calcium Level 9.1 mg/dL (8.5-10.1) Total Bilirubin 0.2 mg/dL (0.2-1.0) Aspartate Amino Transf (AST/SGOT) 14 U/L (15-37) Alanine Aminotransferase (ALT/SGPT) 18 U/L (16-63) Alkaline Phosphatase 86 U/L (46-116) C-Reactive Protein, Quantitative 8.2 mg/L (0-3.3) Total Protein 7.2 g/dL (6.4-8.2) Albumin 3.2 g/dL (3.4-5.0) Albumin/Globulin Ratio 0.8 (1.0-1.7) Assessment/Plan Assessment/Plan Patient is a 52-year-old -[place] male presenting for worsening of chronic right foot wound. 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 at midnight -Home meds resumed as indicated Justifications for Admission Other Justification Diabetic foot wound IBAN HERNANDEZ MD Jan 20, 2021 08:20
[2021-01-20] MEDS ORDERED: DEXTROSE 50% 25 GM / 50ML DISP.SYRIN. IV PRN (08:30)
[2021-01-20] MEDS ORDERED: HYDROmorphone 2 MG TABLET PO PRN (08:30)
[2021-01-20] MEDS ORDERED: CALCIUM CARBONATE 500 MG TAB.CHEW PO PRN (08:30)
[2021-01-20] MEDS ORDERED: ELECTROLYTE (NON-ICU) PROTOCOL. MC PRN (08:30)
[2021-01-20] MEDS ORDERED: oxyCODONE/APAP 5/325 1 TAB TABLET PO PRN (08:30)
[2021-01-20] MEDS ORDERED: ONDANSETRON PF 4 MG/2 ML VIAL. IVP PRN (08:30)
[2021-01-20] MEDS ORDERED: ZOLPIDEM 5 MG TABLET. PO PRN (08:30)
[2021-01-20] MEDS ORDERED: ACETAMINOPHEN 325 MG TABLET. PO PRN (08:30)
[2021-01-20] MEDS: LACTOBACILLUS RHAMNOSUS GG 1 CAPSULE. PO SCH ×2 (10:43→22:11)
[2021-01-20] MEDS: SENNOSIDES/DOCUSATE 8.6/50MG TABLET. PO SCH ×2 (10:44→22:11)
[2021-01-20 11:00] VITALS: BP 154/89
--- NOTE | 2021-01-20 11:20 | CONS ---
DATE OF CONSULTATION: 01/20/2021 REFERRING PHYSICIAN: Dr. Pompa. REASON FOR CONSULTATION: Right diabetic foot infection. Antibiotic management The patient was seen in ER. HISTORY OF PRESENT ILLNESS: A 50-year-old male with history of poorly controlled diabetes, hypertension, hyperlipidemia, peripheral vascular disease, history of osteomyelitis of the right foot, status post TMA, presents with open wound on the right foot, worsening swelling and pain over the last 2 weeks. The patient had been on oral Flagyl as outpatient. He has had similar episodes of infection in the past. He had subjective chills, low-grade fevers. White count was normal. ESR of 32. CRP of 8.2, lactate of 1.0. Right foot x-ray revealed increased erosion of the lateral cuboid suggesting osteomyelitis and soft tissue ulcer containing air of the lateral plantar foot. The patient received a dose of meropenem and linezolid. ID consultation has been requested for antibiotic management. The patient complains of pain and intermittent purulent drainage from the right plantar foot ulcer which has over quite some time. He denies any history of injury, progressively got worse. The patient's temperature was 98.5 on presentation. He remains on room air. The patient denies any new procedure recently. 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 coli and enterococcus penicillin resistant organism. PAST SURGICAL HISTORY: Right transmetatarsal amputation, left great toe amputation, inguinal hernia repair, tonsillectomy. SOCIAL HISTORY: Positive for smoking. No alcohol, no drug use. Lives at home alone. No pets. ALLERGIES: PENICILLIN AND CEFEPIME, LISINOPRIL, VANCOMYCIN. CURRENT MEDICATIONS: Antibiotics, none. Got a dose of linezolid and meropenem in the ER. Other medications reviewed in medication list. PHYSICAL EXAMINATION: VITAL SIGNS: Temperature 98.5, pulse 74, respiratory rate 20, blood pressure 138/91, oxygen saturation 96% on room air. GENERAL: Alert, oriented x 3 male, in no acute distress, lying comfortably in bed. HEENT: Normocephalic, atraumatic. Anicteric. Poor dentition. No thrush, no oropharyngeal exudate. NECK: Supple. LUNGS: Clear bilaterally. HEART: S1, S2. No murmurs. ABDOMEN: Soft, nontender, nondistended, no rebound or guarding. EXTREMITIES: Left great toe amputation site well-healed. Right TMA is well healed. There is a large plantar ulcer with foul smelling drainage. Swelling of the right foot, tenderness present. Mild warmth. CENTRAL NERVOUS SYSTEM: Alert, oriented, grossly nonfocal. PSYCHIATRIC: Calm and cooperative. DERMATOLOGIC: Warm, dry, no generalized rash except for above. LABORATORY DATA: WBC 7.8, hemoglobin 11.5, hematocrit 33.3, platelets 251. ESR 52. Lactate 1.0. CRP is 8.2. Sodium 140, potassium 4.1, chloride 104, bicarbonate 27, BUN 15, creatinine 0.9. LFTs are normal. Albumin is 3.2. MICROBIOLOGY: None. IMAGING: Right foot x-ray as above. IMPRESSION: 1. Right plantar nonhealing diabetic foot wound with changes suggestive of lateral cuboid osteomyelitis with soft tissue ulcer containing air of the lateral plantar foot wound. 2. History of poorly controlled diabetes. 3. Peripheral vascular disease. 4. Peripheral neuropathy. 5. Status post right TMA with CR Acinetobacter baumannii, MDR E. coli and enterococcus penicillin resistant organism infection. 6. Left great toe amputation. 7. HISTORY OF NUMEROUS ALLERGIES INCLUDING PENICILLIN, VANCOMYCIN, CEFEPIME, ALL ANTIBIOTICS HAVE CAUSED SWELLING AND ITCHING. The patient has tolerated meropenem and Levaquin well in the past. 8. History of smoking. RECOMMENDATIONS: 1. Orthopedics consulted. 2. Start Merrem and daptomycin. 3. Follow up blood cultures. 4. The patient will need surgical intervention. Antibiotics alone will not be optimal especially with cuboid osteomyelitis 5. Optimal glucose control. 6. Monitor labs and cultures. 7. Continue supportive care. Thank you for allowing me to participate in the patient's care. If you have any questions, do not hesitate to contact me. VENKAT DR: Sonu TID: [id number] [email or web address]
[2021-01-20] MEDS: INSULIN LISPRO 300 UNITS/3 ML VIAL. SQ SCH ×4 (12:00→18:59)
[2021-01-20] MEDS ORDERED: DAPTOmycin (GENERIC) IVPB 640 MG in IV NORMAL SALINE 50ML 50 ML IV SCH (13:00)
[2021-01-20] MEDS: MEROPENEM 500 MG in IV NORMAL SALINE 50ML 50 ML IV SCH ×3 (14:08→23:59)
[2021-01-20 15:00] VITALS: BP 142/89
--- NOTE | 2021-01-20 16:34 | NUR ---
Wound Care Wound Type/Assessment: Pt seen in ED for bilateral feet DFUs, known to wound care RNs from multiple previous admissions. Left plantar first metatarsal head with a large callused ulceration, dark, dusky tissue in base, no healthy tissue present, periwound with heaped up callus and undermining. R lateral plantar foot ulcer with red, non-granular base, some slough present, periwound callus, no fluctuance or redness noted. Treatment Recommendations/Plan: Pt would benefit from bedside or OR debridement of bilateral ulcers. In the meantime, applied an antimicrobial dressing of Iodoflex danis, and wrapped with ABDs and kerlix, recommend changing every 3 days. Education provided: to pt re: possible need for debridement, need to offload with Diabetic footwear once ulcers heal (as pt is wearing tennis shoes at this time) Offloading surface/device: pt would benefit from Darco peg assist shoe on Right, and Darco half shoe on the left foot, but will defer to Ortho. Recommended Referrals/Tests: defer to Ortho or Vascular, R foot x-ray suggests osteo, pt would benefit from L foot x-ray. Discharge Recommendations for dressings: will continue to follow
--- NOTE | 2021-01-20 18:10 | PDOC2 ---
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 Prior wound culture [+] multidrug resistant infection with CR Acinetobacter baumannii, MDR E. coli and enterococcus penicillin resistant organism. Today, patient presents with a 2-week duration of a worsening ulcer to the right lateral stump, near the cuboid. He has been treated with Flagyl as an outpatient by whom? Further work-up was unremarkable for SIRS or leukocytosis. 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 He received a dose of linezolid, meropenem at ED. Pending blood culture. X-ray of the right foot remarked erosive changes to the cuboid and communicating air at the full-thickness ulcer. ID was consulted who recommended meropenem and daptomycin in the setting of his baseline allergies. Otherwise, he is hemodynamically stable. Past Medical History Cardiovascular: HTN, Hyperlipidemia Pulmonary: Asthma CENTRAL NERVOUS SYSTEM: Periperal neuropathy, Other Renal/: No pertinent hx Endocrine: Diabetes Past Surgical History Past Surgical History: Tonsillectomy, Other Family History Family History: Diabetes Social History ALCOHOL: none Drugs: Marijuana Lives: with Family Current Problem List Problem List Problems Medical Problems: (1) Diabetic foot ulcer Status: Acute (2) Right foot pain Status: Acute Current Medications Current Medications Current Medications Meropenem 500 mg/ Sodium Chloride 50 ml @ 100 mls/hr ONCE ONCE IV Last admin istered on 01/20/21at 05:25; Start 01/20/21 at 04:30; Stop 01/20/21 at 04:59; Status DC Linezolid/Dextrose 300 ml @ 300 mls/hr ONCE ONCE IV Last administered on 01/20/21at 05:33; Start 01/20/21 at 05:00; Stop 01/20/21 at 05:59; Status DC Ondansetron HCl (Zofran) 4 mg 1X ONCE IVP Last administered on 01/20/21at 06:22; Start 01/20/21 at 05:45; Stop 01/20/21 at 05:46; Status DC Diphenhydramine HCl (Benadryl) 25 mg 1X ONCE PO Last administered on 01/20/21at 06:22; Start 01/20/21 at 06:30; Stop 01/20/21 at 06:31; Status DC Amlodipine Besylate (Norvasc) 10 mg DAILY PO Last administered on 01/20/21at 10:47; Start 01/20/21 at 09:00 Atorvastatin Calcium (Lipitor) 40 mg QHS PO ; Start 01/20/21 at 21:00 Lactobacillus Rhamnosus (Culturelle) 1 cap BID PO Last administered on 01/20/21at 10:43; Start 01/20/21 at 09:00 Insulin Glargine (Lantus Syringe) 50 unit QHS SQ ; Start 01/20/21 at 21:00 Insulin Human Lispro (HumaLOG) 0-7 UNITS TIDWMEALS SQ ; Start 01/20/21 at 12:00 Dextrose (Dextrose 50%-Water Syringe) 12.5 gm PRN Q15MIN PRN IV SEE COMMENTS; Start 01/20/21 at 08:30 Insulin Human Lispro (HumaLOG) 20 units TIDWMEALS SQ ; Start 01/20/21 at 12:00 Ondansetron HCl (Zofran) 4 mg PRN Q6HRS PRN IVP NAUSEA/VOMITING; Start 01/20/21 at 08:30 Calcium Carbonate/ Glycine (Tums) 500 mg PRN Q3HRS PRN PO UPSET STOMACH; Start 01/20/21 at 08:30 Zolpidem Tartrate (Ambien) 5 mg PRN QHS PRN PO INSOMNIA, MAY REPEAT IN 1HR; Start 01/20/21 at 08:30 Info (Non-Icu Electrolyte Protocol) 1 ea PRN DAILY PRN MC SEE COMMENTS; Start 01/20/21 at 08:30 Oxycodone/ Acetaminophen (Percocet 5/325) 1 tab PRN Q4HRS PRN PO MILD PAIN, 1ST CHOICE; Start 01/20/21 at 08:30 Oxycodone/ Acetaminophen (Percocet 5/325) 2 tab PRN Q4HRS PRN PO MODERATE PAIN, SEVERE PAIN; Start 01/20/21 at 08:30 Hydromorphone HCl (Dilaudid) 2 mg PRN Q4HRS PRN PO MILD PAIN, MODERATE PAIN; Start 01/20/21 at 08:30 Hydromorphone HCl (Dilaudid) 4 mg PRN Q4HRS PRN PO SEVERE PAIN, 2ND CHOICE; Start 01/20/21 at 08:30 Acetaminophen (Tylenol) 650 mg PRN Q6HRS PRN PO Headaches, Temp > 101.5F; Start 01/20/21 at 08:30 Senna/Docusate Sodium (Senna Plus) 1 tab BID PO Last administered on 01/20/21at 10:44; Start 01/20/21 at 09:00 Meropenem 500 mg/ Sodium Chloride 50 ml @ 100 mls/hr Q6HRS IV Last administered on 01/20/21at 14:08; Start 01/20/21 at 12:00 Daptomycin 640 mg/ Sodium Chloride 50 ml @ 100 mls/hr Q24H IV Last administered on 01/20/21at 15:04; Start 01/20/21 at 13:00 Active Scripts Active Levofloxacin 500 Mg Tablet 1 Tab PO DAILY 7 Days Dok (Docusate Sodium) 100 Mg Capsule 100 Mg PO PRN BID PRN 30 Days Tylenol (Acetaminophen) 325 Mg Tablet 650 Mg PO PRN Q6HRS PRN 14 Days Hydrocodone-Apap 5-325 (Hydrocodone Bit/Acetaminophen) 1 Tab Tablet 1 Tab PO PRN Q4HRS PRN 10 Days Culturelle (Lactobacillus Rhamnosus Gg) 1 Each Cap.sprink 1 Cap PO BID 30 Days Aspirin 325 Mg Tablet 325 Mg PO DAILYWBKFT 30 Days Reported Novolog Flexpen (Insulin Aspart) 100 Unit/1 Ml Insuln.pen 38 Unit SQ TIDAC Lantus (Insulin Glargine,Hum.rec.anlog) 100 Unit/1 Ml Vial 80 Unit SQ HS Atorvastatin Calcium 40 Mg Tablet 1 Tab PO QHS Amlodipine Besylate 10 Mg Tablet 10 Mg PO DAILY Allergies Allergies: Coded Allergies: lisinopril (Verified Allergy, Severe, ANGIOEDEMA, 02/18/20) vancomycin (Verified Allergy, Severe, SOB, 02/18/20) Penicillins (Verified Allergy, Intermediate, 02/18/20) TOLERATES MERREM cefepime (Verified Allergy, Intermediate, Itching, 02/18/20) Iodinated Contrast Media (Verified Adverse Reaction, Intermediate, Nausea, 01/20/21) "Makes me throw up" Vitals VITALS Vital Signs Date Time Temp Pulse Resp B/P (MAP) Pulse Ox O2 Delivery O2 Flow Rate FiO2 01/20/21 10:47 74 138/91 01/20/21 03:54 98.5 20 96 Room Air 98.5 Labs Labs Laboratory Tests Test 01/20/21 05:02 01/20/21 11:35 01/20/21 14:22 White Blood Count 7.8 x10^3/uL (4.0-11.0) Red Blood Count 3.87 x10^6/uL (4.30-5.70) Hemoglobin 11.5 g/dL (13.0-17.5) Hematocrit 33.3 % (39.0-53.0) Mean Corpuscular Volume 86 fL (79-100) Mean Corpuscular Hemoglobin 30 pg (25-35) Mean Corpuscular Hemoglobin Concent 35 g/dL (31-37) Red Cell Distribution Width 15.7 % (11.5-14.5) Platelet Count 251 x10^3/uL (140-400) Neutrophils (%) (Auto) 63 % (31-73) Lymphocytes (%) (Auto) 23 % (24-48) Monocytes (%) (Auto) 10 % (0-9) Eosinophils (%) (Auto) 3 % (0-3) Basophils (%) (Auto) 1 % (0-3) Neutrophils # (Auto) 4.9 x10^3/uL (1.8-7.7) Lymphocytes # (Auto) 1.8 x10^3/uL (1.0-4.8) Monocytes # (Auto) 0.8 x10^3/uL (0.0-1.1) Eosinophils # (Auto) 0.3 x10^3/uL (0.0-0.7) Basophils # (Auto) 0.1 x10^3/uL (0.0-0.2) Erythrocyte Sedimentation Rate 52 (0-15) Sodium Level 140 mmol/L (136-145) Potassium Level 4.1 mmol/L (3.5-5.1) Chloride Level 104 mmol/L (98-107) Carbon Dioxide Level 27 mmol/L (21-32) Anion Gap 9 (6-14) Blood Urea Nitrogen 15 mg/dL (8-26) Creatinine 0.9 mg/dL (0.7-1.3) Estimated GFR (Cockcroft-Gault) 108.1 BUN/Creatinine Ratio 17 (6-20) Glucose Level 128 mg/dL (70-99) Lactic Acid Level 1.0 mmol/L (0.4-2.0) Calcium Level 9.1 mg/dL (8.5-10.1) Total Bilirubin 0.2 mg/dL (0.2-1.0) Aspartate Amino Transf (AST/SGOT) 14 U/L (15-37) Alanine Aminotransferase (ALT/SGPT) 18 U/L (16-63) Alkaline Phosphatase 86 U/L (46-116) Creatine Kinase 97 U/L (39-308) C-Reactive Protein, Quantitative 8.2 mg/L (0-3.3) Total Protein 7.2 g/dL (6.4-8.2) Albumin 3.2 g/dL (3.4-5.0) Albumin/Globulin Ratio 0.8 (1.0-1.7) SARS-CoV-2 RNA (MATILDA) Negative (Negative) SARS-CoV-2 Antigen (Rapid) Negative (NEGATIVE) Glucose (Fingerstick) 93 mg/dL (70-99) Laboratory Tests Test 01/20/21 05:02 01/20/21 11:35 01/20/21 14:22 White Blood Count 7.8 x10^3/uL (4.0-11.0) Red Blood Count 3.87 x10^6/uL (4.30-5.70) Hemoglobin 11.5 g/dL (13.0-17.5) Hematocrit 33.3 % (39.0-53.0) Mean Corpuscular Volume 86 fL (79-100) Mean Corpuscular Hemoglobin 30 pg (25-35) Mean Corpuscular Hemoglobin Concent 35 g/dL (31-37) Red Cell Distribution Width 15.7 % (11.5-14.5) Platelet Count 251 x10^3/uL (140-400) Neutrophils (%) (Auto) 63 % (31-73) Lymphocytes (%) (Auto) 23 % (24-48) Monocytes (%) (Auto) 10 % (0-9) Eosinophils (%) (Auto) 3 % (0-3) Basophils (%) (Auto) 1 % (0-3) Neutrophils # (Auto) 4.9 x10^3/uL (1.8-7.7) Lymphocytes # (Auto) 1.8 x10^3/uL (1.0-4.8) Monocytes # (Auto) 0.8 x10^3/uL (0.0-1.1) Eosinophils # (Auto) 0.3 x10^3/uL (0.0-0.7) Basophils # (Auto) 0.1 x10^3/uL (0.0-0.2) Erythrocyte Sedimentation Rate 52 (0-15) Sodium Level 140 mmol/L (136-145) Potassium Level 4.1 mmol/L (3.5-5.1) Chloride Level 104 mmol/L (98-107) Carbon Dioxide Level 27 mmol/L (21-32) Anion Gap 9 (6-14) Blood Urea Nitrogen 15 mg/dL (8-26) Creatinine 0.9 mg/dL (0.7-1.3) Estimated GFR (Cockcroft-Gault) 108.1 BUN/Creatinine Ratio 17 (6-20) Glucose Level 128 mg/dL (70-99) Lactic Acid Level 1.0 mmol/L (0.4-2.0) Calcium Level 9.1 mg/dL (8.5-10.1) Total Bilirubin 0.2 mg/dL (0.2-1.0) Aspartate Amino Transf (AST/SGOT) 14 U/L (15-37) Alanine Aminotransferase (ALT/SGPT) 18 U/L (16-63) Alkaline Phosphatase 86 U/L (46-116) Creatine Kinase 97 U/L (39-308) C-Reactive Protein, Quantitative 8.2 mg/L (0-3.3) Total Protein 7.2 g/dL (6.4-8.2) Albumin 3.2 g/dL (3.4-5.0) Albumin/Globulin Ratio 0.8 (1.0-1.7) SARS-CoV-2 RNA (MATILDA) Negative (Negative) SARS-CoV-2 Antigen (Rapid) Negative (NEGATIVE) Glucose (Fingerstick) 93 mg/dL (70-99) Assessment/Plan Assessment/Plan Diabetic foot ulcer to the right lateral stump, concerning for osteomyelitis, tendinitis, cellulitis in the setting of PAD, peripheral neuropathy, tobacco abuse. However, patient is hemodynamically stable and does not meet the SIRS criteria -Recommended deep wound culture for anaerobes, aerobes, Gram stain and sensitivity. Nurse communication order was placed -Pending blood culture -Daily WBC trend -IV antibiotics: Currently meropenem, daptomycin per IDs recommendation -Dress the wound with Betadine wet-to-dry gauze, Kerlix and tape with minimal compression -Remain nonweightbearing to the right foot. Elevate the right foot with 2 pillows behind the calf so that the heel is floated and then toes are elevated to the level of nose. -N.p.o. after midnight in preparation for possible surgical I&D on January 21 -Plan to evaluate the patient on 01/21 AM, but please consult me for further questions or concerns overnight. DOMENICO IBANEZ DPM Jan 20, 2021 18:10
[2021-01-20 19:00] VITALS: BP 115/79
[2021-01-20] MEDS ORDERED: INSULIN GLARGINE SYRINGE. SQ SCH (21:00)
[2021-01-20] MEDS ORDERED: ATORVASTATIN CALCIUM 40 MG TABLET. PO SCH (21:00)
[2021-01-20] MEDS: oxyCODONE/APAP 5/325 1 TAB TABLET PO PRN (22:41)
[2021-01-21 03:00] VITALS: BP 138/86
[2021-01-21] MEDS: MEROPENEM 500 MG in IV NORMAL SALINE 50ML 50 ML IV SCH ×2 (05:58→13:34)
[2021-01-21] MEDS: oxyCODONE/APAP 5/325 1 TAB TABLET PO PRN (06:07)
[2021-01-21 07:00] VITALS: BP 153/100
--- NOTE | 2021-01-21 08:44 | PDOC ---
Infectious Disease Note Subjective: Subjective pt without complaints refusing for surgery we discussed foot x ray results, he says he is aware of OM diagnosis .... no f/n/v/d/abdo pain/sob Vital Signs: Vital Signs Vital Signs Date Time Temp Pulse Resp B/P (MAP) Pulse Ox O2 Delivery O2 Flow Rate FiO2 01/21/21 03:00 98.7 75 20 138/86 (103) 99 Room Air 98.7 Physical Exam: PHYSICAL EXAM GENERAL: Alert, oriented x 3 male, in no acute distress, lying comfortably in bed. HEENT: Normocephalic, atraumatic. Anicteric. Poor dentition. No thrush, no oropharyngeal exudate. NECK: Supple. LUNGS: Clear bilaterally. HEART: S1, S2. No murmurs. ABDOMEN: Soft, nontender, nondistended, no rebound or guarding. EXTREMITIES: Left great toe amputation site well-healed. Right TMA foot dressing in place not taken Patient refused CENTRAL NERVOUS SYSTEM: Alert, oriented, grossly nonfocal. PSYCHIATRIC: Calm and cooperative. DERMATOLOGIC: Warm, dry, no generalized rash except for above. Medications: Inpatient Meds: Medications reviewed. Labs: Lab Laboratory Tests Test 01/20/21 11:35 01/20/21 14:22 01/20/21 18:47 01/21/21 07:58 SARS-CoV-2 RNA (MATILDA) Negative (Negative) SARS-CoV-2 Antigen (Rapid) Negative (NEGATIVE) Glucose (Fingerstick) 93 mg/dL (70-99) 311 mg/dL (70-99) 350 mg/dL (70-99) Objective: Assessment: 1. Right plantar nonhealing diabetic foot wound with changes suggestive of lateral cuboid osteomyelitis on x-ray with soft tissue ulcer containing air of the lateral plantar foot wound. 2. History of poorly controlled diabetes. 3. Peripheral vascular disease. 4. Peripheral neuropathy. 5. Status post right TMA with CR Acinetobacter baumannii, MDR E. coli and enterococcus penicillin resistant organism infection. 6. Left great toe amputation. 7. HISTORY OF NUMEROUS ALLERGIES INCLUDING PENICILLIN, VANCOMYCIN, CEFEPIME, ALL ANTIBIOTICS HAVE CAUSED SWELLING AND ITCHING. The patient has tolerated meropenem and Levaquin well in the past. 8. History of smoking. Plan: Plan of Care Continue Merrem and daptomycin. Follow up blood cultures. The patient will need surgical intervention ,he is refusing at this time. Patient is at risk of limb loss due to cuboid osteomyelitis Optimal glucose control. Monitor labs and cultures. Continue supportive care. Follow-up MRI Discussed with nursing staff PRATIK WHITE MD Jan 21, 2021 08:44
--- NOTE | 2021-01-21 09:12 | PDOC ---
[employer] PROGRESS NOTE Date of Service DOS: DATE: 01/21/21 TIME: 09:08 Chief Complaint Chief Complaint Osteomyelitis History of Present Illness History of Present Illness 10/21: Mr. Zuñiga was seen and evaluated today in his room. We discussed his disposition with his nurse today as well as reviewed his chart. Vitals/I&O Vitals/I&O: Vital Signs Date Time Temp Pulse Resp B/P (MAP) Pulse Ox O2 Delivery O2 Flow Rate FiO2 01/21/21 07:00 98.2 83 16 153/100 (117) 99 Room Air 98.2 I & O 01/20/21 01/20/21 01/21/21 15:00 23:00 07:00 Intake Total 50 ml 500 ml Output Total 690 ml 600 ml 300 ml Balance -640 ml -100 ml -300 ml Physical Exam Physical Exam: GENERAL: Alert, oriented x 3 male, in no acute distress, lying comfortably in bed. HEENT: Normocephalic, atraumatic. Anicteric. Poor dentition. No thrush, no oropharyngeal exudate. NECK: Supple. LUNGS: Clear bilaterally. HEART: S1, S2. No murmurs. ABDOMEN: Soft, nontender, nondistended, no rebound or guarding. EXTREMITIES: Left great toe amputation site well-healed. Right TMA is well healed. There is a large plantar ulcer with foul smelling drainage. Swelling of the right foot, tenderness present. Mild warmth. CENTRAL NERVOUS SYSTEM: Alert, oriented, grossly nonfocal. PSYCHIATRIC: Calm and cooperative. DERMATOLOGIC: Warm, dry, no generalized rash except for above. LABORATORY DATA: WBC 7.8, hemoglobin 11.5, hematocrit 33.3, platelets 251. ESR 52. Lactate 1.0. CRP is 8.2. Sodium 140, potassium 4.1, chloride 104, bicarbonate 27, BUN 15, creatinine 0.9. LFTs are normal. Albumin is 3.2. MICROBIOLOGY: None. IMAGING: Right foot x-ray as above. IMPRESSION: 1. Right plantar nonhealing diabetic foot wound with changes suggestive of lateral cuboid osteomyelitis on x-ray with soft tissue ulcer containing air of the lateral plantar foot wound. 2. History of poorly controlled diabetes. 3. Peripheral vascular disease. 4. Peripheral neuropathy. 5. Status post right TMA with CR Acinetobacter baumannii, MDR E. coli and enterococcus penicillin resistant organism infection. 6. Left great toe amputation. 7. HISTORY OF NUMEROUS ALLERGIES INCLUDING PENICILLIN, VANCOMYCIN, CEFEPIME, ALL ANTIBIOTICS HAVE CAUSED SWELLING AND ITCHING. The patient has tolerated meropenem and Levaquin well in the past. 8. History of smoking. RECOMMENDATIONS: 1. Orthopedics consulted. 2. Start Merrem and daptomycin. 3. Follow up blood cultures. 4. The patient will need surgical intervention. 5. Optimal glucose control. 6. Monitor labs and cultures. 7. Continue supportive care. 8. The patient was seen in ER. General: Alert, Oriented X3, Cooperative Heart: Regular rate, No murmurs Lungs: Clear Abdomen: Normal bowel sounds Extremities: No clubbing, No cyanosis Labs Labs: Laboratory Tests Test 01/20/21 11:35 01/20/21 14:22 01/20/21 18:47 01/21/21 07:58 SARS-CoV-2 RNA (MATILDA) Negative (Negative) SARS-CoV-2 Antigen (Rapid) Negative (NEGATIVE) Glucose (Fingerstick) 93 mg/dL (70-99) 311 mg/dL (70-99) 350 mg/dL (70-99) Review of Systems Review of Systems: No headache No rashes Assessment and Plan Assessmemt and Plan Problems Medical Problems: (1) Diabetic foot ulcer Status: Acute (2) Right foot pain Status: Acute 1) Home Medications 2) Diabetic Diet 3) Full Code 4) DVT Prophylaxis 5) Continue wound care Comment Review of Relevant I have reviewed the following items yuly (where applicable) has been applied. Medications: Current Medications Medications (Trade) Dose Ordered Sig/Dick Route PRN Reason Start Time Stop Time Status Last Admin Dose Admin Atorvastatin Calcium (Lipitor) 40 mg QHS PO 01/20/21 21:00 01/20/21 22:11 Insulin Glargine (Lantus Syringe) 50 unit QHS SQ 01/20/21 21:00 01/20/21 22:22 Insulin Human Lispro (HumaLOG) 0-7 UNITS TIDWMEALS SQ 01/20/21 12:00 01/20/21 18:58 Insulin Human Lispro (HumaLOG) 20 units TIDWMEALS SQ 01/20/21 12:00 01/20/21 18:59 Meropenem 500 mg/ Sodium Chloride 50 ml @ 100 mls/hr Q6HRS IV 01/20/21 12:00 01/21/21 05:58 Daptomycin 640 mg/ Sodium Chloride 50 ml @ 100 mls/hr Q24H IV 01/20/21 13:00 01/20/21 15:04 Justifications for Admission Other Justification Diabetic foot wound MARY LESLIE III DO Jan 21, 2021 09:12
--- NOTE | 2021-01-21 09:31 | PDOC2 ---
CONSULT Date of Consult Date of Consult DATE: 01/21/21 TIME: 09:22 Reason for Consult Reason for Consult: Right foot ulcer concerning for osteomyelitis Referring Physician Referring Physician: Unruly Identification/Chief Complaint Chief Complaint Right foot ulcer, pain Source Source: Patient History of Present Illness Reason for Visit: Per chart review, patient with a longstanding history of insulin-dependent diab etes, peripheral neuropathy, PAD, s/p left distal popliteal artery bypass [Jan 2020], right Lisfranc disarticulation [6 years ago at [facility]]. Prior wound culture [+] multidrug resistant infection with CR Acinetobacter baumannii, MDR E. coli and enterococcus penicillin resistant organism. Yesterday, patient presented with a worsening ulcer to the right lateral foot stump, near the cuboid, unknown duration. He has been treated with Flagyl as an outpatient by JUAN JOSÉ, specialty, for how long? Further ED work-up was unremarkable for SIRS or leukocytosis. BCX NGTD. X-ray of the right foot remarked erosive changes to the cuboid and communicating air at the full-thickness ulcer. He then received a dose of linezolid, meropenem at ED. ID was consulted who recommended meropenem and daptomycin in the setting of his baseline allergies. Otherwise, he has been hemodynamically stable. At bedside, patient was resting on the edge of the bed with the foot in a dependent position. Patient relates chronic and persistent pain to the right foot ulcer site and radiating to the lateral ankle joint as well. He is negligent about the onset and duration of the wound, however relates blood drainage from the site. Today, he denies any constitutional symptoms. He has b een n.p.o. since last night. When asked about the medical history, surgical history on the right foot, he is very negligent about them. He does not know if he had any tendon balancing to the right foot or ankle. And at the last surgical intervention to the right foot was from 6 years ago. At baseline, his social complexity at home, 5 kids and financial stress, has limited him from seeking medical care for the right foot. However, he is very adamant against any surgical intervention to the right foot. Past Medical History Cardiovascular: HTN, Hyperlipidemia Pulmonary: Asthma CENTRAL NERVOUS SYSTEM: Periperal neuropathy, Other Renal/: No pertinent hx Endocrine: Diabetes Past Surgical History Past Surgical History: Tonsillectomy, Other Family History Family History: Diabetes Social History ALCOHOL: none Drugs: Marijuana Lives: with Family Current Problem List Problem List Problems Medical Problems: (1) Diabetic foot ulcer Status: Acute (2) Right foot pain Status: Acute Current Medications Current Medications Current Medications Meropenem 500 mg/ Sodium Chloride 50 ml @ 100 mls/hr ONCE ONCE IV Last administered on 01/20/21at 05:25; Start 01/20/21 at 04:30; Stop 01/20/21 at 04:59; Status DC Linezolid/Dextrose 300 ml @ 300 mls/hr ONCE ONCE IV Last administered on 01/20/21at 05:33; Start 01/20/21 at 05:00; Stop 01/20/21 at 05:59; Status DC Ondansetron HCl (Zofran) 4 mg 1X ONCE IVP Last administered on 01/20/21at 06:22; Start 01/20/21 at 05:45; Stop 01/20/21 at 05:46; Status DC Diphenhydramine HCl (Benadryl) 25 mg 1X ONCE PO Last administered on 01/20/21at 06:22; Start 01/20/21 at 06:30; Stop 01/20/21 at 06:31; Status DC Amlodipine Besylate (Norvasc) 10 mg DAILY PO Last administered on 01/20/21at 10:47; Start 01/20/21 at 09:00 Atorvastatin Calcium (Lipitor) 40 mg QHS PO Last administered on 01/20/21at 22:11; Start 01/20/21 at 21:00 Lactobacillus Rhamnosus (Culturelle) 1 cap BID PO Last administered on 01/20/21at 22:11; Start 01/20/21 at 09:00 Insulin Glargine (Lantus Syringe) 50 unit QHS SQ Last administered on 01/20/21at 22:22; Start 01/20/21 at 21:00 Insulin Human Lispro (HumaLOG) 0-7 UNITS TIDWMEALS SQ Last administered on 01/20/21at 18:58; Start 01/20/21 at 12:00 Dextrose (Dextrose 50%-Water Syringe) 12.5 gm PRN Q15MIN PRN IV SEE COMMENTS; Start 01/20/21 at 08:30 Insulin Human Lispro (HumaLOG) 20 units TIDWMEALS SQ Last administered on 01/20/21at 18:59; Start 01/20/21 at 12:00 Ondansetron HCl (Zofran) 4 mg PRN Q6HRS PRN IVP NAUSEA/VOMITING; Start 01/20/21 at 08:30 Calcium Carbonate/ Glycine (Tums) 500 mg PRN Q3HRS PRN PO UPSET STOMACH; Start 01/20/21 at 08:30 Zolpidem Tartrate (Ambien) 5 mg PRN QHS PRN PO INSOMNIA, MAY REPEAT IN 1HR Last administered on 01/20/21at 22:11; Start 01/20/21 at 08:30 Info (Non-Icu Electrolyte Protocol) 1 ea PRN DAILY PRN MC SEE COMMENTS; Start 01/20/21 at 08:30 Oxycodone/ Acetaminophen (Percocet 5/325) 1 tab PRN Q4HRS PRN PO MILD PAIN, 1ST CHOICE; Start 01/20/21 at 08:30 Oxycodone/ Acetaminophen (Percocet 5/325) 2 tab PRN Q4HRS PRN PO MODERATE PAIN, SEVERE PAIN Last administered on 01/21/21at 06:07; Start 01/20/21 at 08:30 Hydromorphone HCl (Dilaudid) 2 mg PRN Q4HRS PRN PO MILD PAIN, MODERATE PAIN; Start 01/20/21 at 08:30 Hydromorphone HCl (Dilaudid) 4 mg PRN Q4HRS PRN PO SEVERE PAIN, 2ND CHOICE; Start 01/20/21 at 08:30 Acetaminophen (Tylenol) 650 mg PRN Q6HRS PRN PO Headaches, Temp > 101.5F; Start 01/20/21 at 08:30 Senna/Docusate Sodium (Senna Plus) 1 tab BID PO Last administered on 01/20/21at 22:11; Start 01/20/21 at 09:00 Meropenem 500 mg/ Sodium Chloride 50 ml @ 100 mls/hr Q6HRS IV Last administered on 01/21/21at 05:58; Start 01/20/21 at 12:00 Daptomycin 640 mg/ Sodium Chloride 50 ml @ 100 mls/hr Q24H IV Last administered on 01/20/21at 15:04; Start 01/20/21 at 13:00 Active Scripts Active Levofloxacin 500 Mg Tablet 1 Tab PO DAILY 7 Days Dok (Docusate Sodium) 100 Mg Capsule 100 Mg PO PRN BID PRN 30 Days Tylenol (Acetaminophen) 325 Mg Tablet 650 Mg PO PRN Q6HRS PRN 14 Days Hydrocodone-Apap 5-325 (Hydrocodone Bit/Acetaminophen) 1 Tab Tablet 1 Tab PO PRN Q4HRS PRN 10 Days Culturelle (Lactobacillus Rhamnosus Gg) 1 Each Cap.sprink 1 Cap PO BID 30 Days Aspirin 325 Mg Tablet 325 Mg PO DAILYWBKFT 30 Days Reported Novolog Flexpen (Insulin Aspart) 100 Unit/1 Ml Insuln.pen 38 Unit SQ TIDAC Lantus (Insulin Glargine,Hum.rec.anlog) 100 Unit/1 Ml Vial 80 Unit SQ HS Atorvastatin Calcium 40 Mg Tablet 1 Tab PO QHS Amlodipine Besylate 10 Mg Tablet 10 Mg PO DAILY Allergies Allergies: Coded Allergies: lisinopril (Verified Allergy, Severe, ANGIOEDEMA, 02/18/20) vancomycin (Verified Allergy, Severe, SOB, 02/18/20) Penicillins (Verified Allergy, Intermediate, 02/18/20) TOLERATES MERREM cefepime (Verified Allergy, Intermediate, Itching, 02/18/20) Iodinated Contrast Media (Verified Adverse Reaction, Intermediate, Nausea, 01/20/21) "Makes me throw up" ROS General: No: Chills, Night Sweats, Fatigue, Malaise, Appetite, Other PSYCHOLOGICAL ROS: YES: Anxiety Musculoskeletal: Yes Gait Disturbance, Yes Joint Pain, Yes Joint Stiffness, Yes Joint Swelling, Yes Muscle Pain Neurological: Yes Gait Disturbance, Yes Weakness Skin: Yes Other (Full-thickness ulcer to the right plantar cuboid) Physical Exam General: Alert, Oriented X3 Extremities: Other (DP/PT are faintly palpable, the foot stump is warm to touch.) Skin: Other (Full-thickness ulcer to the plantar cuboid, approximately 6 x 8 cm, without active drainage, fluctuance or proximal streaking. The wound base is granular, not probe to bone or tendon. The periwound skin is minimally erythematous and edematous extending to the level of the lateral ankle joint) Neuro: Reflexes 2+, Other (Light touch sensation diminished to the level of the distal tib-fib) MUSCULOSKELETAL: Other (TTP to the plantar cuboid, cc J, lateral ankle joint along the peroneal tendons as well. Passive ankle range of motion was free from crepitus, pain. Subtalar joint range of motion was limited and also unremarkable for tenderness. When the foot is loaded, there is minimal to no equina varus deformity. Ankle dorsiflexion was noted at 90 degrees. Calf is soft and nontender) Vitals VITALS Vital Signs Date Time Temp Pulse Resp B/P (MAP) Pulse Ox O2 Delivery O2 Flow Rate FiO2 01/21/21 07:00 98.2 83 16 153/100 (117) 99 Room Air 98.2 Labs Labs Laboratory Tests Test 01/20/21 05:02 01/20/21 11:35 01/20/21 14:22 01/20/21 18:47 White Blood Count 7.8 x10^3/uL (4.0-11.0) Red Blood Count 3.87 x10^6/uL (4.30-5.70) Hemoglobin 11.5 g/dL (13.0-17.5) Hematocrit 33.3 % (39.0-53.0) Mean Corpuscular Volume 86 fL (79-100) Mean Corpuscular Hemoglobin 30 pg (25-35) Mean Corpuscular Hemoglobin Concent 35 g/dL (31-37) Red Cell Distribution Width 15.7 % (11.5-14.5) Platelet Count 251 x10^3/uL (140-400) Neutrophils (%) (Auto) 63 % (31-73) Lymphocytes (%) (Auto) 23 % (24-48) Monocytes (%) (Auto) 10 % (0-9) Eosinophils (%) (Auto) 3 % (0-3) Basophils (%) (Auto) 1 % (0-3) Neutrophils # (Auto) 4.9 x10^3/uL (1.8-7.7) Lymphocytes # (Auto) 1.8 x10^3/uL (1.0-4.8) Monocytes # (Auto) 0.8 x10^3/uL (0.0-1.1) Eosinophils # (Auto) 0.3 x10^3/uL (0.0-0.7) Basophils # (Auto) 0.1 x10^3/uL (0.0-0.2) Erythrocyte Sedimentation Rate 52 (0-15) Sodium Level 140 mmol/L (136-145) Potassium Level 4.1 mmol/L (3.5-5.1) Chloride Level 104 mmol/L (98-107) Carbon Dioxide Level 27 mmol/L (21-32) Anion Gap 9 (6-14) Blood Urea Nitrogen 15 mg/dL (8-26) Creatinine 0.9 mg/dL (0.7-1.3) Estimated GFR (Cockcroft-Gault) 108.1 BUN/Creatinine Ratio 17 (6-20) Glucose Level 128 mg/dL (70-99) Lactic Acid Level 1.0 mmol/L (0.4-2.0) Calcium Level 9.1 mg/dL (8.5-10.1) Total Bilirubin 0.2 mg/dL (0.2-1.0) Aspartate Amino Transf (AST/SGOT) 14 U/L (15-37) Alanine Aminotransferase (ALT/SGPT) 18 U/L (16-63) Alkaline Phosphatase 86 U/L (46-116) Creatine Kinase 97 U/L (39-308) C-Reactive Protein, Quantitative 8.2 mg/L (0-3.3) Total Protein 7.2 g/dL (6.4-8.2) Albumin 3.2 g/dL (3.4-5.0) Albumin/Globulin Ratio 0.8 (1.0-1.7) SARS-CoV-2 RNA (MATILDA) Negative (Negative) SARS-CoV-2 Antigen (Rapid) Negative (NEGATIVE) Glucose (Fingerstick) 93 mg/dL (70-99) 311 mg/dL (70-99) Test 01/21/21 07:58 Glucose (Fingerstick) 350 mg/dL (70-99) Laboratory Tests Test 01/20/21 11:35 01/20/21 14:22 01/20/21 18:47 01/21/21 07:58 SARS-CoV-2 RNA (MATILDA) Negative (Negative) SARS-CoV-2 Antigen (Rapid) Negative (NEGATIVE) Glucose (Fingerstick) 93 mg/dL (70-99) 311 mg/dL (70-99) 350 mg/dL (70-99) Images Images Osteolytic changes to the cuboid concerning for osteomyelitis, communicating air in the setting of a full-thickness ulcer. Further osseous evaluations are limited due to the lateral midfoot overlap. Assessment/Plan Assessment/Plan Diabetic foot ulcer to the right lateral stump, concerning for osteomyelitis, tendinitis, cellulitis, and small concerns of septic joint, deep tissue abscess in the setting of PAD, peripheral neuropathy, tobacco abuse. However, patient is hemodynamically stable and does not meet the SIRS criteria -Deep wound culture for anaerobes, aerobes, Gram stain and sensitivity was collected today at bedside -BCX: NGTD -Daily WBC trend -IV antibiotics: Currently meropenem, daptomycin per IDs recommendation -Dress the wound with Betadine wet-to-dry gauze, Kerlix and tape with minimal compression, dressing change twice daily -Remain nonweightbearing to the right foot. Elevate the right foot with 2 pillows behind the calf so that the heel is floated and then toes are elevated to the level of nose. -Patient is very adamant against surgical intervention at this time and just wants to save as much foot as possible. He wants to try IV antibiotics for source control and may consider surgical debridement as the last resort. I did discuss in details in depth with the options including cuboid, cuneiform I&D/more proximal amputation, BKA, solely IV antibiotics along with the risks and benefits of each approach including proximal spreading of infection, sepsis, , the concern of equinovarus deformity and unfunctional distal stump, as opposed to BKA with a prosthesis, cardiovascular distress. For now, he is in agreement for MRI for source infection evaluation and just stay on the IV antibiotic therapy -Pending MRI of the right lower extremity covering the distal tib-fib. Patient claims contrast allergy? Noncontrast is okay -If surgical intervention is indicated and consented, we need to obtain the medical and surgical record from [facility] regarding the right foot and lower extremity management -Patient also wants to be discharged home today so that he can take care of the kids at home. He also wants to be readmitted later today for IV antibiotics and further medical care. I recommend a social media marketing specialist consult and help with the coordination. Disposition: No surgical intervention is planned at this point, pending MRI. I will re-evaluate the patient and discuss the options again once the MRI results return. If the patient is is discharged home today, please follow the dressing change, activity restriction recommendation as above. DOMENICO IBANEZ DPM Jan 21, 2021 09:30
[2021-01-21 09:48] VITALS: BP 153/100
[2021-01-21] MEDS: SENNOSIDES/DOCUSATE 8.6/50MG TABLET. PO SCH (09:49)
[2021-01-21] MEDS: LACTOBACILLUS RHAMNOSUS GG 1 CAPSULE. PO SCH (09:49)
[2021-01-21] MEDS: INSULIN LISPRO 300 UNITS/3 ML VIAL. SQ SCH ×4 (09:51→14:20)
--- NOTE | 2021-01-21 11:51 | NUR ---
SW following. Discussed with RN, pt from home with hira, room air, NPO, COVID-19 negative. Wound care and ID following. Per RN, pt is being rude to staff, doesn't want surgery etc. MRI ordered. RN advised no SW needs at this time. SW will continue to follow.
--- NOTE | 2021-01-21 14:50 | NUR ---
Pt requesting to leave AMA as he needed to go home and provide food to care for his family as he is the only one who has access to his food stamp card. Dr. García has discussed pt's condition and recommending pt to stay for further treatment. Dr. García discussed risks and consequences of denying treatment as pt needed to leave. Pt verbalized understanding and has signed AMA paperwork. Nursing supervisor production department notified.
[2021-01-22 01:12] LABS: HEMOGLOBIN A1C 9.8 % (4.8-5.6)
== END 2021-01-21 15:05 | disposition left against medical advice (07) | DRG 638 ==
LOC: ER 03:54 → ED HOLD 05:42 → 5 NORTH 06:56
PROVIDERS: ADMIT Internal Medicine; ATTEND Internal Medicine
DX: E11.69 Type 2 diabetes mellitus with other specified complication (principal); M86.171 Other acute osteomyelitis, right ankle and foot; Z16.11 Resistance to penicillins; E11.621 Type 2 diabetes mellitus with foot ulcer; E11.51 Type 2 diabetes mellitus with diabetic peripheral angiopathy without gangrene; E11.628 Type 2 diabetes mellitus with other skin complications; E11.65 Type 2 diabetes mellitus with hyperglycemia; E78.00 Pure hypercholesterolemia, unspecified; E78.5 Hyperlipidemia, unspecified; I10 Essential (primary) hypertension; J45.909 Unspecified asthma, uncomplicated; L08.9 Local infection of the skin and subcutaneous tissue, unspecified; L97.519 Non-pressure chronic ulcer of other part of right foot with unspecified severity; Z79.4 Long term (current) use of insulin; Z83.3 Family history of diabetes mellitus; Z87.891 Personal history of nicotine dependence; Z88.0 Allergy status to penicillin; Z88.1 Allergy status to other antibiotic agents; Z90.49 Acquired absence of other specified parts of digestive tract; E11.42 Type 2 diabetes mellitus with diabetic polyneuropathy; Z53.29 Procedure and treatment not carried out because of patient's decision for other reasons
CPT/HCPCS: 36415; 73630; 80053; 82550; 82962; 83036; 83605; 85025; 85651; 86140; 87040; 87071; 87075; 87426; 96365; 96367; 96368; 96372; J0878; J1815; J2020; J2185; J2405; U0003; U0005; 99285-25; G0378; Q0163